=== PATIENT | male | born 1950 | race Caucasian/White ===

== ENCOUNTER → 2017-10-13 | Outpatient (CLI) | payer MEDICARE, OTHER | LOC: CARD 09:30 | PROVIDERS: ATTEND Internal Medicine | DX: I48.91 Unspecified atrial fibrillation (principal); I34.0 Nonrheumatic mitral (valve) insufficiency | CPT/HCPCS: 93306 ==

== ENCOUNTER → 2018-11-24 | Outpatient (CLI) | payer MEDICARE, OTHER | LOC: WOUNDCARE 09:15 | PROVIDERS: ATTEND Surgery | DX: L97.212 Non-pressure chronic ulcer of right calf with fat layer exposed (principal); L97.222 Non-pressure chronic ulcer of left calf with fat layer exposed; I87.333 Chronic venous hypertension (idiopathic) with ulcer and inflammation of bilateral lower extremity; I70.232 Atherosclerosis of native arteries of right leg with ulceration of calf; I89.0 Lymphedema, not elsewhere classified; E66.01 Morbid (severe) obesity due to excess calories | CPT/HCPCS: 11042 ==

== ENCOUNTER → 2018-11-24 | Outpatient (CLI) | payer MEDICARE, OTHER ==
[2018-11-24 12:59] LABS: BASOPHILS % (AUTO) 0 % (0-10); EOSINOPHILS # (AUTO) 0.1 10^3/uL (0.0-0.3); EOSINOPHILS % (AUTO) 1 % (0-10); HEMATOCRIT 43 % (40-54); LYMPHOCYTES # (AUTO) 2.2 X 10^3 (1.0-4.0); LYMPHOCYTES % (AUTO) 23 % (12-44); MEAN CORPUSCULAR HEMOGLOBIN 30 PG (25-34); MEAN CORPUSCULAR HGB CONC 33 G/DL (32-36); MEAN CORPUSCULAR VOLUME 91 FL (80-99); MEAN PLATELET VOLUME 10.3 FL (7.4-10.4); MONOCYTES # (AUTO) 0.6 X 10^3 (0.0-1.0); MONOCYTES % (AUTO) 6 % (0-12); NEUTROPHILS # (AUTO) 6.8 X 10^3 (1.8-7.8); NEUTROPHILS % (AUTO) 70 % (42-75); PLATELET COUNT 159 10^3/uL (130-400); WHITE BLOOD COUNT 9.6 10^3/uL (4.3-11.0)
[2018-11-24 13:24] LABS: ALANINE AMINOTRANSFERASE 34 U/L (0-55); ALBUMIN 4.3 GM/DL (3.2-4.5); ALKALINE PHOSPHATASE 85 U/L (40-136); BILIRUBIN,TOTAL 0.6 MG/DL (0.1-1.0); BUN/CREATININE RATIO 26; CALCIUM 10.3 MG/DL (8.5-10.1); CARBON DIOXIDE 22 MMOL/L (21-32); CHLORIDE 105 MMOL/L (98-107); CREATININE SERUM 1.06 MG/DL (0.60-1.30); GFR ESTIMATED > 60; GLUCOSE 101 MG/DL (70-105); POTASSIUM 4.1 MMOL/L (3.6-5.0); SODIUM 141 MMOL/L (135-145); TOTAL PROTEIN 7.2 GM/DL (6.4-8.2)
== END ==
LOC: RAD 12:26
PROVIDERS: ATTEND Surgery
DX: L97.222 Non-pressure chronic ulcer of left calf with fat layer exposed (principal); L97.212 Non-pressure chronic ulcer of right calf with fat layer exposed; I87.333 Chronic venous hypertension (idiopathic) with ulcer and inflammation of bilateral lower extremity; I70.232 Atherosclerosis of native arteries of right leg with ulceration of calf; I89.0 Lymphedema, not elsewhere classified; E66.01 Morbid (severe) obesity due to excess calories
CPT/HCPCS: 36415; 80053; 84134; 85025

== ENCOUNTER → 2018-11-29 | Outpatient (CLI) | payer MEDICARE, OTHER | LOC: WOUNDCARE 14:34 | PROVIDERS: ATTEND Surgery | DX: L97.212 Non-pressure chronic ulcer of right calf with fat layer exposed (principal); L97.222 Non-pressure chronic ulcer of left calf with fat layer exposed; I87.333 Chronic venous hypertension (idiopathic) with ulcer and inflammation of bilateral lower extremity; I70.232 Atherosclerosis of native arteries of right leg with ulceration of calf; I89.0 Lymphedema, not elsewhere classified; E66.01 Morbid (severe) obesity due to excess calories; I96 Gangrene, not elsewhere classified | CPT/HCPCS: 99213 ==

== ENCOUNTER → 2018-12-06 | Outpatient (CLI) | payer MEDICARE, OTHER | LOC: WOUNDCARE 14:24 | PROVIDERS: ATTEND Surgery | DX: L97.212 Non-pressure chronic ulcer of right calf with fat layer exposed (principal); L97.221 Non-pressure chronic ulcer of left calf limited to breakdown of skin; I87.332 Chronic venous hypertension (idiopathic) with ulcer and inflammation of left lower extremity; E66.01 Morbid (severe) obesity due to excess calories; I87.321 Chronic venous hypertension (idiopathic) with inflammation of right lower extremity; I96 Gangrene, not elsewhere classified ==

== ENCOUNTER → 2018-12-13 | Outpatient (CLI) | payer MEDICARE, OTHER | LOC: WOUNDCARE 13:50 | PROVIDERS: ATTEND Surgery | DX: L97.212 Non-pressure chronic ulcer of right calf with fat layer exposed (principal); L97.221 Non-pressure chronic ulcer of left calf limited to breakdown of skin; I87.332 Chronic venous hypertension (idiopathic) with ulcer and inflammation of left lower extremity; E66.01 Morbid (severe) obesity due to excess calories; I87.321 Chronic venous hypertension (idiopathic) with inflammation of right lower extremity; I96 Gangrene, not elsewhere classified | CPT/HCPCS: 99212 ==

== ENCOUNTER 2019-05-03 15:03 | Emergency (ER) | payer MEDICARE, OTHER ==
[~2019-05-03] VITALS: Ht 167.7 cm; Wt 145.5 kg
--- NOTE | 2019-05-03 15:16 | ED General ---
General Stated Complaint: FALL FEVER/WEAKNESS Source of Information: Patient Exam Limitations: No Limitations History of Present Illness Date Seen by Provider: May 03, 2019 Time Seen by Provider: 15:15 Initial Comments 68-year-old male presents with fall due to some generalized weakness. He describes it as more of a sliding down. With no injury. He does report that he has had dark urine with some dysuria for the last couple days. Subjective fever, he does have a cough and some generalized body aches. Patient reports he didn't take his medications including his diltiazem his last dose because he just had some generalized malaise. No nausea vomiting diarrhea or other systemic complaints. He does report a little bit of decreased appetite with his illness. Allergies and Home Medications Allergies Coded Allergies: No Known Drug Allergies (Unverified , 05/03/19) Patient Home Medication List Home Medication List Reviewed: Yes Review of Systems Review of Systems Constitutional: fever, malaise Respiratory: cough Cardiovascular: No chest pain, No edema Gastrointestinal: No abdominal pain, No diarrhea, No nausea, No vomiting Genitourinary: dysuria Musculoskeletal: no symptoms reported Skin: no symptoms reported Past Ptdrhoa-Unvlrz-Dcysrp Hx Past Med/Social Hx: Reviewed Nursing Past Med/Soc Hx Physical Exam Vital Signs Vital Signs - First Documented Capillary Refill : Height, Weight, BMI Height: '" Weight: lbs. oz. kg; BMI Method: General Appearance: No Apparent Distress, WD/WN Neck: Full Range of Motion, Normal Inspection Respiratory: Lungs Clear, Normal Breath Sounds Cardiovascular: Irregularly Irregular, Tachycardia Gastrointestinal: Non Tender, Soft Extremity: Normal Capillary Refill, Normal Inspection Neurologic/Psychiatric: Alert, Oriented x3, No Motor/Sensory Deficits Skin: Normal Color, Warm/Dry Lymphatic: No Adenopathy Focused Exam Lactate Level 05/03/19 15:25: Lactic Acid Level 1.68 Lactic Acid Level Laboratory Tests Test 05/03/19 15:25 Lactic Acid Level 1.68 MMOL/L (0.50-2.00) Progress/Results/Core Measures Suspected Sepsis SIRS Temperature: Pulse: Respiratory Rate: Laboratory Tests 05/03/19 15:00: White Blood Count 13.2H Blood Pressure / Mean: 05/03/19 15:25: Lactic Acid Level 1.68 Laboratory Tests 05/03/19 15:00: Creatinine 2.66H, Platelet Count 144, Total Bilirubin 0.6 Results/Orders Lab Results Laboratory Tests Test 05/03/19 15:00 05/03/19 15:25 05/03/19 15:41 05/03/19 16:40 Range/Units White Blood Count 13.2 H 4.3-11.0 10^3/uL Red Blood Count 4.33 L 4.35-5.85 10^6/uL Hemoglobin 12.7 L 13.3-17.7 G/DL Hematocrit 39 L 40-54 % Mean Corpuscular Volume 89 80-99 FL Mean Corpuscular Hemoglobin 29 25-34 PG Mean Corpuscular Hemoglobin Concent 33 32-36 G/DL Red Cell Distribution Width 16.0 H 10.0-14.5 % Platelet Count 144 130-400 10^3/uL Mean Platelet Volume 10.9 H 7.4-10.4 FL Neutrophils (%) (Auto) 86 H 42-75 % Lymphocytes (%) (Auto) 8 L 12-44 % Monocytes (%) (Auto) 7 0-12 % Eosinophils (%) (Auto) 0 0-10 % Basophils (%) (Auto) 0 0-10 % Neutrophils # (Auto) 11.3 H 1.8-7.8 X 10^3 Lymphocytes # (Auto) 1.0 1.0-4.0 X 10^3 Monocytes # (Auto) 0.9 0.0-1.0 X 10^3 Eosinophils # (Auto) 0.0 0.0-0.3 10^3/uL Basophils # (Auto) 0.0 0.0-0.1 10^3/uL Neutrophils % (Manual) 86 % Lymphocytes % (Manual) 10 % Monocytes % (Manual) 4 % Eosinophils % (Manual) 0 % Basophils % (Manual) 0 % Band Neutrophils 0 % Anisocytosis SLIGHT Sodium Level 137 135-145 MMOL/L Potassium Level 3.7 3.6-5.0 MMOL/L Chloride Level 102 98-107 MMOL/L Carbon Dioxide Level 23 21-32 MMOL/L Anion Gap 12 5-14 MMOL/L Blood Urea Nitrogen 62 H 7-18 MG/DL Creatinine 2.66 H 0.60-1.30 MG/DL Estimat Glomerular Filtration Rate 24 BUN/Creatinine Ratio 23 Glucose Level 109 H 70-105 MG/DL Calcium Level 8.6 8.5-10.1 MG/DL Corrected Calcium 9.0 8.5-10.1 MG/DL Total Bilirubin 0.6 0.1-1.0 MG/DL Aspartate Amino Transf (AST/SGOT) 26 5-34 U/L Alanine Aminotransferase (ALT/SGPT) 24 0-55 U/L Alkaline Phosphatase 70 40-136 U/L Total Protein 6.1 L 6.4-8.2 GM/DL Albumin 3.5 3.2-4.5 GM/DL Lactic Acid Level 1.68 0.50-2.00 MMOL/L Glucometer 111 H 70-110 MG/DL Urine Color YELLOW Urine Clarity TURBID Urine pH 5.0 5-9 Urine Specific [place] >=1.030 1.016-1.022 Urine Protein 1+ H NEGATIVE Urine Glucose (UA) NEGATIVE NEGATIVE Urine Ketones NEGATIVE NEGATIVE Urine Nitrite POSITIVE NEGATIVE Urine Bilirubin NEGATIVE NEGATIVE Urine Urobilinogen 0.2 < = 1.0 MG/DL Urine Leukocyte Esterase 1+ H NEGATIVE Urine RBC (Auto) 3+ H NEGATIVE Urine RBC 50-100 H /HPF Urine WBC 25-50 H /HPF Urine Squamous Epithelial Cells NONE /HPF Urine Crystals NONE /LPF Urine Bacteria LARGE H /HPF Urine Casts NONE /LPF Urine Mucus NEGATIVE /LPF Urine Culture Indicated YES Micro Results Microbiology 05/03/19 Influenza Types A,B Antigen (ABHISHEK) - Final, Complete My Orders Orders - KEREN LEBRON DO Cbc With Automated Diff (05/03/19 15:16) Comprehensive Metabolic Panel (05/03/19 15:16) Lactic Acid Analyzer (05/03/19 15:16) Ua Culture If Indicated (05/03/19 15:16) Influenza A And B Antigens (05/03/19 15:16) Accucheck Stat ONCE (05/03/19 15:16) Ekg Tracing (05/03/19 15:17) Ed Iv/Invasive Line Start (05/03/19 15:17) Ed Iv/Invasive Line Start (05/03/19 15:18) Ns Iv 1000 Ml (Sodium Chloride 0.9%) (05/03/19 15:18) Manual Differential (05/03/19 15:00) Urine Culture (05/03/19 16:40) Diltiazem Injection (Cardizem Injection) (05/03/19 17:00) Acetaminophen Tablet (Tylenol Tablet) (05/03/19 16:54) Ceftriaxone For Iv Use (Rocephin For I (05/03/19 17:30) Medications Given in ED Current Medications Medications Dose Ordered Sig/Rishabh Route Start Time Stop Time Status Last Admin Dose Admin Diltiazem HCl 10 mg ONCE ONCE IVP 05/03/19 17:00 05/03/19 17:01 DC 05/03/19 17:03 10 MG Vital Signs/I&O 05/03/19 05/03/19 15:03 15:03 Temp 36.9 Pulse 170 Resp 22 B/P (MAP) 127/77 (94) Pulse Ox 96 O2 Delivery Nasal Cannula High Flow N/C O2 Flow Rate 2.00 2.00 Capillary Refill : Departure Impression Primary Impression: Cystitis Additional Impression: Atrial fibrillation Qualified Codes: I48.91 - Unspecified atrial fibrillation Disposition: HOME, SELF-CARE Condition: Stable Departure-Patient Inst. Referrals: CARMEN ARIAS MD (PCP/Family) Primary Care Physician Patient Instructions: Atrial Fibrillation, Acute Cystitis (DC) Add. Discharge Instructions: Emergency department focuses on treating and ruling out life-threatening diseases. Whenever possible, a diagnosis is given. However, most patients are given an impression based on their history, physical exam, and workup during your brief time in the ER. Information about probable diagnosis and other educational material has been provided. Please take the time to read and under stand this information. It is very important that you follow up with a physician as discussed during the visit today. Failure to adhere to your follow-up instructions may lead to severe disability, injury, or so please make sure to keep your appointments or obtain one as requested. Please keep in mind the emergency department is not designed to your primary care or "family doctor" and nonurgent issues are best evaluated by an outpatient physician Scripts Cephalexin (Cephalexin) 500 Mg Tablet 500 MG PO QID, #20 TAB 0 Refills Prov: KEREN LEBRON DO 05/03/19 KEREN LEBRON DO May 03, 2019 15:16 POS
[2019-05-03] MEDS ORDERED: NS IV 1000 ML 1,000 ML IV SCH (15:18)
[2019-05-03 15:22] LABS: BASOPHILS % (AUTO) 0 % (0-10); EOSINOPHILS % (AUTO) 0 % (0-10); HEMATOCRIT 39 % (40-54); HEMOGLOBIN 12.7 G/DL (13.3-17.7); LYMPHOCYTES % (AUTO) 8 % (12-44); MEAN CORPUSCULAR HEMOGLOBIN 29 PG (25-34); MEAN CORPUSCULAR HGB CONC 33 G/DL (32-36); MEAN CORPUSCULAR VOLUME 89 FL (80-99); MEAN PLATELET VOLUME 10.9 FL (7.4-10.4); MONOCYTES # (AUTO) 0.9 X 10^3 (0.0-1.0); MONOCYTES % (AUTO) 7 % (0-12); NEUTROPHILS # (AUTO) 11.3 X 10^3 (1.8-7.8); NEUTROPHILS % (AUTO) 86 % (42-75); PLATELET COUNT 144 10^3/uL (130-400); WHITE BLOOD COUNT 13.2 10^3/uL (4.3-11.0)
[2019-05-03 15:37] LABS: ANISOCYTOSIS SLIGHT; BAND NEUTROPHILS 0 %; BASOPHILS % (MANUAL) 0 %; EOSINOPHILS % (MANUAL) 0 %; LYMPHOCYTES % (MANUAL) 10 %; MONOCYTES % (MANUAL) 4 %; NEUTROPHILS % (MANUAL) 86 %
[2019-05-03 15:40] LABS: ALBUMIN 3.5 GM/DL (3.2-4.5); BILIRUBIN,TOTAL 0.6 MG/DL (0.1-1.0); CALCIUM 8.6 MG/DL (8.5-10.1); CREATININE SERUM 2.66 MG/DL (0.60-1.30); POTASSIUM 3.7 MMOL/L (3.6-5.0); TOTAL PROTEIN 6.1 GM/DL (6.4-8.2)
--- NOTE | 2019-05-03 16:00 | NUR ---
Iv NS bolus initiated by CC ems, REHABILITATION SERVICES COORDINATOR, complete (1000ml intake).
[2019-05-03 16:45] LABS: BILIRUBIN,URINE NEGATIVE (NEGATIVE); CLARITY,URINE TURBID; COLOR,URINE YELLOW; GLUCOSE, URINE (UA) NEGATIVE (NEGATIVE); KETONES,URINE NEGATIVE (NEGATIVE); LEUKOCYTE ESTERASE ,URINE 1+ (NEGATIVE); NITRITE,URINE POSITIVE (NEGATIVE); PROTEIN,URINE 1+ (NEGATIVE)
[2019-05-03 16:52] LABS: BACTERIA,URINE LARGE /HPF; RBC,URINE 50-100 /HPF; WBC,URINE 25-50 /HPF
[2019-05-03] MEDS ORDERED: ACETAMINOPHEN 500 MG TAB (TYLENOL) PO STA (16:54)
[2019-05-03] MEDS ORDERED: DILTIAZEM 25 MG/5 ML INJ (CARDIZEM) VIAL IVP ONE (17:00)
[2019-05-03] MEDS ORDERED: CEPH500T PO (17:21)
[2019-05-03] MEDS ORDERED: WATER (STERILE) FOR INJECTION 10 ML ONE (17:22)
[2019-05-03] MEDS ORDERED: cefTRIAXone FOR IV USE 1,000 MG in WATER (STERILE) FOR INJECTION 10 ML IV ONE (17:30)
[2019-05-03 17:50] VITALS: BP 107/61
== END 2019-05-03 17:50 | disposition home or self-care (01) ==
LOC: EDUNIT# 15:03 → ER 15:06
DX: N30.90 Cystitis, unspecified without hematuria (principal); I48.91 Unspecified atrial fibrillation
CPT/HCPCS: 36415; 80053; 81000; 82962; 83605; 85007; 85027; 87077; 87088; 87186; 87804; 93005; 96361; 96374; 96375

== ENCOUNTER → 2021-06-16 | Outpatient (CLI) | payer MEDICARE, OTHER ==
[~2021-06-16] MED LIST: CEPH500T PO
== END ==
LOC: WOUNDCARE 12:15
PROVIDERS: ATTEND Family Medicine
DX: L97.222 Non-pressure chronic ulcer of left calf with fat layer exposed (principal); L97.212 Non-pressure chronic ulcer of right calf with fat layer exposed; I87.333 Chronic venous hypertension (idiopathic) with ulcer and inflammation of bilateral lower extremity; L03.115 Cellulitis of right lower limb; L03.116 Cellulitis of left lower limb; I89.0 Lymphedema, not elsewhere classified; E11.622 Type 2 diabetes mellitus with other skin ulcer; E66.09 Other obesity due to excess calories; E11.52 Type 2 diabetes mellitus with diabetic peripheral angiopathy with gangrene
CPT/HCPCS: 99213

== ENCOUNTER → 2021-06-16 | Outpatient (CLI) | payer MEDICARE, OTHER ==
[2021-06-16 14:27] LABS: BASOPHILS # (AUTO) 0.1 10^3/uL (0.0-0.1); BASOPHILS % (AUTO) 1 % (0-10); EOSINOPHILS # (AUTO) 0.1 10^3/uL (0.0-0.3); EOSINOPHILS % (AUTO) 1 % (0-10); HEMATOCRIT 44 % (40-54); HEMOGLOBIN 13.7 g/dL (13.3-17.7); LYMPHOCYTES # (AUTO) 1.9 10^3/uL (1.0-4.0); LYMPHOCYTES % (AUTO) 20 % (12-44); MEAN CORPUSCULAR HEMOGLOBIN 29 pg (25-34); MEAN CORPUSCULAR HGB CONC 31 g/dL (32-36); MEAN CORPUSCULAR VOLUME 92 fL (80-99); MEAN PLATELET VOLUME 10.1 fL (9.0-12.2); MONOCYTES # (AUTO) 0.7 10^3/uL (0.0-1.0); MONOCYTES % (AUTO) 8 % (0-12); NEUTROPHILS # (AUTO) 6.7 10^3/uL (1.8-7.8); NEUTROPHILS % (AUTO) 70 % (42-75); PLATELET COUNT 178 10^3/uL (130-400); WHITE BLOOD COUNT 9.5 10^3/uL (4.3-11.0)
[2021-06-16 14:43] LABS: ALBUMIN 4.1 GM/DL (3.2-4.5); BILIRUBIN,TOTAL 0.8 MG/DL (0.1-1.0); CALCIUM 9.9 MG/DL (8.5-10.1); CREATININE SERUM 1.09 MG/DL (0.60-1.30); POTASSIUM 4.3 MMOL/L (3.6-5.0); TOTAL PROTEIN 7.3 GM/DL (6.4-8.2)
== END ==
LOC: LAB 13:51
PROVIDERS: ATTEND Family Medicine
DX: L97.222 Non-pressure chronic ulcer of left calf with fat layer exposed (principal)
CPT/HCPCS: 36415; 80053; 83036; 85025

== ENCOUNTER → 2021-06-22 | Outpatient (CLI) | payer MEDICARE, OTHER | LOC: WOUNDCARE 13:36 | PROVIDERS: ATTEND Family Medicine | DX: L97.222 Non-pressure chronic ulcer of left calf with fat layer exposed (principal); L97.212 Non-pressure chronic ulcer of right calf with fat layer exposed; I87.333 Chronic venous hypertension (idiopathic) with ulcer and inflammation of bilateral lower extremity; L03.115 Cellulitis of right lower limb; L03.116 Cellulitis of left lower limb; I89.0 Lymphedema, not elsewhere classified; E11.622 Type 2 diabetes mellitus with other skin ulcer; E66.09 Other obesity due to excess calories; E11.52 Type 2 diabetes mellitus with diabetic peripheral angiopathy with gangrene | CPT/HCPCS: 11042; 11045; A6207; A6253; G0463 ==

== ENCOUNTER → 2021-06-29 | Outpatient (CLI) | payer MEDICARE, OTHER | LOC: WOUNDCARE 15:28 | PROVIDERS: ATTEND Family Medicine | DX: L97.222 Non-pressure chronic ulcer of left calf with fat layer exposed (principal); L97.212 Non-pressure chronic ulcer of right calf with fat layer exposed; I87.333 Chronic venous hypertension (idiopathic) with ulcer and inflammation of bilateral lower extremity; I89.0 Lymphedema, not elsewhere classified; E11.622 Type 2 diabetes mellitus with other skin ulcer; E66.09 Other obesity due to excess calories; E11.52 Type 2 diabetes mellitus with diabetic peripheral angiopathy with gangrene | CPT/HCPCS: 11042 ==

== ENCOUNTER → 2021-07-06 | Outpatient (CLI) | payer MEDICARE, OTHER | LOC: WOUNDCARE 15:24 | PROVIDERS: ATTEND Family Medicine | DX: I87.331 Chronic venous hypertension (idiopathic) with ulcer and inflammation of right lower extremity (principal); L97.212 Non-pressure chronic ulcer of right calf with fat layer exposed; I89.0 Lymphedema, not elsewhere classified; E11.622 Type 2 diabetes mellitus with other skin ulcer; E11.52 Type 2 diabetes mellitus with diabetic peripheral angiopathy with gangrene; E66.09 Other obesity due to excess calories; Z68.42 Body mass index [BMI] 45.0-49.9, adult | CPT/HCPCS: 29581; G0463; 99212 ==

== ENCOUNTER → 2021-07-13 | Outpatient (CLI) | payer MEDICARE, OTHER | LOC: WOUNDCARE 14:27 | PROVIDERS: ATTEND Family Medicine | DX: E11.52 Type 2 diabetes mellitus with diabetic peripheral angiopathy with gangrene (principal); E11.622 Type 2 diabetes mellitus with other skin ulcer; L97.212 Non-pressure chronic ulcer of right calf with fat layer exposed; I87.331 Chronic venous hypertension (idiopathic) with ulcer and inflammation of right lower extremity; I89.0 Lymphedema, not elsewhere classified; I96 Gangrene, not elsewhere classified; E66.09 Other obesity due to excess calories; Z68.42 Body mass index [BMI] 45.0-49.9, adult | CPT/HCPCS: 97597; A6197; G0463 ==

== ENCOUNTER → 2021-07-20 | Outpatient (CLI) | payer MEDICARE, OTHER | LOC: WOUNDCARE 15:26 | PROVIDERS: ATTEND Family Medicine | DX: I87.331 Chronic venous hypertension (idiopathic) with ulcer and inflammation of right lower extremity (principal); I89.0 Lymphedema, not elsewhere classified; E11.622 Type 2 diabetes mellitus with other skin ulcer; E66.09 Other obesity due to excess calories; E11.52 Type 2 diabetes mellitus with diabetic peripheral angiopathy with gangrene | CPT/HCPCS: 99212 ==

== ENCOUNTER → 2021-12-07 | Outpatient (CLI) | payer MEDICARE, OTHER | LOC: WOUNDCARE 13:12 | PROVIDERS: ATTEND Family Medicine | DX: L97.812 Non-pressure chronic ulcer of other part of right lower leg with fat layer exposed (principal); L97.822 Non-pressure chronic ulcer of other part of left lower leg with fat layer exposed; L03.115 Cellulitis of right lower limb; L03.116 Cellulitis of left lower limb; I87.333 Chronic venous hypertension (idiopathic) with ulcer and inflammation of bilateral lower extremity; I89.0 Lymphedema, not elsewhere classified; L24.A9 Irritant contact dermatitis due friction or contact with other specified body fluids; E66.01 Morbid (severe) obesity due to excess calories; M62.81 Muscle weakness (generalized); R29.6 Repeated falls | CPT/HCPCS: 11042; A6197; G0463 ==

== ENCOUNTER → 2021-12-14 | Outpatient (CLI) | payer MEDICARE, OTHER | LOC: WOUNDCARE 12:59 | PROVIDERS: ATTEND Family Medicine | DX: L97.812 Non-pressure chronic ulcer of other part of right lower leg with fat layer exposed (principal); L97.922 Non-pressure chronic ulcer of unspecified part of left lower leg with fat layer exposed; E11.621 Type 2 diabetes mellitus with foot ulcer; L97.522 Non-pressure chronic ulcer of other part of left foot with fat layer exposed; L03.115 Cellulitis of right lower limb; L03.116 Cellulitis of left lower limb; I87.333 Chronic venous hypertension (idiopathic) with ulcer and inflammation of bilateral lower extremity; I89.0 Lymphedema, not elsewhere classified; L24.A9 Irritant contact dermatitis due friction or contact with other specified body fluids; E66.01 Morbid (severe) obesity due to excess calories; R53.1 Weakness; R29.6 Repeated falls; E11.52 Type 2 diabetes mellitus with diabetic peripheral angiopathy with gangrene; I96 Gangrene, not elsewhere classified | CPT/HCPCS: 11042; A6197; A6212; G0463 ==

== ENCOUNTER → 2021-12-21 | Outpatient (CLI) | payer MEDICARE, OTHER ==
[2021-12-21 14:12] LABS: BASOPHILS % (AUTO) 0 % (0-10); EOSINOPHILS # (AUTO) 0.1 10^3/uL (0.0-0.3); EOSINOPHILS % (AUTO) 1 % (0-10); HEMATOCRIT 42 % (40-54); LYMPHOCYTES # (AUTO) 2.1 10^3/uL (1.0-4.0); LYMPHOCYTES % (AUTO) 23 % (12-44); MEAN CORPUSCULAR HEMOGLOBIN 28 pg (25-34); MEAN CORPUSCULAR HGB CONC 31 g/dL (32-36); MEAN CORPUSCULAR VOLUME 88 fL (80-99); MEAN PLATELET VOLUME 9.4 fL (9.0-12.2); MONOCYTES # (AUTO) 0.8 10^3/uL (0.0-1.0); MONOCYTES % (AUTO) 9 % (0-12); NEUTROPHILS # (AUTO) 5.9 10^3/uL (1.8-7.8); NEUTROPHILS % (AUTO) 66 % (42-75); PLATELET COUNT 151 10^3/uL (130-400); WHITE BLOOD COUNT 8.9 10^3/uL (4.3-11.0)
[2021-12-21 14:34] LABS: ERYTHROCYTE SEDIMENTATION RATE 7 MM/HR (0-30)
[2021-12-21 14:39] LABS: CALCIUM 9.5 MG/DL (8.5-10.1); CREATININE SERUM 1.13 MG/DL (0.60-1.30); POTASSIUM 4.3 MMOL/L (3.6-5.0)
== END ==
LOC: WOUNDCARE 12:59
PROVIDERS: ATTEND Family Medicine
DX: I87.333 Chronic venous hypertension (idiopathic) with ulcer and inflammation of bilateral lower extremity (principal); L97.812 Non-pressure chronic ulcer of other part of right lower leg with fat layer exposed; L97.822 Non-pressure chronic ulcer of other part of left lower leg with fat layer exposed; E55.9 Vitamin D deficiency, unspecified; I96 Gangrene, not elsewhere classified; L03.115 Cellulitis of right lower limb; I89.0 Lymphedema, not elsewhere classified; L24.A9 Irritant contact dermatitis due friction or contact with other specified body fluids; E66.01 Morbid (severe) obesity due to excess calories; M62.81 Muscle weakness (generalized); L97.522 Non-pressure chronic ulcer of other part of left foot with fat layer exposed; E11.621 Type 2 diabetes mellitus with foot ulcer; E11.52 Type 2 diabetes mellitus with diabetic peripheral angiopathy with gangrene; R29.6 Repeated falls; Z68.43 Body mass index [BMI] 50.0-59.9, adult
CPT/HCPCS: 11042; 11045; 80048; 82306; 82607; 82746; 85025; 85652; 86141; G0463; 36415

== ENCOUNTER → 2021-12-28 | Outpatient (CLI) | payer MEDICARE, OTHER | LOC: WOUNDCARE 12:59 | PROVIDERS: ATTEND Family Medicine | DX: L97.812 Non-pressure chronic ulcer of other part of right lower leg with fat layer exposed (principal); L97.822 Non-pressure chronic ulcer of other part of left lower leg with fat layer exposed; I87.333 Chronic venous hypertension (idiopathic) with ulcer and inflammation of bilateral lower extremity; I89.0 Lymphedema, not elsewhere classified; L24.A9 Irritant contact dermatitis due friction or contact with other specified body fluids; E66.01 Morbid (severe) obesity due to excess calories; M62.81 Muscle weakness (generalized); L97.522 Non-pressure chronic ulcer of other part of left foot with fat layer exposed; E11.621 Type 2 diabetes mellitus with foot ulcer; E11.52 Type 2 diabetes mellitus with diabetic peripheral angiopathy with gangrene; R25.2 Cramp and spasm; R29.6 Repeated falls | CPT/HCPCS: 11042; 11045; 87070; 87077; 87205; A6197; G0463 ==

== ENCOUNTER → 2022-01-04 | Outpatient (CLI) | payer MEDICARE, OTHER | LOC: WOUNDCARE 13:02 | PROVIDERS: ATTEND Family Medicine | DX: I87.333 Chronic venous hypertension (idiopathic) with ulcer and inflammation of bilateral lower extremity (principal); L97.812 Non-pressure chronic ulcer of other part of right lower leg with fat layer exposed; L97.822 Non-pressure chronic ulcer of other part of left lower leg with fat layer exposed; I89.0 Lymphedema, not elsewhere classified; L24.A9 Irritant contact dermatitis due friction or contact with other specified body fluids; E66.01 Morbid (severe) obesity due to excess calories; L97.522 Non-pressure chronic ulcer of other part of left foot with fat layer exposed; E11.621 Type 2 diabetes mellitus with foot ulcer; B96.5 Pseudomonas (aeruginosa) (mallei) (pseudomallei) as the cause of diseases classified elsewhere; B95.1 Streptococcus, group B, as the cause of diseases classified elsewhere; E11.52 Type 2 diabetes mellitus with diabetic peripheral angiopathy with gangrene; I96 Gangrene, not elsewhere classified; M62.81 Muscle weakness (generalized); R29.6 Repeated falls; Z68.43 Body mass index [BMI] 50.0-59.9, adult | CPT/HCPCS: 11042; 11045; G0463 ==

== ENCOUNTER → 2022-01-11 | Outpatient (CLI) | payer MEDICARE, OTHER | LOC: WOUNDCARE 13:02 | PROVIDERS: ATTEND Family Medicine | DX: I87.333 Chronic venous hypertension (idiopathic) with ulcer and inflammation of bilateral lower extremity (principal); E11.621 Type 2 diabetes mellitus with foot ulcer; L97.212 Non-pressure chronic ulcer of right calf with fat layer exposed; L97.222 Non-pressure chronic ulcer of left calf with fat layer exposed; L97.812 Non-pressure chronic ulcer of other part of right lower leg with fat layer exposed; I89.0 Lymphedema, not elsewhere classified; L24.A9 Irritant contact dermatitis due friction or contact with other specified body fluids; E66.01 Morbid (severe) obesity due to excess calories; E11.52 Type 2 diabetes mellitus with diabetic peripheral angiopathy with gangrene; I96 Gangrene, not elsewhere classified; B96.5 Pseudomonas (aeruginosa) (mallei) (pseudomallei) as the cause of diseases classified elsewhere; B95.1 Streptococcus, group B, as the cause of diseases classified elsewhere; L03.116 Cellulitis of left lower limb; L03.115 Cellulitis of right lower limb; R25.2 Cramp and spasm; R29.6 Repeated falls; Z91.19 Patient's noncompliance with other medical treatment and regimen; Z68.42 Body mass index [BMI] 45.0-49.9, adult | CPT/HCPCS: 11042; 11045; 87070; 87205; A6197; G0463; 87077 ==

== ENCOUNTER → 2022-01-14 | Outpatient (CLI) | payer MEDICARE, OTHER ==
--- NOTE | 2022-01-14 11:33 | Diagnostic Imaging Report ---
EXAMINATION: Magnetic resonance imaging of the left ankle without contrast. DATE: January 14, 2022. COMPARISON: None. HISTORY: 71-year-old male, ulcer of the lateral mid to hindfoot. Pain. Concern for osteomyelitis. TECHNIQUE: Magnetic Resonance Imaging sequences were performed of the ankle without contrast. FINDINGS: TENDONS AND LIGAMENTS: There is thickening of the Achilles tendon with anterior convex margin compatible with Achilles tendinopathy. There is no identified fluid-filled tear of the Achilles tendon. The posterior flexor tendons - tibialis posterior, flexor digitorum longus, flexor hallucis longus - are intact. The peroneal tendons - peroneus longus and peroneus brevis - are intact. The anterior extensor tendons - tibialis anterior, extensor hallucis longus and extensor digitorum longus tendons - are intact. The anterior and posterior syndesmotic ligaments are intact. The anterior talofibular, posterior talofibular, calcaneofibular and deltoid ligaments are intact. There is thickening in the medial cord of the plantar fascia. There is no identified tear of the plantar fascia. There is no evidence of active plantar fasciitis. JOINTS: The ankle mortise is intact. The subtalar and visualized joints of the mid-foot are intact. BONE: The bones all have normal configuration. The bone marrow signal is within normal limits. Specifically, negative for fracture, osteomyelitis, osteonecrosis, or marrow replacing process. The talar dome is intact. BURSAE AND SOFT TISSUES: There is a contour abnormality laterally located near the level of the base of the fifth metatarsal. Recommend correlation with physical exam for potential skin ulcer. There is subcutaneous edema at this location without clearly identified focal fluid collection on noncontrast imaging assessment. This is at the marker denoting area of focal concern. There is prominent diffuse fatty muscle atrophy. There are technical limitations of the exam relating to low [id number] ratio. IMPRESSION: 1. Probable skin ulcer laterally located at the level of the base of the fifth metatarsal with underlying subcutaneous edema. No identified focal fluid collection or abscess on noncontrast imaging assessment. 2. No evidence of osteomyelitis or other acute osseous abnormality. 3. Achilles tendinopathy. Negative for tendon tear. 4. Unremarkable joint evaluation. 5. Prominent diffuse fatty muscle atrophy which may reflect polyneuropathy. Dictated by: Dictated on workstation # [id number]
== END ==
LOC: RAD 09:50
PROVIDERS: ATTEND Podiatrist Foot & Ankle Surgery
DX: S91.302A Unspecified open wound, left foot, initial encounter (principal)

== ENCOUNTER → 2022-01-18 | Outpatient (CLI) | payer MEDICARE, OTHER | LOC: WOUNDCARE 12:57 | PROVIDERS: ATTEND Family Medicine | DX: L97.812 Non-pressure chronic ulcer of other part of right lower leg with fat layer exposed (principal); L97.822 Non-pressure chronic ulcer of other part of left lower leg with fat layer exposed; I87.333 Chronic venous hypertension (idiopathic) with ulcer and inflammation of bilateral lower extremity; I89.0 Lymphedema, not elsewhere classified; L24.A9 Irritant contact dermatitis due friction or contact with other specified body fluids; E66.01 Morbid (severe) obesity due to excess calories; M62.81 Muscle weakness (generalized); L97.522 Non-pressure chronic ulcer of other part of left foot with fat layer exposed; R29.6 Repeated falls; E11.621 Type 2 diabetes mellitus with foot ulcer; B96.5 Pseudomonas (aeruginosa) (mallei) (pseudomallei) as the cause of diseases classified elsewhere; B95.1 Streptococcus, group B, as the cause of diseases classified elsewhere; L03.115 Cellulitis of right lower limb; L03.116 Cellulitis of left lower limb; E11.622 Type 2 diabetes mellitus with other skin ulcer; Z91.19 Patient's noncompliance with other medical treatment and regimen; E11.52 Type 2 diabetes mellitus with diabetic peripheral angiopathy with gangrene | CPT/HCPCS: 11042; 11045; G0463 ==

== ENCOUNTER → 2022-01-26 | Outpatient (CLI) | payer MEDICARE, OTHER | LOC: WOUNDCARE 12:58 | PROVIDERS: ATTEND Family Medicine | DX: L97.812 Non-pressure chronic ulcer of other part of right lower leg with fat layer exposed (principal); L97.822 Non-pressure chronic ulcer of other part of left lower leg with fat layer exposed; I87.333 Chronic venous hypertension (idiopathic) with ulcer and inflammation of bilateral lower extremity; I89.0 Lymphedema, not elsewhere classified; L24.A9 Irritant contact dermatitis due friction or contact with other specified body fluids; E66.01 Morbid (severe) obesity due to excess calories; M62.81 Muscle weakness (generalized); L97.522 Non-pressure chronic ulcer of other part of left foot with fat layer exposed; R29.6 Repeated falls; E11.621 Type 2 diabetes mellitus with foot ulcer; B96.5 Pseudomonas (aeruginosa) (mallei) (pseudomallei) as the cause of diseases classified elsewhere; B95.1 Streptococcus, group B, as the cause of diseases classified elsewhere; L03.115 Cellulitis of right lower limb; L03.116 Cellulitis of left lower limb; E11.622 Type 2 diabetes mellitus with other skin ulcer; Z91.19 Patient's noncompliance with other medical treatment and regimen; E11.52 Type 2 diabetes mellitus with diabetic peripheral angiopathy with gangrene | CPT/HCPCS: 11042; A6197; G0463 ==

== ENCOUNTER → 2022-02-01 | Outpatient (CLI) | payer MEDICARE, OTHER | LOC: WOUNDCARE 12:55 | PROVIDERS: ATTEND Family Medicine | DX: L97.522 Non-pressure chronic ulcer of other part of left foot with fat layer exposed (principal); L97.812 Non-pressure chronic ulcer of other part of right lower leg with fat layer exposed; I87.333 Chronic venous hypertension (idiopathic) with ulcer and inflammation of bilateral lower extremity; I89.0 Lymphedema, not elsewhere classified; L24.A9 Irritant contact dermatitis due friction or contact with other specified body fluids; E66.01 Morbid (severe) obesity due to excess calories; R53.1 Weakness; R29.6 Repeated falls; E11.622 Type 2 diabetes mellitus with other skin ulcer; Z91.19 Patient's noncompliance with other medical treatment and regimen; I96 Gangrene, not elsewhere classified | CPT/HCPCS: 11042; 11045; G0463 ==

== ENCOUNTER 2022-02-08 14:22 | Emergency (ER) | payer MEDICARE, OTHER ==
[~2022-02-08] VITALS: Ht 172 cm; Wt 133.8 kg
[~2022-02-08 14:22] MED LIST changes: -DILT240C92 PO
[2022-02-08 14:44] LABS: BASOPHILS % (AUTO) 1 % (0-10); EOSINOPHILS # (AUTO) 0.1 10^3/uL (0.0-0.3); EOSINOPHILS % (AUTO) 1 % (0-10); HEMATOCRIT 39 % (40-54); LYMPHOCYTES # (AUTO) 2.1 X 10^3 (1.0-4.0); LYMPHOCYTES % (AUTO) 25 % (12-44); MEAN CORPUSCULAR HEMOGLOBIN 27 pg (25-34); MEAN CORPUSCULAR HGB CONC 31 g/dL (32-36); MEAN CORPUSCULAR VOLUME 89 fL (80-99); MEAN PLATELET VOLUME 10.1 fL (9.0-12.2); MONOCYTES # (AUTO) 0.6 X 10^3 (0.0-1.0); MONOCYTES % (AUTO) 7 % (0-12); NEUTROPHILS # (AUTO) 5.8 X 10^3 (1.8-7.8); NEUTROPHILS % (AUTO) 67 % (42-75); PLATELET COUNT 161 10^3/uL (130-400); WHITE BLOOD COUNT 8.7 10^3/uL (4.3-11.0)
[2022-02-08] MEDS ORDERED: ASPIRIN 81 MG CHEW (CHILDREN'S ASA) PO ONE (14:45)
[2022-02-08 14:50] LABS: ALBUMIN 3.6 GM/DL (3.2-4.5)
[2022-02-08 14:51] LABS: POTASSIUM 4.2 MMOL/L (3.6-5.0)
[2022-02-08 14:52] LABS: CALCIUM 9.1 MG/DL (8.5-10.1)
[2022-02-08 14:53] LABS: TOTAL PROTEIN 6.6 GM/DL (6.4-8.2)
[2022-02-08 14:55] LABS: BILIRUBIN,TOTAL 1.2 MG/DL (0.1-1.0); INR 3.3 (0.8-1.4); PROTHROMBIN TIME PATIENT 34.1 SEC (12.2-14.7)
[2022-02-08 14:57] LABS: CREATININE SERUM 0.83 MG/DL (0.60-1.30)
[2022-02-08 15:00] LABS: MAGNESIUM 1.5 MG/DL (1.6-2.4)
--- NOTE | 2022-02-08 15:11 | ED Cardiac General ---
History of Present Illness General Chief Complaint: Cardiac/General Problems Stated Complaint: TROUBLE BREATHING Nursing Triage Note: PT PRESENTS TO ED VIA POV FROM WOUND CARE WITH COMPLAINTS OF INCREASED SOA AND RACING HR. PT SON REPORTS WHEN PT WAS WALKING INTO WOUND CARE HIS SOA INCREASED. Source: patient Exam Limitations: no limitations History of Present Illness Date Seen by Provider: Feb 08, 2022 Time Seen by Provider: 15:08 Initial Comments To ER by wheelchair from wound care with reports of increased shortness of breath. This started upon walking into the hospital this morning. He has wounds to bilateral lower extremities that he is seeing wound care for. He has known atrial fibrillation. He is on Xarelto. He has had a little cough. No fevers or chills. Does not follow with cardiology. Within the past few weeks has had a few of his cardiac medications stopped due to hypotension, he does not recall which ones were stopped. Timing/Duration: 4-6 hours Severity: moderate Activities at Onset: none Prior CP/Workup: no prior chest pain NTG SL MANAGER COMMERCIAL REAL ESTATE: No ASA po MANAGER COMMERCIAL REAL ESTATE: No Associated Systoms: No Chest Pain Allergies and Home Medications Allergies Coded Allergies: No Known Drug Allergies (Unverified , 05/03/19) Patient Home Medication List Home Medication List Reviewed: Yes Cephalexin (Cephalexin) 500 Mg Tablet, 500 MG PO QID Prescribed by: KEREN LEBRON on 05/03/19 1721 Diltiazem HCl (Diltiazem 24Hr Cd) 240 Mg Cap.er.24h, 240 MG PO DAILY Prescribed by: LITO BUITRAGO on 02/08/22 1602 Review of Systems Review of Systems Constitutional: see HPI EENTM: No Symptoms Reported Respiratory: See HPI, Shortness of Air, SOA With Exertion Cardiovascular: See HPI; Denies Chest Pain; Irregular Heart Rate Gastrointestinal: See HPI Genitourinary: No Symptoms Reported Musculoskeletal: no symptoms reported Skin: no symptoms reported Psychiatric/Neurological: No Symptoms Reported Endocrine: No Symptoms Reported Hematologic/Lymphatic: No Symptoms Reported Past Dpramwo-Yybnex-Ponejg Hx Patient Social History Tobacco Use?: No Substance use?: No Alcohol Use?: Yes Alcohol Frequency: Rarely Pt feels they are or have been: No Immunizations Up To Date First/Initial COVID19 Vaccinat: J&J, MODERNA Past Medical History Surgery/Hospitalization HX: PMH: NEUROPATHY, PREDIABETIC, HTN, HIGH CHOL Surgeries: Yes Respiratory: No Cardiac: Yes Atrial Fibrillation, High Cholesterol, Hypertension, Irregular Heartbeat Neurological: Yes Neuropathy Genitourinary: No Gastrointestinal: No Musculoskeletal: No Endocrine: No HEENT: No Cancer: No Psychosocial: No Integumentary: No Physical Exam Vital Signs Vital Signs - First Documented 02/08/22 14:44 Temp 36.8 Pulse 141 Resp 20 B/P (MAP) 143/115 (124) Pulse Ox 92 Capillary Refill : Less Than 3 Seconds Height, Weight, BMI Height: '" Weight: lbs. oz. kg; 45.00 BMI Method: General Appearance: No Apparent Distress, WD/WN, Obese, Other (Alert oriented GCS 15. Oxygen saturation 88% on room air. Typically he says that he runs about 92% at home.) Neck: Full Range of Motion, Normal Inspection Respiratory: Normal Breath Sounds, No Accessory Muscle Use Cardiovascular: Normal Peripheral Pulses, Irregularly Irregular, Tachycardia (Narrow complex irregular rate of 130-150) Gastrointestinal: Normal Bowel Sounds, Non Tender, Soft Extremity: Normal Capillary Refill, No Calf Tenderness, Other (Unna boots bilateral lower extremity just placed by wound care) Neurologic/Psychiatric: Alert, Oriented x3 Skin: Normal Color, Warm/Dry Progress/Results/Core Measures Results/Orders Lab Results Laboratory Tests Test 02/08/22 14:33 02/08/22 15:11 02/08/22 15:22 Range/Units White Blood Count 8.7 4.3-11.0 10^3/uL Red Blood Count 4.40 4.30-5.52 10^6/uL Hemoglobin 12.0 L 13.3-17.7 g/dL Hematocrit 39 L 40-54 % Mean Corpuscular Volume 89 80-99 fL Mean Corpuscular Hemoglobin 27 25-34 pg Mean Corpuscular Hemoglobin Concent 31 L 32-36 g/dL Red Cell Distribution Width 22.8 H 10.0-14.5 % Platelet Count 161 130-400 10^3/uL Mean Platelet Volume 10.1 9.0-12.2 fL Immature Granulocyte % (Auto) 1 % Neutrophils (%) (Auto) 67 42-75 % Lymphocytes (%) (Auto) 25 12-44 % Monocytes (%) (Auto) 7 0-12 % Eosinophils (%) (Auto) 1 0-10 % Basophils (%) (Auto) 1 0-10 % Neutrophils # (Auto) 5.8 1.8-7.8 X 10^3 Lymphocytes # (Auto) 2.1 1.0-4.0 X 10^3 Monocytes # (Auto) 0.6 0.0-1.0 X 10^3 Eosinophils # (Auto) 0.1 0.0-0.3 10^3/uL Basophils # (Auto) 0.0 0.0-0.1 10^3/uL Immature Granulocyte # (Auto) 0.1 0.0-0.1 10^3/uL Prothrombin Time 34.1 H 12.2-14.7 SEC INR Comment 3.3 H 0.8-1.4 Activated Partial Thromboplast Time 50 H 24-35 SEC Sodium Level 144 135-145 MMOL/L Potassium Level 4.2 3.6-5.0 MMOL/L Chloride Level 106 98-107 MMOL/L Carbon Dioxide Level 20 L 21-32 MMOL/L Anion Gap 18 H 5-14 MMOL/L Blood Urea Nitrogen 15 7-18 MG/DL Creatinine 0.83 0.60-1.30 MG/DL Estimat Glomerular Filtration Rate 92 BUN/Creatinine Ratio 18 Glucose Level 97 70-105 MG/DL Calcium Level 9.1 8.5-10.1 MG/DL Corrected Calcium 9.4 8.5-10.1 MG/DL Magnesium Level 1.5 L 1.6-2.4 MG/DL Total Bilirubin 1.2 H 0.1-1.0 MG/DL Aspartate Amino Transf (AST/SGOT) 28 5-34 U/L Alanine Aminotransferase (ALT/SGPT) 23 0-55 U/L Alkaline Phosphatase 76 40-136 U/L Myoglobin 76.0 10.0-92.0 NG/ML Troponin I < 0.028 <0.028 NG/ML B-Type Natriuretic Peptide 668.0 H <100.0 PG/ML Total Protein 6.6 6.4-8.2 GM/DL Albumin 3.6 3.2-4.5 GM/DL Bedside Blood Gas pH (LAB) 7.373 7.310-7.410 Bedside Blood Gas pCO2 (LAB) 40.3 L 41.0-51.0 mmHg Bedside Blood Gas pO2 (LAB) 75 L 80-105 mmHg Bedside Blood Gas HCO3 (LAB) 23.5 23.0-28.0 mmol/L POC Blood Gas Total CO2 Calc 25 24-29 mmol/L Bedside Bl Gas O2 Saturation (Calc) 94 L 95-98 % Bedside Arterial Blood Base Excess -2 -2-3 mmol/L SARS-CoV-2 RNA (RT-PCR) Not Detected Not Detecte My Orders Orders - LITO BUITRAGO PHOTOENGRAVING PROOFER Cbc With Automated Diff (02/08/22 14:35) Magnesium (02/08/22 14:35) Chest 1 View, Ap/Pa Only (02/08/22 14:35) Ekg Tracing (02/08/22 14:35) Comprehensive Metabolic Panel (02/08/22 14:35) Myoglobin Serum (02/08/22 14:35) Protime With Inr (02/08/22 14:35) Partial Thromboplastin Time (02/08/22 14:35) O2 (02/08/22 14:35) Monitor-Rhythm Ecg Trace Only (02/08/22 14:35) Lipid Panel (02/09/22 06:00) Ed Iv/Invasive Line Start (02/08/22 14:35) Bnp [place] (02/08/22 14:35) Troponin I Felisa (02/08/22 14:35) Aspirin Chewable Tablet (Baby Aspirin Ch (02/08/22 14:45) Covid 19 Inhouse Test (02/08/22 14:35) Diltiazem Injection (Cardizem Injection) (02/08/22 15:15) Diltiazem Drip Pre-Mix (Cardizem Drip Pr (02/08/22 15:15) Magnesium 1 Gm/100 Ml Ivpb (Magnesium Ramirez (02/08/22 15:30) Medications Given in ED Current Medications Medications Dose Ordered Sig/Rishabh Route Start Time Stop Time Status Last Admin Dose Admin Aspirin 324 mg ONCE ONCE PO 02/08/22 14:45 02/08/22 14:46 DC 02/08/22 14:52 324 MG Diltiazem HCl 10 mg ONCE ONCE IVP 02/08/22 15:15 02/08/22 15:16 DC 02/08/22 15:23 10 MG Vital Signs/I&O 02/08/22 02/08/22 14:44 15:23 Temp 36.8 Pulse 141 110 Resp 20 B/P (MAP) 143/115 (124) 135/105 Pulse Ox 92 Blood Pressure Mean: 124 Departure Communication (Admissions) Family Conversation 1600- His oxygen saturation is 88 percent on room air up to 94% on 2 L. He would like to go home. I will give him a dose of Lasix here for the vascular congestion and slightly elevated BNP, will increase his p.o. diltiazem to 240 mg daily. Currently on a Cardizem drip at 10 mg an hour he is at a heart rate of 85-100 atrial fibrillation with a blood pressure still [address] Balbuena's office, they did stop the hydrochlorothiazide a few weeks ago due to some hypotension that he was having. He is already on Xarelto, pulmonary embolism unlikely because of that. I will set him up for home oxygen. Chest x- ray shows atelectasis versus infiltrate right lung base. He has had a cough and he does not have a white count, no left shift and no fevers. Additionally, on December 21 he was given 7 days of doxycycline, January 04 he was given 14 days of Levaquin, January 18 he was given 7 days of Augmentin. I do not think that additional antibiotics are indicated these antibiotics were given due to the wound on his foot. Will set him up on home oxygen with [facility] out of [place]. NAME: [facility] REC#: [id number] PT STATUS: REG ER : 1950 PHYSICIAN: LITO BUITRAGO APRN ADMIT DATE: 02/08/22/ER Signed Date of Exam:02/08/22 CHEST 1 VIEW, AP/PA ONLY Indication: Chest pain and difficult breathing. Time of Exam: 3:03 PM No prior studies are available for comparison. Heart is enlarged. Right hemidiaphragm is mildly elevated. There is central congestion but no overt failure. There appears to be some minimal infiltrate or atelectasis right base. Left lung is clear. There is no effusion or pneumothorax. Impression: Cardiomegaly and central congestion with minimal infiltrate or atelectasis right base. Dictated by: Dictated on workstation # [id number] Dict: 02/08/22 1511 Trans: 02/08/22 1531 CVB [id number] Interpreted by: CULLEN COYLE MD Electronically signed by: CULLEN COYLE MD 02/08/22 1531 Impression Primary Impression: Atrial fibrillation with rapid ventricular response Additional Impression: Hypoxia Disposition: 01 HOME, SELF-CARE Condition: Stable Departure-Patient Inst. Decision time for Depature: 15:38 Referrals: CARMEN BALBUENA MD (PCP/Family) Primary Care Physician Patient Instructions: Atrial Fibrillation and Atrial Flutter ED Add. Discharge Instructions: 1. Continue current medications. Lets increase the diltiazem dose from 180 mg daily to 240 mg daily. Follow-up with Dr. Balbuena. Continue all other current medications. Use the oxygen at 2 L per nasal cannula to keep your oxygen saturation above 92%. Return to ER for any worsening. All discharge instructions reviewed with patient and/or family. Voiced understanding. Scripts Diltiazem HCl (Diltiazem 24Hr Cd) 240 Mg Cap.er.24h 240 MG PO DAILY, #30 CAP Prov: LITO BUITRAGO APRN 02/08/22 LITO BUITRAGO APRN Feb 08, 2022 15:11
[2022-02-08] MEDS ORDERED: dilTIAZem DRIP PRE-MIX 125 ML IV SCH (15:15)
--- NOTE | 2022-02-08 15:18 | Diagnostic Imaging Report ---
Indication: Chest pain and difficult breathing. Time of Exam: 3:03 PM No prior studies are available for comparison. Heart is enlarged. Right hemidiaphragm is mildly elevated. There is central congestion but no overt failure. There appears to be some minimal infiltrate or atelectasis right base. Left lung is clear. There is no effusion or pneumothorax. Impression: Cardiomegaly and central congestion with minimal infiltrate or atelectasis right base. Dictated by: Dictated on workstation # [id number]
[2022-02-08] MEDS ORDERED: MAGNESIUM 1 GM/100 ML IVPB 100 ML IV SCH (15:30)
[2022-02-08] MEDS ORDERED: DILT240C92 PO (16:02)
[2022-02-08] MEDS ORDERED: FUROSEMIDE 40 MG/4 ML INJ (LASIX) IVP ONE (16:30)
[2022-02-08] MEDS ORDERED: dilTIAZem120 MG (CARDIZEM CD) CAP PO ONE (16:45)
[2022-02-08] MEDS ORDERED: LORazepam INJ 2 MG/ML (ATIVAN) VIAL IVP PRN (17:00)
[2022-02-08 17:08] VITALS: BP 135/94
== END 2022-02-08 17:08 | disposition home or self-care (01) ==
LOC: EDUNIT# 14:22 → ER 14:26
DX: I48.20 Chronic atrial fibrillation, unspecified (principal); R09.02 Hypoxemia; R79.89 Other specified abnormal findings of blood chemistry; E66.9 Obesity, unspecified; Z68.42 Body mass index [BMI] 45.0-49.9, adult; Z20.822 Contact with and (suspected) exposure to COVID-19
CPT/HCPCS: 36415; 71045; 80053; 82805; 83735; 83874; 83880; 84484; 85025; 85610; 85730; 87636; 93005; 93041

== ENCOUNTER → 2022-02-08 | Outpatient (CLI) | payer MEDICARE, OTHER ==
[~2022-02-08] MED LIST changes: +DILT240C92 PO
== END ==
LOC: WOUNDCARE 13:02
PROVIDERS: ATTEND Family Medicine
DX: L97.812 Non-pressure chronic ulcer of other part of right lower leg with fat layer exposed (principal); L97.822 Non-pressure chronic ulcer of other part of left lower leg with fat layer exposed; I87.333 Chronic venous hypertension (idiopathic) with ulcer and inflammation of bilateral lower extremity; I89.0 Lymphedema, not elsewhere classified; L24.A0 Irritant contact dermatitis due to friction or contact with body fluids, unspecified; E66.01 Morbid (severe) obesity due to excess calories; M62.81 Muscle weakness (generalized); L97.522 Non-pressure chronic ulcer of other part of left foot with fat layer exposed; E11.621 Type 2 diabetes mellitus with foot ulcer; E11.622 Type 2 diabetes mellitus with other skin ulcer; E11.52 Type 2 diabetes mellitus with diabetic peripheral angiopathy with gangrene; R29.6 Repeated falls; Z91.19 Patient's noncompliance with other medical treatment and regimen
CPT/HCPCS: 11042; 11045; A6207; A6253; G0463

== ENCOUNTER → 2022-02-11 | Outpatient (CLI) | payer MEDICARE, OTHER ==
[~2022-02-11] MED LIST changes: +DILT240C92 PO
== END ==
LOC: WOUNDCARE 13:06
PROVIDERS: ATTEND Family Medicine
DX: L97.222 Non-pressure chronic ulcer of left calf with fat layer exposed (principal); I89.0 Lymphedema, not elsewhere classified; I10 Essential (primary) hypertension; E11.40 Type 2 diabetes mellitus with diabetic neuropathy, unspecified
CPT/HCPCS: 29581; A6207; A6253; G0463

== ENCOUNTER → 2022-02-15 | Outpatient (CLI) | payer MEDICARE, OTHER | LOC: WOUNDCARE 12:59 | PROVIDERS: ATTEND Family Medicine | DX: E11.621 Type 2 diabetes mellitus with foot ulcer (principal); L97.812 Non-pressure chronic ulcer of other part of right lower leg with fat layer exposed; L97.922 Non-pressure chronic ulcer of unspecified part of left lower leg with fat layer exposed; L97.522 Non-pressure chronic ulcer of other part of left foot with fat layer exposed; I87.333 Chronic venous hypertension (idiopathic) with ulcer and inflammation of bilateral lower extremity; E11.622 Type 2 diabetes mellitus with other skin ulcer; I89.0 Lymphedema, not elsewhere classified; L24.A9 Irritant contact dermatitis due friction or contact with other specified body fluids; E66.01 Morbid (severe) obesity due to excess calories; R53.1 Weakness; R29.6 Repeated falls; Z91.19 Patient's noncompliance with other medical treatment and regimen; E11.52 Type 2 diabetes mellitus with diabetic peripheral angiopathy with gangrene; I96 Gangrene, not elsewhere classified | CPT/HCPCS: 11042; 11045; 83036; 84134; A6207; G0463; 36415 ==

== ENCOUNTER → 2022-02-18 | Outpatient (CLI) | payer MEDICARE, OTHER | LOC: WOUNDCARE 13:02 | PROVIDERS: ATTEND Family Medicine | DX: L97.812 Non-pressure chronic ulcer of other part of right lower leg with fat layer exposed (principal); L97.922 Non-pressure chronic ulcer of unspecified part of left lower leg with fat layer exposed; I87.333 Chronic venous hypertension (idiopathic) with ulcer and inflammation of bilateral lower extremity; I89.0 Lymphedema, not elsewhere classified; L24.A9 Irritant contact dermatitis due friction or contact with other specified body fluids; E66.01 Morbid (severe) obesity due to excess calories; R53.1 Weakness; R29.6 Repeated falls; E11.621 Type 2 diabetes mellitus with foot ulcer; E11.622 Type 2 diabetes mellitus with other skin ulcer; L97.522 Non-pressure chronic ulcer of other part of left foot with fat layer exposed; Z91.19 Patient's noncompliance with other medical treatment and regimen; E11.52 Type 2 diabetes mellitus with diabetic peripheral angiopathy with gangrene; I96 Gangrene, not elsewhere classified | CPT/HCPCS: 29581; A6207; A6253; G0463 ==

== ENCOUNTER → 2022-02-22 | Outpatient (CLI) | payer MEDICARE, OTHER | LOC: WOUNDCARE 12:58 | PROVIDERS: ATTEND Family Medicine | DX: E11.621 Type 2 diabetes mellitus with foot ulcer (principal); E11.622 Type 2 diabetes mellitus with other skin ulcer; L97.522 Non-pressure chronic ulcer of other part of left foot with fat layer exposed; L97.812 Non-pressure chronic ulcer of other part of right lower leg with fat layer exposed; L97.822 Non-pressure chronic ulcer of other part of left lower leg with fat layer exposed; I87.333 Chronic venous hypertension (idiopathic) with ulcer and inflammation of bilateral lower extremity; I89.0 Lymphedema, not elsewhere classified; L24.A9 Irritant contact dermatitis due friction or contact with other specified body fluids; E66.01 Morbid (severe) obesity due to excess calories; E11.52 Type 2 diabetes mellitus with diabetic peripheral angiopathy with gangrene; I96 Gangrene, not elsewhere classified; E44.0 Moderate protein-calorie malnutrition; M62.81 Muscle weakness (generalized); R29.6 Repeated falls; Z68.42 Body mass index [BMI] 45.0-49.9, adult; Z91.199 Patient's noncompliance with other medical treatment and regimen due to unspecified reason | CPT/HCPCS: 11042; 11045; 29581; A6207; A6253; G0463 ==

== ENCOUNTER → 2022-02-25 | Outpatient (CLI) | payer MEDICARE, OTHER | LOC: WOUNDCARE 12:58 | PROVIDERS: ATTEND Family Medicine | DX: L97.222 Non-pressure chronic ulcer of left calf with fat layer exposed (principal); I89.0 Lymphedema, not elsewhere classified; E11.40 Type 2 diabetes mellitus with diabetic neuropathy, unspecified; I10 Essential (primary) hypertension | CPT/HCPCS: 29581; A6207; A6253; G0463 ==

== ENCOUNTER → 2022-03-08 | Outpatient (CLI) | payer MEDICARE, OTHER ==
[2022-03-08 14:27] LABS: BASOPHILS % (AUTO) 0 % (0-10); EOSINOPHILS # (AUTO) 0.1 10^3/uL (0.0-0.3); EOSINOPHILS % (AUTO) 1 % (0-10); HEMATOCRIT 39 % (40-54); HEMOGLOBIN 11.9 g/dL (13.3-17.7); LYMPHOCYTES # (AUTO) 1.7 X 10^3 (1.0-4.0); LYMPHOCYTES % (AUTO) 20 % (12-44); MEAN CORPUSCULAR HEMOGLOBIN 28 pg (25-34); MEAN CORPUSCULAR HGB CONC 31 g/dL (32-36); MEAN CORPUSCULAR VOLUME 91 fL (80-99); MEAN PLATELET VOLUME 9.7 fL (9.0-12.2); MONOCYTES # (AUTO) 0.6 X 10^3 (0.0-1.0); MONOCYTES % (AUTO) 8 % (0-12); NEUTROPHILS # (AUTO) 6.1 X 10^3 (1.8-7.8); NEUTROPHILS % (AUTO) 71 % (42-75); PLATELET COUNT 177 10^3/uL (130-400); WHITE BLOOD COUNT 8.6 10^3/uL (4.3-11.0)
[2022-03-08 14:49] LABS: ALBUMIN 3.7 GM/DL (3.2-4.5); BILIRUBIN,TOTAL 1.1 MG/DL (0.1-1.0); CALCIUM 9.4 MG/DL (8.5-10.1); CREATININE SERUM 0.82 MG/DL (0.60-1.30); POTASSIUM 3.7 MMOL/L (3.6-5.0); TOTAL PROTEIN 6.9 GM/DL (6.4-8.2)
== END ==
LOC: WOUNDCARE 12:55
PROVIDERS: ATTEND Family Medicine
DX: I87.333 Chronic venous hypertension (idiopathic) with ulcer and inflammation of bilateral lower extremity (principal); I96 Gangrene, not elsewhere classified; L97.822 Non-pressure chronic ulcer of other part of left lower leg with fat layer exposed; L97.812 Non-pressure chronic ulcer of other part of right lower leg with fat layer exposed; I89.0 Lymphedema, not elsewhere classified; L24.A9 Irritant contact dermatitis due friction or contact with other specified body fluids; E66.01 Morbid (severe) obesity due to excess calories; M62.81 Muscle weakness (generalized); L97.522 Non-pressure chronic ulcer of other part of left foot with fat layer exposed; E11.621 Type 2 diabetes mellitus with foot ulcer; E11.622 Type 2 diabetes mellitus with other skin ulcer; E11.52 Type 2 diabetes mellitus with diabetic peripheral angiopathy with gangrene; R29.6 Repeated falls; Z68.42 Body mass index [BMI] 45.0-49.9, adult; Z91.199 Patient's noncompliance with other medical treatment and regimen due to unspecified reason
CPT/HCPCS: 11042; 11045; 80053; 85025; 86141; 87070; 87205; A6207; A6253; G0463; 36415; 87077; 87186

== ENCOUNTER → 2022-03-11 | Outpatient (CLI) | payer MEDICARE, OTHER | LOC: WOUNDCARE 13:56 | PROVIDERS: ATTEND Family Medicine | DX: L97.929 Non-pressure chronic ulcer of unspecified part of left lower leg with unspecified severity (principal); I10 Essential (primary) hypertension; E11.40 Type 2 diabetes mellitus with diabetic neuropathy, unspecified; E11.622 Type 2 diabetes mellitus with other skin ulcer; M19.90 Unspecified osteoarthritis, unspecified site | CPT/HCPCS: 29581; A6207; A6253; G0463 ==

== ENCOUNTER → 2022-03-15 | Outpatient (CLI) | payer MEDICARE, OTHER | LOC: WOUNDCARE 13:00 | PROVIDERS: ATTEND Family Medicine | DX: L97.822 Non-pressure chronic ulcer of other part of left lower leg with fat layer exposed (principal); I87.333 Chronic venous hypertension (idiopathic) with ulcer and inflammation of bilateral lower extremity; I89.0 Lymphedema, not elsewhere classified; L24.A9 Irritant contact dermatitis due friction or contact with other specified body fluids; E66.01 Morbid (severe) obesity due to excess calories; M62.81 Muscle weakness (generalized); L97.522 Non-pressure chronic ulcer of other part of left foot with fat layer exposed; E11.621 Type 2 diabetes mellitus with foot ulcer; E11.622 Type 2 diabetes mellitus with other skin ulcer; Z91.199 Patient's noncompliance with other medical treatment and regimen due to unspecified reason; E44.0 Moderate protein-calorie malnutrition; B37.2 Candidiasis of skin and nail; B96.5 Pseudomonas (aeruginosa) (mallei) (pseudomallei) as the cause of diseases classified elsewhere; B95.2 Enterococcus as the cause of diseases classified elsewhere; L03.116 Cellulitis of left lower limb; E11.52 Type 2 diabetes mellitus with diabetic peripheral angiopathy with gangrene; R29.6 Repeated falls | CPT/HCPCS: 36415; 85652; 97597 ==

== ENCOUNTER → 2022-03-18 | Outpatient (CLI) | payer MEDICARE, OTHER | LOC: WOUNDCARE 14:03 | PROVIDERS: ATTEND Family Medicine | DX: L97.929 Non-pressure chronic ulcer of unspecified part of left lower leg with unspecified severity (principal); I10 Essential (primary) hypertension; E11.622 Type 2 diabetes mellitus with other skin ulcer | CPT/HCPCS: 29581; A6197; A6207; G0463 ==

== ENCOUNTER → 2022-03-22 | Outpatient (CLI) | payer MEDICARE, OTHER | LOC: WOUNDCARE 12:57 | PROVIDERS: ATTEND Family Medicine | DX: I96 Gangrene, not elsewhere classified (principal); L97.822 Non-pressure chronic ulcer of other part of left lower leg with fat layer exposed; L03.116 Cellulitis of left lower limb; I87.333 Chronic venous hypertension (idiopathic) with ulcer and inflammation of bilateral lower extremity; I89.0 Lymphedema, not elsewhere classified; E66.01 Morbid (severe) obesity due to excess calories; L97.522 Non-pressure chronic ulcer of other part of left foot with fat layer exposed; E11.621 Type 2 diabetes mellitus with foot ulcer; E11.52 Type 2 diabetes mellitus with diabetic peripheral angiopathy with gangrene; E11.622 Type 2 diabetes mellitus with other skin ulcer; E44.0 Moderate protein-calorie malnutrition; B96.5 Pseudomonas (aeruginosa) (mallei) (pseudomallei) as the cause of diseases classified elsewhere; B95.2 Enterococcus as the cause of diseases classified elsewhere; M62.81 Muscle weakness (generalized); R29.6 Repeated falls; Z68.42 Body mass index [BMI] 45.0-49.9, adult; Z91.199 Patient's noncompliance with other medical treatment and regimen due to unspecified reason | CPT/HCPCS: 11042; 87070; 87205; A6253; G0463 ==

== ENCOUNTER → 2022-03-29 | Outpatient (CLI) | payer MEDICARE, OTHER | LOC: WOUNDCARE 12:56 | PROVIDERS: ATTEND Family Medicine | DX: L97.822 Non-pressure chronic ulcer of other part of left lower leg with fat layer exposed (principal); I87.333 Chronic venous hypertension (idiopathic) with ulcer and inflammation of bilateral lower extremity; I89.0 Lymphedema, not elsewhere classified; E66.01 Morbid (severe) obesity due to excess calories; R53.1 Weakness; R29.6 Repeated falls; L97.522 Non-pressure chronic ulcer of other part of left foot with fat layer exposed; E11.621 Type 2 diabetes mellitus with foot ulcer; E11.622 Type 2 diabetes mellitus with other skin ulcer; Z91.199 Patient's noncompliance with other medical treatment and regimen due to unspecified reason; E44.0 Moderate protein-calorie malnutrition | CPT/HCPCS: 11042; G0463 ==

== ENCOUNTER → 2022-04-05 | Outpatient (CLI) | payer MEDICARE, OTHER | LOC: WOUNDCARE 12:41 | PROVIDERS: ATTEND Family Medicine | DX: L97.522 Non-pressure chronic ulcer of other part of left foot with fat layer exposed (principal); I87.333 Chronic venous hypertension (idiopathic) with ulcer and inflammation of bilateral lower extremity; I89.0 Lymphedema, not elsewhere classified; E66.01 Morbid (severe) obesity due to excess calories; R29.6 Repeated falls; E11.621 Type 2 diabetes mellitus with foot ulcer; E11.622 Type 2 diabetes mellitus with other skin ulcer; Z91.199 Patient's noncompliance with other medical treatment and regimen due to unspecified reason; E44.0 Moderate protein-calorie malnutrition; E11.52 Type 2 diabetes mellitus with diabetic peripheral angiopathy with gangrene; I96 Gangrene, not elsewhere classified; M62.81 Muscle weakness (generalized) | CPT/HCPCS: 11042; A6197; G0463 ==

== ENCOUNTER → 2022-04-12 | Outpatient (CLI) | payer MEDICARE, OTHER | LOC: WOUNDCARE 12:57 | PROVIDERS: ATTEND Family Medicine | DX: I87.333 Chronic venous hypertension (idiopathic) with ulcer and inflammation of bilateral lower extremity (principal); I89.0 Lymphedema, not elsewhere classified; E66.01 Morbid (severe) obesity due to excess calories; M62.81 Muscle weakness (generalized); L97.522 Non-pressure chronic ulcer of other part of left foot with fat layer exposed; E11.621 Type 2 diabetes mellitus with foot ulcer; E11.622 Type 2 diabetes mellitus with other skin ulcer; E44.0 Moderate protein-calorie malnutrition; Z91.199 Patient's noncompliance with other medical treatment and regimen due to unspecified reason; R29.6 Repeated falls; E11.52 Type 2 diabetes mellitus with diabetic peripheral angiopathy with gangrene | CPT/HCPCS: 11042; G0463 ==

== ENCOUNTER → 2022-04-19 | Outpatient (CLI) | payer MEDICARE, OTHER | LOC: WOUNDCARE 12:58 | PROVIDERS: ATTEND Family Medicine | DX: I96 Gangrene, not elsewhere classified (principal); I87.333 Chronic venous hypertension (idiopathic) with ulcer and inflammation of bilateral lower extremity; I89.0 Lymphedema, not elsewhere classified; L97.522 Non-pressure chronic ulcer of other part of left foot with fat layer exposed; M62.81 Muscle weakness (generalized); E11.621 Type 2 diabetes mellitus with foot ulcer; E11.622 Type 2 diabetes mellitus with other skin ulcer; E44.0 Moderate protein-calorie malnutrition; E66.01 Morbid (severe) obesity due to excess calories; R29.6 Repeated falls; M21.372 Foot drop, left foot; Z91.199 Patient's noncompliance with other medical treatment and regimen due to unspecified reason; Z68.42 Body mass index [BMI] 45.0-49.9, adult | CPT/HCPCS: 11042; G0463 ==

== ENCOUNTER → 2022-04-26 | Outpatient (CLI) | payer MEDICARE, OTHER | LOC: WOUNDCARE 13:01 | PROVIDERS: ATTEND Family Medicine | DX: I87.333 Chronic venous hypertension (idiopathic) with ulcer and inflammation of bilateral lower extremity (principal); I89.0 Lymphedema, not elsewhere classified; E66.01 Morbid (severe) obesity due to excess calories; M62.81 Muscle weakness (generalized); L97.522 Non-pressure chronic ulcer of other part of left foot with fat layer exposed; E11.621 Type 2 diabetes mellitus with foot ulcer; E11.622 Type 2 diabetes mellitus with other skin ulcer; E44.0 Moderate protein-calorie malnutrition; M21.372 Foot drop, left foot; E11.52 Type 2 diabetes mellitus with diabetic peripheral angiopathy with gangrene | CPT/HCPCS: 11042; G0463 ==

== ENCOUNTER → 2022-05-03 | Outpatient (CLI) | payer MEDICARE, OTHER | LOC: WOUNDCARE 13:00 | PROVIDERS: ATTEND Family Medicine | DX: I87.333 Chronic venous hypertension (idiopathic) with ulcer and inflammation of bilateral lower extremity (principal); I89.0 Lymphedema, not elsewhere classified; E66.01 Morbid (severe) obesity due to excess calories; M62.81 Muscle weakness (generalized); L97.522 Non-pressure chronic ulcer of other part of left foot with fat layer exposed; E11.621 Type 2 diabetes mellitus with foot ulcer; E11.622 Type 2 diabetes mellitus with other skin ulcer; E44.0 Moderate protein-calorie malnutrition; M21.372 Foot drop, left foot | CPT/HCPCS: 11042; 84134; 85652; 86141; G0463; 36415 ==

== ENCOUNTER → 2022-05-10 | Outpatient (CLI) | payer MEDICARE, OTHER | LOC: WOUNDCARE 12:59 | PROVIDERS: ATTEND Family Medicine | DX: I96 Gangrene, not elsewhere classified (principal); I87.323 Chronic venous hypertension (idiopathic) with inflammation of bilateral lower extremity; I89.0 Lymphedema, not elsewhere classified; L97.522 Non-pressure chronic ulcer of other part of left foot with fat layer exposed; M62.81 Muscle weakness (generalized); E66.01 Morbid (severe) obesity due to excess calories; E11.622 Type 2 diabetes mellitus with other skin ulcer; E11.621 Type 2 diabetes mellitus with foot ulcer; E44.0 Moderate protein-calorie malnutrition; M21.372 Foot drop, left foot; Z91.199 Patient's noncompliance with other medical treatment and regimen due to unspecified reason; Z68.42 Body mass index [BMI] 45.0-49.9, adult | CPT/HCPCS: 11042; 87070; 87205; G0463; 87077 ==

== ENCOUNTER → 2022-05-20 | Outpatient (CLI) | payer MEDICARE, OTHER | LOC: WOUNDCARE 14:01 | PROVIDERS: ATTEND Family Medicine | DX: I96 Gangrene, not elsewhere classified (principal); L97.522 Non-pressure chronic ulcer of other part of left foot with fat layer exposed; E11.621 Type 2 diabetes mellitus with foot ulcer; E11.622 Type 2 diabetes mellitus with other skin ulcer; I89.0 Lymphedema, not elsewhere classified; E66.01 Morbid (severe) obesity due to excess calories; M62.81 Muscle weakness (generalized); R29.6 Repeated falls; E44.0 Moderate protein-calorie malnutrition; M21.372 Foot drop, left foot; Z91.199 Patient's noncompliance with other medical treatment and regimen due to unspecified reason; Z68.42 Body mass index [BMI] 45.0-49.9, adult | CPT/HCPCS: 15275; A6454; G0463 ==

== ENCOUNTER → 2022-05-27 | Outpatient (CLI) | payer MEDICARE, OTHER | LOC: WOUNDCARE 13:55 | PROVIDERS: ATTEND Family Medicine | DX: I89.0 Lymphedema, not elsewhere classified (principal); E66.01 Morbid (severe) obesity due to excess calories; M62.81 Muscle weakness (generalized); R29.6 Repeated falls; L97.522 Non-pressure chronic ulcer of other part of left foot with fat layer exposed; E11.621 Type 2 diabetes mellitus with foot ulcer; E11.622 Type 2 diabetes mellitus with other skin ulcer; Z91.199 Patient's noncompliance with other medical treatment and regimen due to unspecified reason; E44.0 Moderate protein-calorie malnutrition; M21.372 Foot drop, left foot; E11.52 Type 2 diabetes mellitus with diabetic peripheral angiopathy with gangrene | CPT/HCPCS: 15275; A6454; G0463 ==

== ENCOUNTER → 2022-06-03 | Outpatient (CLI) | payer MEDICARE, OTHER | LOC: WOUNDCARE 13:57 | PROVIDERS: ATTEND Family Medicine | DX: I89.0 Lymphedema, not elsewhere classified (principal); E66.01 Morbid (severe) obesity due to excess calories; M62.81 Muscle weakness (generalized); R29.6 Repeated falls; L97.522 Non-pressure chronic ulcer of other part of left foot with fat layer exposed; E11.621 Type 2 diabetes mellitus with foot ulcer; E11.622 Type 2 diabetes mellitus with other skin ulcer; Z91.199 Patient's noncompliance with other medical treatment and regimen due to unspecified reason; E44.0 Moderate protein-calorie malnutrition; E11.52 Type 2 diabetes mellitus with diabetic peripheral angiopathy with gangrene; I96 Gangrene, not elsewhere classified | CPT/HCPCS: 15275; G0463 ==

== ENCOUNTER → 2022-06-10 | Outpatient (CLI) | payer MEDICARE, OTHER ==
[2022-06-10 14:51] LABS: BASOPHILS # (AUTO) 0.1 10^3/uL (0.0-0.1); BASOPHILS % (AUTO) 1 % (0-10); EOSINOPHILS # (AUTO) 0.2 10^3/uL (0.0-0.3); EOSINOPHILS % (AUTO) 2 % (0-10); HEMATOCRIT 40 % (40-54); HEMOGLOBIN 12.3 g/dL (13.3-17.7); LYMPHOCYTES # (AUTO) 2.1 X 10^3 (1.0-4.0); LYMPHOCYTES % (AUTO) 22 % (12-44); MEAN CORPUSCULAR HEMOGLOBIN 27 pg (25-34); MEAN CORPUSCULAR HGB CONC 31 g/dL (32-36); MEAN CORPUSCULAR VOLUME 88 fL (80-99); MEAN PLATELET VOLUME 9.8 fL (9.0-12.2); MONOCYTES # (AUTO) 0.9 X 10^3 (0.0-1.0); MONOCYTES % (AUTO) 10 % (0-12); NEUTROPHILS # (AUTO) 6.2 X 10^3 (1.8-7.8); NEUTROPHILS % (AUTO) 66 % (42-75); PLATELET COUNT 166 10^3/uL (130-400); WHITE BLOOD COUNT 9.4 10^3/uL (4.3-11.0)
[2022-06-10 15:13] LABS: CALCIUM 9.5 MG/DL (8.5-10.1); CREATININE SERUM 0.79 MG/DL (0.60-1.30); POTASSIUM 3.8 MMOL/L (3.6-5.0)
== END ==
LOC: WOUNDCARE 13:58
PROVIDERS: ATTEND Family Medicine
DX: E11.621 Type 2 diabetes mellitus with foot ulcer (principal); I89.0 Lymphedema, not elsewhere classified; I96 Gangrene, not elsewhere classified; E11.622 Type 2 diabetes mellitus with other skin ulcer; E11.52 Type 2 diabetes mellitus with diabetic peripheral angiopathy with gangrene; E66.01 Morbid (severe) obesity due to excess calories; E44.0 Moderate protein-calorie malnutrition; L97.522 Non-pressure chronic ulcer of other part of left foot with fat layer exposed; R29.6 Repeated falls; Z91.199 Patient's noncompliance with other medical treatment and regimen due to unspecified reason; Z68.42 Body mass index [BMI] 45.0-49.9, adult
CPT/HCPCS: 15275; 80048; 83036; 84134; 85025; G0463; 36415

== ENCOUNTER → 2022-06-17 | Outpatient (CLI) | payer MEDICARE, OTHER | LOC: WOUNDCARE 13:59 | PROVIDERS: ATTEND Family Medicine | DX: I96 Gangrene, not elsewhere classified (principal); L97.522 Non-pressure chronic ulcer of other part of left foot with fat layer exposed; E11.622 Type 2 diabetes mellitus with other skin ulcer; E11.621 Type 2 diabetes mellitus with foot ulcer; I89.0 Lymphedema, not elsewhere classified; E66.01 Morbid (severe) obesity due to excess calories; M62.81 Muscle weakness (generalized); R29.6 Repeated falls; E44.0 Moderate protein-calorie malnutrition; Z91.199 Patient's noncompliance with other medical treatment and regimen due to unspecified reason; Z68.42 Body mass index [BMI] 45.0-49.9, adult | CPT/HCPCS: 15275; G0463 ==

== ENCOUNTER → 2022-06-24 | Outpatient (CLI) | payer MEDICARE, OTHER | LOC: WOUNDCARE 13:58 | PROVIDERS: ATTEND Family Medicine | DX: I89.0 Lymphedema, not elsewhere classified (principal); E66.01 Morbid (severe) obesity due to excess calories; M62.81 Muscle weakness (generalized); R29.6 Repeated falls; L97.522 Non-pressure chronic ulcer of other part of left foot with fat layer exposed; E11.621 Type 2 diabetes mellitus with foot ulcer; E11.622 Type 2 diabetes mellitus with other skin ulcer; Z91.199 Patient's noncompliance with other medical treatment and regimen due to unspecified reason; E44.0 Moderate protein-calorie malnutrition; E11.52 Type 2 diabetes mellitus with diabetic peripheral angiopathy with gangrene; I96 Gangrene, not elsewhere classified | CPT/HCPCS: 15275; G0463 ==

== ENCOUNTER → 2022-07-01 | Outpatient (CLI) | payer MEDICARE, OTHER | LOC: WOUNDCARE 14:03 | PROVIDERS: ATTEND Family Medicine | DX: I89.0 Lymphedema, not elsewhere classified (principal); E66.01 Morbid (severe) obesity due to excess calories; M62.81 Muscle weakness (generalized); R29.6 Repeated falls; L97.522 Non-pressure chronic ulcer of other part of left foot with fat layer exposed; E11.621 Type 2 diabetes mellitus with foot ulcer; E11.622 Type 2 diabetes mellitus with other skin ulcer; Z91.199 Patient's noncompliance with other medical treatment and regimen due to unspecified reason; E44.0 Moderate protein-calorie malnutrition; E11.52 Type 2 diabetes mellitus with diabetic peripheral angiopathy with gangrene; I96 Gangrene, not elsewhere classified | CPT/HCPCS: 15275; G0463 ==

== ENCOUNTER → 2022-07-09 | Outpatient (CLI) | payer MEDICARE, OTHER | LOC: WOUNDCARE 10:57 | PROVIDERS: ATTEND Family Medicine | DX: I89.0 Lymphedema, not elsewhere classified (principal); E66.01 Morbid (severe) obesity due to excess calories; M62.81 Muscle weakness (generalized); R29.6 Repeated falls; L97.522 Non-pressure chronic ulcer of other part of left foot with fat layer exposed; E11.621 Type 2 diabetes mellitus with foot ulcer; E11.622 Type 2 diabetes mellitus with other skin ulcer; Z91.199 Patient's noncompliance with other medical treatment and regimen due to unspecified reason; E44.0 Moderate protein-calorie malnutrition; E11.52 Type 2 diabetes mellitus with diabetic peripheral angiopathy with gangrene; I96 Gangrene, not elsewhere classified | CPT/HCPCS: 15275; G0463 ==

== ENCOUNTER → 2022-07-15 | Outpatient (CLI) | payer MEDICARE, OTHER | LOC: WOUNDCARE 14:01 | PROVIDERS: ATTEND Family Medicine | DX: I89.0 Lymphedema, not elsewhere classified (principal); E66.01 Morbid (severe) obesity due to excess calories; M62.81 Muscle weakness (generalized); R29.6 Repeated falls; L97.522 Non-pressure chronic ulcer of other part of left foot with fat layer exposed; E11.621 Type 2 diabetes mellitus with foot ulcer; E11.622 Type 2 diabetes mellitus with other skin ulcer; Z91.199 Patient's noncompliance with other medical treatment and regimen due to unspecified reason; E44.0 Moderate protein-calorie malnutrition | CPT/HCPCS: 11042; A6197; G0463 ==

== ENCOUNTER → 2022-07-26 | Outpatient (CLI) | payer MEDICARE, OTHER | LOC: WOUNDCARE 13:29 | PROVIDERS: ATTEND Family Medicine | DX: I89.0 Lymphedema, not elsewhere classified (principal); E11.621 Type 2 diabetes mellitus with foot ulcer; E11.622 Type 2 diabetes mellitus with other skin ulcer; L97.522 Non-pressure chronic ulcer of other part of left foot with fat layer exposed; M62.81 Muscle weakness (generalized); E66.01 Morbid (severe) obesity due to excess calories; R29.6 Repeated falls; E44.0 Moderate protein-calorie malnutrition; Z91.199 Patient's noncompliance with other medical treatment and regimen due to unspecified reason; Z68.42 Body mass index [BMI] 45.0-49.9, adult | CPT/HCPCS: 84134; A6212; G0463; 36415; 99212 ==

== ENCOUNTER 2022-11-15 10:00 | Inpatient (IN) | payer MEDICARE, OTHER ==
[~2022-11-15] VITALS: Ht 172.7 cm; Wt 113.0 kg
[2022-11-15 10:37] LABS: BASOPHILS # (AUTO) 0.1 10^3/uL (0.0-0.1); BASOPHILS % (AUTO) 1 % (0-10); EOSINOPHILS # (AUTO) 0.2 10^3/uL (0.0-0.3); EOSINOPHILS % (AUTO) 1 % (0-10); HEMATOCRIT 37 % (40-54); HEMOGLOBIN 12.4 g/dL (13.3-17.7); LYMPHOCYTES # (AUTO) 2.4 10^3/uL (1.0-4.0); LYMPHOCYTES % (AUTO) 15 % (12-44); MEAN CORPUSCULAR HEMOGLOBIN 28 pg (25-34); MEAN CORPUSCULAR HGB CONC 34 g/dL (32-36); MEAN CORPUSCULAR VOLUME 82 fL (80-99); MEAN PLATELET VOLUME 10.1 fL (9.0-12.2); MONOCYTES # (AUTO) 2.6 10^3/uL (0.0-1.0); MONOCYTES % (AUTO) 17 % (0-12); NEUTROPHILS # (AUTO) 10.1 10^3/uL (1.8-7.8); NEUTROPHILS % (AUTO) 64 % (42-75); PLATELET COUNT 215 10^3/uL (130-400); WHITE BLOOD COUNT 15.7 10^3/uL (4.3-11.0)
[2022-11-15 10:50] LABS: POTASSIUM 3.7 MMOL/L (3.6-5.0)
[2022-11-15 10:51] LABS: CALCIUM 9.7 MG/DL (8.5-10.1)
[2022-11-15 10:55] LABS: CREATININE SERUM 1.5 MG/DL (0.60-1.30)
[2022-11-15 10:57] LABS: MAGNESIUM 1.5 MG/DL (1.6-2.4)
[2022-11-15 11:05] LABS: ANISOCYTOSIS SLIGHT; BAND NEUTROPHILS 2 %; BASOPHILS % (MANUAL) 1 %; EOSINOPHILS % (MANUAL) 1 %; LYMPHOCYTES % (MANUAL) 13 %; MONOCYTES % (MANUAL) 13 %; NEUTROPHILS % (MANUAL) 70 %
--- NOTE | 2022-11-15 11:27 | ED General ---
General Chief Complaint: General Problems/Pain Stated Complaint: WEAKNESS | DEHYDRATED Source of Information: Patient Exam Limitations: No Limitations History of Present Illness Date Seen by Provider: Nov 15, 2022 Time Seen by Provider: 10:27 Initial Comments This 72-year-old gentleman presents to the emergency room with complaints of feeling ill starting about 3 weeks ago. He lost appetite and taste. Symptoms have worsened over the last 2 weeks. He thinks perhaps he had a COVID-19 as the symptoms were similar to a prior infection of COVID-19. He did have some diarrhea last week which has now improved. He reports some dyspnea on exertion. He has had some flatulence that he describes as "acidic gas." He feels very weak and lightheaded. Today he has been and unable to get up and ambulate on his own. His sons had to assist him to the car and into the hospital. He has diabetes with neuropathy. He received long courses of wound care for wounds on his legs that have now improved. He has a few small breaks in the skin on his legs but no major sores or infections. He reports noting his blood pressure has been low for about the past 3 months. Oxygen saturations have also been on the lower side of normal. He has atrial fibrillation and is anticoagulated. Dr. Balbuena is his primary care provider. He notes losing a significant amount of weight in the last few weeks. Allergies and Home Medications Allergies Coded Allergies: No Known Drug Allergies (Unverified , 05/03/19) Patient Home Medication List Home Medication List Reviewed: Yes Cephalexin (Cephalexin) 500 Mg Tablet, 500 MG PO QID Prescribed by: KEREN LEBRON on 05/03/19 1721 Diltiazem HCl (Diltiazem 24Hr Cd) 240 Mg Cap.er.24h, 240 MG PO DAILY Prescribed by: LITO BUITRAGO on 02/08/22 1602 Review of Systems Review of Systems Constitutional: see HPI EENTM: see HPI, other (Sinus congestion) Respiratory: see HPI Cardiovascular: no symptoms reported; No chest pain Gastrointestinal: see HPI Genitourinary: no symptoms reported Musculoskeletal: no symptoms reported Skin: see HPI Psychiatric/Neurological: No Symptoms Reported Hematologic/Lymphatic: No Symptoms Reported Immunological/Allergic: no symptoms reported Past Grhcwff-Jubkjh-Rdstuk Hx Patient Social History Tobacco Use?: No Immunizations Up To Date First/Initial COVID19 Vaccinat: J&J, MODERNA Past Medical History Surgery/Hospitalization HX: PMH: NEUROPATHY, PREDIABETIC, HTN, HIGH CHOL Surgeries: Yes Respiratory: No Cardiac: Yes Atrial Fibrillation, High Cholesterol, Hypertension, Irregular Heartbeat Neurological: Yes Neuropathy Genitourinary: No Gastrointestinal: No Musculoskeletal: No Endocrine: No HEENT: No Cancer: No Psychosocial: No Integumentary: No Physical Exam Vital Signs Vital Signs - First Documented 11/15/22 10:10 Temp 37.1 Pulse 76 Resp 16 B/P (MAP) 85/52 (63) Pulse Ox 95 O2 Delivery Room Air Capillary Refill : Height, Weight, BMI Height: '" Weight: lbs. oz. kg; 45.00 BMI Method: General Appearance: No Apparent Distress, WD/WN, Obese HEENT: PERRL/EOMI, Normal ENT Inspection, Other (Mucous membranes somewhat dry. Sinuses nontender) Neck: Normal Inspection; No JVD Respiratory: Lungs Clear, Normal Breath Sounds, No Accessory Muscle Use Cardiovascular: Systolic Murmur (Mild), Irregularly Irregular, Other (Bilateral lower extremity pitting edema) Gastrointestinal: Non Tender, Soft Extremity: Non Tender, Pedal Edema, Swelling Neurologic/Psychiatric: Alert, Oriented x3, No Motor/Sensory Deficits, Normal Mood/Affect Skin: Normal Color, Warm/Dry Progress/Results/Core Measures Suspected Sepsis SIRS Temperature: Pulse: Respiratory Rate: Laboratory Tests 11/15/22 10:26: White Blood Count 15.7H Blood Pressure / Mean: Laboratory Tests 11/15/22 10:26: Creatinine 1.50H, Platelet Count 215 11/15/22 16:20: Creatinine 1.15, Total Bilirubin 2.2H Results/Orders Lab Results Laboratory Tests Test 11/15/22 10:26 11/15/22 11:40 11/15/22 16:20 Range/Units White Blood Count 15.7 H 4.3-11.0 10^3/uL Red Blood Count 4.49 4.30-5.52 10^6/uL Hemoglobin 12.4 L 13.3-17.7 g/dL Hematocrit 37 L 40-54 % Mean Corpuscular Volume 82 80-99 fL Mean Corpuscular Hemoglobin 28 25-34 pg Mean Corpuscular Hemoglobin Concent 34 32-36 g/dL Red Cell Distribution Width 20.4 H 10.0-14.5 % Platelet Count 215 130-400 10^3/uL Mean Platelet Volume 10.1 9.0-12.2 fL Immature Granulocyte % (Auto) 2 % Neutrophils (%) (Auto) 64 42-75 % Lymphocytes (%) (Auto) 15 12-44 % Monocytes (%) (Auto) 17 H 0-12 % Eosinophils (%) (Auto) 1 0-10 % Basophils (%) (Auto) 1 0-10 % Neutrophils # (Auto) 10.1 H 1.8-7.8 10^3/uL Lymphocytes # (Auto) 2.4 1.0-4.0 10^3/uL Monocytes # (Auto) 2.6 H 0.0-1.0 10^3/uL Eosinophils # (Auto) 0.2 0.0-0.3 10^3/uL Basophils # (Auto) 0.1 0.0-0.1 10^3/uL Immature Granulocyte # (Auto) 0.3 H 0.0-0.1 10^3/uL Neutrophils % (Manual) 70 % Lymphocytes % (Manual) 13 % Monocytes % (Manual) 13 % Eosinophils % (Manual) 1 % Basophils % (Manual) 1 % Band Neutrophils 2 % Anisocytosis SLIGHT Sodium Level 133 L 134 L 135-145 MMOL/L Potassium Level 3.7 3.4 L 3.6-5.0 MMOL/L Chloride Level 95 L 99 98-107 MMOL/L Carbon Dioxide Level 21 25 21-32 MMOL/L Anion Gap 17 H 10 5-14 MMOL/L Blood Urea Nitrogen 66 H 57 H 7-18 MG/DL Creatinine 1.50 H 1.15 0.60-1.30 MG/DL Estimat Glomerular Filtration Rate 49 67 BUN/Creatinine Ratio 44 50 Glucose Level 94 89 70-105 MG/DL Calcium Level 9.7 8.8 8.5-10.1 MG/DL Magnesium Level 1.5 L 1.6-2.4 MG/DL C-Reactive Protein High Sensitivity 20.62 H 0.00-0.50 MG/DL Urine Color YELLOW Urine Clarity SL CLOUDY Urine pH 5.5 5-9 Urine Specific [place] 1.010 L 1.016-1.022 Urine Protein TRACE H NEGATIVE Urine Glucose (UA) NEGATIVE NEGATIVE Urine Ketones NEGATIVE NEGATIVE Urine Nitrite NEGATIVE NEGATIVE Urine Bilirubin NEGATIVE NEGATIVE Urine Urobilinogen 1.0 < = 1.0 MG/DL Urine Leukocyte Esterase NEGATIVE NEGATIVE Urine RBC (Auto) TRACE-I H NEGATIVE Urine RBC RARE /HPF Urine WBC RARE /HPF Urine Squamous Epithelial Cells RARE /HPF Urine Crystals PRESENT H /LPF Urine Amorphous Sediment RARE WILLIE URATES H /LPF Urine Bacteria NEGATIVE /HPF Urine Casts PRESENT /LPF Urine Hyaline Casts RARE /LPF Urine Mucus NEGATIVE /LPF Urine Culture Indicated NO Corrected Calcium 9.8 8.5-10.1 MG/DL Total Bilirubin 2.2 H 0.1-1.0 MG/DL Aspartate Amino Transf (AST/SGOT) 81 H 5-34 U/L Alanine Aminotransferase (ALT/SGPT) 21 0-55 U/L Alkaline Phosphatase 84 40-136 U/L Total Protein 5.5 L 6.4-8.2 GM/DL Albumin 2.7 L 3.2-4.5 GM/DL My Orders Orders - YI ESPINOZA MD Ed Iv/Invasive Line Start (11/15/22 10:27) Ekg Tracing (11/15/22 10:27) Monitor-Rhythm Ecg Trace Only (11/15/22 10:27) Basic Metabolic Panel (11/15/22 10:27) Cbc With Automated Diff (11/15/22 10:27) Magnesium (11/15/22 10:27) Ua Culture If Indicated (11/15/22 10:27) Manual Differential (11/15/22 10:26) Hs C Reactive Protein (11/15/22 11:17) Ns Iv 1000 Ml (Sodium Chloride 0.9%) (11/15/22 11:30) Magnesium 1 Gm/100 Ml Ivpb (Magnesium Ramirez (11/15/22 11:30) Magnesium 1 Gm/100 Ml Ivpb (Magnesium Ramirez (11/15/22 11:30) Chest 1 View, Ap/Pa Only (11/15/22 14:32) Lactated Ringers (Lr 1000 Ml Iv Solution (11/15/22 15:15) Comprehensive Metabolic Panel (11/15/22 15:53) Medications Given in ED Current Medications Medications Dose Ordered Sig/Rishabh Route Start Time Stop Time Status Last Admin Dose Admin Lactated Ringer's 1,000 ml @ 0 mls/hr Q0M ONCE IV 11/15/22 15:15 11/15/22 15:16 DC 11/15/22 15:49 1,000 MLS/HR Magnesium Sulfate/ Dextrose 100 ml @ 100 mls/hr ONCE ONCE IV 11/15/22 11:30 11/15/22 12:29 DC 11/15/22 11:30 100 MLS/HR Magnesium Sulfate/ Dextrose 100 ml @ 100 mls/hr ONCE ONCE IV 11/15/22 11:30 11/15/22 12:29 DC 11/15/22 11:31 100 MLS/HR Sodium Chloride 1,000 ml @ 0 mls/hr Q0M ONCE IV 11/15/22 11:30 11/15/22 11:31 DC 11/15/22 11:30 1,000 MLS/HR Vital Signs/I&O 11/15/22 10:10 Temp 37.1 Pulse 76 Resp 16 B/P (MAP) 85/52 (63) Pulse Ox 95 O2 Delivery Room Air Capillary Refill : Progress Note : Progress Note Patient was interviewed and examined. Sons were interviewed as well. Labs were obtained and interpreted by me. He was found to have mild elevation in creatinine at 1.5. Magnesium was low at 1.5. Urinalysis was grossly unremarkable. CBC was remarkable for leukocytosis of 15.7. CRP was elevated at 20.. He was hydrated with 2 L of IV fluid. No source of infection was identif ied on his work-up. Chest x-ray was clear for acute abnormalities. Urinalysis demonstrated no infection. Lower extremities were examined. There were some small skin breaks in the skin tears, but no evidence of significant infection. Patient did state he had some recent sinus symptoms but he had no sinus tenderness on exam. After IV hydration and magnesium replacement with 2 g of IV magnesium, patient still had blood pressures in the 90s systolic and felt rather weak. He was offered admission which was excepted. He would likely benefit from physical therapy services, and he can be evaluated by PT in the morning. He requested a DNR status. Case was discussed with Dr. Bernal, hospitalist who excepted admission. ECG Initial ECG Impression Date: Nov 15, 2022 Initial ECG Impression Time: 10:35 Initial ECG Rate: 101 Initial ECG Rhythm: S.Tach Comment Atrial fibrillation with right axis deviation and right bundle branch block. No ischemic ST elevation or depression. Diagnostic Imaging Diagonstic Imaging: Xray Plain Films/CT/US/NM/MRI: chest Comments NAME: [facility] REC#: [id number] PT STATUS: REG ER : 1950 PHYSICIAN: YI ESPINOZA MD ADMIT DATE: 11/15/22/ER Signed Date of Exam:11/15/22 CHEST 1 VIEW, AP/PA ONLY Indication: Increasing weakness over the last 2 weeks and loss of appetite. Time of Exam: 2:30 PM Correlation is made with prior chest from 02/08/2022. Heart size is stable and mildly enlarged but lungs are clear. No infiltrates are detected. There is no effusion or pneumothorax. Impression: No acute cardiopulmonary process is detected. Dictated by: Dictated on workstation # [id number] Dict: 11/15/22 1526 Trans: 11/15/22 1530 CVB [id number] Interpreted by: CULLEN COYLE MD Electronically signed by: CULLEN COYLE MD 11/15/22 1530 Departure Communication (Admissions) Time/Spoke to Admitting Phy: 18:05 Dr. Bernal Impression Primary Impression: Hypomagnesemia Additional Impressions: Generalized weakness Dyspnea on exertion Weight loss Disposition: ADMITTED INPATIENT Condition: Stable Admissions Decision to Admit Reason: Admit from ER (General) Decision to Admit/Date: Nov 15, 2022 Time/Decision to Admit Time: 18:05 Departure-Patient Inst. Referrals: CARMEN BALBUENA MD (PCP/Family) Primary Care Physician Copy Copies To 1: CARMEN BALBUENA MD, JOSHUA T MD Nov 15, 2022 11:26
[2022-11-15] MEDS ORDERED: NS IV 1000 ML 1,000 ML IV ONE (11:30)
[2022-11-15] MEDS ORDERED: MAGNESIUM 1 GM/100 ML IVPB 100 ML IV ONE ×2 (11:30)
[2022-11-15 11:45] LABS: BILIRUBIN,URINE NEGATIVE (NEGATIVE); CLARITY,URINE SL CLOUDY; COLOR,URINE YELLOW; GLUCOSE, URINE (UA) NEGATIVE (NEGATIVE); KETONES,URINE NEGATIVE (NEGATIVE); LEUKOCYTE ESTERASE ,URINE NEGATIVE (NEGATIVE); NITRITE,URINE NEGATIVE (NEGATIVE); PH,URINE 5.5 (5-9); PROTEIN,URINE TRACE (NEGATIVE)
[2022-11-15 11:55] LABS: RBC,URINE RARE /HPF; WBC,URINE RARE /HPF
[2022-11-15 11:56] LABS: AMORPHOUS SEDIMENT,UR RARE AMOR URATES /LPF; BACTERIA,URINE NEGATIVE /HPF; HYALINE CASTS, URINE RARE /LPF; SQUAMOUS EPITHELIAL CELL,UR RARE /HPF
[2022-11-15] MEDS ORDERED: LACTATED RINGERS 1,000 ML IV ONE (15:15)
--- NOTE | 2022-11-15 15:28 | Diagnostic Imaging Report ---
Indication: Increasing weakness over the last 2 weeks and loss of appetite. Time of Exam: 2:30 PM Correlation is made with prior chest from 02/08/2022. Heart size is stable and mildly enlarged but lungs are clear. No infiltrates are detected. There is no effusion or pneumothorax. Impression: No acute cardiopulmonary process is detected. Dictated by: Dictated on workstation # [id number]
[2022-11-15 16:38] LABS: ALBUMIN 2.7 GM/DL (3.2-4.5)
[2022-11-15 16:39] LABS: POTASSIUM 3.4 MMOL/L (3.6-5.0)
[2022-11-15 16:40] LABS: CALCIUM 8.8 MG/DL (8.5-10.1)
[2022-11-15 16:41] LABS: TOTAL PROTEIN 5.5 GM/DL (6.4-8.2)
[2022-11-15 16:43] LABS: BILIRUBIN,TOTAL 2.2 MG/DL (0.1-1.0)
[2022-11-15 16:44] LABS: CREATININE SERUM 1.15 MG/DL (0.60-1.30)
[2022-11-15 20:30] VITALS: BP 108/69
[2022-11-15] MEDS ORDERED: CATHETER FLUSH 10 ML SYR IVP PRN (22:45)
[2022-11-15] MEDS ORDERED: AZITHROMYCIN 500 MG/NS 250 ML IVPB IV ONE ×2 (22:45)
[2022-11-15] MEDS: cefTRIAXone 1 GM/NS 50 ML IVPB IV SCH ×2 (23:04)
[2022-11-15] MEDS: CATHETER FLUSH 10 ML SYR IVP SCH (23:32)
[2022-11-15 23:49] VITALS: BP 100/63
[2022-11-16 03:18] VITALS: BP 95/60
[2022-11-16 07:35] VITALS: BP 123/68
--- NOTE | 2022-11-16 08:08 | Physical Therapy Evaluation ---
PT Evaluation-General Medical Diagnosis Admission Date Nov 15, 2022 at 19:22 Medical Diagnosis: generalized weakness Onset Date: Nov 15, 2022 Therapy Diagnosis Therapy Diagnosis: debility/weakness Precautions Precautions/Isolations: Fall Prevention, Standard Precautions Referral Physician: Gabe Reason for Referral: Evaluation/Treatment Medical History Pertinent Medical History: Atrial Fib, DM, HTN, Neuropathy Current History ER secondary to weakness x 3 weeks Reviewed History: Yes Social History Home: Single Level Current Living Status: Spouse PT Steps Into Home: 1 (3 inch step per patient) Prior Prior Level of Function SCALE: Activities may be completed with or without assistive devices. 0-Uhwrvbjqkn-qspkdaq completes the activity by him/herself with no assistance from a helper. 5-Set-up or Clean-up Assistance-helper sets up or cleans up; patient completes activity. [place] assists only prior to or following the activity. 4-Supervision or Touching Assistance-helper provides verbal cues and/or touching/steadying and/or contact guard assistance as patient completes activity. Assistance may be provided throughout the activity or intermittently. 3-Partial/Moderate Assistance-helper does LESS THAN HALF the effort. [place] li fts, holds or supports trunk or limbs, but provides less than half the effort. 2-Substantial/Maximal Assistance-helper does MORE THAN HALF the effort. [place] lifts or holds trunk or limbs and provides more than half the effort. 4-Nawxzddgh-mcfvuq does ALL the effort. Patient does none of the effort to complete the activity. Or, the assistance of 2 or more helpers is required for the patient to complete the activity. If activity was not attempted, code reason: 7-Patient Refused. 9-Not Applicable-not attempted and the patient did not perform the activity before the current illness, exacerbation or injury. 10-Not Attempted due to Environmental Limitations-(lack of equipment, weather restraints, etc.). 88-Not Attempted due to Medical Conditions or Safety Concerns. Bed Mobility: 9 Transfers (B,C,W/C): 6 Gait: 6 Stairs: 6 Indoor Mobility (Ambulation): Independent Stairs: Independent Prior Devices Use: Walker PT Evaluation-Current Subjective Patient agrees to PT. Objective Patient Orientation: Normal For Age ROM/Strength ROM Lower Extremities bilateral LE WFL Strength Lower Extremities 3+/5 grossly bilateral LE all planes Integumentary/Posture Bladder Incontinence: Yes Posture WFL Neuromuscular (Tone, Coordination, Reflexes) grossly intact Sensory Vision: Functional Hearing: Functional Transfers Lying to Sitting/Side of Bed(Q: 3 Sit to Stand (QC): 3 Chair/Vqy-rt-Vbqer Xfer(QC): 3 Gait Walk 10 feet (QC): 3 Walk 50 ft with 2 Turns(QC): 7 Gait Assistive Device: FWW Comments/Gait Description very slow, WBOS gait sequence Balance Sitting Static: Normal Sitting Dynamic: Normal Standing Static: Fair Standing Dynamic: Fair Assessment/Needs Patient requires time to complete all functional tasks. Patient will benefit from skilled PT to address functional strength and mobility to improve current LOF to safely return to home at maximum LOF. Rehab Potential: Fair PT Funeral Car Chauffeur Goals Funeral Car Chauffeur Goals PT Funeral Car Chauffeur Goals Time Frame: Nov 27, 2022 Roll Left & Right (QC): 4 Sit to Lying (QC): 4 Lying-Sitting on Side/Bed(QC): 4 Sit to Stand (QC): 5 Chair/Pyg-pw-Wjzjn Xfer(QC): 5 Toilet Transfer (QC): 5 Walk 10 feet (QC): 5 Walk 50ft with 2 Turns (QC): 5 PT Plan Problem List Problem List: Activity Tolerance, Functional Strength, Safety, Balance, Gait, Transfer, Bed Mobility Treatment/Plan Treatment Plan: Continue Plan of Care Treatment Plan: Bed Mobility, Education, Functional Activity Deb, Functional Strength, Gait, Safety, Therapeutic Exercise, Transfers Treatment Duration: Nov 27, 2022 Frequency: 5 times per week Estimated Hrs Per Day: .25 hour per day Time Time In: 730 Time Out: 753 DATE: Nov 16, 2022 Total Billed Treatment Time: 23 Total Billed Treatment 1 visit EVRichaC 10 min FA 13 min NAVA JO PT Nov 16, 2022 08:08
--- NOTE | 2022-11-16 08:58 | Diagnostic Imaging Report ---
CHEST 1 VIEW, AP/PA ONLY Indication: General weakness. Comparison: 11/15/2022 Findings: Stable mild enlargement of cardiac silhouette. No consolidations have developed. No pleural effusion or pneumothorax. Impression: 1. No adverse development since yesterday's exam. Dictated by: Dictated on workstation # [id number]
[2022-11-16] MEDS: MAGNESIUM OXIDE (MAG-OX)400 MG TAB PO SCH ×2 (09:23→18:07)
[2022-11-16 11:01] VITALS: BP 96/58
--- NOTE | 2022-11-16 11:52 | History & Physical-Hospitalist ---
History of Present Illness HPI/Chief Complaint Patient is 72-year-old male who was admitted to the hospital secondary to generalized weakness likely due to COVID. He reports he had COVID-like illness roughly 2 weeks ago and has had poor oral intake due to loss of taste and smell. He is also had some nausea. He was dehydrated when he presented to the emergency department as well. He is normally ambulatory on his own but it took both of his grown children to get him up prompting him to seek evaluation in the emergency department. He reports feeling a little bit better today but just overall is rundown.He was also found to be somewhat hypotensive which he states is chronic for him but because of his atrial fibrillation he has been maintained on diltiazem. Source: patient Date Seen 11/16/22 Time Seen by a Provider: 11:52 Attending Physician Luis Alberto Balbuena MD PCP Admitting Physician: Shiva Booker MD Attending Physician: Shiva Booker MD Referring Physician Date of Admission Nov 15, 2022 at 19:22 Home Medications & Allergies Home Medications Reviewed patient Home Medication Reconciliation performed by pharmacy medication reconciliations machine tool technician instructor and/or nursing. Patients Allergies have been reviewed. Allergies Allergies Coded Allergies No Known Drug Allergies (Amtpwbipnm87/12/19) Past Ejlnyae-Sdotln-Qayqak Hx Patient Social History Tobacco Use?: No Substance use?: No Alcohol Use?: No Pt feels they are or have been: No Immunizations Up To Date First/Initial COVID19 Vaccinat: J&J, MODERNA Second COVID19 Vaccination Odilon: J&J, MODERNA Current Status Advance Directives: Yes Advance Directive Location: Home Communicates: Verbally Primary Language: Italian Preferred Spoken Language: Italian Is interpretation needed?: No Implanted or Applied Medical D: None Past Medical History Atrial Fibrillation, High Cholesterol, Hypertension, Irregular Heartbeat Neuropathy Review of Systems Constitutional: see HPI Physical Exam Physical Exam Vital Signs Vital Signs - First Documented 11/15/22 11/16/22 11/16/22 10:10 18:51 19:10 Temp 37.1 Pulse 76 Resp 16 B/P (MAP) 85/52 (63) Pulse Ox 95 O2 Delivery Room Air O2 Flow Rate 0.00 FiO2 21 Capillary Refill : Less Than 3 Seconds Height, Weight, BMI Height: '" Weight: lbs. oz. kg; 38.43 BMI Method: General Appearance: No Apparent Distress, Chronically ill, Obese Respiratory: Lungs Clear, No Respiratory Distress Cardiovascular: Regular Rate, Rhythm, No Murmur Gastrointestinal: Normal Bowel Sounds, Soft Neurologic/Psychiatric: Alert, Oriented x3 Results Results/Procedures Labs Patient resulted labs reviewed. Assessment/Plan Admission Diagnosis Generalized weakness Admission Status: Inpatient Order (span 2 midnights) Reason for Inpatient Admission: see below Assessment and Plan Generalized weakness presumed COVID illness Symptom onset over 2 weeks ago but consistent with COVID PT/OT No indication for treatment for COVID at this time Repeat CXR to evaluate for post covid pneumonia- negative for infiltrate IRF eval JERAMIE Creatinine improved Trend Hypotension A fib Has baseline HTN but reports he's been low for years Continue diltiazem but decrease dose, hold HCTZ due to hypotension and JERAMIE DVT ppx: Xarelto Diagnosis/Problems Diagnosis/Problems (1) JERAMIE (acute kidney injury) (2) Atrial fibrillation (3) Generalized weakness Status: Acute (4) Hypomagnesemia Status: Acute SHIVA BOOKER MD Nov 16, 2022 11:52
[2022-11-16] MEDS: CATHETER FLUSH 10 ML SYR IVP SCH ×2 (14:17→21:55)
[2022-11-16] MEDS ORDERED: PANTOPRAZOLE 40 MG (PROTONIX) TAB PO NR (15:30)
[2022-11-16 15:56] VITALS: BP 131/75
[2022-11-16] MEDS ORDERED: DILT-107 PO (16:10)
[2022-11-16] MEDS ORDERED: ATOR20TA66 PO (16:10)
[2022-11-16] MEDS ORDERED: MULT-1136 PO (16:10)
[2022-11-16] MEDS ORDERED: ALLO300T2 PO (16:10)
[2022-11-16] MEDS ORDERED: RIVA20TA PO (16:10)
[2022-11-16] MEDS ORDERED: GLUC-245 PO (16:10)
[2022-11-16] MEDS ORDERED: HYDR50TA6 PO (16:10)
[2022-11-16] MEDS ORDERED: OMEP20CA18 PO (16:10)
[2022-11-16] MEDS ORDERED: MTP100TCR PO (16:10)
[2022-11-16] MEDS ORDERED: ACET-2267 PO (16:10)
[2022-11-16] MEDS ORDERED: [UNRECOGNIZED DRUG - OTHER] PO (16:10)
[2022-11-16] MEDS ORDERED: METF-397 PO (16:10)
[2022-11-16] MEDS: RIVAROXABAN 20 MG TABLET (XARELTO) PO SCH (17:02)
[2022-11-16] MEDS ORDERED: RT-ALBUTEROL SULF 2.5 MG/3 ML PRE-MIX VIAL INH PRN (19:15)
[2022-11-16 19:44] VITALS: BP 102/59
[2022-11-16] MEDS: RT-ALBUTEROL SULF 2.5 MG/3 ML PRE-MIX VIAL INH SCH (21:10)
[2022-11-16] MEDS: AZITHROMYCIN 250 MG/NS 250 ML IVPB IV SCH ×2 (21:55)
[2022-11-16] MEDS: cefTRIAXone 1 GM/NS 50 ML IVPB IV SCH ×2 (23:03)
[2022-11-16] MEDS: ACETAMINOPHEN 500 MG TAB (TYLENOL) PO PRN (23:04)
[2022-11-16 23:06] VITALS: BP 102/67
[2022-11-17 03:16] VITALS: BP 108/70
[2022-11-17] MEDS: CATHETER FLUSH 10 ML SYR IVP SCH ×3 (05:38→20:15)
[2022-11-17 06:17] LABS: HEMATOCRIT 33 % (40-54); HEMOGLOBIN 11.3 g/dL (13.3-17.7); MEAN CORPUSCULAR HEMOGLOBIN 28 pg (25-34); MEAN CORPUSCULAR HGB CONC 34 g/dL (32-36); MEAN CORPUSCULAR VOLUME 82 fL (80-99); MEAN PLATELET VOLUME 10.2 fL (9.0-12.2); PLATELET COUNT 174 10^3/uL (130-400); WHITE BLOOD COUNT 14.2 10^3/uL (4.3-11.0)
[2022-11-17 06:46] LABS: CALCIUM 8.9 MG/DL (8.5-10.1); CREATININE SERUM 0.81 MG/DL (0.60-1.30); POTASSIUM 3.4 MMOL/L (3.6-5.0)
[2022-11-17] MEDS: RT-ALBUTEROL SULF 2.5 MG/3 ML PRE-MIX VIAL INH SCH ×2 (07:46→21:36)
[2022-11-17] MEDS: PANTOPRAZOLE 40 MG (PROTONIX) TAB PO SCH (08:08)
[2022-11-17] MEDS: dilTIAZem120 MG (CARDIZEM CD) CAP PO SCH (08:08)
[2022-11-17] MEDS: MAGNESIUM OXIDE (MAG-OX)400 MG TAB PO SCH ×2 (08:08→17:03)
[2022-11-17 08:13] VITALS: BP 124/66
--- NOTE | 2022-11-17 09:43 | Physical Therapy Daily Note ---
PT Daily Note-Current Subjective Patient lying supine in bed upon PT arrival, agreeable to treatment. Rates pain at 5/10 "My whole body." Reports he had a bad night last night. Pain Section J - Health Conditions 1. Rarely or not at all 2. Occasionally 3. Frequently 4. Almost constantly 8. Unable to answer Pain Effect on Sleep: 3 Pain Interference with Therapy: 3 Pain Interference w/Day-to-Day: 3 Mental Status Patient Orientation: Person, Place, Time, Situation Attachments: Oxygen, IV Transfers SCALE: Activities may be completed with or without assistive devices. 2-Hqflankhyw-iicpqit completes the activity by him/herself with no assistance from a helper. 5-Set-up or Clean-up Assistance-helper sets up or cleans up; patient completes activity. [place] assists only prior to or following the activity. 4-Supervision or Touching Assistance-helper provides verbal cues and/or touching/steadying and/or contact guard assistance as patient completes activity. Assistance may be provided throughout the activity or intermittently. 3-Partial/Moderate Assistance-helper does LESS THAN HALF the effort. [place] lifts, holds or supports trunk or limbs, but provides less than half the effort. 2-Substantial/Maximal Assistance-helper does MORE THAN HALF the effort. [place] lifts or holds trunk or limbs and provides more than half the effort. 8-Vxyofruuo-uyyccz does ALL the effort. Patient does none of the effort to complete the activity. Or, the assistance of 2 or more helpers is required for the patient to complete the activity. If activity was not attempted, code reason: 7-Patient Refused. 9-Not Applicable-not attempted and the patient did not perform the activity before the current illness, exacerbation or injury. 10-Not Attempted due to Environmental Limitations-(lack of equipment, weather restraints, etc.). 88-Not Attempted due to Medical Conditions or Safety Concerns. Roll Left & Right (QC): 4 Sit to Lying (QC): 4 Lying to Sitting/Side of Bed(Q: 4 Sit to Stand (QC): 3 Weight Bearing Right Lower Extremity: Right Full Weight Bearing Left Lower Extremity: Left Full Weight Bearing Gait Training Does the Patient Walk?: Yes Distance: 3' Gait Persons Needed: 1 Gait Assistive Device: FWW Patient sidestepped 3 feet to get higher in bed. Exercises Supine Ex: Ankle pumps, Quad Set, Glut sets Supine Reps: 20 Assessment Current Status: Poor Progress Patient performed LE therapeutic exercise as listed above. He moves very slowly and guarded throughout treatment. Patient performs bed mobility with CGA and verbal cues. He requires mod A for sit to stand and Min a for sidestepping higher into the bed. Patient supine in bed post treatment with all needs met, nursing notified, call light in hand. PT Veneer [place]rier Goals Skilled Nursing Goals PT Skilled Nursing Goals Time Frame: Nov 27, 2022 Roll Left & Right (QC): 4 Sit to Lying (QC): 4 Lying-Sitting on Side/Bed(QC): 4 Sit to Stand (QC): 5 Chair/Uaz-nt-Lhwvy Xfer(QC): 5 Toilet Transfer (QC): 5 Walk 10 feet (QC): 5 Walk 50ft with 2 Turns (QC): 5 PT Plan Treatment/Plan Treatment Plan: Continue Plan of Care Treatment Plan: Bed Mobility, Education, Functional Activity Deb, Functional Strength, Gait, Safety, Therapeutic Exercise, Transfers Treatment Duration: Nov 27, 2022 Frequency: 5 times per week Estimated Hrs Per Day: .25 hour per day Safety Risks/Education Patient Education: Transfer Techniques Teaching Recipient: Patient Teaching Methods: Demonstration, Discussion Response to Teaching: Verbalize Understanding, Return Demonstration Time Time In: 913 Time Out: 937 DATE: Nov 17, 2022 Total Billed Treatment Time: 24 Total Billed Treatment Visit, RHEA, EX GALILEA MENA PT Nov 17, 2022 09:43
[2022-11-17 11:58] VITALS: BP 111/55
[2022-11-17] MEDS: ACETAMINOPHEN 500 MG TAB (TYLENOL) PO PRN (13:29)
[2022-11-17] MEDS ORDERED: meTOprolol 5 MG/5 ML (LOPRESSOR) VIAL IV NR (14:00)
--- NOTE | 2022-11-17 14:39 | Progress Note - Hospitalist ---
Subjective Subjective/Events-last exam Pt reports having a rough night. No specific complaints just that he didn't sleep well and is achey. Breathing better though. HR has been elevated at times so informed him of plan for EKG. Objective Exam Vital Signs Vital Signs Date Time Temp Pulse Resp B/P (MAP) Pulse Ox O2 Delivery O2 Flow Rate FiO2 11/17/22 20:19 36.2 87 17 100/63 (75) 93 Nasal Cannula 1.50 11/16/22 19:10 21 Capillary Refill : Less Than 3 Seconds General Appearance: No Apparent Distress Respiratory: Lungs Clear, No Respiratory Distress Cardiovascular: Irregularly Irregular, Tachycardia Neurologic/Psychiatric: Alert, Oriented x3 Results/Procedures Lab Laboratory Tests 11/17/22 05:43 Patient resulted labs reviewed. Assessment/Plan Assessment and Plan Assess & Plan/Chief Complaint Generalized weakness presumed COVID illness Symptom onset over 2 weeks ago but consistent with COVID PT/OT No indication for treatment for COVID at this time Repeat CXR negative for infiltrate IRF eval- accepted for tomorrow JERAMIE Creatinine improved Trend Hypotension A fib Has baseline HTN but reports he's been low for years Continue diltiazem, add metoprolol due to tachycardia DVT ppx: Xarelto Diagnosis/Problems Diagnosis/Problems (1) JERAMIE (acute kidney injury) (2) Atrial fibrillation (3) Generalized weakness Status: Acute (4) Hypomagnesemia Status: Acute SHIVA BOOKER MD Nov 17, 2022 14:39
[2022-11-17 15:42] VITALS: BP 115/57
[2022-11-17] MEDS: RIVAROXABAN 20 MG TABLET (XARELTO) PO SCH (17:03)
[2022-11-17] MEDS: AZITHROMYCIN 250 MG/NS 250 ML IVPB IV SCH ×2 (20:14)
[2022-11-17] MEDS: meTOprolol TARTRATE 25 MG (LOPRESSOR) TABLET PO SCH (20:15)
[2022-11-17 20:19] VITALS: BP 100/63
[2022-11-17 23:19] VITALS: BP 101/63
[2022-11-17] MEDS: cefTRIAXone 1 GM/NS 50 ML IVPB IV SCH ×2 (23:23)
[2022-11-18] VITALS (7 sets, daily range): BP systolic 89–177; BP diastolic 54–100
[2022-11-18] MEDS: ACETAMINOPHEN 500 MG TAB (TYLENOL) PO PRN (02:32)
[2022-11-18] MEDS: CATHETER FLUSH 10 ML SYR IVP SCH ×3 (05:14→20:03)
[2022-11-18] MEDS: RT-ALBUTEROL SULF 2.5 MG/3 ML PRE-MIX VIAL INH SCH ×2 (07:18→20:46)
[2022-11-18] MEDS: PANTOPRAZOLE 40 MG (PROTONIX) TAB PO SCH (07:49)
[2022-11-18] MEDS: MAGNESIUM OXIDE (MAG-OX)400 MG TAB PO SCH ×2 (07:49→17:09)
[2022-11-18] MEDS: meTOprolol TARTRATE 25 MG (LOPRESSOR) TABLET PO SCH ×2 (07:49→20:02)
[2022-11-18] MEDS: dilTIAZem120 MG (CARDIZEM CD) CAP PO SCH (07:49)
--- NOTE | 2022-11-18 11:33 | Physical Therapy Daily Note ---
PT Daily Note-Current Subjective Patient agrees to PT. Pain Section J - Health Conditions 1. Rarely or not at all 2. Occasionally 3. Frequently 4. Almost constantly 8. Unable to answer Pain Effect on Sleep: 3 Pain Interference with Therapy: 3 Pain Interference w/Day-to-Day: 3 Mental Status Attachments: Oxygen Transfers SCALE: Activities may be completed with or without assistive devices. 8-Hyuyeqiqka-wkzhluv completes the activity by him/herself with no assistance from a helper. 5-Set-up or Clean-up Assistance-helper sets up or cleans up; patient completes activity. [place] assists only prior to or following the activity. 4-Supervision or Touching Assistance-helper provides verbal cues and/or touching/steadying and/or contact guard assistance as patient completes activity. Assistance may be provided throughout the activity or intermittently. 3-Partial/Moderate Assistance-helper does LESS THAN HALF the effort. [place] lifts, holds or supports trunk or limbs, but provides less than half the effort. 2-Substantial/Maximal Assistance-helper does MORE THAN HALF the effort. [place] lifts or holds trunk or limbs and provides more than half the effort. 3-Qthwwbznw-ytplzw does ALL the effort. Patient does none of the effort to complete the activity. Or, the assistance of 2 or more helpers is required for the patient to complete the activity. If activity was not attempted, code reason: 7-Patient Refused. 9-Not Applicable-not attempted and the patient did not perform the activity before the current illness, exacerbation or injury. 10-Not Attempted due to Environmental Limitations-(lack of equipment, weather restraints, etc.). 88-Not Attempted due to Medical Conditions or Safety Concerns. Lying to Sitting/Side of Bed(Q: 3 Sit to Stand (QC): 4 Chair/Mlb-hc-Cehlt Xfer(QC): 4 Weight Bearing Right Lower Extremity: Right Full Weight Bearing Left Lower Extremity: Left Full Weight Bearing Gait Training Distance: 10' Walk 10 feet (QC): 4 Gait Assistive Device: FWW very slow, minimal right foot clearance due to weakness/fatigue Exercises Seated Therapy Exercises: Ankle pumps, Long arc quads, Hip flexion Seated Reps: 15 Assessment Patient up in recliner with needs met. Patient requires time to complete all functional tasks. PT Jitney Driver Goals Jitney Driver Goals PT Snf Goals Time Frame: Nov 27, 2022 Roll Left & Right (QC): 4 Sit to Lying (QC): 4 Lying-Sitting on Side/Bed(QC): 4 Sit to Stand (QC): 5 Chair/Srq-lt-Uebze Xfer(QC): 5 Toilet Transfer (QC): 5 Walk 10 feet (QC): 5 Walk 50ft with 2 Turns (QC): 5 PT Plan Treatment/Plan Treatment Plan: Continue Plan of Care Treatment Plan: Bed Mobility, Education, Functional Activity Deb, Functional Strength, Gait, Safety, Therapeutic Exercise, Transfers Treatment Duration: Nov 27, 2022 Frequency: 5 times per week Estimated Hrs Per Day: .25 hour per day Time Time In: 1053 Time Out: 1106 DATE: Nov 18, 2022 Total Billed Treatment Time: 13 Total Billed Treatment 1 visit FA 13 min NAVA JO PT Nov 18, 2022 11:33
--- NOTE | 2022-11-18 14:26 | Progress Note - Hospitalist ---
Subjective HPI/CC On Admission Date Seen by Provider: Nov 18, 2022 Subjective/Events-last exam Pt reports doing well. Only complaint is that he sinks down in bed and get uncomfortable. Otherwise like achey and breathing better. Objective Exam Vital Signs Vital Signs Date Time Temp Pulse Resp B/P (MAP) Pulse Ox O2 Delivery O2 Flow Rate FiO2 11/18/22 12:50 85 11/18/22 11:58 36.2 18 177/100 (125) 94 Nasal Cannula 2.50 11/16/22 19:10 21 Capillary Refill : Less Than 3 Seconds General Appearance: No Apparent Distress, Chronically ill, Obese Respiratory: Lungs Clear, No Respiratory Distress Cardiovascular: No Murmur, Irregularly Irregular Neurologic/Psychiatric: Alert, Oriented x3 Results/Procedures Lab Patient resulted labs reviewed. Assessment/Plan Assessment and Plan Assess & Plan/Chief Complaint Generalized weakness presumed COVID illness Symptom onset over 2 weeks ago but consistent with COVID PT/OT No indication for treatment for COVID at this time Repeat CXR negative for infiltrate- DC abx IRF eval- accepted for tomorrow JERAMIE- resolved Hypotension A fib Has baseline HTN but reports he's been low for years Continue diltiazem, add metoprolol due to tachycardia BP has been limiting rate controlling meds but BP up today so may be able to increase DVT ppx: Xarelto Diagnosis/Problems Diagnosis/Problems (1) JERAMIE (acute kidney injury) (2) Atrial fibrillation (3) Generalized weakness Status: Acute (4) Hypomagnesemia Status: Acute SHIVA BOOKER MD Nov 18, 2022 14:26
[2022-11-18] MEDS ORDERED: meTOprolol 5 MG/5 ML (LOPRESSOR) VIAL IV NR (15:15)
[2022-11-18] MEDS: RIVAROXABAN 20 MG TABLET (XARELTO) PO SCH (17:09)
[2022-11-18] MEDS ORDERED: AZITHROMYCIN 250 MG TAB (ZITHROMAX) PO SCH (21:00)
[2022-11-19 04:00] VITALS: BP 116/59
[2022-11-19] MEDS: CATHETER FLUSH 10 ML SYR IVP SCH (06:27)
[2022-11-19] MEDS: RT-ALBUTEROL SULF 2.5 MG/3 ML PRE-MIX VIAL INH SCH (07:38)
[2022-11-19 07:59] VITALS: BP 116/59
[2022-11-19] MEDS: dilTIAZem120 MG (CARDIZEM CD) CAP PO SCH (08:04)
[2022-11-19] MEDS: PANTOPRAZOLE 40 MG (PROTONIX) TAB PO SCH (08:04)
[2022-11-19] MEDS: meTOprolol TARTRATE 25 MG (LOPRESSOR) TABLET PO SCH (08:04)
[2022-11-19] MEDS: MAGNESIUM OXIDE (MAG-OX)400 MG TAB PO SCH (08:04)
[2022-11-19 08:14] VITALS: BP 106/53
[2022-11-19] MEDS: ACETAMINOPHEN 500 MG TAB (TYLENOL) PO PRN (08:45)
--- NOTE | 2022-11-19 08:58 | Discharge Summary ---
Diagnosis/Chief Complaint Date of Admission Nov 15, 2022 at 19:22 Date of Discharge Discharge Date: Nov 19, 2022 Primary Care Luis Alberto Balbuena MD Discharge Diagnosis (1) JERAMIE (acute kidney injury) (2) Atrial fibrillation (3) Generalized weakness Status: Acute (4) Hypomagnesemia Status: Acute Discharge Summary Discharge Physical Exam Allergies: Coded Allergies: No Known Drug Allergies (Unverified , 05/03/19) Vitals & I&Os Vital Signs Date Time Temp Pulse Resp B/P (MAP) Pulse Ox O2 Delivery O2 Flow Rate FiO2 11/19/22 11:05 36.5 92 20 106/53 93 Nasal Cannula 2.50 11/19/22 07:59 30 General Appearance: No Apparent Distress, Chronically ill Cardiovascular: No Murmur, Irregularly Irregular Gastrointestinal: Normal Bowel Sounds, Soft Neurologic/Psychiatric: Alert, Oriented x3 Hospital Course Patient was admitted to the hospital secondary to presumed debility from COVID and JERAMIE. He was seen by physical therapy and Occupational Therapy and deemed an appropriate candidate for inpatient rehab. He did have some bouts of tachycardia and has known atrial fibrillation. This was difficult to manage due to his relative hypotension. Ultimately his tachycardia and blood pressure were adequate with low-dose metoprolol and diltiazem. He was discharged to inpatient rehab for continued intensive therapies. Labs (last 24 hrs) Patient resulted labs reviewed. Discussion & Recommendations Discharge Planning: >30 minutes discharge planning Discharge Home Medications: Active Scripts Active Reported Multivitamin 1 Each Tablet 1 Each PO DAILY Tylenol Extra Strength (Acetaminophen) 500 Mg Tablet 500 Mg PO BID Move Free Plus MSM Tablet (Gluc/Chond/MSM/Hyal/Derek Borate) 500-66.7MG Tablet 1 Each PO BID [Naysa Cbd] 1 Ea PO BID Atorvastatin Calcium 20 Mg Tablet 20 Mg PO DAILY Diltiazem ER (Diltiazem HCl) 180 Mg Cap.er.deg 180 Mg PO 1900 Metoprolol Succinate 100 Mg Tab.er.24h 100 Mg PO 1900 Hydrochlorothiazide 50 Mg Tablet 50 Mg PO 1900 Metformin HCl 500 Mg Tablet 1,000 Mg PO 1900 TAKES 2 (500MG) TABS Allopurinol 300 Mg Tablet 600 Mg PO 1900 TAKES 2 (300MG) TABS Omeprazole 20 Mg Capsule.dr 20 Mg PO DAILY Xarelto (Rivaroxaban) 20 Mg Tablet 20 Mg PO 1900 Instructions to patient/family Please see electronic discharge instructions given to patient. SHIVA BOOKER MD Nov 19, 2022 08:58
[2022-11-19] MEDS ORDERED: ACETAMINOPHEN 500 MG TAB (TYLENOL) PO SCH (09:00)
[2022-11-19 11:05] VITALS: BP 106/53
--- NOTE | 2022-11-19 15:45 | Physician Query-Final Dx ---
DEANNA ROB 11/19/22 1545: Final Diagnosis Give Final Diagnosis Please give Final Diagnosis The medical record reflects the following clinical evidence: Clinical Indicators: RR 16 on admission has been as high as 20 has been on oxygen since shortly after admission at 2-2.5L, O2 sat 95% on admission has been as low as 90% while on RA and 02 Sats frequently 92-93% on 2.5 L (P/W=[id number]), Have not been able to wean of off prior to discharge, Documentation of SOA with exertion Risk Factor(s): No Hx of 02 use at home, Covid Illness with symptoms starting 2 week prior and prolonged weakness Treatment: supplemental 02 up to 2.5, Respiratory monitoring, Albuterol and IV ABX Acute respiratory failure with hypoxia Other explanation of clinical findings Unable to determine (no explanation for clinical findings) Please clarify and document your clinical opinion in the progress notes and discharge summary including the definitive and/or presumptive diagnosis, (suspected or probable), related to the above clinical findings. Please include clinical findings supporting your diagnosis. Deanna Rob, MSN, RN Clinical Registered Nurse Behavioral Health [phone] [email or web address] SHIVA BOOKER MD 11/19/222041: Final Diagnosis Give Final Diagnosis Acute respiratory failure with hypoxia- post DEANNA CHEUNG Nov 19, 2022 15:45 SHIVA BOOKER MD Nov 19, 2022 20:42
== END 2022-11-19 10:48 | DRG 189 ==
LOC: EDUNIT# 10:00 → ER 10:03 → 4TH 19:22
PROVIDERS: ADMIT Family Medicine; ATTEND Family Medicine
DX: J96.01 Acute respiratory failure with hypoxia (principal); N17.9 Acute kidney failure, unspecified; U09.9 Post COVID-19 condition, unspecified; I95.9 Hypotension, unspecified; I48.91 Unspecified atrial fibrillation; E78.00 Pure hypercholesterolemia, unspecified; G62.9 Polyneuropathy, unspecified; Z79.01 Long term (current) use of anticoagulants; E86.0 Dehydration; R63.4 Abnormal weight loss; Z68.37 Body mass index [BMI] 37.0-37.9, adult; I10 Essential (primary) hypertension
CPT/HCPCS: 36415; 71045; 80048; 80053; 81000; 83735; 85007; 85027; 86141; 93005; 93041; 94640; 94664; 94760

== ENCOUNTER 2022-11-19 10:47 | Inpatient (IN) | payer MEDICARE, OTHER ==
[~2022-11-19] VITALS: Ht 172.7 cm; Wt 113.0 kg
--- NOTE | 2022-11-19 10:36 | PM&R Post Admission Assessment ---
PM&R Date of Visit: Nov 19, 2022 Time of Visit: 11:00 History of Present Illness Chief complaint: Debility from COVID infection HPI: This is a 72-year-old male who has a past medical history of atrial fibrillation who presented from fourth floor following severe weakness from presumed COVID infection. His signs and symptoms were consistent with the infection. Currently he has had progressive weight loss but this has worsened. He is severely weak and is very concerned about losing his independence. Prior level of functioning includes use of a cane at times recently in order to feel stable enough to walk around. Currently he will require aggressive therapy in order to regain baseline function and independence. Past Rduwoor-Vgulyx-Rwuuae Hx Past Med/Social Hx: Reviewed Nursing Past Med/Soc Hx, Reviewed and Corrections made Patient Social History Marrital Status: Employed/Student: retired Alcohol Use: Denies Use Smoking Status: Never a Smoker 2nd Hand Smoke Exposure: No Past Medical History Cardiac: Atrial Fibrillation, High Cholesterol, Hypertension, Irregular Heartbeat Neurological: Neuropathy Gastrointestinal: Gastroesophageal Reflux Musculoskeletal: Gout Endocrine: Diabetes, Non-Insulin dep PM&R Allergy/Meds/Data Review Allergies Coded Allergies: No Known Drug Allergies (Unverified , 05/03/19) Home Medications Scheduled Acetaminophen (Tylenol Extra Strength), 500 MG PO BID, (Reported) Allopurinol (Allopurinol), 600 MG PO 1900, (Reported) Atorvastatin Calcium (Atorvastatin Calcium), 20 MG PO DAILY, (Reported) Diltiazem HCl (Diltiazem ER), 180 MG PO 1900, (Reported) Gluc/Chond/MSM/Hyal/Derek Borate (Move Free Plus MSM Tablet), 1 EACH PO BID, (Reported) Hydrochlorothiazide (Hydrochlorothiazide), 50 MG PO 1900, (Reported) Metformin HCl (Metformin HCl), 1,000 MG PO 1900, (Reported) Metoprolol Succinate (Metoprolol Succinate), 100 MG PO 1900, (Reported) Multivitamin (Multivitamin), 1 EACH PO DAILY, (Reported) Omeprazole (Omeprazole), 20 MG PO DAILY, (Reported) Rivaroxaban (Xarelto), 20 MG PO 1900, (Reported) [Naysa Cbd], 1 EA PO BID, (Reported) Discontinued Medications Cephalexin (Cephalexin), 500 MG PO QID Discontinued Reason: Duplicate Order Diltiazem HCl (Diltiazem 24Hr Cd), 240 MG PO DAILY Discontinued Reason: Duplicate Order Current Medications Current Medications Reviewed Review of Systems Constitutional: see HPI, dizziness, malaise, weakness, weight loss EENTM: no symptoms reported Respiratory: dyspnea on exertion Cardiovascular: no symptoms reported Gastrointestinal: no symptoms reported Genitourinary: no symptoms reported Musculoskeletal: back pain, joint pain Skin: no symptoms reported Psychiatric/Neurological: No Symptoms Reported All Other Systems Reviewed Negative Unless Noted: Yes Physical Exam Physical Exam Vital Signs Capillary Refill : Height, Weight, BMI Height: '" Weight: lbs. oz. kg; 37.88 BMI Method: General Appearance: No Apparent Distress, WD/WN, Chronically ill, Obese Eyes: Bilateral Eye Normal Inspection, Bilateral Eye PERRL HEENT: PERRL/EOMI, Normal ENT Inspection, Pharynx Normal Neck: Full Range of Motion, Normal Inspection, Non Tender, Supple, Carotid Bruit Respiratory: Chest Non Tender, Normal Breath Sounds, No Accessory Muscle Use, No Respiratory Distress, Decreased Breath Sounds Cardiovascular: Regular Rate, Rhythm, No Edema, No Gallop, No JVD, No Murmur, Normal Peripheral Pulses Gastrointestinal: Normal Bowel Sounds, No Organomegaly, No Pulsatile Mass, Non Tender, Soft Back: Normal Inspection, No CVA Tenderness, No Vertebral Tenderness Extremity: Normal Capillary Refill, Normal Inspection, Normal Range of Motion, Non Tender, No Calf Tenderness, No Pedal Edema Neurologic/Psychiatric: Alert, Oriented x3, condenser operator II-XII Norm as Tested, Abnormal Gait, Depressed Affect, Motor Weakness (Severe weakness 3/5 all extremities) Skin: Normal Color, Warm/Dry Lymphatic: No Adenopathy PM&R Medical Assessment & Plan REHAB/MEDICAL ASSESSMENT AND PLAN: REHAB IMPAIRMENT GROUP: Debility from COVID ETIOLOGIC DIAGNOSIS: debility from COVID The comorbidities that impact the patients function and/or functional outcome by: advanced age, COVID weakness, atrial fibrillation, weight loss REHAB PLAN: The patient is being admitted to our comprehensive inpatient rehabilitation facility and can tolerate the intensity of service consisting of at least: 180 minutes of therapy a day, 5 out of 7 days a week Rehab treatment will consist of: PT and OT will focus on regaining function with use of assistive devices in order to increase stamina with ambulation and increased independence in ADLs in order to return home The patient/family has a good understanding of our discharge process and will benefit from an interdisciplinary inpatient rehabilitation program. The patient has potential to make improvement and is in need of at least two of the following multidisciplinary therapies including but not limited to physical, occupational, speech, and prosthetics and orthotics. Additionally the patient will need services from respiratory, nutritional services, wound care, psychology, etc. (Customize this to each patient). Given the patients complex condition and risk of further medical complications, rehabilitation services cannot be safely or effectively provided at a lower level of care such as a nursing home facility. BARRIERS TO DISCHARGE: severe weakness with progressive weight loss ESTIMATED LOS: 10 days DISPOSITION: home RELEVANT CHANGES SINCE PREADMISSION SCREENING: I have compared the patients medical and functional status at the time of the preadmission screening and there are: no changes PROGNOSIS: good REHABILITATION GOALS: 1.PT and OT will focus on regaining function with use of assistive devices in order to increase stamina with ambulation and increased independence in ADLs in order to return home All the above goals were reviewed with the patient and he/she is in agreement. By signing this document, I acknowledge that I have personally performed a full physical examination on this patient [facility] and have determined the patient to be able to tolerate the above course of treatment at an intensive level for a reasonable period of time. I will be completing a detailed individualized Plan of Care for this patient by day #4 of the patients stay based upon the Preadmission Screen, the Post-Admission Evaluation, and the therapy evaluations. Admission Dx/Comorbidities: (1) Debility ICD Codes: R53.81 - Other malaise (2) Atrial fibrillation ICD Codes: I48.91 - Unspecified atrial fibrillation Assessment/Plan Assessment and Plan Assess & Plan/Chief Complaint Assessment: Generalized weakness Presumed COVID illness JERAMIE- resolved Hypotension A fib DVT ppx: Xarelto Progressive weight loss Plan: PT and OT Home meds Supportive care KARON RODRIGUEZ DO Nov 19, 2022 10:36
[~2022-11-19 10:47] MED LIST changes: +ACET-2267 PO; +ACETAMINOPHEN 325 MG TABLET PO PRN; +ALLO300T2 PO; +ALPRAZolam 0.25 MG (XANAX) TAB PO PRN; +ATOR20TA66 PO; +BISACODYL 10 MG SUPP (DULCOLAX) PR PRN; +CALCIUM CARBONATE 500 MG (TUMS) TAB.CHEW PO PRN; +DILT-107 PO; +DOCUSATE SODIUM 100 MG (COLACE) CAP PO PRN; +FLEET ENEMA ADULT 1 EA BTL PR PRN; +GLUC-245 PO; +HYDR50TA6 PO; +LACTULOSE SYRUP 10GM/15ML (ENULOSE) 30ML UDC PO PRN; +LOPERAMIDE 2 MG (IMODIUM) TABLET PO PRN; +MELATONIN 3 MG TABLET PO PRN; +METF-397 PO; +MTP100TCR PO; +MULT-1136 PO; +OMEP20CA18 PO; +RIVA20TA PO; +[UNRECOGNIZED DRUG - OTHER] PO; +diphenhydrAMINE 25 MG TAB (BENADRYL) PO PRN; +guaiFENesin/CODEINE (ROBITUSSIN AC) 10ML UDC PO PRN
[2022-11-19 10:50] VITALS: BP 102/55
--- NOTE | 2022-11-19 11:15 | Occupational Therapy Eval ---
OT Evaluation-General/PLF Medical Diagnosis Admission Date Nov 19, 2022 at 10:55 Medical Diagnosis: debility Onset Date: Nov 15, 2022 Therapy Diagnosis Therapy Diagnosis: Weakness; Decreased strength, endurance, and functional mobility Precautions Precautions/Isolations: Fall Prevention, Standard Precautions Weight Bear Status Weight Bearing Restriction: Full Weight Bearing Location Restriction: LE Bilateral, UE Bilateral (CT splint, patinet reports only at night however wearing daily) Medical History Pertinent Medical History: Atrial Fib, DM, HTN, Neuropathy Additional Medical History This 72-year-old gentleman presents to the emergency room with complaints of feeling ill starting about 3 weeks ago. He lost appetite and taste. Symptoms have worsened over the last few weeks. He thinks perhaps he had a COVID-19 as the symptoms were similar to a prior infection of COVID-19. He did have some diarrhea last week which has now improved. He reports some dyspnea on exertion. He has had some flatulence that he describes as "acidic gas." He feels very weak and lightheaded. His sons had to assist him to the car and into the hospital. He has diabetes with neuropathy. He received long courses of wound care for wounds on his legs that have now improved. He has a few small breaks in the skin on his legs but no major sores or infections. He reports noting his blood pressure has been low for about the past 3 months. Oxygen saturations have also been on the lower side of normal. He has atrial fibrillation and is anticoagulated. Dr. Balbuena is his primary care provider. He notes losing a significant amount of weight in the last few weeks. Came to ER Early Tuesday morning, transferred to fourth floor in house. 11/19 transferred to ARU for therapy, Sleeps in [facility] on platform, reports he plans to attempt sleeping in bed at home Current History Pain shoulder 2/10 back 1/10 Social History Home: Single Level Current Living Status: Spouse Entry Into Home: Stairs With Railing (right side at door) Steps Into Home: 3 ADL-Prior Level of Function SCALE: Activities may be completed with or without assistive devices. 4-Lczubcfxvc-hjnbsee completes the activity by him/herself with no assistance from a helper. 5-Set-up or Clean-up Assistance-helper sets up or cleans up; patient completes activity. [place] assists only prior to or following the activity. 4-Supervision or Touching Assistance-helper provides verbal cues and/or touching/steadying and/or contact guard assistance as patient completes activity. Assistance may be provided throughout the activity or intermittently. 3-Partial/Moderate Assistance-helper does LESS THAN HALF the effort. [place] lifts, holds or supports trunk or limbs, but provides less than half the effort. 2-Substantial/Maximal Assistance-helper does MORE THAN HALF the effort. [place] lifts or holds trunk or limbs and provides more than half the effort. 0-Ebjmffgtx-boyhpy does ALL the effort. Patient does none of the effort to complete the activity. Or, the assistance of 2 or more helpers is required for the patient to complete the activity. If activity was not attempted, code reason: 7-Patient Refused. 9-Not Applicable-not attempted and the patient did not perform the activity before the current illness, exacerbation or injury. 10-Not Attempted due to Environmental Limitations-(lack of equipment, weather restraints, etc.). 88-Not Attempted due to Medical Conditions or Safety Concerns. Self Care: Independent Functional Cognition: Independent DME/Equipment: Bath Chair (with arms), Bedside Commode (available, uses urinal at night), Grab Bars, Reachers, Shower, Shower Hose Minister Assistant, Tall Toilet DME/Equipment Comments Walk in shower w/ chair, GB 5-6 suction type, tall toilet, custom made rail around toilet.Patient son reports patient is homebound since COVID. Uses 4ww/seat at home Drive Self: No OT Current Status Mental Status/Objective Attachments: Oxygen (2.5 liters NC does not use at home) Current Glasses/Contacts: Yes (bifocal) Hearing Aids: No Dentures/Partials: No Hand Dominance: Left Upper Extremity ROM BUE ROM WFLS Upper Extremity Coordination FAIR+ Upper Extremity Strength -4/5grossly ADL-Treatment Eating (QC): 6 Oral Hygiene (QC): 6 Shower/Bathe Self (QC): 2 Upper Body Dressing (QC): 5 Lower Body Dressing (QC): 2 On/Off Footwear (QC): 2 Toileting Hygiene (QC): 2 Education OT Patient Education: Disease process, Energy conservation, Exercise program, Instructions to caregiver, Modified ADL techniques, Progress toward Goal/Update tx plan, Purpose of tx/functional activities, Reviewed precautions, Rehab process, Safety issues, Transfer techniques, Use of adapted equipment BIMS CAM BIMS Expression of Ideas and Wants: Without Difficulty Understanding Verbal Content: Understands Brief Interview/Mental Status: No IRF DARSHAN BIMS: IRF DARSHAN BIMS Response (Comments) Value Repitition of Three Words Three 3 Recalls Socks Yes, No Cue Required 2 Recalls Blue Yes, No Cue Required 2 Recalls Bed Yes, After Cueing 1 Year Correct 3 Month Accurate Within 5 Days 2 Day Correct 1 Total 14 Patient Normally Able to Recal: Current Session, Location of own room (219, 227), That he/she in a [facility] CAM Mental Status Change/Baseline: 1 Inattention: 0 Disorganized thinkin Altered level of consciousness: 0 OT Short Term Goals Short Term Goals Time Frame: Nov 26, 2022 Eatin Oral hygiene: 5 Upper body dressin OT Roadability Machine Operator Goals Roadability Machine Operator Goals Time Frame: Dec 03, 2022 Eating (QC): 6 Oral Hygiene (QC): 6 Toileting Hygiene (QC): 5 Shower/Bathe Self (QC): 5 Upper Body Dressing (QC): 6 Lower Body Dressing (QC): 6 On/Off Footwear (QC): 6 1=Demonstrate adherence to instructed precautions during ADL tasks. 2=Patient will verbalize/demonstrate understanding of assistive devices/modifications for ADL. 3=Patient will improve strength/tolerance for activity to enable patient to perform ADL's. OT Education/Plan Problem List/Assessment Assessment: Decreased Activ Tolerance, Decreased Safety Aware, Decreased UE Strength, Impaired Bed Mobility, Impaired Coordination, Impaired Funct Balance, Impaired Self-Care Skills, Restricted Funct UE ROM Discharge Recommendations Plan/Recommendations: Continue POC Treatment Plan/Plan of Care Treatment,Training & Education: Yes Patient would benefit from OT for education, treatment and training to promote independence in ADL's, mobility, safety and/or upper extremity function for ADL's. Plan of Care: ADL Retraining, Caregiver Training, Concurrent Therapy, Functional Mobility, Group Exercise/Act as Ind, Orthotic Fitting/Training, UE Funct Exercise/Act, UE Neuromus Re-Ed/Coord Treatment Duration: Dec 03, 2022 Frequency: At least 5 of 7 days/Wk (IRF) Estimated Hrs Per Day: 1.5 hours per day Agreement: Yes Rehab Potential: Good Time Start Time: 11:05 Stop Time: 11:25 DATE: Nov 19, 2022 Total Time Billed (hr/min): 20 Billed Treatment Time EVM 20 IRMA MOONEY OT Nov 19, 2022 11:15
[2022-11-19] MEDS ORDERED: ACETAMINOPHEN 500 MG TAB (TYLENOL) PO SCH (12:00)
--- NOTE | 2022-11-19 12:11 | Physical Therapy Evaluation ---
PT Evaluation-General Medical Diagnosis Admission Date Nov 19, 2022 at 10:55 Medical Diagnosis: Debility Onset Date: Nov 15, 2022 Therapy Diagnosis Therapy Diagnosis: Weakness; Decreased strength, endurance, and functional mobility Precautions Precautions/Isolations: Fall Prevention, Standard Precautions Weight Bear Status Right Lower Extremity: Right Full Weight Bearing Left Lower Extremity: Left Full Weight Bearing Referral Physician: Gisela Reason for Referral: Evaluation/Treatment Medical History Pertinent Medical History: Atrial Fib, DM, HTN, Neuropathy Additional Medical History Atrial Fib, DM, HTN, Neuropathy Current History ER on 11/12/2022 for weakness; Transferred to ARU on 11/19/2022 for debility Reviewed History: Yes Social History Home: Single Level Current Living Status: Spouse Entry Into Home: Stairs With Railing (right side at door) PT Steps Into Home: 3 Pt lives at home with his . Pt reports a 1 story home with 3 steps to enter with R HR. Walk-in shower with SC, GBs, and tall toilet. Prior Prior Level of Function SCALE: Activities may be completed with or without assistive devices. 1-Mcdhxprzgg-epxjiuh completes the activity by him/herself with no assistance from a helper. 5-Set-up or Clean-up Assistance-helper sets up or cleans up; patient completes activity. [place] assists only prior to or following the activity. 4-Supervision or Touching Assistance-helper provides verbal cues and/or touching/steadying and/or contact guard assistance as patient completes activity. Assistance may be provided throughout the activity or intermittently. 3-Partial/Moderate Assistance-helper does LESS THAN HALF the effort. [place] lifts, holds or supports trunk or limbs, but provides less than half the effort. 2-Substantial/Maximal Assistance-helper does MORE THAN HALF the effort. [place] lifts or holds trunk or limbs and provides more than half the effort. 4-Fhicwsvgq-uazcwz does ALL the effort. Patient does none of the effort to complete the activity. Or, the assistance of 2 or more helpers is required for the patient to complete the activity. If activity was not attempted, code reason: 7-Patient Refused. 9-Not Applicable-not attempted and the patient did not perform the activity before the current illness, exacerbation or injury. 10-Not Attempted due to Environmental Limitations-(lack of equipment, weather restraints, etc.). 88-Not Attempted due to Medical Conditions or Safety Concerns. Bed Mobility: 9 Transfers (B,C,W/C): 6 Gait: 6 Stairs: 4 Wheelchair Mobility: 9 Indoor Mobility (Ambulation): Independent Stairs: Needed Some Help Prior Devices Use: Walker At [facility], pt was Mod I with the 4WW, in the home, but needed some assistance for leaving the home and community mobility. PT Evaluation-Current Subjective Pt is agreeable to PT. Pain Numeric Pain Scale: 1 Location: Lower Location Body Site: Back Section J - Health Conditions 1. Rarely or not at all 2. Occasionally 3. Frequently 4. Almost constantly 8. Unable to answer Pain Effect on Sleep: 1 Pain Interference with Therapy: 2 Pain Interference w/Day-to-Day: 2 Pt/Family Goals Safely return home Objective Patient Orientation: Person, Place, Time, Situation ROM/Strength ROM Upper Extremities See OT note ROM Lower Extremities WFL Strength Upper Extremities See OT note Strength Lower Extremities B LE MMT = 3+/5 Integumentary/Posture Integumentary See nurses note Bowel Incontinence: Yes Bladder Incontinence: Yes Sensory Vision: Wears Glasses Hearing: Functional Hand Dominance: Left Sensation Right Upper Extremit: Intact Sensation Left Upper Extremity: Intact Sensation Right Lower Extremit: Impaired Sensation Left Lower Extremity: Impaired Transfers Roll Left & Right (QC): 3 (Min A ) Sit to Lying (QC): 3 (Min A) Lying to Sitting/Side of Bed(Q: 3 (Min A ) Sit to Stand (QC): 3 (Mod A ) Chair/Eun-ic-Ijgwz Xfer(QC): 3 (Mod A ) Toilet Transfer (QC): 3 (Mod A ) Car Transfer (QC): 88 Gait Does the Patient Walk?: Yes Mode of Locomotion: Both Anticipated Mode of Locomotion: Walk Walk 10 feet (QC): 3 (Min A ) Walk 50 ft with 2 Turns(QC): 88 Walk 150 ft (QC): 88 Walking 10ft/uneven surface-QC: 88 Distance: 20ft Gait Assistive Device: FWW Wheelchair Training Does the Pt Use a Wheelchair?: Yes Wheel 50 ft with 2 turns (QC): 88 Wheel 150 ft (QC): 88 Type of Wheelchair: Manual Stairs 1 Step (curb) (QC): 88 4 Steps (QC): 88 12 Steps (QC): 88 Balance Sitting Static: Good Sitting Dynamic: Fair Standing Static: Poor Standing Dynamic: Poor Picking up an Object (QC): 3 (Min A ) Special Test Comments KU standing balance score = 2/5 (goal = 4/5) Treatment PT eval completed Assessment/Needs Pt tolerated PT fairly with with decent effort Rehab Potential: Fair Post Rehab Potential-Barriers: Debility Equipment Needs FWW, w/c PT Group Home Goals [employer] Goals PT Group Home Goals Time Frame: Dec 03, 2022 Roll Left to Right (QC): 6 (Pt will be Mod I with bed mobility and transfers ) Sit to Lying (QC): 6 (Pt will be Mod I with bed mobility and transfers ) Lying-Sitting on Side/Bed(QC): 6 (Pt will be Mod I with bed mobility and transfers ) Sit to Stand (QC): 6 (Pt will be Mod I with bed mobility and transfers ) Chair/Jtd-my-Ershb Xfer(QC): 6 (Pt will be Mod I with bed mobility and transfers ) Toilet/Commode Transfer (QC): 6 (Pt will be Mod I with bed mobility and transfers ) Car Transfer (QC): 6 (Pt will be Mod I with bed mobility and transfers ) Does the Patient Walk: Yes Walk 10 feet (QC): 4 (Pt will be SBA for walking and stairs. ) Walk 10ft-Uneven Surface(QC): 4 (Pt will be SBA for walking and stairs. ) Walk 50ft with 2 Turns (QC): 4 (Pt will be SBA for walking and stairs. ) Walk 150 ft (QC): 4 (Pt will be SBA for walking and stairs. ) Does the Pt use WC or Scooter?: Yes Wheel 50 feet with 2 turns (QC: 6 (Ind with w/c mobility ) Type: Manual Wheel 150 feet: 6 (Mod I with w/c mobility ) Type: Manual 1 Step (curb) (QC): 4 (Pt will be SBA for walking and stairs. ) 4 Steps (QC): 4 (Pt will be SBA for walking and stairs. ) 12 Steps (QC): 4 (Pt will be SBA for walking and stairs. ) Picking up an Object (QC): 4 (SBA for functional mobility ) KU standing balance scale goal = 4/5 PT Plan Problem List Problem List: Activity Tolerance, Functional Strength, Safety, Balance, Gait, Transfer, Bed Mobility Treatment/Plan Treatment Plan: Continue Plan of Care Treatment Plan: Bed Mobility, Concurrent Therapy, Education, Functional Activity Deb, Functional Strength, Group Therapy, Gait, Safety, Therapeutic Exercise, Transfers Treatment Duration: Nov 04, 2023 Frequency: At least 5 of 7 days/Wk (IRF) Estimated Hrs Per Day: 1.5 hours per day Safety Risks/Education Patient Education: Gait Training, Transfer Techniques, Safety Issues Teaching Recipient: Patient, Family Teaching Methods: Demonstration, Discussion Response to Teaching: Reinforcement Needed Discharge Recommendations Therapy Discharge Recommendati: Home & Family Equpiment Recommendations-D/C: Front Wheeled Walker, Manual Wheelchair Discharge Status/Home Program Cont per POC Barriers to Progress Debility/weakness Target Placement Home with family Time Time In: 1125 Time Out: 1145 DATE: Nov 19, 2022 Total Billed Treatment Time: 20 Total Billed Treatment 20 min 1 PT JESUS STERLING PT Nov 19, 2022 12:11
[2022-11-19] MEDS: ACETAMINOPHEN 325 MG TABLET PO SCH ×2 (12:27→17:25)
--- NOTE | 2022-11-19 13:38 | Physical Therapy Daily Note ---
PT Daily Note-Current Subjective Pt found lying in recliner upon entry. Agreed to PT/OT treatment. PT/OT co- treatment for safety and skilled intervention of two therapists. Pt does not report any pain but states he has not had much of an appetite for awhile. States that he has had a low blood pressure for a long time. Pain Section J - Health Conditions 1. Rarely or not at all 2. Occasionally 3. Frequently 4. Almost constantly 8. Unable to answer Pain Effect on Sleep: 1 Pain Interference with Therapy: 2 Pain Interference w/Day-to-Day: 2 Mental Status Patient Orientation: Person, Place Transfers SCALE: Activities may be completed with or without assistive devices. 8-Rbeohbnnjv-zivwuth completes the activity by him/herself with no assistance from a helper. 5-Set-up or Clean-up Assistance-helper sets up or cleans up; patient completes activity. [place] assists only prior to or following the activity. 4-Supervision or Touching Assistance-helper provides verbal cues and/or touching/steadying and/or contact guard assistance as patient completes activity. Assistance may be provided throughout the activity or intermittently. 3-Partial/Moderate Assistance-helper does LESS THAN HALF the effort. [place] lifts, holds or supports trunk or limbs, but provides less than half the effort. 2-Substantial/Maximal Assistance-helper does MORE THAN HALF the effort. [place] lifts or holds trunk or limbs and provides more than half the effort. 0-Dycwqsjbt-wkizyr does ALL the effort. Patient does none of the effort to complete the activity. Or, the assistance of 2 or more helpers is required for the patient to complete the activity. If activity was not attempted, code reason: 7-Patient Refused. 9-Not Applicable-not attempted and the patient did not perform the activity before the current illness, exacerbation or injury. 10-Not Attempted due to Environmental Limitations-(lack of equipment, weather restraints, etc.). 88-Not Attempted due to Medical Conditions or Safety Concerns. Sit to Stand (QC): 3 Chair/Wjl-zn-Eebig Xfer(QC): 3 Pt MOD lifting assist /c sit to stand transfer from recliner. MOD lifting assistance /c wheelchair to shower chair and shower chair to wheelchair transfer. [place] without assistance. Dizziness reported /c standing. Weight Bearing Right Lower Extremity: Right Full Weight Bearing Left Lower Extremity: Left Full Weight Bearing Gait Training Does the Patient Walk?: Yes Distance: 6 feet Gait Assistive Device: FWW Pt ambulated 6 feet /c FWW and MIN assist for steadying. Increased dizziness reported /c ambulation. Treatments Supine Therapeutic Exercises: Hip abd x 10 Hip add x 10 SLRs x 10 Heel slides x 10 Ankle pumps x 10 Quad sets x 10 Assessment Current Status: Fair Progress Pt displays good muscle endurance /c therapeutic exercises but poor ambulation tolerance. All exercises completed in recliner. Pt ambulated 6 feet /c use of FWW before reporting dizziness. Pt then placed in wheelchair and transferred to shower. Required MOD lifting assistance /c chair to chair and sit to stand transfers. Pt demonstrates poor neck and trunk posture while standing and ambulating. Continue to progress pt per POC to address strength, endurance, and functional ability deficits. PT Second Class Welder Goals Second Class Welder Goals PT Alf Goals Time Frame: Dec 03, 2022 Roll Left & Right (QC): 6 (Pt will be Mod I with bed mobility and transfers ) Sit to Lying (QC): 6 (Pt will be Mod I with bed mobility and transfers ) Lying-Sitting on Side/Bed(QC): 6 (Pt will be Mod I with bed mobility and transfers ) Sit to Stand (QC): 6 (Pt will be Mod I with bed mobility and transfers ) Chair/Lbv-nh-Lpchd Xfer(QC): 6 (Pt will be Mod I with bed mobility and transfers ) Toilet Transfer (QC): 6 (Pt will be Mod I with bed mobility and transfers ) Car Transfer (QC): 6 (Pt will be Mod I with bed mobility and transfers ) Does the Patient Walk: Yes Walk 10 feet (QC): 4 (Pt will be SBA for walking and stairs. ) Walk 50ft with 2 Turns (QC): 4 (Pt will be SBA for walking and stairs. ) Walk 150 ft (QC): 4 (Pt will be SBA for walking and stairs. ) Walking 10ft on Uneven Surface: 4 (Pt will be SBA for walking and stairs. ) 1 Step (curb) (QC): 4 (Pt will be SBA for walking and stairs. ) 4 Steps (QC): 4 (Pt will be SBA for walking and stairs. ) 12 Steps (QC): 4 (Pt will be SBA for walking and stairs. ) Picking up an Object (QC): 4 (SBA for functional mobility ) Does the Pt use WC or Scooter?: Yes Wheel 50 feet with 2 turns (QC: 6 (Ind with w/c mobility ) Type: Manual Wheel 150 feet: 6 (Mod I with w/c mobility ) Type: Manual PT Plan Treatment/Plan Treatment Plan: Continue Plan of Care Treatment Plan: Bed Mobility, Concurrent Therapy, Education, Functional Activity Deb, Functional Strength, Group Therapy, Gait, Safety, Therapeutic Exercise, Transfers Treatment Duration: Nov 04, 2023 Frequency: At least 5 of 7 days/Wk (IRF) Estimated Hrs Per Day: 1.5 hours per day Time Time In: 1300 Time Out: 1420 DATE: Nov 19, 2022 Total Billed Treatment Time: 80 Total Billed Treatment 1 visit GT x 1 EX x 2 FA x 2 Co-treatment time: 9818-7786 Total treatment time: 0331-0255 IZZY MOSLEY PTA Nov 19, 2022 13:38
[2022-11-19] MEDS ORDERED: CATHETER FLUSH 10 ML SYR IVP SCH (14:00)
--- NOTE | 2022-11-19 14:38 | Occupational Ther Daily Note ---
OT Current Status-Daily Note Subjective Pt alert, sitting in recliner. Pt agrees to therapy. Pt requires encouragement to try and complete daily tasks on own before asking for assistance. PT/OT co-treat([id number]), skills of 2 clinicians required to decrease fall risk, increase mobility, activity tolerance, strength and complete functional tasks with minimal recovery breaks. PT focusing on transfers, standing, B LE strengthening and mobility while OT focusing on ADLs, functional mobility and B UE strengthening. Mental Status/Objective Patient Orientation: Person, Place, Time, Situation Attachments: IV, Oxygen (2.5L) ADL-Treatment Pt ambulated ~6' from recliner going to bathroom. Pt agrees to shower. Mod A for transfer on/off shower bench using grabbars to pull on. Sitting on shower bench 95% of the time, pt cleansed most areas though assist with B feet and buttocks(in standing). UBD with set up. LBD max A, pt requires assist to thread over feet and unable to offload wt from hands to hike pants over hips. Toileting max A to thoroughly cleanse self and to manipulate clothing over hips. Pt completed oral care independently sitting on shower bench. Pt has demonstrated ability to eat independently. Max A for footwear. Therapy Code Descriptions/Definitions Functional [place] Measure: 0=Not Assessed/NA 4=Minimal Assistance 1=Total Assistance 5=Supervision or Setup 2=Maximal Assistance 6=Modified [place] 3=Moderate Assistance 7=Complete IndependenceSCALE: Activities may be completed with or without assistive devices. 6-Fqzjnbcqfp-ygosbjb completes the activity by him/herself with no assistance from a helper. 5-Set-up or Clean-up Assistance-helper sets up or cleans up; patient completes activity. [place] assists only prior to or following the activity. 4-Supervision or Touching Assistance-helper provides verbal cues and/or touching/steadying and/or contact guard assistance as patient completes activity. Assistance may be provided throughout the activity or intermittently. 3-Partial/Moderate Assistance-helper does LESS THAN HALF the effort. [place] lifts, holds or supports trunk or limbs, but provides less than half the effort. 2-Substantial/Maximal Assistance-helper does MORE THAN HALF the effort. [place] lifts or holds trunk or limbs and provides more than half the effort. 3-Nnlekskpv-rlgwwq does ALL the effort. Patient does none of the effort to complete the activity. Or, the assistance of 2 or more helpers is required for the patient to complete the activity. If activity was not attempted, code reason: 7-Patient Refused. 9-Not Applicable-not attempted and the patient did not perform the activity before the current illness, exacerbation or injury. 10-Not Attempted due to Environmental Limitations-(lack of equipment, weather restraints, etc.). 88-Not Attempted due to Medical Conditions or Safety Concerns. Other Treatment Pt given light resistance therapy sponge to use to increase sap fico architect/pinch strength when not in therapy gym. Pt demonstrated understanding of exercises. After session, pt sitting in recliner with call light/phone in reach. All needs met in room. OT Short Term Goals Short Term Goals Time Frame: Nov 26, 2022 Eatin Oral hygiene: 5 Upper body dressin OT Microbiology Coordinator Goals [place] Goals Time Frame: Dec 03, 2022 Acute change in mental status: 1 Inattention: 0 Disorganized thinkin Altered level of consciousness: 0 Eating (QC): 6 Oral Hygiene (QC): 6 Toileting Hygiene (QC): 5 Shower/Bathe Self (QC): 5 Upper Body Dressing (QC): 6 Lower Body Dressing (QC): 6 On/Off Footwear (QC): 6 1=Demonstrate adherence to instructed precautions during ADL tasks. 2=Patient will verbalize/demonstrate understanding of assistive devices/modifications for ADL. 3=Patient will improve strength/tolerance for activity to enable patient to perform ADL's. OT Education/Plan Problem List/Assessment Assessment: Decreased Activ Tolerance, Decreased Safety Aware, Decreased UE Strength, Impaired Coordination, Impaired Funct Balance, Impaired Self-Care Skills, Restricted Funct UE ROM, Visual-Perceptual Deficit Discharge Recommendations Plan/Recommendations: Continue POC Treatment Plan/Plan of Care Patient would benefit from OT for education, treatment and training to promote independence in ADL's, mobility, safety and/or upper extremity function for ADL's. Plan of Care: ADL Retraining, Caregiver Training, Concurrent Therapy, Functional Mobility, Group Exercise/Act as Ind, Orthotic Fitting/Training, UE Funct Exercise/Act, UE Neuromus Re-Ed/Coord Treatment Duration: Dec 03, 2022 Frequency: At least 5 of 7 days/Wk (IRF) Estimated Hrs Per Day: 1.5 hours per day Agreement: Yes Rehab Potential: Fair Time Start Time: 13:00 Stop Time: 14:20 DATE: Nov 19, 2022 Total Time Billed (hr/min): 80 Billed Treatment Time 1 visit-ADL 4 (65 min) EX 1 (15 min) cotreat with PT 80 min RALPH HAY Nov 19, 2022 14:38
[2022-11-19] MEDS: RIVAROXABAN 20 MG TABLET (XARELTO) PO SCH (17:25)
[2022-11-19] MEDS: MAGNESIUM OXIDE (MAG-OX)400 MG TAB PO SCH (17:25)
[2022-11-19] MEDS: meTOprolol TARTRATE 25 MG (LOPRESSOR) TABLET PO SCH (21:15)
[2022-11-19] MEDS: SENNA W/DOCUSATE (SENOKOT S) TABLET PO SCH (21:23)
[2022-11-19] MEDS: polyethylene glycoL POWDER 17 GM (MIRALAX) PACK PO SCH (21:23)
[2022-11-19] MEDS: DOCUSATE SODIUM 100 MG (COLACE) CAP PO SCH (21:23)
[2022-11-19] MEDS: RT-ALBUTEROL SULF 2.5 MG/3 ML PRE-MIX VIAL INH PRN (21:51)
[2022-11-19 21:52] VITALS: BP 100/52
[2022-11-20] MEDS: ACETAMINOPHEN 325 MG TABLET PO SCH ×4 (05:43→17:11)
[2022-11-20 06:10] LABS: BASOPHILS # (AUTO) 0.1 10^3/uL (0.0-0.1); BASOPHILS % (AUTO) 1 % (0-10); EOSINOPHILS # (AUTO) 0.4 10^3/uL (0.0-0.3); EOSINOPHILS % (AUTO) 3 % (0-10); HEMATOCRIT 30 % (40-54); HEMOGLOBIN 10.3 g/dL (13.3-17.7); LYMPHOCYTES % (AUTO) 15 % (12-44); MEAN CORPUSCULAR HEMOGLOBIN 28 pg (25-34); MEAN CORPUSCULAR HGB CONC 34 g/dL (32-36); MEAN CORPUSCULAR VOLUME 81 fL (80-99); MEAN PLATELET VOLUME 10.1 fL (9.0-12.2); MONOCYTES # (AUTO) 2.2 10^3/uL (0.0-1.0); MONOCYTES % (AUTO) 16 % (0-12); NEUTROPHILS % (AUTO) 64 % (42-75); PLATELET COUNT 176 10^3/uL (130-400)
[2022-11-20 06:30] LABS: ALBUMIN 2.4 GM/DL (3.2-4.5); BILIRUBIN,TOTAL 2.1 MG/DL (0.1-1.0); CALCIUM 8.6 MG/DL (8.5-10.1); CREATININE SERUM 1.16 MG/DL (0.60-1.30); POTASSIUM 3.9 MMOL/L (3.6-5.0); TOTAL PROTEIN 5.1 GM/DL (6.4-8.2)
--- NOTE | 2022-11-20 06:50 | Individualized Plan of Care ---
Individualized Plan of Care Rehab Nursing IPOC Order Admission Date Nov 19, 2022 at 10:55 Current Orders Orders Admission Order(Inpt,Obs,Sdc) (11/19/22 10:32) Vital Signs: Per Unit Policy ( 08,16,00 (11/19/22 10:32) Zaki Vergara 09,21 (11/19/22 10:32) Sequential Compression Device (11/19/22 10:32) Audit Clerk-Inpt Rehab Con (11/19/22 10:32) Rehab Nursing Orders-Ipoc (11/19/22 10:32) Physical Therapy Rehab Orders (11/19/22 10:32) Occupational Therapy Rehab Ord (11/19/22 10:32) Speech Therapy Rehab Orders (11/19/22 10:32) Cbc With Automated Diff (11/20/22 06:00) Comprehensive Metabolic Panel (11/20/22 06:00) Precautions (Aru) (11/19/22 10:32) Weekly Weight WEEK (11/19/22 10:32) Rehab-Intensity Of Therapy (11/19/22 10:32) Initiate Admission Nursing Pro .admission (11/19/22 10:32) Alprazolam Tablet (Xanax Tablet) (11/19/22 10:45) Calcium Carbonate Chew Tablet (Antacid C (11/19/22 10:45) Diphenhydramine Tablet (Benadryl Tablet) (11/19/22 10:45) Docusate Sodium Capsule (Colace Capsule) (11/19/22 21:00) Docusate Sodium Capsule (Colace Capsule) (11/19/22 10:45) Bisacodyl Suppository (Dulcolax Supposit (11/19/22 10:45) Lactulose Oral Solution (Enulose Oral So (11/19/22 10:45) Na Phos/Na Biphos Enema (Fleet Enema Ryan (11/19/22 10:45) Guaifenesin/Codeine Syrup (Robitussin Ac (11/19/22 10:45) Loperamide Tablet (Imodium Tablet) (11/19/22 10:45) Melatonin Tablet (Melatonin Tablet) (11/19/22 10:45) Polyethylene Glycol Powder Pkt (Miralax (11/19/22 21:00) Ondansetron Oral Dissolve Tab (Zofran (11/19/22 10:45) Senna S Tablet (Senokot S Tablet) (11/19/22 21:00) Acetaminophen Tablet/Caplet (Tylenol T (11/19/22 10:45) Initiate Admission Nursing Pro .admission (11/19/22 10:32) Admission Arrival Bed Request (11/19/22 10:58) Code/Resuscitation (11/19/22 11:22) Incentive Spirometry (Nursing) Q2H (11/19/22 11:22) Cho 60g/M 3snack (16-2000 Derek) (11/19/22 Lunch) Acetaminophen Tablet (Tylenol Tablet) (11/19/22 12:00) Albuterol Pre-Mix Nebs (Rt) (Proventil (11/19/22 11:30) Atorvastatin Tablet (Lipitor Tablet) (11/19/22 21:00) Magnesium Oxide Tablet (Mag Ox Tablet) (11/19/22 18:00) Pantoprazole Tablet (Protonix Tablet) (11/20/22 09:00) Rivaroxaban Tablet (Xarelto Tablet) (11/19/22 17:00) Diltiazem Cd 24 Hr Capsule (Cardizem Cd (11/20/22 09:00) Metoprolol Tartrate (Ir) Tab (Lopressor (11/19/22 21:00) Incentive Spirometry Initial (11/19/22 11:22) Oxygen Delivery Set Up (11/19/22 11:22) Rt Request For Service (11/19/22 11:22) Svn Small Volume Nebulizer (11/19/22 11:22) Svn Small Volume Nebulizer (11/19/22 11:22) Incentive Spirometry (Nursing) Q2H (11/19/22 11:22) Acetaminophen Tablet/Caplet (Tylenol T (11/19/22 12:00) Patient Visit (11/19/22 ) Pt Eval High Complexity (11/19/22 ) Gait Training, Ea 15 Min (11/19/22 ) Patient Visit (11/19/22 ) Exercise Therap, Ea 15 Min (11/19/22 ) Functional Activities, Ea 15 (11/19/22 ) Albuterol Pre-Mix Nebs (Rt) (Proventil (11/20/22 17:30) Albuterol Pre-Mix Nebs (Rt) (Proventil (11/20/22 18:00) Svn Small Volume Nebulizer (11/20/22 17:28) Rehab Nursing Orders: Ongoing Assess. of Function Status, Bladder Management, Bladder Scan, Bladder Training, Bowel Management, Bowel Training, Disease Management & Educaiton, DVT Prophylaxis, Fall Prevention, Fluid/Electrolyte/Nutrition Mgmt, Infection Prevention, Medication Management & Education, Management of Risks & Complications, Nutrition Management, Pain Management, Patient/Family Support, Safety Management Intensity of Therapy to be met Patient to be seen: Min.3h per day/5 of 7d PT IPOC Problem List: Activity Tolerance, Functional Strength, Safety, Balance, Gait, Transfer, Bed Mobility Treatment Plan: Continue Plan of Care Bed Mobility, Concurrent Therapy, Education, Functional Activity Deb, Functional Strength, Group Therapy, Gait, Safety, Therapeutic Exercise, Transfers Treatment Duration: Nov 04, 2023 Frequency: At least 5 of 7 days/Wk (IRF) Estimated Hrs Per Day: 1.5 hours per day OT IPOC Problems: Decreased Activ Tolerance, Decreased Safety Aware, Decreased UE Strength, Impaired Coordination, Impaired Funct Balance, Impaired Self-Care Skills, Restricted Funct UE ROM, Visual-Perceptual Deficit OT Treatment, Training and Edu: Yes Plan of Care: ADL Retraining, Caregiver Training, Concurrent Therapy, Functional Mobility, Group Exercise/Act as Ind, Orthotic Fitting/Training, UE Funct Exercise/Act, UE Neuromus Re-Ed/Coord Treatment Duration: Dec 03, 2022 Frequency: At least 5 of 7 days/Wk (IRF) Estimated Hrs Per Day: 1.[address] IPOC Speech Therapy Treatment Plan: Discontinue ST Treatment Duration: Nov 19, 2022 Frequency: Modified Program (IRF) Estimated Hrs Per Day: Other Audit Clerk/Case Mgmt Audit Clerk/Case Managemen: Discharge Planning Dietitian/Emergency Services Professional Dietitian/Emergency Services Professional to monitor nutritional status and make changes and/or recommendations as needed and work with speech pathology on dietary upgrades as the occur. Physician IPOC Medical Issues being managed closely and that require the 24 hour availability of a physician: Recent COVID with severe weakness and severe debility we will give rise to increased risk and complications from COVID sequela Medical Issues: Bowel/Bladder Function, DVT Prophylaxis, Falls Precautions, Fluid/Electrolyte/Nutrition Balance, Infection Protection, Pain Management Brief Synthesis of Preadmission Screen, Post-Admission Evaluation, and Therapy Evaluations: PT and OT will focus on regaining function with increasedUse of assistive devices to increase stamina and ambulation Medical Prognosis: Good Anticipated Length of Stay: 10 days KARON RODRIGUEZ DO Nov 20, 2022 06:50
--- NOTE | 2022-11-20 06:50 | PM&R Progress Note ---
Subjective HPI/CC On Admission Date Seen by Provider: Nov 20, 2022 Time Seen by Provider: 12:30 Subjective/Events-last exam 11/20/2022: Patient doing a little better Eating a little better Slow recovery but he is working with therapy No falls No pain Review of Systems General: Fatigue, Malaise Objective Exam Vital Signs Vital Signs Date Time Temp Pulse Resp B/P (MAP) Pulse Ox O2 Delivery O2 Flow Rate FiO2 11/20/22 17:30 95 Nasal Cannula 1.00 11/20/22 08:00 36.4 85 18 95/56 (69) Capillary Refill : General Appearance: No Apparent Distress, WD/WN, Chronically ill, Obese HEENT: PERRL/EOMI, Normal ENT Inspection, Pharynx Normal Neck: Full Range of Motion, Normal Inspection, Non Tender, Supple, Carotid Bruit Respiratory: Chest Non Tender, Normal Breath Sounds, No Accessory Muscle Use, No Respiratory Distress, Decreased Breath Sounds Cardiovascular: Regular Rate, Rhythm, No Edema, No Gallop, No JVD, No Murmur, Normal Peripheral Pulses Gastrointestinal: Normal Bowel Sounds, No Organomegaly, No Pulsatile Mass, Non Tender, Soft Back: Normal Inspection, No CVA Tenderness, No Vertebral Tenderness Extremity: Normal Capillary Refill, Normal Inspection, Normal Range of Motion, Non Tender, No Calf Tenderness, No Pedal Edema Neurologic/Psychiatric: Alert, Oriented x3, family development specialist II-XII Norm as Tested, Abnormal Gait, Depressed Affect, Motor Weakness (Severe weakness 3/5 all extremities) Skin: Normal Color, Warm/Dry Lymphatic: No Adenopathy Results/Procedures Lab Laboratory Tests 11/20/22 05:34 11/20/22 05:39 Patient resulted labs reviewed. FIM Transfers Therapy Code Descriptions/Definitions Functional [place] Measure: 0=Not Assessed/NA 4=Minimal Assistance 1=Total Assistance 5=Supervision or Setup 2=Maximal Assistance 6=Modified [place] 3=Moderate Assistance 7=Complete IndependenceSCALE: Activities may be completed with or without assistive devices. 6-Cfxleficoe-ticycpk completes the activity by him/herself with no assistance from a helper. 5-Set-up or Clean-up Assistance-helper sets up or cleans up; patient completes activity. [place] assists only prior to or following the activity. 4-Supervision or Touching Assistance-helper provides verbal cues and/or touching/steadying and/or contact guard assistance as patient completes activity. Assistance may be provided throughout the activity or intermittently. 3-Partial/Moderate Assistance-helper does LESS THAN HALF the effort. [place] lifts, holds or supports trunk or limbs, but provides less than half the effort. 2-Substantial/Maximal Assistance-helper does MORE THAN HALF the effort. [place] lifts or holds trunk or limbs and provides more than half the effort. 3-Zqkapcbtt-dvqzke does ALL the effort. Patient does none of the effort to complete the activity. Or, the assistance of 2 or more helpers is required for the patient to complete the activity. If activity was not attempted, code reason: 7-Patient Refused. 9-Not Applicable-not attempted and the patient did not perform the activity before the current illness, exacerbation or injury. 10-Not Attempted due to Environmental Limitations-(lack of equipment, weather restraints, etc.). 88-Not Attempted due to Medical Conditions or Safety Concerns. Roll Left to Right (QC): 3 (Min A ) Sit to Lying (QC): 3 (Min A) Sit to Stand (QC): 3 Chair/Otl-sj-Hhswh Xfer(QC): 3 Car Transfer (QC): 88 Gait Training Does the Patient Walk?: Yes Distance: 6 feet Walk 50 ft with 2 Turns(QC): 88 Walk 150 ft (QC): 88 Walking 10ft/uneven surface-QC: 88 Gait Assistive Device: FWW Wheelchair Training Does the Pt Use a Wheelchair?: Yes Wheel 50 ft with 2 turns (QC): 88 Wheel 150 ft (QC): 88 Type of Wheelchair: Manual Stair Training 1 Step (curb) (QC): 88 4 Steps (QC): 88 12 Steps (QC): 88 Balance Picking up an Object (QC): 3 (Min A ) Assessment/Plan Assessment and Plan Assess & Plan/Chief Complaint Assessment: Generalized weakness Presumed COVID illness JERAMIE- resolved Hypotension A fib DVT ppx: Xarelto Progressive weight loss Plan: PT and OT Home meds Supportive care 11/20/2022: Supportive care Encourage adequate nutrition (1) Debility (2) Atrial fibrillation KARON RODRIGUEZ DO Nov 20, 2022 06:50
[2022-11-20 08:00] VITALS: BP 95/56
[2022-11-20] MEDS: SENNA W/DOCUSATE (SENOKOT S) TABLET PO SCH ×2 (10:24→20:40)
[2022-11-20] MEDS: PANTOPRAZOLE 40 MG (PROTONIX) TAB PO SCH (10:24)
[2022-11-20] MEDS: MAGNESIUM OXIDE (MAG-OX)400 MG TAB PO SCH ×2 (10:24→17:10)
[2022-11-20] MEDS: polyethylene glycoL POWDER 17 GM (MIRALAX) PACK PO SCH ×2 (10:24→20:40)
[2022-11-20] MEDS: DOCUSATE SODIUM 100 MG (COLACE) CAP PO SCH ×2 (10:24→20:40)
[2022-11-20] MEDS: dilTIAZem120 MG (CARDIZEM CD) CAP PO SCH (14:15)
[2022-11-20] MEDS: meTOprolol TARTRATE 25 MG (LOPRESSOR) TABLET PO SCH ×2 (14:15→20:39)
[2022-11-20] MEDS: RIVAROXABAN 20 MG TABLET (XARELTO) PO SCH (17:10)
[2022-11-20] MEDS: RT-ALBUTEROL SULF 2.5 MG/3 ML PRE-MIX VIAL INH PRN (17:28)
[2022-11-20] MEDS ORDERED: RT-ALBUTEROL SULF 2.5 MG/3 ML PRE-MIX VIAL INH PRN (17:30)
[2022-11-20] MEDS ORDERED: RT-ALBUTEROL SULF 2.5 MG/3 ML PRE-MIX VIAL ONE (18:51)
[2022-11-20] MEDS: RT-ALBUTEROL SULF 2.5 MG/3 ML PRE-MIX VIAL INH SCH ×2 (19:33→21:09)
[2022-11-20 20:43] VITALS: BP 96/57
[2022-11-21] MEDS: ACETAMINOPHEN 325 MG TABLET PO SCH ×4 (00:07→18:49)
[2022-11-21] MEDS: RT-ALBUTEROL SULF 2.5 MG/3 ML PRE-MIX VIAL INH SCH ×5 (02:07→20:12)
--- NOTE | 2022-11-21 07:36 | PM&R Progress Note ---
Subjective HPI/CC On Admission Date Seen by Provider: Nov 21, 2022 Time Seen by Provider: 12:00 Subjective/Events-last exam 11/21/2022: Patient doing a lot better Appetite is an issue Maintained on oxygen No falls Very weak 11/20/2022: Patient doing a little better Eating a little better Slow recovery but he is working with therapy No falls No pain Review of Systems General: Fatigue, Malaise Objective Exam Vital Signs Vital Signs Date Time Temp Pulse Resp B/P (MAP) Pulse Ox O2 Delivery O2 Flow Rate FiO2 11/21/22 14:58 93 Nasal Cannula 3.00 11/21/22 08:00 36.2 83 16 96/52 (67) Capillary Refill : General Appearance: No Apparent Distress, WD/WN, Chronically ill, Obese HEENT: PERRL/EOMI, Normal ENT Inspection, Pharynx Normal Neck: Full Range of Motion, Normal Inspection, Non Tender, Supple, Carotid Bruit Respiratory: Chest Non Tender, Normal Breath Sounds, No Accessory Muscle Use, No Respiratory Distress, Decreased Breath Sounds Cardiovascular: Regular Rate, Rhythm, No Edema, No Gallop, No JVD, No Murmur, Normal Peripheral Pulses Gastrointestinal: Normal Bowel Sounds, No Organomegaly, No Pulsatile Mass, Non Tender, Soft Back: Normal Inspection, No CVA Tenderness, No Vertebral Tenderness Extremity: Normal Capillary Refill, Normal Inspection, Normal Range of Motion, Non Tender, No Calf Tenderness, No Pedal Edema Neurologic/Psychiatric: Alert, Oriented x3, photograph inspector II-XII Norm as Tested, Abnormal Gait, Depressed Affect, Motor Weakness (Severe weakness 3/5 all extremities) Skin: Normal Color, Warm/Dry Lymphatic: No Adenopathy Results/Procedures Lab Patient resulted labs reviewed. FIM Transfers Therapy Code Descriptions/Definitions Functional [place] Measure: 0=Not Assessed/NA 4=Minimal Assistance 1=Total Assistance 5=Supervision or Setup 2=Maximal Assistance 6=Modified [place] 3=Moderate Assistance 7=Complete IndependenceSCALE: Activities may be completed with or without assistive devices. 1-Wvfplqdzss-vmtcnli completes the activity by him/herself with no assistance from a helper. 5-Set-up or Clean-up Assistance-helper sets up or cleans up; patient completes activity. [place] assists only prior to or following the activity. 4-Supervision or Touching Assistance-helper provides verbal cues and/or touching/steadying and/or contact guard assistance as patient completes activity. Assistance may be provided throughout the activity or intermittently. 3-Partial/Moderate Assistance-helper does LESS THAN HALF the effort. [place] lifts, holds or supports trunk or limbs, but provides less than half the effort. 2-Substantial/Maximal Assistance-helper does MORE THAN HALF the effort. [place] lifts or holds trunk or limbs and provides more than half the effort. 8-Uhmnujtwb-ecgjwh does ALL the effort. Patient does none of the effort to complete the activity. Or, the assistance of 2 or more helpers is required for the patient to complete the activity. If activity was not attempted, code reason: 7-Patient Refused. 9-Not Applicable-not attempted and the patient did not perform the activity before the current illness, exacerbation or injury. 10-Not Attempted due to Environmental Limitations-(lack of equipment, weather restraints, etc.). 88-Not Attempted due to Medical Conditions or Safety Concerns. Roll Left to Right (QC): 3 (Min A ) Sit to Lying (QC): 3 (Min A) Sit to Stand (QC): 3 Chair/Ppk-gp-Pvpdx Xfer(QC): 3 Car Transfer (QC): 88 Gait Training Does the Patient Walk?: Yes Distance: 6 feet Walk 50 ft with 2 Turns(QC): 88 Walk 150 ft (QC): 88 Walking 10ft/uneven surface-QC: 88 Gait Assistive Device: FWW Wheelchair Training Does the Pt Use a Wheelchair?: Yes Wheel 50 ft with 2 turns (QC): 88 Wheel 150 ft (QC): 88 Type of Wheelchair: Manual Stair Training 1 Step (curb) (QC): 88 4 Steps (QC): 88 12 Steps (QC): 88 Balance Picking up an Object (QC): 3 (Min A ) Assessment/Plan Assessment and Plan Assess & Plan/Chief Complaint Assessment: Generalized weakness Presumed COVID illness JERAMIE- resolved Hypotension A fib DVT ppx: Xarelto Progressive weight loss Plan: PT and OT Home meds Supportive care 11/20/2022: Supportive care Encourage adequate nutrition 11/21/2022: Supportive care Monitor closely (1) Debility (2) Atrial fibrillation KARON RODRIGUEZ DO Nov 21, 2022 07:36
[2022-11-21] MEDS: PANTOPRAZOLE 40 MG (PROTONIX) TAB PO SCH (07:58)
[2022-11-21] MEDS: MAGNESIUM OXIDE (MAG-OX)400 MG TAB PO SCH ×2 (07:58→18:49)
[2022-11-21] MEDS: polyethylene glycoL POWDER 17 GM (MIRALAX) PACK PO SCH ×2 (07:58→21:43)
[2022-11-21] MEDS: SENNA W/DOCUSATE (SENOKOT S) TABLET PO SCH ×2 (07:59→21:43)
[2022-11-21] MEDS: DOCUSATE SODIUM 100 MG (COLACE) CAP PO SCH ×2 (07:59→21:42)
[2022-11-21 08:00] VITALS: BP 96/52
[2022-11-21] MEDS: dilTIAZem120 MG (CARDIZEM CD) CAP PO SCH (12:25)
[2022-11-21] MEDS: meTOprolol TARTRATE 25 MG (LOPRESSOR) TABLET PO SCH ×2 (12:25→21:42)
[2022-11-21] MEDS: RIVAROXABAN 20 MG TABLET (XARELTO) PO SCH (18:49)
[2022-11-21 20:00] VITALS: BP 91/56
[2022-11-22] MEDS: ACETAMINOPHEN 325 MG TABLET PO SCH ×4 (00:10→16:58)
[2022-11-22] MEDS: RT-ALBUTEROL SULF 2.5 MG/3 ML PRE-MIX VIAL INH SCH ×7 (00:34→23:17)
[2022-11-22 05:56] LABS: BASOPHILS # (AUTO) 0.1 10^3/uL (0.0-0.1); BASOPHILS % (AUTO) 1 % (0-10); EOSINOPHILS # (AUTO) 0.4 10^3/uL (0.0-0.3); EOSINOPHILS % (AUTO) 3 % (0-10); HEMATOCRIT 30 % (40-54); HEMOGLOBIN 10.3 g/dL (13.3-17.7); LYMPHOCYTES % (AUTO) 14 % (12-44); MEAN CORPUSCULAR HEMOGLOBIN 27 pg (25-34); MEAN CORPUSCULAR HGB CONC 34 g/dL (32-36); MEAN CORPUSCULAR VOLUME 80 fL (80-99); MEAN PLATELET VOLUME 10.1 fL (9.0-12.2); MONOCYTES # (AUTO) 2.3 10^3/uL (0.0-1.0); MONOCYTES % (AUTO) 17 % (0-12); NEUTROPHILS % (AUTO) 64 % (42-75); PLATELET COUNT 191 10^3/uL (130-400); WHITE BLOOD COUNT 14.1 10^3/uL (4.3-11.0)
[2022-11-22 06:27] LABS: ALBUMIN 2.5 GM/DL (3.2-4.5); CALCIUM 8.5 MG/DL (8.5-10.1); CREATININE SERUM 1.13 MG/DL (0.60-1.30); POTASSIUM 4.1 MMOL/L (3.6-5.0); TOTAL PROTEIN 5.3 GM/DL (6.4-8.2)
[2022-11-22 06:29] LABS: ANISOCYTOSIS MODERATE; ELLIPT/OVALOCYTES SLIGHT; EOSINOPHILS % (MANUAL) 2 %; LYMPHOCYTES % (MANUAL) 10 %; MONOCYTES % (MANUAL) 13 %; NEUTROPHILS % (MANUAL) 75 %; POLYCHROMASIA SLIGHT
[2022-11-22] MEDS: polyethylene glycoL POWDER 17 GM (MIRALAX) PACK PO SCH ×2 (07:56→20:13)
[2022-11-22 08:00] VITALS: BP 92/51
--- NOTE | 2022-11-22 08:30 | Occupational Ther Daily Note ---
OT Current Status-Daily Note Subjective Pt alert, sitting in recliner. Pt states that he has been sleeping in his recliner at home for 20 years. Pt agrees to therapy. Pt c/o pain in back and weakness. Pt states that he is doing exercises throughout the weekend. Mental Status/Objective Patient Orientation: Person, Place, Time, Situation ADL-Treatment Pt agrees to sponge bath. Pt requires assistance with feet and buttocks, pt cleanses the rest. Set up for UBD. Pt able to thread L foot into pant legs then assist for R foot and to hike pants over hips. Educated pt on using chief deputy coroner for LBD, pt stated repeatedly that he can't feel with his fingers and his hand laminator is to weak to squeeze and hold the chief deputy coroner handle. Pt demonstrated ability to complete though gives up quickly. Set up for UBD. Declines oral care. Set up for eating. After session, pt sitting in recliner with call light/phone in reach. All needs met in room. Therapy Code Descriptions/Definitions Functional [place] Measure: 0=Not Assessed/NA 4=Minimal Assistance 1=Total Assistance 5=Supervision or Setup 2=Maximal Assistance 6=Modified [place] 3=Moderate Assistance 7=Complete IndependenceSCALE: Activities may be completed with or without assistive devices. 8-Qhmgjtvnjk-ijyvnbh completes the activity by him/herself with no assistance from a helper. 5-Set-up or Clean-up Assistance-helper sets up or cleans up; patient completes activity. [place] assists only prior to or following the activity. 4-Supervision or Touching Assistance-helper provides verbal cues and/or touching/steadying and/or contact guard assistance as patient completes activity. Assistance may be provided throughout the activity or intermittently. 3-Partial/Moderate Assistance-helper does LESS THAN HALF the effort. [place] lifts, holds or supports trunk or limbs, but provides less than half the effort. 2-Substantial/Maximal Assistance-helper does MORE THAN HALF the effort. [place] lifts or holds trunk or limbs and provides more than half the effort. 4-Ylewkfthi-lstjhq does ALL the effort. Patient does none of the effort to complete the activity. Or, the assistance of 2 or more helpers is required for the patient to complete the activity. If activity was not attempted, code reason: 7-Patient Refused. 9-Not Applicable-not attempted and the patient did not perform the activity before the current illness, exacerbation or injury. 10-Not Attempted due to Environmental Limitations-(lack of equipment, weather restraints, etc.). 88-Not Attempted due to Medical Conditions or Safety Concerns. Eating (QC): 5 Shower/Bathe Self (QC): 3 Upper Body Dressing (QC): 5 Lower Body Dressing (QC): 2 On/Off Footwear: 2 OT Short Term Goals Short Term Goals Time Frame: Nov 26, 2022 Eatin Oral hygiene: 5 Upper body dressin OT Emergency Response Technician Goals Jail Goals Time Frame: Dec 03, 2022 Acute change in mental status: 1 Inattention: 0 Disorganized thinkin Altered level of consciousness: 0 Eating (QC): 6 Oral Hygiene (QC): 6 Toileting Hygiene (QC): 5 Shower/Bathe Self (QC): 5 Upper Body Dressing (QC): 6 Lower Body Dressing (QC): 6 On/Off Footwear (QC): 6 1=Demonstrate adherence to instructed precautions during ADL tasks. 2=Patient will verbalize/demonstrate understanding of assistive devices/modifications for ADL. 3=Patient will improve strength/tolerance for activity to enable patient to perform ADL's. OT Education/Plan Problem List/Assessment Assessment: Decreased Activ Tolerance, Decreased UE Strength, Impaired Funct Balance, Impaired Self-Care Skills Discharge Recommendations Plan/Recommendations: Continue POC Treatment Plan/Plan of Care Patient would benefit from OT for education, treatment and training to promote independence in ADL's, mobility, safety and/or upper extremity function for ADL's. Plan of Care: ADL Retraining, Caregiver Training, Concurrent Therapy, Functional Mobility, Group Exercise/Act as Ind, Orthotic Fitting/Training, UE Funct Exercise/Act, UE Neuromus Re-Ed/Coord Treatment Duration: Dec 03, 2022 Frequency: At least 5 of 7 days/Wk (IRF) Estimated Hrs Per Day: 1.5 hours per day Agreement: Yes Rehab Potential: Fair Time Start Time: 07:30 Stop Time: 08:30 DATE: Nov 22, 2022 Total Time Billed (hr/min): 60 Billed Treatment Time 1 visit-ADL 4 (60 min) RALPH HAY Nov 22, 2022 08:30
[2022-11-22] MEDS: MAGNESIUM OXIDE (MAG-OX)400 MG TAB PO SCH ×2 (08:39→16:58)
[2022-11-22] MEDS: dilTIAZem120 MG (CARDIZEM CD) CAP PO SCH (08:40)
[2022-11-22] MEDS: PANTOPRAZOLE 40 MG (PROTONIX) TAB PO SCH (08:40)
[2022-11-22] MEDS: meTOprolol TARTRATE 25 MG (LOPRESSOR) TABLET PO SCH ×2 (08:40→21:03)
[2022-11-22] MEDS: SENNA W/DOCUSATE (SENOKOT S) TABLET PO SCH ×2 (08:41→20:13)
[2022-11-22] MEDS: DOCUSATE SODIUM 100 MG (COLACE) CAP PO SCH ×2 (08:41→20:13)
[2022-11-22] MEDS: ONDANSETRON 4 MG (ZOFRAN) ORAL DISSOLVE TAB PO PRN (10:31)
--- NOTE | 2022-11-22 11:45 | PM&R Progress Note ---
Subjective HPI/CC On Admission Date Seen by Provider: Nov 22, 2022 Time Seen by Provider: 12:00 Subjective/Events-last exam 11/22/2022: Patient doing a little better Low blood sugars noted Poor appetite I suspect ORTEZ so will obtain ultrasound Ammonia 44 11/21/2022: Patient doing a lot better Appetite is an issue Maintained on oxygen No falls Very weak 11/20/2022: Patient doing a little better Eating a little better Slow recovery but he is working with therapy No falls No pain Review of Systems General: Fatigue, Malaise Objective Exam Vital Signs Vital Signs Date Time Temp Pulse Resp B/P (MAP) Pulse Ox O2 Delivery O2 Flow Rate FiO2 11/23/22 06:49 90 Nasal Cannula 3.00 11/22/22 20:34 99/45 (63) 11/22/22 19:53 35.9 81 18 Capillary Refill : General Appearance: No Apparent Distress, WD/WN, Chronically ill, Obese HEENT: PERRL/EOMI, Normal ENT Inspection, Pharynx Normal Neck: Full Range of Motion, Normal Inspection, Non Tender, Supple, Carotid Bruit Respiratory: Chest Non Tender, Normal Breath Sounds, No Accessory Muscle Use, No Respiratory Distress, Decreased Breath Sounds Cardiovascular: Regular Rate, Rhythm, No Edema, No Gallop, No JVD, No Murmur, Normal Peripheral Pulses Gastrointestinal: Normal Bowel Sounds, No Organomegaly, No Pulsatile Mass, Non Tender, Soft Back: Normal Inspection, No CVA Tenderness, No Vertebral Tenderness Extremity: Normal Capillary Refill, Normal Inspection, Normal Range of Motion, Non Tender, No Calf Tenderness, No Pedal Edema Neurologic/Psychiatric: Alert, Oriented x3, nurse wound II-XII Norm as Tested, Abnormal Gait, Depressed Affect, Motor Weakness (Severe weakness 3/5 all extremities) Skin: Normal Color, Warm/Dry Lymphatic: No Adenopathy Results/Procedures Lab Patient resulted labs reviewed. FIM Transfers Therapy Code Descriptions/Definitions Functional [place] Measure: 0=Not Assessed/NA 4=Minimal Assistance 1=Total Assistance 5=Supervision or Setup 2=Maximal Assistance 6=Modified [place] 3=Moderate Assistance 7=Complete IndependenceSCALE: Activities may be completed with or without assistive devices. 1-Venpbxkmed-qtntwoq completes the activity by him/herself with no assistance from a helper. 5-Set-up or Clean-up Assistance-helper sets up or cleans up; patient completes activity. [place] assists only prior to or following the activity. 4-Supervision or Touching Assistance-helper provides verbal cues and/or touching/steadying and/or contact guard assistance as patient completes activity. Assistance may be provided throughout the activity or intermittently. 3-Partial/Moderate Assistance-helper does LESS THAN HALF the effort. [place] lifts, holds or supports trunk or limbs, but provides less than half the effort. 2-Substantial/Maximal Assistance-helper does MORE THAN HALF the effort. [place] lifts or holds trunk or limbs and provides more than half the effort. 2-Cnxgduesr-ulkgpj does ALL the effort. Patient does none of the effort to complete the activity. Or, the assistance of 2 or more helpers is required for the patient to complete the activity. If activity was not attempted, code reason: 7-Patient Refused. 9-Not Applicable-not attempted and the patient did not perform the activity before the current illness, exacerbation or injury. 10-Not Attempted due to Environmental Limitations-(lack of equipment, weather restraints, etc.). 88-Not Attempted due to Medical Conditions or Safety Concerns. Roll Left to Right (QC): 3 (Min A ) Sit to Lying (QC): 3 (Min A) Sit to Stand (QC): 3 Chair/Xjn-aa-Kxkam Xfer(QC): 3 Car Transfer (QC): 88 Gait Training Does the Patient Walk?: Yes Distance: 6 feet Walk 50 ft with 2 Turns(QC): 88 Walk 150 ft (QC): 88 Walking 10ft/uneven surface-QC: 88 Gait Assistive Device: FWW Wheelchair Training Does the Pt Use a Wheelchair?: Yes Wheel 50 ft with 2 turns (QC): 88 Wheel 150 ft (QC): 88 Type of Wheelchair: Manual Stair Training 1 Step (curb) (QC): 88 4 Steps (QC): 88 12 Steps (QC): 88 Balance Picking up an Object (QC): 3 (Min A ) Assessment/Plan Assessment and Plan Assess & Plan/Chief Complaint Assessment: Generalized weakness Presumed COVID illness JERAMIE- resolved Hypotension A fib DVT ppx: Xarelto Progressive weight loss Elevated liver enzymes with elevated ammonia suspect ORTEZ progressed to cirrhosis Plan: PT and OT Home meds Supportive care 11/20/2022: Supportive care Encourage adequate nutrition 11/21/2022: Supportive care Monitor closely 11/22/2022: Supportive care Check ultrasound Lab work-up (1) Debility (2) Atrial fibrillation KARON RODRIGUEZ DO Nov 22, 2022 11:45
[2022-11-22] MEDS: guaiFENesin (MUCINEX) 600 MG TAB PO SCH ×2 (12:37→21:03)
--- NOTE | 2022-11-22 12:53 | Physical Therapy Daily Note ---
PT Daily Note-Current Subjective pt in recliner upon arrival and willing for therapy. pt reports no pain this day. pt was left in recliner with call light and all needs met with RT starting a breathing treatment. Pain Section J - Health Conditions 1. Rarely or not at all 2. Occasionally 3. Frequently 4. Almost constantly 8. Unable to answer Pain Effect on Sleep: 1 Pain Interference with Therapy: 2 Pain Interference w/Day-to-Day: 2 Mental Status Patient Orientation: Person, Place, Time, Situation Transfers SCALE: Activities may be completed with or without assistive devices. 1-Zmicmuyoej-dpixlnl completes the activity by him/herself with no assistance from a helper. 5-Set-up or Clean-up Assistance-helper sets up or cleans up; patient completes activity. [place] assists only prior to or following the activity. 4-Supervision or Touching Assistance-helper provides verbal cues and/or touching/steadying and/or contact guard assistance as patient completes activity. Assistance may be provided throughout the activity or intermittently. 3-Partial/Moderate Assistance-helper does LESS THAN HALF the effort. [place] lifts, holds or supports trunk or limbs, but provides less than half the effort. 2-Substantial/Maximal Assistance-helper does MORE THAN HALF the effort. [place] lifts or holds trunk or limbs and provides more than half the effort. 1-Mplkjkxht-jcuoje does ALL the effort. Patient does none of the effort to complete the activity. Or, the assistance of 2 or more helpers is required for the patient to complete the activity. If activity was not attempted, code reason: 7-Patient Refused. 9-Not Applicable-not attempted and the patient did not perform the activity before the current illness, exacerbation or injury. 10-Not Attempted due to Environmental Limitations-(lack of equipment, weather restraints, etc.). 88-Not Attempted due to Medical Conditions or Safety Concerns. Weight Bearing Right Lower Extremity: Right Full Weight Bearing Left Lower Extremity: Left Full Weight Bearing Exercises Supine Ex: Ankle pumps, Quad Set, Glut sets, Heel Slides, Short Arc Quads, Straight leg raise, Hip abd/add Seated Therapy Exercises: Ankle pumps, Sit to stand, Long arc quads, Hip flexion, Kicking activity, Hamstring Curls, Glut set Treatments pt preformed ther-ex in supine and sitting this day with 3 sets of 15 in each position. pt preformed in all planes of motion allowed and rest breaks in between each exercise secondary to fatigue. pt is able to preform sit to stand with MIN A this day and VC for safety and sequencing this day. Assessment Current Status: Fair Progress PT Care Home Goals Maintenance And Utilities Supervisor Goals PT Maintenance And Utilities Supervisor Goals Time Frame: Dec 03, 2022 Roll Left & Right (QC): 6 (Pt will be Mod I with bed mobility and transfers ) Sit to Lying (QC): 6 (Pt will be Mod I with bed mobility and transfers ) Lying-Sitting on Side/Bed(QC): 6 (Pt will be Mod I with bed mobility and transfers ) Sit to Stand (QC): 6 (Pt will be Mod I with bed mobility and transfers ) Chair/Yxz-al-Vaitx Xfer(QC): 6 (Pt will be Mod I with bed mobility and t ransfers ) Toilet Transfer (QC): 6 (Pt will be Mod I with bed mobility and transfers ) Car Transfer (QC): 6 (Pt will be Mod I with bed mobility and transfers ) Does the Patient Walk: Yes Walk 10 feet (QC): 4 (Pt will be SBA for walking and stairs. ) Walk 50ft with 2 Turns (QC): 4 (Pt will be SBA for walking and stairs. ) Walk 150 ft (QC): 4 (Pt will be SBA for walking and stairs. ) Walking 10ft on Uneven Surface: 4 (Pt will be SBA for walking and stairs. ) 1 Step (curb) (QC): 4 (Pt will be SBA for walking and stairs. ) 4 Steps (QC): 4 (Pt will be SBA for walking and stairs. ) 12 Steps (QC): 4 (Pt will be SBA for walking and stairs. ) Picking up an Object (QC): 4 (SBA for functional mobility ) Does the Pt use WC or Scooter?: Yes Wheel 50 feet with 2 turns (QC: 6 (Ind with w/c mobility ) Type: Manual Wheel 150 feet: 6 (Mod I with w/c mobility ) Type: Manual PT Plan Treatment/Plan Treatment Plan: Continue Plan of Care Treatment Plan: Bed Mobility, Concurrent Therapy, Education, Functional Activity Deb, Functional Strength, Group Therapy, Gait, Safety, Therapeutic Exercise, Transfers Treatment Duration: Nov 04, 2023 Frequency: At least 5 of 7 days/Wk (IRF) Estimated Hrs Per Day: 1.5 hours per day Time Time In: 0945 Time Out: 1030 DATE: Nov 22, 2022 Total Billed Treatment Time: 45 Total Billed Treatment 1 1 EX x 2 FA x 1 Diane Burns PLANT PACKER Nov 22, 2022 12:53
--- NOTE | 2022-11-22 13:03 | ST Cognitive Linguistic Eval ---
Speech Evaluation-General Medical Diagnosis debility Onset Date: Nov 15, 2022 Therapy Diagnosis Therapy Diagnosis: WNL Cognition Precautions Precautions/Isolations: Fall Prevention, Standard Precautions Referral Referring Physician: Dr. Higgins Reason for Referral: Evaluation/Treatment Medical History Pertinent Medical History: Atrial Fib, DM, HTN, Neuropathy This 72-year-old gentleman presents to the emergency room with complaints of feeling ill starting about 3 weeks ago. He lost appetite and taste. Symptoms have worsened over the last few weeks. He thinks perhaps he had a COVID-19 as the symptoms were similar to a prior infection of COVID-19. He did have some diarrhea last week which has now improved. He reports some dyspnea on exertion. He has had some flatulence that he describes as "acidic gas." He feels very weak and lightheaded. His sons had to assist him to the car and into the hospital. He has diabetes with neuropathy. He received long courses of wound care for wounds on his legs that have now improved. He has a few small breaks in the skin on his legs but no major sores or infections. He reports noting his blood pressure has been low for about the past 3 months. Oxygen saturations have also been on the lower side of normal. He has atrial fibrillation and is anticoagulated. Dr. Balbuena is his primary care provider. He notes losing a significant amount of weight in the last few weeks. Came to ER Early Tuesday morning, transferred to fourth floor in house. 11/19 transferred to ARU for therapy, Sleeps in [facility] recliner on platform, reports he plans to attempt sleeping in bed at home Reviewed History: Yes Social History Current Living Status: Spouse Speech PLF-Current Status Prior Level of Function Pt lives at home with his . Pt states he manages his own medications using a pill organizer. Pt states he and his have separate bank accounts and he manages his own finances. Subjective Pt in recliner when CAT DOG OR OTHER PET GROOMER enters the room. Pt on supplemental oxygen. CAT DOG OR OTHER PET GROOMER notes, pt becomes short of breath when talking. 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 Pt reports numbers in his fingers, making it hard for him to write and complete fine motor tasks. Pt states he has a son who can help with medications and finances if needed. Pt pleasant and cooperative throughout evaluation. Pain Numeric Pain Scale: 2 Pain Description: Ache Language Eval: Auditory Comprehends Simple Yes/No Ques: Functional Follows 1-Step Commands: Functional Follows Complex Directions: Functional Follows General Conversations: Functional Language Eval: Verbal Language Completes Spontaneous Greeting: Functional Word Finding: Functional Requests Basic Needs: Functional States Basic Personal Info: Functional Expresses Complex Ideas: Functional Objective Cognitive Domain Attention: WNL Memory: Mild Executive Functions: WNL Visuospatial Skills: WNL Composite Severity Rating: WNL Clock Drawing Severity Rating: WNL Score: 28 Objective Formal/Standardized Tests SLUMS Results 28/30 Impression Pt presents with cognitive skills WNL at this time. Pt scores a 28/30 on the SLUMS. Pt unable to recall 2 words following a delay. Pt able to describe in detail how he manages his finances. Pt states he does not write checks and uses a debit card. Pt states he keeps a register and compares his register with two other [employer] produced documents to track his finances. 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 Pt states in detail how he manages his medications and double checks them. Pt reports his fingers being numb and having astigmatism. CAT DOG OR OTHER PET GROOMER did not trial med management task due to positioning. CAT DOG OR OTHER PET GROOMER asks OT to complete task with pt, OT in agreement. Speech-Plan Patient/Family Goals Patient/Family Goals: Pt's goal is to return home at [facility]. Treatment Plan Speech Therapy Treatment Plan: Discontinue ST Treatment Duration: Nov 19, 2022 Frequency: Modified Program (IRF) Estimated Hrs Per Day: Other Rehab Potential: Fair Safety Risks/Education Teaching Recipient: Patient Teaching Methods: Discussion Response to Teaching: Verbalize Understanding Education Topics Provided: Pt educated on role of CAT DOG OR OTHER PET GROOMER, purpose of evaluation, results, and recommendation of PT does not demonstrate a need for skilled speech therapy services. Pt receptive and verbalized understanding. Time Speech Therapy Time In: 09:00 Speech Therapy Time Out: 09:35 DATE: Nov 22, 2022 Total Billed Time: 35 Billed Treatment Time S/L Florinda Castillo Speech Therapy Nov 22, 2022 13:03
--- NOTE | 2022-11-22 15:29 | Therapy Group Daily Note ---
Therapy Daily Group Note Patient Education Topic Other List Below (Memory Techniques & Strategies) Session Ratio (pt:therapist): 3:1 Goal of Session: Education on ARU Expectations, Memory Strategies Goal Met for this Session: Yes Pt Benefit of Group: Contributions to Others, F/U Use of Strategies @Home, Increased Functional Safety, Improved Cognition, Recognition of Peers, Soc ialization Other/Notes Pt was propelled to PT/OT Group in w/c. Group consisted of Introductions (Name, Where From & Dice Rolled Question), Socialization, and Memory Techniques & Strategies. Pt actively participated in Group by giving personal examples of what pt does to aid memory. Pt is propelled back to room & TF to recliner to rest at end of tx with all needs met. Start Time: 13:00 Stop Time: 14:25 Total Billed Treatment Time: 85 Total Billed Treatment 1, GRP JUSTINSHANNANANGELA VALET PARKING ATTENDANT Nov 22, 2022 15:29
[2022-11-22] MEDS: RIVAROXABAN 20 MG TABLET (XARELTO) PO SCH (16:58)
[2022-11-22 19:53] VITALS: BP 83/53
[2022-11-22 20:34] VITALS: BP 99/45
[2022-11-23] MEDS: ACETAMINOPHEN 325 MG TABLET PO SCH ×5 (00:09→23:15)
[2022-11-23] MEDS: RT-ALBUTEROL SULF 2.5 MG/3 ML PRE-MIX VIAL INH SCH ×5 (02:10→18:45)
[2022-11-23 07:39] LABS: BASOPHILS # (AUTO) 0.1 10^3/uL (0.0-0.1); BASOPHILS % (AUTO) 1 % (0-10); EOSINOPHILS # (AUTO) 0.3 10^3/uL (0.0-0.3); EOSINOPHILS % (AUTO) 2 % (0-10); HEMATOCRIT 31 % (40-54); HEMOGLOBIN 10.3 g/dL (13.3-17.7); LYMPHOCYTES # (AUTO) 2.1 10^3/uL (1.0-4.0); LYMPHOCYTES % (AUTO) 15 % (12-44); MEAN CORPUSCULAR HEMOGLOBIN 27 pg (25-34); MEAN CORPUSCULAR HGB CONC 34 g/dL (32-36); MEAN CORPUSCULAR VOLUME 81 fL (80-99); MEAN PLATELET VOLUME 10.6 fL (9.0-12.2); MONOCYTES # (AUTO) 2.6 10^3/uL (0.0-1.0); MONOCYTES % (AUTO) 18 % (0-12); NEUTROPHILS # (AUTO) 8.8 10^3/uL (1.8-7.8); NEUTROPHILS % (AUTO) 63 % (42-75); PLATELET COUNT 192 10^3/uL (130-400); WHITE BLOOD COUNT 14.1 10^3/uL (4.3-11.0)
[2022-11-23 07:43] LABS: ALBUMIN 2.4 GM/DL (3.2-4.5); POTASSIUM 4.3 MMOL/L (3.6-5.0)
[2022-11-23 07:44] LABS: CALCIUM 8.6 MG/DL (8.5-10.1)
[2022-11-23 07:46] LABS: TOTAL PROTEIN 5.4 GM/DL (6.4-8.2)
[2022-11-23 07:47] LABS: BILIRUBIN,TOTAL 1.8 MG/DL (0.1-1.0)
[2022-11-23 07:49] LABS: CREATININE SERUM 1.5 MG/DL (0.60-1.30)
[2022-11-23 08:05] LABS: INR 5.9 (0.8-1.4); PROTHROMBIN TIME PATIENT 51.4 SEC (12.2-14.7)
[2022-11-23 08:15] VITALS: BP 118/76
[2022-11-23] MEDS: PANTOPRAZOLE 40 MG (PROTONIX) TAB PO SCH (08:33)
[2022-11-23] MEDS: guaiFENesin (MUCINEX) 600 MG TAB PO SCH ×2 (08:33→20:20)
[2022-11-23] MEDS: MAGNESIUM OXIDE (MAG-OX)400 MG TAB PO SCH ×2 (08:33→18:03)
[2022-11-23] MEDS: DOCUSATE SODIUM 100 MG (COLACE) CAP PO SCH ×2 (08:33→20:20)
[2022-11-23] MEDS: dilTIAZem120 MG (CARDIZEM CD) CAP PO SCH (08:33)
[2022-11-23] MEDS: SENNA W/DOCUSATE (SENOKOT S) TABLET PO SCH ×2 (08:36→20:21)
[2022-11-23] MEDS: polyethylene glycoL POWDER 17 GM (MIRALAX) PACK PO SCH ×2 (08:36→19:54)
--- NOTE | 2022-11-23 09:16 | PM&R Progress Note ---
Subjective HPI/CC On Admission Date Seen by Provider: Nov 23, 2022 Time Seen by Provider: 12:00 Subjective/Events-last exam 11/23/2022: Updated patient on my suspicion of end-stage liver disease and cirrhosis from [place] Abdominal ultrasound will be done tomorrow Patient has never had alcoholic beverages Viral hepatitis panel pending Leukocytosis is ongoing INR 5.9 so we will hold Xarelto due to natural coagulopathy from end-stage liver disease presumed 11/22/2022: Patient doing a little better Low blood sugars noted Poor appetite I suspect ORTEZ so will obtain ultrasound Ammonia 44 11/21/2022: Patient doing a lot better Appetite is an issue Maintained on oxygen No falls Very weak 11/20/2022: Patient doing a little better Eating a little better Slow recovery but he is working with therapy No falls No pain Review of Systems General: Fatigue, Malaise Objective Exam Vital Signs Vital Signs Date Time Temp Pulse Resp B/P (MAP) Pulse Ox O2 Delivery O2 Flow Rate FiO2 11/23/22 14:30 92 Nasal Cannula 3.00 11/23/22 08:15 36.1 83 16 118/76 (90) Capillary Refill : General Appearance: No Apparent Distress, WD/WN, Chronically ill, Obese HEENT: PERRL/EOMI, Normal ENT Inspection, Pharynx Normal Neck: Full Range of Motion, Normal Inspection, Non Tender, Supple, Carotid Bruit Respiratory: Chest Non Tender, Normal Breath Sounds, No Accessory Muscle Use, No Respiratory Distress, Decreased Breath Sounds Cardiovascular: Regular Rate, Rhythm, No Edema, No Gallop, No JVD, No Murmur, Normal Peripheral Pulses Gastrointestinal: Normal Bowel Sounds, No Organomegaly, No Pulsatile Mass, Non Tender, Soft Back: Normal Inspection, No CVA Tenderness, No Vertebral Tenderness Extremity: Normal Capillary Refill, Normal Inspection, Normal Range of Motion, Non Tender, No Calf Tenderness, No Pedal Edema Neurologic/Psychiatric: Alert, Oriented x3, clinical medical assistant II-XII Norm as Tested, Abnormal Gait, Depressed Affect, Motor Weakness (Severe weakness 3/5 all extremities) Skin: Normal Color, Warm/Dry Lymphatic: No Adenopathy Results/Procedures Lab Laboratory Tests 11/23/22 07:20 Patient resulted labs reviewed. FIM Transfers Therapy Code Descriptions/Definitions Functional [place] Measure: 0=Not Assessed/NA 4=Minimal Assistance 1=Total Assistance 5=Supervision or Setup 2=Maximal Assistance 6=Modified [place] 3=Moderate Assistance 7=Complete IndependenceSCALE: Activities may be completed with or without assistive devices. 5-Onmkkbkabi-gplbywe completes the activity by him/herself with no assistance from a helper. 5-Set-up or Clean-up Assistance-helper sets up or cleans up; patient completes activity. [place] assists only prior to or following the activity. 4-Supervision or Touching Assistance-helper provides verbal cues and/or touching/steadying and/or contact guard assistance as patient completes activity. Assistance may be provided throughout the activity or intermittently. 3-Partial/Moderate Assistance-helper does LESS THAN HALF the effort. [place] lifts, holds or supports trunk or limbs, but provides less than half the effort. 2-Substantial/Maximal Assistance-helper does MORE THAN HALF the effort. [place] lifts or holds trunk or limbs and provides more than half the effort. 2-Qatxgppna-eiokbw does ALL the effort. Patient does none of the effort to complete the activity. Or, the assistance of 2 or more helpers is required for the patient to complete the activity. If activity was not attempted, code reason: 7-Patient Refused. 9-Not Applicable-not attempted and the patient did not perform the activity before the current illness, exacerbation or injury. 10-Not Attempted due to Environmental Limitations-(lack of equipment, weather restraints, etc.). 88-Not Attempted due to Medical Conditions or Safety Concerns. Roll Left to Right (QC): 3 (Min A ) Sit to Lying (QC): 3 (Min A) Sit to Stand (QC): 3 Chair/Cld-ju-Jmpzq Xfer(QC): 3 Car Transfer (QC): 88 Gait Training Does the Patient Walk?: Yes Distance: 6 feet Walk 50 ft with 2 Turns(QC): 88 Walk 150 ft (QC): 88 Walking 10ft/uneven surface-QC: 88 Gait Assistive Device: FWW Wheelchair Training Does the Pt Use a Wheelchair?: Yes Wheel 50 ft with 2 turns (QC): 88 Wheel 150 ft (QC): 88 Type of Wheelchair: Manual Stair Training 1 Step (curb) (QC): 88 4 Steps (QC): 88 12 Steps (QC): 88 Balance Picking up an Object (QC): 3 (Min A ) ADL-Treatment Eating (QC): 6 Oral Hygiene (QC): 6 Shower/Bathe Self (QC): 2 Upper Body Dressing (QC): 5 Lower Body Dressing (QC): 2 On/Off Footwear (QC): 2 Toileting Hygiene (QC): 2 Assessment/Plan Assessment and Plan Assess & Plan/Chief Complaint Assessment: Generalized weakness Presumed COVID illness JERAMIE- resolved Hypotension A fib DVT ppx: Xarelto Coagulopathy due to 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 disease and liver failure with Xarelto so holding on 11/23/2022 Progressive weight loss Elevated liver enzymes with elevated ammonia suspect ORTEZ progressed to cirrhosis Plan: PT and OT Home meds Supportive care 11/20/2022: Supportive care Encourage adequate nutrition 11/21/2022: Supportive care Monitor closely 11/22/2022: Supportive care Check ultrasound Lab work-up 11/23/2022: Abdominal ultrasound tomorrow to confirm suspicion of cirrhosis Cannot perform MELD score due to anticoagulant Xarelto on board (1) Debility (2) Atrial fibrillation KARON RODRIGUEZ DO Nov 23, 2022 09:16
[2022-11-23] MEDS ORDERED: meTOprolol TARTRATE 25 MG (LOPRESSOR) TABLET PO ONE (12:00)
--- NOTE | 2022-11-23 13:34 | Physical Therapy Daily Note ---
PT Daily Note-Current Subjective pt in recliner upon arrival and willing for therapy. pt stated he was a "bit tired this day" pt was left in recliner with call light and all needs met after therapy session this day. Pain Section J - Health Conditions 1. Rarely or not at all 2. Occasionally 3. Frequently 4. Almost constantly 8. Unable to answer Pain Effect on Sleep: 1 Pain Interference with Therapy: 2 Pain Interference w/Day-to-Day: 2 Mental Status Patient Orientation: Person, Place, Time, Situation Transfers SCALE: Activities may be completed with or without assistive devices. 4-Blwvbcubhr-ggsitzr completes the activity by him/herself with no assistance from a helper. 5-Set-up or Clean-up Assistance-helper sets up or cleans up; patient completes activity. [place] assists only prior to or following the activity. 4-Supervision or Touching Assistance-helper provides verbal cues and/or touching/steadying and/or contact guard assistance as patient completes activity. Assistance may be provided throughout the activity or intermittently. 3-Partial/Moderate Assistance-helper does LESS THAN HALF the effort. [place] lifts, holds or supports trunk or limbs, but provides less than half the effort. 2-Substantial/Maximal Assistance-helper does MORE THAN HALF the effort. [place] lifts or holds trunk or limbs and provides more than half the effort. 5-Wdygrfcji-vkuuzz does ALL the effort. Patient does none of the effort to complete the activity. Or, the assistance of 2 or more helpers is required for the patient to complete the activity. If activity was not attempted, code reason: 7-Patient Refused. 9-Not Applicable-not attempted and the patient did not perform the activity before the current illness, exacerbation or injury. 10-Not Attempted due to Environmental Limitations-(lack of equipment, weather restraints, etc.). 88-Not Attempted due to Medical Conditions or Safety Concerns. Weight Bearing Right Lower Extremity: Right Full Weight Bearing Left Lower Extremity: Left Full Weight Bearing Exercises Seated Therapy Exercises: Ankle pumps, Sit to stand, Long arc quads, Hip flexion, Kicking activity, Hamstring Curls, Hip abd/add, Glut set Treatments PT preformed sitting gravity eliminated and with gravity there-ex in all planes of motion available. 3 sets with and 3 sets without gravity of 20 each. pt did require rest in between each set secondary to fatigue but is able to preform more reps this day then the last showing an increase in endurance and mm strength. Assessment Current Status: Good Progress PT Care Home Goals Java Application Engineer Goals PT Java Application Engineer Goals Time Frame: Dec 03, 2022 Roll Left & Right (QC): 6 (Pt will be Mod I with bed mobility and transfers ) Sit to Lying (QC): 6 (Pt will be Mod I with bed mobility and transfers ) Lying-Sitting on Side/Bed(QC): 6 (Pt will be Mod I with bed mobility and transfers ) Sit to Stand (QC): 6 (Pt will be Mod I with bed mobility and transfers ) Chair/Xbt-gp-Xdadp Xfer(QC): 6 (Pt will be Mod I with bed mobility and transfers ) Toilet Transfer (QC): 6 (Pt will be Mod I with bed mobility and transfers ) Car Transfer (QC): 6 (Pt will be Mod I with bed mobility and transfers ) Does the Patient Walk: Yes Walk 10 feet (QC): 4 (Pt will be SBA for walking and stairs. ) Walk 50ft with 2 Turns (QC): 4 (Pt will be SBA for walking and stairs. ) Walk 150 ft (QC): 4 (Pt will be SBA for walking and stairs. ) Walking 10ft on Uneven Surface: 4 (Pt will be SBA for walking and stairs. ) 1 Step (curb) (QC): 4 (Pt will be SBA for walking and stairs. ) 4 Steps (QC): 4 (Pt will be SBA for walking and stairs. ) 12 Steps (QC): 4 (Pt will be SBA for walking and stairs. ) Picking up an Object (QC): 4 (SBA for functional mobility ) Does the Pt use WC or Scooter?: Yes Wheel 50 feet with 2 turns (QC: 6 (Ind with w/c mobility ) Type: Manual Wheel 150 feet: 6 (Mod I with w/c mobility ) Type: Manual PT Plan Treatment/Plan Treatment Plan: Continue Plan of Care Treatment Plan: Bed Mobility, Concurrent Therapy, Education, Functional Activity Deb, Functional Strength, Group Therapy, Gait, Safety, Therapeutic Exercise, Transfers Treatment Duration: Nov 04, 2023 Frequency: At least 5 of 7 days/Wk (IRF) Estimated Hrs Per Day: 1.5 hours per day Time Time In: 0900 Time Out: 1000 DATE: Nov 23, 2022 Total Billed Treatment Time: 60 Total Billed Treatment 1 ex x 4 Diane Burns SUPERVISOR [employer] Nov 23, 2022 13:34
--- NOTE | 2022-11-23 13:39 | Occupational Ther Daily Note ---
OT Current Status-Daily Note Subjective Pt alert, sitting in recliner. Pt agrees to therapy. No c/o pain at this time. Mental Status/Objective Patient Orientation: Person, Place, Time, Situation Attachments: Oxygen (3L) ADL-Treatment Pt agrees to sponge bath. Pt requires assistance with feet and buttocks, pt cleanses the rest. Set up for UBD. Pt able to thread L foot into pant legs then assist for R foot and to hike pants over hips. Educated pt on using well service pump equipment operator for LBD, pt stated repeatedly that he can't feel with his fingers and his ledger poster is to weak to squeeze and hold the well service pump equipment operator handle. Pt continues to state that he was able to and will be able to complete ADLs by self with his set up at home. Set up for UBD. Independent with oral care. After session, pt sitting in recliner with call light/phone in reach. All needs met in room. Therapy Code Descriptions/Definitions Functional [place] Measure: 0=Not Assessed/NA 4=Minimal Assistance 1=Total Assistance 5=Supervision or Setup 2=Maximal Assistance 6=Modified [place] 3=Moderate Assistance 7=Complete IndependenceSCALE: Activities may be completed with or without assistive devices. 1-Dupnhaqiyc-cjtqpml completes the activity by him/herself with no assistance from a helper. 5-Set-up or Clean-up Assistance-helper sets up or cleans up; patient completes activity. [place] assists only prior to or following the activity. 4-Supervision or Touching Assistance-helper provides verbal cues and/or touching/steadying and/or contact guard assistance as patient completes activity. Assistance may be provided throughout the activity or intermittently. 3-Partial/Moderate Assistance-helper does LESS THAN HALF the effort. [place] lifts, holds or supports trunk or limbs, but provides less than half the effort. 2-Substantial/Maximal Assistance-helper does MORE THAN HALF the effort. [place] lifts or holds trunk or limbs and provides more than half the effort. 8-Drwedvzwu-swaoso does ALL the effort. Patient does none of the effort to complete the activity. Or, the assistance of 2 or more helpers is required for the patient to complete the activity. If activity was not attempted, code reason: 7-Patient Refused. 9-Not Applicable-not attempted and the patient did not perform the activity before the current illness, exacerbation or injury. 10-Not Attempted due to Environmental Limitations-(lack of equipment, weather restraints, etc.). 88-Not Attempted due to Medical Conditions or Safety Concerns. Oral Hygiene (QC): 6 Shower/Bathe Self (QC): 3 Upper Body Dressing (QC): 5 Lower Body Dressing (QC): 3 (mod A) On/Off Footwear: 2 OT Short Term Goals Short Term Goals Time Frame: Nov 26, 2022 Eatin Oral hygiene: 5 Upper body dressin OT Chcf Goals Chcf Goals Time Frame: Dec 03, 2022 Acute change in mental status: 1 Inattention: 0 Disorganized thinkin Altered level of consciousness: 0 Eating (QC): 6 Oral Hygiene (QC): 6 Toileting Hygiene (QC): 5 Shower/Bathe Self (QC): 5 Upper Body Dressing (QC): 6 Lower Body Dressing (QC): 6 On/Off Footwear (QC): 6 1=Demonstrate adherence to instructed precautions during ADL tasks. 2=Patient will verbalize/demonstrate understanding of assistive devices/modifications for ADL. 3=Patient will improve strength/tolerance for activity to enable patient to perform ADL's. OT Education/Plan Problem List/Assessment Assessment: Decreased Activ Tolerance, Decreased UE Strength, Impaired Funct Balance, Restricted Funct UE ROM Discharge Recommendations Plan/Recommendations: Continue POC Treatment Plan/Plan of Care Patient would benefit from OT for education, treatment and training to promote independence in ADL's, mobility, safety and/or upper extremity function for ADL's. Plan of Care: ADL Retraining, Caregiver Training, Concurrent Therapy, Functional Mobility, Group Exercise/Act as Ind, Orthotic Fitting/Training, UE Funct Exercise/Act, UE Neuromus Re-Ed/Coord Treatment Duration: Dec 03, 2022 Frequency: At least 5 of 7 days/Wk (IRF) Estimated Hrs Per Day: 1.5 hours per day Agreement: Yes Rehab Potential: Fair Time Start Time: 11:00 Stop Time: 12:00 DATE: Nov 23, 2022 Total Time Billed (hr/min): 60 Billed Treatment Time 1 visit-ADL 4 (60 min) RALPH HAY Nov 23, 2022 13:39
--- NOTE | 2022-11-23 14:08 | Therapy Group Daily Note ---
Therapy Daily Group Note Patient Education Topic Home Safety, Exercises Exercises LE Seated Exercise, UE Exercise Session Ratio (pt:therapist): 4:1 Goal of Session: Memory Strategies, UE/LE Strengthing Goal Met for this Session: Yes Pt Benefit of Group: Contributions to Others, F/U Use of Strategies @Home, Increased Functional Safety, Increased Functional Strength, Improved Cognition, Recognition of Peers, Socialization Pt was brought in to group therapy with RW and CGA. pt engaged eating lunch and socializing with other patients in the until. pt also participate in memory/trivia game giving an anser for all qurestion asked. pt exicuted sitting UE/LE exercises to engge in sitting cardio this day to promote movment at home after realse. Start Time: 12:00 Stop Time: 13:10 Total Billed Treatment Time: 70 Total Billed Treatment 1 GRP Diane Burns HIGH RAW SUGAR BOILER Nov 23, 2022 14:08
[2022-11-23 19:58] VITALS: BP 96/58
[2022-11-23] MEDS: meTOprolol TARTRATE 25 MG (LOPRESSOR) TABLET PO SCH (20:20)
[2022-11-23] MEDS: RIFAXIMIN 550 MG TABLET (XIFAXAN) PO SCH (20:21)
[2022-11-23] MEDS: MICONAZOLE 2% POWDER (DESENEX AF) 90 GM TOP SCH (20:21)
[2022-11-24] MEDS: ONDANSETRON 4 MG (ZOFRAN) ORAL DISSOLVE TAB PO PRN ×2 (03:04→09:07)
[2022-11-24] MEDS: RT-ALBUTEROL SULF 2.5 MG/3 ML PRE-MIX VIAL INH SCH ×3 (03:06→21:34)
--- NOTE | 2022-11-24 06:04 | PM&R Progress Note ---
Subjective HPI/CC On Admission Date Seen by Provider: Nov 24, 2022 Time Seen by Provider: 12:00 Subjective/Events-last exam 11/24/2022: Abdominal ultrasound showed gallbladder sludge no cirrhosis Holding anticoagulation Sodium level 124 Patient appears to be weak Explained that he needs to work on his nutrition He has lost about 90 pounds in the last 1 year 11/23/2022: Updated patient on my suspicion of end-stage liver disease and cirrhosis from Orte[facility] Abdominal ultrasound will be done tomorrow Patient has never had alcoholic beverages Viral hepatitis panel pending Leukocytosis is ongoing INR 5.9 so we will hold Xarelto due to natural coagulopathy from end-stage liver disease presumed 11/22/2022: Patient doing a little better Low blood sugars noted Poor appetite I suspect ORTEZ so will obtain ultrasound Ammonia 44 11/21/2022: Patient doing a lot better Appetite is an issue Maintained on oxygen No falls Very weak 11/20/2022: Patient doing a little better Eating a little better Slow recovery but he is working with therapy No falls No pain Review of Systems General: Fatigue, Malaise Objective Exam Vital Signs Vital Signs Date Time Temp Pulse Resp B/P (MAP) Pulse Ox O2 Delivery O2 Flow Rate FiO2 11/24/22 19:49 36.2 75 16 90/50 (63) 91 Nasal Cannula 2.50 Capillary Refill : General Appearance: No Apparent Distress, WD/WN, Chronically ill, Obese HEENT: PERRL/EOMI, Normal ENT Inspection, Pharynx Normal Neck: Full Range of Motion, Normal Inspection, Non Tender, Supple, Carotid Bruit Respiratory: Chest Non Tender, Normal Breath Sounds, No Accessory Muscle Use, No Respiratory Distress, Decreased Breath Sounds Cardiovascular: Regular Rate, Rhythm, No Edema, No Gallop, No JVD, No Murmur, Normal Peripheral Pulses Gastrointestinal: Normal Bowel Sounds, No Organomegaly, No Pulsatile Mass, Non Tender, Soft Back: Normal Inspection, No CVA Tenderness, No Vertebral Tenderness Extremity: Normal Capillary Refill, Normal Inspection, Normal Range of Motion, Non Tender, No Calf Tenderness, No Pedal Edema Neurologic/Psychiatric: Alert, Oriented x3, leather finisher II-XII Norm as Tested, Abnormal Gait, Depressed Affect, Motor Weakness (Severe weakness 3/5 all extremities) Skin: Normal Color, Warm/Dry Lymphatic: No Adenopathy Results/Procedures Lab Laboratory Tests 11/24/22 12:13 Patient resulted labs reviewed. FIM Transfers Therapy Code Descriptions/Definitions Functional [place] Measure: 0=Not Assessed/NA 4=Minimal Assistance 1=Total Assistance 5=Supervision or Setup 2=Maximal Assistance 6=Modified [place] 3=Moderate Assistance 7=Complete IndependenceSCALE: Activities may be completed with or without assistive devices. 8-Qjxrmrjvvo-gioftbo completes the activity by him/herself with no assistance from a helper. 5-Set-up or Clean-up Assistance-helper sets up or cleans up; patient completes activity. [place] assists only prior to or following the activity. 4-Supervision or Touching Assistance-helper provides verbal cues and/or touching/steadying and/or contact guard assistance as patient completes activity. Assistance may be provided throughout the activity or intermittently. 3-Partial/Moderate Assistance-helper does LESS THAN HALF the effort. [place] lifts, holds or supports trunk or limbs, but provides less than half the effort. 2-Substantial/Maximal Assistance-helper does MORE THAN HALF the effort. [place] lifts or holds trunk or limbs and provides more than half the effort. 6-Epzjorhag-iedrbn does ALL the effort. Patient does none of the effort to complete the activity. Or, the assistance of 2 or more helpers is required for the patient to complete the activity. If activity was not attempted, code reason: 7-Patient Refused. 9-Not Applicable-not attempted and the patient did not perform the activity before the current illness, exacerbation or injury. 10-Not Attempted due to Environmental Limitations-(lack of equipment, weather restraints, etc.). 88-Not Attempted due to Medical Conditions or Safety Concerns. Roll Left to Right (QC): 3 (Min A ) Sit to Lying (QC): 3 (Min A) Sit to Stand (QC): 3 Chair/Pet-we-Hhhue Xfer(QC): 3 Car Transfer (QC): 88 Gait Training Does the Patient Walk?: Yes Distance: 6 feet Walk 50 ft with 2 Turns(QC): 88 Walk 150 ft (QC): 88 Walking 10ft/uneven surface-QC: 88 Gait Assistive Device: FWW Wheelchair Training Does the Pt Use a Wheelchair?: Yes Wheel 50 ft with 2 turns (QC): 88 Wheel 150 ft (QC): 88 Type of Wheelchair: Manual Stair Training 1 Step (curb) (QC): 88 4 Steps (QC): 88 12 Steps (QC): 88 Balance Picking up an Object (QC): 3 (Min A ) ADL-Treatment Eating (QC): 6 Oral Hygiene (QC): 6 Shower/Bathe Self (QC): 3 Upper Body Dressing (QC): 5 Lower Body Dressing (QC): 3 (mod A) On/Off Footwear (QC): 2 Toileting Hygiene (QC): 2 Assessment/Plan Assessment and Plan Assess & Plan/Chief Complaint Assessment: 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 Presumed COVID illness JERAMIE- resolved Hypotensionchronic A fib DVT ppx: Xareltoon hold Coagulopathy due to 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 disease and liver failure with Xarelto so holding on 11/23/2022 Progressive weight loss90 pounds in 1 year Elevated liver enzymes with elevated ammonia suspect ORTEZ progressed to cirrhosis Hyponatremia Poor nutrition Plan: PT and OT Home meds Supportive care 11/20/2022: Supportive care Encourage adequate nutrition 11/21/2022: Supportive care Monitor closely 11/22/2022: Supportive care Check ultrasound Lab work-up 11/23/2022: Abdominal ultrasound tomorrow to confirm suspicion of cirrhosis Cannot perform MELD score due to anticoagulant Xarelto on board 11/24/2022: Supportive care Restrict fluids (1) Debility (2) Atrial fibrillation KARON RODRIGUEZ DO Nov 24, 2022 06:04
[2022-11-24] MEDS: ACETAMINOPHEN 325 MG TABLET PO SCH ×3 (06:23→17:15)
[2022-11-24 08:00] VITALS: BP 90/55
[2022-11-24] MEDS: PANTOPRAZOLE 40 MG (PROTONIX) TAB PO SCH (08:51)
[2022-11-24] MEDS: SENNA W/DOCUSATE (SENOKOT S) TABLET PO SCH ×2 (08:51→19:49)
[2022-11-24] MEDS: MAGNESIUM OXIDE (MAG-OX)400 MG TAB PO SCH ×2 (08:51→18:44)
[2022-11-24] MEDS: guaiFENesin (MUCINEX) 600 MG TAB PO SCH ×2 (08:51→21:20)
[2022-11-24] MEDS: RIFAXIMIN 550 MG TABLET (XIFAXAN) PO SCH ×2 (08:51→21:20)
[2022-11-24] MEDS: dilTIAZem120 MG (CARDIZEM CD) CAP PO SCH (08:55)
[2022-11-24] MEDS: polyethylene glycoL POWDER 17 GM (MIRALAX) PACK PO SCH ×2 (08:56→19:49)
[2022-11-24] MEDS: DOCUSATE SODIUM 100 MG (COLACE) CAP PO SCH ×2 (08:56→19:49)
--- NOTE | 2022-11-24 09:00 | Diagnostic Imaging Report ---
PROCEDURE: US abdomen, limited. TECHNIQUE: Multiple Real-time grayscale images were obtained over the abdomen in various projections. INDICATION: Cirrhosis. FINDINGS: The liver is normal in size at 16.4 cm. The portal vein is patent and shows normal direction of flow. There is a cyst in the left lobe of the liver measuring approximately 17 mm in size. No other liver masses are detected. There is a moderate amount of sludge in the gallbladder. No gallstones are detected. No significant wall thickening or biliary ductal dilatation is seen. The pancreas is unremarkable. The aorta is nonaneurysmal in the proximal portion. The mid and distal aorta are obscured by bowel gas. The IVC is patent. The right kidney measures 12.6 cm. No calculus or hydronephrosis is detected. IMPRESSION: 1. Hepatic cyst. 2. Gallbladder sludge. 3. The study is otherwise unremarkable. Dictated by: Dictated on workstation # [id number]
--- NOTE | 2022-11-24 09:32 | Physical Therapy Daily Note ---
PT Daily Note-Current Subjective Pt was in bed upon arrival and stated 2/10 pain in bottom area. pt stated his mental status was not good possible from the new RX. pt states he is not sleeping well. pt asked to preform bed mobility and pt state he "just can't" after encouragement to just try pt was able to preform laying to sitting EOB with MOD A and max VC for encouragement. pt does have enough strength to preform but not the will power to try. pt started to dry heave after he was transferred into recliner [facility] and [facility] him some anti nausea med. pt was left in recliner with call light and all needs met this day. Pain Section J - Health Conditions 1. Rarely or not at all 2. Occasionally 3. Frequently 4. Almost constantly 8. Unable to answer Pain Effect on Sleep: 1 Pain Interference with Therapy: 2 Pain Interference w/Day-to-Day: 2 Mental Status Patient Orientation: Person, Place, Time, Situation Transfers SCALE: Activities may be completed with or without assistive devices. 0-Cxzmufifvr-dqqmsda completes the activity by him/herself with no assistance from a helper. 5-Set-up or Clean-up Assistance-helper sets up or cleans up; patient completes activity. [place] assists only prior to or following the activity. 4-Supervision or Touching Assistance-helper provides verbal cues and/or touching/steadying and/or contact guard assistance as patient completes activity. Assistance may be provided throughout the activity or intermittently. 3-Partial/Moderate Assistance-helper does LESS THAN HALF the effort. [place] lifts, holds or supports trunk or limbs, but provides less than half the effort. 2-Substantial/Maximal Assistance-helper does MORE THAN HALF the effort. [place] lifts or holds trunk or limbs and provides more than half the effort. 2-Vfimpnlte-nvjnps does ALL the effort. Patient does none of the effort to complete the activity. Or, the assistance of 2 or more helpers is required for the patient to complete the activity. If activity was not attempted, code reason: 7-Patient Refused. 9-Not Applicable-not attempted and the patient did not perform the activity before the current illness, exacerbation or injury. 10-Not Attempted due to Environmental Limitations-(lack of equipment, weather restraints, etc.). 88-Not Attempted due to Medical Conditions or Safety Concerns. Weight Bearing Right Lower Extremity: Right Full Weight Bearing Left Lower Extremity: Left Full Weight Bearing Exercises Seated Therapy Exercises: Ankle pumps, Long arc quads, Hip flexion, Glut set Treatments Pt preoformed bed mobility laying to sitting EOB with MOD A and MAX VC for sequencing and encouragement. pt preformed sit to stand with sit to stand machine and Aid. pt was transferred to recliner. pt then preformed sitting ther- ex for 1 set of 20 reps in all planes of motion available. mOd VC for sequencing and encouragement. Assessment Current Status: Poor Progress PT Intermediate Goals Clinical Fellow Goals PT Clinical Fellow Goals Time Frame: Dec 03, 2022 Roll Left & Right (QC): 6 (Pt will be Mod I with bed mobility and transfers ) Sit to Lying (QC): 6 (Pt will be Mod I with bed mobility and transfers ) Lying-Sitting on Side/Bed(QC): 6 (Pt will be Mod I with bed mobility and transfers ) Sit to Stand (QC): 6 (Pt will be Mod I with bed mobility and transfers ) Chair/Crv-ei-Mpezw Xfer(QC): 6 (Pt will be Mod I with bed mobility and transfers ) Toilet Transfer (QC): 6 (Pt will be Mod I with bed mobility and transfers ) Car Transfer (QC): 6 (Pt will be Mod I with bed mobility and transfers ) Does the Patient Walk: Yes Walk 10 feet (QC): 4 (Pt will be SBA for walking and stairs. ) Walk 50ft with 2 Turns (QC): 4 (Pt will be SBA for walking and stairs. ) Walk 150 ft (QC): 4 (Pt will be SBA for walking and stairs. ) Walking 10ft on Uneven Surface: 4 (Pt will be SBA for walking and stairs. ) 1 Step (curb) (QC): 4 (Pt will be SBA for walking and stairs. ) 4 Steps (QC): 4 (Pt will be SBA for walking and stairs. ) 12 Steps (QC): 4 (Pt will be SBA for walking and stairs. ) Picking up an Object (QC): 4 (SBA for functional mobility ) Does the Pt use WC or Scooter?: Yes Wheel 50 feet with 2 turns (QC: 6 (Ind with w/c mobility ) Type: Manual Wheel 150 feet: 6 (Mod I with w/c mobility ) Type: Manual PT Plan Treatment/Plan Treatment Plan: Continue Plan of Care Treatment Plan: Bed Mobility, Concurrent Therapy, Education, Functional Activity Deb, Functional Strength, Group Therapy, Gait, Safety, Therapeutic Exercise, Transfers Treatment Duration: Nov 04, 2023 Frequency: At least 5 of 7 days/Wk (IRF) Estimated Hrs Per Day: 1.5 hours per day Time Time In: 819 Time Out: 929 DATE: Nov 24, 2022 Total Billed Treatment Time: 70 Total Billed Treatment 1 FA x 4 ex x 1 Diane Burns SUGAR HOUSE SUPERVISOR Nov 24, 2022 09:31
[2022-11-24] MEDS: MICONAZOLE 2% POWDER (DESENEX AF) 90 GM TOP SCH ×2 (10:52→21:22)
--- NOTE | 2022-11-24 10:58 | Occupational Ther Daily Note ---
OT Current Status-Daily Note Subjective Pt alert, sitting in recliner. Pt has decreased in mobility, stamina and motivation to participate fully in therapy. Discussed with pt the need to completed 3 hours of therapy and pt states that he feels like it is too much. THOMPSON described SNF therapy hours and the decreased time of expected therapy, pt was noncommittal with answer. Mental Status/Objective Patient Orientation: Person, Place, Time Attachments: Oxygen (3L) ADL-Treatment Pt declines all ADLs stating that he just cannot move and is so tired that he is falling asleep. THOMPSON encouraged pt to participate in positioning self in recliner, complete oral care and minimal B UE strengthening. Pt took increased time to complete all tasks due to falling asleep, slow movements and stating that he cannot do anything with his hands because he can't feel anything. Pt assisted with positioning self in recliner when recliner was laid back and feet positioned to push then THOMPSON positioned pillows and recliner back. SBA to complete oral care due to pt not reaching to grasp items off of bedside table, THOMPSON handed pt's all items. Pt then completed bicep exercises with light resistance theraband, 3 sets 10 reps though pt unable to complete full ROM at end of reps and proceeded to fall asleep at end of reps, woke to counting. After session, pt sitting in recliner with call light/phone in reach. All needs met in room. Therapy Code Descriptions/Definitions Functional [place] Measure: 0=Not Assessed/NA 4=Minimal Assistance 1=Total Assistance 5=Supervision or Setup 2=Maximal Assistance 6=Modified [place] 3=Moderate Assistance 7=Complete IndependenceSCALE: Activities may be completed with or without assistive devices. 5-Burjbpmimy-rygssik completes the activity by him/herself with no assistance from a helper. 5-Set-up or Clean-up Assistance-helper sets up or cleans up; patient completes activity. [place] assists only prior to or following the activity. 4-Supervision or Touching Assistance-helper provides verbal cues and/or touching/steadying and/or contact guard assistance as patient completes activity. Assistance may be provided throughout the activity or intermittently. 3-Partial/Moderate Assistance-helper does LESS THAN HALF the effort. [place] lifts, holds or supports trunk or limbs, but provides less than half the effort. 2-Substantial/Maximal Assistance-helper does MORE THAN HALF the effort. [place] lifts or holds trunk or limbs and provides more than half the effort. 6-Gsfrtjcww-tymmkm does ALL the effort. Patient does none of the effort to complete the activity. Or, the assistance of 2 or more helpers is required for the patient to complete the activity. If activity was not attempted, code reason: 7-Patient Refused. 9-Not Applicable-not attempted and the patient did not perform the activity bef ore the current illness, exacerbation or injury. 10-Not Attempted due to Environmental Limitations-(lack of equipment, weather r estraints, etc.). 88-Not Attempted due to Medical Conditions or Safety Concerns. Oral Hygiene (QC): 3 OT Short Term Goals Short Term Goals Time Frame: Nov 26, 2022 Eatin Oral hygiene: 5 Upper body dressin OT Portfolio Architect Goals Portfolio Architect Goals Time Frame: Dec 03, 2022 Acute change in mental status: 1 Inattention: 0 Disorganized thinkin Altered level of consciousness: 0 Eating (QC): 6 Oral Hygiene (QC): 6 Toileting Hygiene (QC): 5 Shower/Bathe Self (QC): 5 Upper Body Dressing (QC): 6 Lower Body Dressing (QC): 6 On/Off Footwear (QC): 6 1=Demonstrate adherence to instructed precautions during ADL tasks. 2=Patient will verbalize/demonstrate understanding of assistive devices/modifications for ADL. 3=Patient will improve strength/tolerance for activity to enable patient to perform ADL's. OT Education/Plan Problem List/Assessment Assessment: Decreased Activ Tolerance, Decreased UE Strength, Dependent Transfers, Impaired Bed Mobility, Impaired I ADL's, Impaired Self-Care Skills, Restricted Funct UE ROM Discharge Recommendations Plan/Recommendations: Continue POC Treatment Plan/Plan of Care Patient would benefit from OT for education, treatment and training to promote independence in ADL's, mobility, safety and/or upper extremity function for ADL's. Plan of Care: ADL Retraining, Caregiver Training, Concurrent Therapy, Functional Mobility, Group Exercise/Act as Ind, Orthotic Fitting/Training, UE Funct Exercise/Act, UE Neuromus Re-Ed/Coord Treatment Duration: Dec 03, 2022 Frequency: At least 5 of 7 days/Wk (IRF) Estimated Hrs Per Day: 1.5 hours per day Agreement: Yes Rehab Potential: Fair Time Start Time: 10:00 Stop Time: 11:00 DATE: Nov 24, 2022 Total Time Billed (hr/min): 60 Billed Treatment Time 1 visit-ADL 1 (15 min) FA 2 (30 min) EX 1 (15 min) RALPH HAY Nov 24, 2022 10:58
[2022-11-24 11:25] VITALS: BP 90/55
[2022-11-24] MEDS: meTOprolol TARTRATE 25 MG (LOPRESSOR) TABLET PO SCH ×2 (12:04→21:20)
[2022-11-24 12:23] LABS: BASOPHILS # (AUTO) 0.1 10^3/uL (0.0-0.1); BASOPHILS % (AUTO) 1 % (0-10); EOSINOPHILS # (AUTO) 0.2 10^3/uL (0.0-0.3); EOSINOPHILS % (AUTO) 1 % (0-10); HEMATOCRIT 29 % (40-54); LYMPHOCYTES # (AUTO) 1.7 10^3/uL (1.0-4.0); LYMPHOCYTES % (AUTO) 12 % (12-44); MEAN CORPUSCULAR HEMOGLOBIN 28 pg (25-34); MEAN CORPUSCULAR HGB CONC 34 g/dL (32-36); MEAN CORPUSCULAR VOLUME 81 fL (80-99); MEAN PLATELET VOLUME 10.5 fL (9.0-12.2); MONOCYTES # (AUTO) 2.5 10^3/uL (0.0-1.0); MONOCYTES % (AUTO) 18 % (0-12); NEUTROPHILS # (AUTO) 9.1 10^3/uL (1.8-7.8); NEUTROPHILS % (AUTO) 66 % (42-75); PLATELET COUNT 211 10^3/uL (130-400); WHITE BLOOD COUNT 13.9 10^3/uL (4.3-11.0)
[2022-11-24 12:34] LABS: ALBUMIN 2.4 GM/DL (3.2-4.5); INR 2.9 (0.8-1.4); POTASSIUM 4.3 MMOL/L (3.6-5.0); PROTHROMBIN TIME PATIENT 29.6 SEC (12.2-14.7)
[2022-11-24 12:35] LABS: CALCIUM 8.4 MG/DL (8.5-10.1)
[2022-11-24 12:37] LABS: TOTAL PROTEIN 5.3 GM/DL (6.4-8.2)
[2022-11-24 12:38] LABS: BILIRUBIN,TOTAL 1.6 MG/DL (0.1-1.0)
[2022-11-24 12:40] LABS: CREATININE SERUM 1.58 MG/DL (0.60-1.30)
[2022-11-24 13:08] LABS: HEPATITIS C ANTIBODY C Non-Reactive (Non-Reactive)
--- NOTE | 2022-11-24 13:45 | Occupational Ther Daily Note ---
OT Current Status-Daily Note Subjective Pt alert, sitting in recliner. Pt c/o being uncomfortable and pain in back, repositioned pt for comfort. Pt agrees to therapy. Mental Status/Objective Patient Orientation: Person, Place, Time, Situation ADL-Treatment Therapy Code Descriptions/Definitions Functional [place] Measure: 0=Not Assessed/NA 4=Minimal Assistance 1=Total Assistance 5=Supervision or Setup 2=Maximal Assistance 6=Modified [place] 3=Moderate Assistance 7=Complete IndependenceSCALE: Activities may be completed with or without assistive devices. 9-Gclmhdjcam-fxzkier completes the activity by him/herself with no assistance from a helper. 5-Set-up or Clean-up Assistance-helper sets up or cleans up; patient completes activity. [place] assists only prior to or following the activity. 4-Supervision or Touching Assistance-helper provides verbal cues and/or touching/steadying and/or contact guard assistance as patient completes activity. Assistance may be provided throughout the activity or intermittently. 3-Partial/Moderate Assistance-helper does LESS THAN HALF the effort. [place] lifts, holds or supports trunk or limbs, but provides less than half the effort. 2-Substantial/Maximal Assistance-helper does MORE THAN HALF the effort. [place] lifts or holds trunk or limbs and provides more than half the effort. 9-Itslxmnut-buoyfy does ALL the effort. Patient does none of the effort to complete the activity. Or, the assistance of 2 or more helpers is required for the patient to complete the activity. If activity was not attempted, code reason: 7-Patient Refused. 9-Not Applicable-not attempted and the patient did not perform the activity before the current illness, exacerbation or injury. 10-Not Attempted due to Environmental Limitations-(lack of equipment, weather restraints, etc.). 88-Not Attempted due to Medical Conditions or Safety Concerns. Other Treatment Pt required sit to stand lift to stand for repositioning in recliner. Pt able to pull self forward then lift B LE to place on sit to stand. Pt dependent for standing at this time and requires assist to hold knees in proper alignment when using lift. Pt requires max A and increased time to complete repositioning due to dependent status. After session, pt sitting in recliner with call light/phone in reach. All needs met in room. 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 2=Patient will verbalize/demonstrate understanding of assistive devices/modifications for ADL. 3=Patient will improve strength/tolerance for activity to enable patient to perform ADL's. OT Education/Plan Problem List/Assessment Assessment: Decreased Activ Tolerance, Dependent Transfers, Impaired Self-Care Skills Discharge Recommendations Plan/Recommendations: Continue POC Treatment Plan/Plan of Care Patient would benefit from OT for education, treatment and training to promote independence in ADL's, mobility, safety and/or upper extremity function for ADL's. Plan of Care: ADL Retraining, Caregiver Training, Concurrent Therapy, Functional Mobility, Group Exercise/Act as Ind, Orthotic Fitting/Training, UE Funct Exercise/Act, UE Neuromus Re-Ed/Coord Treatment Duration: Dec 03, 2022 Frequency: At least 5 of 7 days/Wk (IRF) Estimated Hrs Per Day: 1.5 hours per day Agreement: Yes Rehab Potential: Fair Time Start Time: 13:15 Stop Time: 13:45 DATE: Nov 24, 2022 Total Time Billed (hr/min): 30 Billed Treatment Time 1 visit-FA 2 (30 min) RALPH HAY Nov 24, 2022 13:45
--- NOTE | 2022-11-24 14:23 | Physical Therapy Daily Note ---
PT Daily Note-Current Subjective pt n room in recliner Pt states he is very tired and just doesn't have "any get up and go" pt reports pain in bottom with 3/10 this day. pt was left in recliner after therapy session and has call light in hand with all needs met. Pain Section J - Health Conditions 1. Rarely or not at all 2. Occasionally 3. Frequently 4. Almost constantly 8. Unable to answer Pain Effect on Sleep: 1 Pain Interference with Therapy: 2 Pain Interference w/Day-to-Day: 2 Mental Status Patient Orientation: Person, Place, Time, Situation Transfers SCALE: Activities may be completed with or without assistive devices. 7-Rosucvjtgk-lerehwt completes the activity by him/herself with no assistance from a helper. 5-Set-up or Clean-up Assistance-helper sets up or cleans up; patient completes activity. [place] assists only prior to or following the activity. 4-Supervision or Touching Assistance-helper provides verbal cues and/or touching/steadying and/or contact guard assistance as patient completes activity. Assistance may be provided throughout the activity or intermittently. 3-Partial/Moderate Assistance-helper does LESS THAN HALF the effort. [place] lifts, holds or supports trunk or limbs, but provides less than half the effort. 2-Substantial/Maximal Assistance-helper does MORE THAN HALF the effort. [place] lifts or holds trunk or limbs and provides more than half the effort. 0-Gdbvprmbj-dcutsz does ALL the effort. Patient does none of the effort to complete the activity. Or, the assistance of 2 or more helpers is required for the patient to complete the activity. If activity was not attempted, code reason: 7-Patient Refused. 9-Not Applicable-not attempted and the patient did not perform the activity before the current illness, exacerbation or injury. 10-Not Attempted due to Environmental Limitations-(lack of equipment, weather restraints, etc.). 88-Not Attempted due to Medical Conditions or Safety Concerns. Weight Bearing Right Lower Extremity: Right Full Weight Bearing Left Lower Extremity: Left Full Weight Bearing Exercises Seated Therapy Exercises: Ankle pumps, Long arc quads, Hip flexion, Hamstring Curls, Glut set Treatments Pt is able to preform 2 sets of 10 reps of sitting ther-ex with VC of MOD + for correct sequencing and multiple rest breaks secondary to fatigue. Assessment Current Status: Fair Progress PT Half-Way Goals Half-Way Goals PT Half-Way Goals Time Frame: Dec 03, 2022 Roll Left & Right (QC): 6 (Pt will be Mod I with bed mobility and transfers ) Sit to Lying (QC): 6 (Pt will be Mod I with bed mobility and transfers ) Lying-Sitting on Side/Bed(QC): 6 (Pt will be Mod I with bed mobility and transfers ) Sit to Stand (QC): 6 (Pt will be Mod I with bed mobility and transfers ) Chair/Fvb-ij-Wgarl Xfer(QC): 6 (Pt will be Mod I with bed mobility and swann sfers ) Toilet Transfer (QC): 6 (Pt will be Mod I with bed mobility and transfers ) Car Transfer (QC): 6 (Pt will be Mod I with bed mobility and transfers ) Does the Patient Walk: Yes Walk 10 feet (QC): 4 (Pt will be SBA for walking and stairs. ) Walk 50ft with 2 Turns (QC): 4 (Pt will be SBA for walking and stairs. ) Walk 150 ft (QC): 4 (Pt will be SBA for walking and stairs. ) Walking 10ft on Uneven Surface: 4 (Pt will be SBA for walking and stairs. ) 1 Step (curb) (QC): 4 (Pt will be SBA for walking and stairs. ) 4 Steps (QC): 4 (Pt will be SBA for walking and stairs. ) 12 Steps (QC): 4 (Pt will be SBA for walking and stairs. ) Picking up an Object (QC): 4 (SBA for functional mobility ) Does the Pt use WC or Scooter?: Yes Wheel 50 feet with 2 turns (QC: 6 (Ind with w/c mobility ) Type: Manual Wheel 150 feet: 6 (Mod I with w/c mobility ) Type: Manual PT Plan Treatment/Plan Treatment Plan: Continue Plan of Care Treatment Plan: Bed Mobility, Concurrent Therapy, Education, Functional Activity Deb, Functional Strength, Group Therapy, Gait, Safety, Therapeutic Exercise, Transfers Treatment Duration: Nov 04, 2023 Frequency: At least 5 of 7 days/Wk (IRF) Estimated Hrs Per Day: 1.5 hours per day Time Time In: 1240 Time Out: 1300 DATE: Nov 24, 2022 Total Billed Treatment Time: 20 Total Billed Treatment 1 ex Diane Burns MICROFILM MACHINE OPERATOR Nov 24, 2022 14:23
[2022-11-24 19:49] VITALS: BP 90/50
[2022-11-25] MEDS: ACETAMINOPHEN 325 MG TABLET PO SCH ×3 (01:37→11:15)
--- NOTE | 2022-11-25 05:43 | PM&R Progress Note ---
Subjective HPI/CC On Admission Date Seen by Provider: Nov 25, 2022 Time Seen by Provider: 12:00 Subjective/Events-last exam 11/25/2022: 11/24/2022: Abdominal ultrasound showed gallbladder sludge no cirrhosis Holding anticoagulation Sodium level 124 Patient appears to be weak Explained that he needs to work on his nutrition He has lost about 90 pounds in the last 1 year 11/23/2022: Updated patient on my suspicion of end-stage liver disease and cirrhosis from [place] Abdominal ultrasound will be done tomorrow Patient has never had alcoholic beverages Viral hepatitis panel pending Leukocytosis is ongoing INR 5.9 so we will hold Xarelto due to natural coagulopathy from end-stage liver disease presumed 11/22/2022: Patient doing a little better Low blood sugars noted Poor appetite I suspect ORTEZ so will obtain ultrasound Ammonia 44 11/21/2022: Patient doing a lot better Appetite is an issue Maintained on oxygen No falls Very weak 11/20/2022: Patient doing a little better Eating a little better Slow recovery but he is working with therapy No falls No pain Review of Systems General: Fatigue, Malaise Focused Exam Lactate Level 11/25/22 06:06: Lactic Acid Level 1.92 Objective Exam Vital Signs Vital Signs Date Time Temp Pulse Resp B/P (MAP) Pulse Ox O2 Delivery O2 Flow Rate FiO2 11/25/22 08:47 77 90/58 (69) 11/25/22 08:00 36.3 20 91 Nasal Cannula 11/25/22 07:38 4.00 Capillary Refill : General Appearance: No Apparent Distress, WD/WN, Chronically ill, Obese HEENT: PERRL/EOMI, Normal ENT Inspection, Pharynx Normal Neck: Full Range of Motion, Normal Inspection, Non Tender, Supple, Carotid Bru it Respiratory: Chest Non Tender, Normal Breath Sounds, No Accessory Muscle Use, No Respiratory Distress, Decreased Breath Sounds Cardiovascular: Regular Rate, Rhythm, No Edema, No Gallop, No JVD, No Murmur, Normal Peripheral Pulses Gastrointestinal: Normal Bowel Sounds, No Organomegaly, No Pulsatile Mass, Non Tender, Soft Back: Normal Inspection, No CVA Tenderness, No Vertebral Tenderness Extremity: Normal Capillary Refill, Normal Inspection, Normal Range of Motion, Non Tender, No Calf Tenderness, No Pedal Edema Neurologic/Psychiatric: Alert, Oriented x3, glass blowing 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 FIM Transfers Therapy Code Descriptions/Definitions Functional [place] Measure: 0=Not Assessed/NA 4=Minimal Assistance 1=Total Assistance 5=Supervision or Setup 2=Maximal Assistance 6=Modified [place] 3=Moderate Assistance 7=Complete IndependenceSCALE: Activities may be completed with or without assistive devices. 9-Thzzxcmgvu-ftogamm completes the activity by him/herself with no assistance from a helper. 5-Set-up or Clean-up Assistance-helper sets up or cleans up; patient completes activity. [place] assists only prior to or following the activity. 4-Supervision or Touching Assistance-helper provides verbal cues and/or touching/steadying and/or contact guard assistance as patient completes activity. Assistance may be provided throughout the activity or intermittently. 3-Partial/Moderate Assistance-helper does LESS THAN HALF the effort. [place] lifts, holds or supports trunk or limbs, but provides less than half the effort. 2-Substantial/Maximal Assistance-helper does MORE THAN HALF the effort. [place] l ifts or holds trunk or limbs and provides more than half the effort. 7-Saznucizp-ssodwp does ALL the effort. Patient does none of the effort to complete the activity. Or, the assistance of 2 or more helpers is required for the patient to complete the activity. If activity was not attempted, code reason: 7-Patient Refused. 9-Not Applicable-not attempted and the patient did not perform the activity before the current illness, exacerbation or injury. 10-Not Attempted due to Environmental Limitations-(lack of equipment, weather restraints, etc.). 88-Not Attempted due to Medical Conditions or Safety Concerns. Roll Left to Right (QC): 3 (Min A ) Sit to Lying (QC): 3 (Min A) Sit to Stand (QC): 3 Chair/Pet-mz-Efzsm Xfer(QC): 3 Car Transfer (QC): 88 Gait Training Does the Patient Walk?: Yes Distance: 6 feet Walk 50 ft with 2 Turns(QC): 88 Walk 150 ft (QC): 88 Walking 10ft/uneven surface-QC: 88 Gait Assistive Device: FWW Wheelchair Training Does the Pt Use a Wheelchair?: Yes Wheel 50 ft with 2 turns (QC): 88 Wheel 150 ft (QC): 88 Type of Wheelchair: Manual Stair Training 1 Step (curb) (QC): 88 4 Steps (QC): 88 12 Steps (QC): 88 Balance Picking up an Object (QC): 3 (Min A ) ADL-Treatment Eating (QC): 6 Oral Hygiene (QC): 3 Shower/Bathe Self (QC): 3 Upper Body Dressing (QC): 5 Lower Body Dressing (QC): 3 (mod A) On/Off Footwear (QC): 2 Toileting Hygiene (QC): 2 Assessment/Plan Assessment and Plan Assess & Plan/Chief Complaint Assessment: 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 Presumed COVID illness JERAMIE- resolved Hypotensionchronic A fib DVT ppx: Xareltoon hold Coagulopathy due to 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 disease and liver failure with Xarelto so holding on 11/23/2022 Progressive weight loss90 pounds in 1 year Elevated liver enzymes with elevated ammonia suspect ORTEZ progressed to cirrhosis Hyponatremia Poor nutrition Plan: PT and OT Home meds Supportive care 11/20/2022: Supportive care Encourage adequate nutrition 11/21/2022: Supportive care Monitor closely 11/22/2022: Supportive care Check ultrasound Lab work-up 11/23/2022: Abdominal ultrasound tomorrow to confirm suspicion of cirrhosis Cannot perform MELD score due to anticoagulant Xarelto on board 11/24/2022: Supportive care Restrict fluids 11/25/2022: (1) Debility (2) Atrial fibrillation KARON RODRIGUEZ DO Nov 25, 2022 05:43
[2022-11-25] MEDS ORDERED: NS IV 1000 ML 1,000 ML IV SCH (05:45)
[2022-11-25 06:10] LABS: BASOPHILS # (AUTO) 0.1 10^3/uL (0.0-0.1); BASOPHILS % (AUTO) 1 % (0-10); EOSINOPHILS # (AUTO) 0.2 10^3/uL (0.0-0.3); EOSINOPHILS % (AUTO) 2 % (0-10); HEMATOCRIT 30 % (40-54); HEMOGLOBIN 10.2 g/dL (13.3-17.7); LYMPHOCYTES # (AUTO) 1.7 10^3/uL (1.0-4.0); LYMPHOCYTES % (AUTO) 12 % (12-44); MEAN CORPUSCULAR HEMOGLOBIN 28 pg (25-34); MEAN CORPUSCULAR HGB CONC 35 g/dL (32-36); MEAN CORPUSCULAR VOLUME 81 fL (80-99); MEAN PLATELET VOLUME 10.1 fL (9.0-12.2); MONOCYTES # (AUTO) 2.7 10^3/uL (0.0-1.0); MONOCYTES % (AUTO) 20 % (0-12); NEUTROPHILS # (AUTO) 8.7 10^3/uL (1.8-7.8); NEUTROPHILS % (AUTO) 63 % (42-75); PLATELET COUNT 180 10^3/uL (130-400); WHITE BLOOD COUNT 13.7 10^3/uL (4.3-11.0)
[2022-11-25 06:37] LABS: ALBUMIN 2.4 GM/DL (3.2-4.5); BILIRUBIN,TOTAL 1.9 MG/DL (0.1-1.0); CALCIUM 8.6 MG/DL (8.5-10.1); CREATININE SERUM 1.48 MG/DL (0.60-1.30); INR 2.2 (0.8-1.4); POTASSIUM 4.5 MMOL/L (3.6-5.0); PROTHROMBIN TIME PATIENT 24.6 SEC (12.2-14.7); TOTAL PROTEIN 5.2 GM/DL (6.4-8.2)
[2022-11-25] MEDS: RT-ALBUTEROL SULF 2.5 MG/3 ML PRE-MIX VIAL INH SCH (07:38)
[2022-11-25 07:39] LABS: BILIRUBIN,URINE NEGATIVE (NEGATIVE); COLOR,URINE ORANGE; GLUCOSE, URINE (UA) NEGATIVE (NEGATIVE); KETONES,URINE NEGATIVE (NEGATIVE); LEUKOCYTE ESTERASE ,URINE NEGATIVE (NEGATIVE); NITRITE,URINE NEGATIVE (NEGATIVE); PH,URINE 5.5 (5-9); PROTEIN,URINE NEGATIVE (NEGATIVE)
[2022-11-25 07:46] LABS: BACTERIA,URINE NEGATIVE /HPF; CLARITY,URINE CLEAR; RBC,URINE RARE /HPF; WBC,URINE 0-2 /HPF
[2022-11-25 08:00] VITALS: BP 86/50
[2022-11-25 08:47] VITALS: BP 90/58
[2022-11-25] MEDS: MAGNESIUM OXIDE (MAG-OX)400 MG TAB PO SCH (09:44)
[2022-11-25] MEDS: guaiFENesin (MUCINEX) 600 MG TAB PO SCH (09:44)
[2022-11-25] MEDS: PANTOPRAZOLE 40 MG (PROTONIX) TAB PO SCH (09:45)
[2022-11-25] MEDS: DOCUSATE SODIUM 100 MG (COLACE) CAP PO SCH (09:45)
[2022-11-25] MEDS: meTOprolol TARTRATE 25 MG (LOPRESSOR) TABLET PO SCH (09:45)
[2022-11-25] MEDS: polyethylene glycoL POWDER 17 GM (MIRALAX) PACK PO SCH (09:45)
[2022-11-25] MEDS: SENNA W/DOCUSATE (SENOKOT S) TABLET PO SCH (09:46)
[2022-11-25] MEDS: RIFAXIMIN 550 MG TABLET (XIFAXAN) PO SCH (09:47)
[2022-11-25] MEDS: dilTIAZem120 MG (CARDIZEM CD) CAP PO SCH (09:48)
[2022-11-25] MEDS: MICONAZOLE 2% POWDER (DESENEX AF) 90 GM TOP SCH (09:48)
[2022-11-25] MEDS ORDERED: CATHETER FLUSH 10 ML SYR IVP PRN (11:45)
--- NOTE | 2022-11-25 12:19 | Physical Therapy Daily Note ---
PT Daily Note-Current Subjective pt in room in recliner and good for therapy. pt states he has nothing to give and feels like he would pass out if transferred in the sit to stand machine. PT was very lethargic this day and kept closing his eyes to nod off. pt was left in bed with call light and all needs met with radiology entering the room to take pt for a CT scan after therapy this day. Pain Section J - Health Conditions 1. Rarely or not at all 2. Occasionally 3. Frequently 4. Almost constantly 8. Unable to answer Pain Effect on Sleep: 1 Pain Interference with Therapy: 2 Pain Interference w/Day-to-Day: 2 Mental Status Patient Orientation: Person, Place, Situation Transfers SCALE: Activities may be completed with or without assistive devices. 7-Vcuvnpmkdf-cfjeawb completes the activity by him/herself with no assistance from a helper. 5-Set-up or Clean-up Assistance-helper sets up or cleans up; patient completes activity. [place] assists only prior to or following the activity. 4-Supervision or Touching Assistance-helper provides verbal cues and/or touching/steadying and/or contact guard assistance as patient completes activity. Assistance may be provided throughout the activity or intermittently. 3-Partial/Moderate Assistance-helper does LESS THAN HALF the effort. [place] lifts, holds or supports trunk or limbs, but provides less than half the effort. 2-Substantial/Maximal Assistance-helper does MORE THAN HALF the effort. [place] lifts or holds trunk or limbs and provides more than half the effort. 3-Tprguufwg-mrqmfp does ALL the effort. Patient does none of the effort to complete the activity. Or, the assistance of 2 or more helpers is required for the patient to complete the activity. If activity was not attempted, code reason: 7-Patient Refused. 9-Not Applicable-not attempted and the patient did not perform the activity before the current illness, exacerbation or injury. 10-Not Attempted due to Environmental Limitations-(lack of equipment, weather restraints, etc.). 88-Not Attempted due to Medical Conditions or Safety Concerns. Weight Bearing Right Lower Extremity: Right Full Weight Bearing Left Lower Extremity: Left Full Weight Bearing PT Snf Goals Snf Goals PT Snf Goals Time Frame: Dec 03, 2022 Roll Left & Right (QC): 6 (Pt will be Mod I with bed mobility and transfers ) Sit to Lying (QC): 6 (Pt will be Mod I with bed mobility and transfers ) Lying-Sitting on Side/Bed(QC): 6 (Pt will be Mod I with bed mobility and transfers ) Sit to Stand (QC): 6 (Pt will be Mod I with bed mobility and transfers ) Chair/Vyf-or-Uawlf Xfer(QC): 6 (Pt will be Mod I with bed mobility and transfers ) Toilet Transfer (QC): 6 (Pt will be Mod I with bed mobility and transfers ) Car Transfer (QC): 6 (Pt will be Mod I with bed mobility and transfers ) Does the Patient Walk: Yes Walk 10 feet (QC): 4 (Pt will be SBA for walking and stairs. ) Walk 50ft with 2 Turns (QC): 4 (Pt will be SBA for walking and stairs. ) Walk 150 ft (QC): 4 (Pt will be SBA for walking and stairs. ) Walking 10ft on Uneven Surface: 4 (Pt will be SBA for walking and stairs. ) 1 Step (curb) (QC): 4 (Pt will be SBA for walking and stairs. ) 4 Steps (QC): 4 (Pt will be SBA for walking and stairs. ) 12 Steps (QC): 4 (Pt will be SBA for walking and stairs. ) Picking up an Object (QC): 4 (SBA for functional mobility ) Does the Pt use WC or Scooter?: Yes Wheel 50 feet with 2 turns (QC: 6 (Ind with w/c mobility ) Type: Manual Wheel 150 feet: 6 (Mod I with w/c mobility ) Type: Manual PT Plan Treatment/Plan Treatment Plan: Continue Plan of Care Treatment Plan: Bed Mobility, Concurrent Therapy, Education, Functional Act ivity Deb, Functional Strength, Group Therapy, Gait, Safety, Therapeutic Exercise, Transfers Treatment Duration: Nov 04, 2023 Frequency: At least 5 of 7 days/Wk (IRF) Estimated Hrs Per Day: 1.5 hours per day Time Time In: 1000 Time Out: 1130 DATE: Nov 25, 2022 Total Billed Treatment Time: 90 Total Billed Treatment 1 FA x 4 EX x 2 CO treat from [id number] for 60 min individual mins from [id number] for 30 mins Diane Burns STRAP FOLDING MACHINE OPERATOR Nov 25, 2022 12:19
--- NOTE | 2022-11-25 12:43 | Discharge Summary ---
Diagnosis/Chief Complaint Date of Admission Nov 19, 2022 at 10:55 Date of Discharge Discharge Date: Nov 25, 2022 Discharge Diagnosis Assessment: Severe decline in status prompting CT scan and HIDA scan showing evidence of lymphoma and cholecystitis requiring transfer to fourth floor 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 Presumed COVID illness recent JERAMIE- resolved but worsened today Hypotensionchronic A fib now with atrial fibrillation with rapid ventricular response requiring ICU transfer DVT ppx: Xareltoon hold Coagulopathy due to 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 disease and liver failure with Xarelto so holding on 11/23/2022INR 2.2 today Progressive weight loss90 pounds in 1 year Elevated liver enzymes with elevated ammonia suspect ORTEZ progressed to cirrhosis Hyponatremiaholding HCTZ Poor nutrition Discharge Summary Discharge Physical Examination Allergies: Coded Allergies: No Known Drug Allergies (Unverified , 05/03/19) Vitals & I&Os Vital Signs Date Time Temp Pulse Resp B/P (MAP) Pulse Ox O2 Delivery O2 Flow Rate FiO2 11/25/22 09:30 Nasal Cannula 3.00 11/25/22 08:47 77 90/58 (69) 11/25/22 08:00 36.3 20 91 Hospital Course Was the Problem List Reviewed?: Yes Chief complaint: Severe decline in status requiring discharge from inpatient rehab due to presumed lymphoma on CT scan and cholecystitis HPI: This is a 72-year-old male who was originally transferred from fourth floor after presumed COVID illness resulting in a severe decline in status requiring inpatient rehab for aggressive recovery in order to return home with spouse. Patient continued to decline every day while in inpatient rehab to the point he could no longer move around without sit to stand today. Patient continued to have extremely poor appetite adding to his 90 pound weight loss he has had in the past 1 year. Kidney dysfunction noted along with liver dysfunction causing me to suspect acute liver failure due to fatty liver and rapid weight loss causing liver dysfunction and that was suspected with INR of 5.9 on Xarelto so Xarelto was held. Patient continued to decline so CT scans were obtained suspecting neoplastic process and it was confirmed with findings consistent with lymphoma on CT scan. I had consulted Dr. Dallas for gallbladder sludge thinking cholecystitis could be causing his symptoms but he evaluated the CT scan and did talk to the patient about the possibility of lymphoma and he did not want to pursue aggressive options of treatment and was interested in hospice and he was maintained DO NOT RESUSCITATE and that was confirmed by his when I spoke to her earlier today. He was found to have A-fib with RVR prompting ICU transfer at 2000 hrs. Labs (last 24 hrs) Laboratory Tests 11/20/22 05:34: White Blood Count 14.0H, Red Blood Count 3.74L, Hemoglobin 10.3L, Hematocrit 30L , Mean Corpuscular Volume 81, Mean Corpuscular Hemoglobin 28, Mean Corpuscular Hemoglobin Concent 34, Red Cell Distribution Width 21.4H, Platelet Count 176, Mean Platelet Volume 10.1, Immature Granulocyte % (Auto) 2, Neutrophils (%) (Auto) 64, Lymphocytes (%) (Auto) 15, Monocytes (%) (Auto) 16H, Eosinophils (%) (Auto) 3, Basophils (%) (Auto) 1, Neutrophils # (Auto) 9.0H, Lymphocytes # ( Auto) 2.0, Monocytes # (Auto) 2.2H, Eosinophils # (Auto) 0.4H, Basophils # (Auto) 0.1, Immature Granulocyte # (Auto) 0.2H 11/20/22 05:39: Sodium Level 134L, Potassium Level 3.9, Chloride Level 99, Carbon Dioxide Level 21, Anion Gap 14, Blood Urea Nitrogen 37H, Creatinine 1.16, Estimat Glomerular Filtration Rate 66, BUN/Creatinine Ratio 32, Glucose Level 66L, Calcium Level 8.6, Corrected Calcium 9.9, Total Bilirubin 2.1H, Aspartate Amino Transf (AST/SGOT) 85H, Alanine Aminotransferase (ALT/SGPT) 26, Alkaline Phosphatase 87, Total Protein 5.1L, Albumin 2.4L 11/22/22 05:27: White Blood Count 14.1H, Red Blood Count 3.82L, Hemoglobin 10.3L, Hematocrit 30L , Mean Corpuscular Volume 80, Mean Corpuscular Hemoglobin 27, Mean Corpuscular Hemoglobin Concent 34, Red Cell Distribution Width 22.1H, Platelet Count 191, Mean Platelet Volume 10.1, Immature Granulocyte % (Auto) 2, Neutrophils (%) (Auto) 64, Lymphocytes (%) (Auto) 14, Monocytes (%) (Auto) 17H, Eosinophils (%) (Auto) 3, Basophils (%) (Auto) 1, Neutrophils # (Auto) 9.0H, Lymphocytes # (Auto) 2.0, Monocytes # (Auto) 2.3H, Eosinophils # (Auto) 0.4H, Basophils # (Auto) 0.1, Immature Granulocyte # (Auto) 0.3H, Sodium Level 130L, Potassium Level 4.1, Chloride Level 96L, Carbon Dioxide Level 21, Anion Gap 13, Blood Urea Nitrogen 46H, Creatinine 1.13, Estimat Glomerular Filtration Rate 68, BUN /Creatinine Ratio 41, Glucose Level 57*L, Calcium Level 8.5, Corrected Calcium 9.7, Total Bilirubin 2.0H, Aspartate Amino Transf (AST/SGOT) 87H, Alanine Aminotransferase (ALT/SGPT) 25, Alkaline Phosphatase 93, Total Protein 5.3L, Albumin 2.5L, Neutrophils % (Manual) 75, Lymphocytes % (Manual) 10, Monocytes % (Manual) 13, Eosinophils % (Manual) 2, Polychromasia SLIGHT, Anisocytosis MODERATE, Elliptocytes SLIGHT 11/22/22 07:35: Glucometer 82 11/22/22 12:18: Ammonia 44H 11/23/22 07:20: Ammonia 35H, White Blood Count 14.1H, Red Blood Count 3.77L, Hemoglobin 10.3L, Hematocrit 31L, Mean Corpuscular Volume 81, Mean Corpuscular Hemoglobin 27, Mean Corpuscular Hemoglobin Concent 34, Red Cell Distribution Width 22.1H, Platelet Count 192, Mean Platelet Volume 10.6, Immature Granulocyte % (Auto) 2, Neutrophils (%) (Auto) 63, Lymphocytes (%) (Auto) 15, Monocytes (%) (Auto) 18H, Eosinophils (%) (Auto) 2, Basophils (%) (Auto) 1, Neutrophils # (Auto) 8.8H, Lymphocytes # (Auto) 2.1, Monocytes # (Auto) 2.6H, Eosinophils # (Auto) 0.3, Basophils # (Auto) 0.1, Immature Granulocyte # (Auto) 0.3H, Prothrombin Time 51.4*H, INR Comment 5.9*H, Sodium Level 127L, Potassium Level 4.3, Chloride Level 91L, Carbon Dioxide Level 22, Anion Gap 14, Blood Urea Nitrogen 55H, Creatinine 1.50H, Estimat Glomerular Filtration Rate 49, BUN/Creatinine Ratio 37, Glucose Level 69L, Mean Blood Glucose 108, Hemoglobin A1c 5.4, Calcium Level 8.6, Corrected Calcium 9.9, Iron Level 32L, Total Iron Binding Capacity 122L, Unsaturated Iron Binding Capacity 90, Transferrin % Saturation 26, Ferritin 4834.5H, Total Bilirubin 1.8H, Gamma Glutamyl Transpeptidase 50, Aspartate Amino Transf (AST/SGOT) 89H, Alanine Aminotransferase (ALT/SGPT) 24, Alkaline Phosphatase 96, Total Protein 5.4L, Albumin 2.4L, Vitamin B12 Level 1667H, Thyroid Stimulating Hormone (TSH) 1.00, Hepatitis A IgM Antibody Non-Reactive, Hepatitis B Surface Antigen Non-Reactive, Hepatitis B Core IgM Antibody Non- Reactive, Hepatitis C Antibody Non-Reactive 11/23/22 19:36: Glucometer 80 11/23/22 21:40: Glucometer 88 11/24/22 02:59: Glucometer 88 11/24/22 12:13: White Blood Count 13.9H, Red Blood Count 3.62L, Hemoglobin 10.0L, Hematocrit 29L , Mean Corpuscular Volume 81, Mean Corpuscular Hemoglobin 28, Mean Corpuscular Hemoglobin Concent 34, Red Cell Distribution Width 22.2H, Platelet Count 211, Mean Platelet Volume 10.5, Immature Granulocyte % (Auto) 3, Neutrophils (%) (Auto) 66, Lymphocytes (%) (Auto) 12, Monocytes (%) (Auto) 18H, Eosinophils (%) (Auto) 1, Basophils (%) (Auto) 1, Neutrophils # (Auto) 9.1H, Lymphocytes # (Auto) 1.7, Monocytes # (Auto) 2.5H, Eosinophils # (Auto) 0.2, Basophils # (Auto) 0.1, Immature Granulocyte # (Auto) 0.4H, Erythrocyte Sedimentation Rate 51H, Prothrombin Time 29.6H, INR Comment 2.9H, Sodium Level 124*L, Potassium Level 4.3, Chloride Level 90L, Carbon Dioxide Level 22, Anion Gap 12, Blood Urea Nitrogen 62H, Creatinine 1.58H, Estimat Glomerular Filtration Rate 46, BUN/Creatinine Ratio 39, Glucose Level 101, Calcium Level 8.4L, Corrected Calciu m 9.7, Total Bilirubin 1.6H, Aspartate Amino Transf (AST/SGOT) 87H, Alanine Aminotransferase (ALT/SGPT) 23, Alkaline Phosphatase 96, Ammonia 31, C-Reactive Protein High Sensitivity 26.51H, Total Protein 5.3L, Albumin 2.4L 7/6/23 06:06: White Blood Count 13.7H, Red Blood Count 3.66L, Hemoglobin 10.2L, Hematocrit 30L , Mean Corpuscular Volume 81, Mean Corpuscular Hemoglobin 28, Mean Corpuscular Hemoglobin Concent 35, Red Cell Distribution Width 22.1H, Platelet Count 180, Mean Platelet Volume 10.1, Immature Granulocyte % (Auto) 3, Neutrophils (%) (Auto) 63, Lymphocytes (%) (Auto) 12, Monocytes (%) (Auto) 20H, Eosinophils (%) (Auto) 2, Basophils (%) (Auto) 1, Neutrophils # (Auto) 8.7H, Lymphocytes # (Auto) 1.7, Monocytes # (Auto) 2.7H, Eosinophils # (Auto) 0.2, Basophils # (Auto) 0.1, Immature Granulocyte # (Auto) 0.4H, Prothrombin Time 24.6H, INR Comment 2.2H, Sodium Level 125*L, Potassium Level 4.5, Chloride Level 91L, Carbon Dioxide Level 20L, Anion Gap 14, Blood Urea Nitrogen 68H, Creatinine 1.48H, Estimat Glomerular Filtration Rate 49, BUN/Creatinine Ratio 46, Glucose Level 69L, Calcium Level 8.6, Corrected Calcium 9.9, Total Bilirubin 1.9H, Aspartate Amino Transf (AST/SGOT) 81H, Alanine Aminotransferase (ALT/SGPT) 23, Alkaline Phosphatase 109, Total Protein 5.2L, Albumin 2.4L, Lactic Acid Level 1.92 11/25/22 07:36: Urine Color ORANGE, Urine Clarity CLEAR, Urine pH 5.5, Urine Specific [place] 1.010L, Urine Protein NEGATIVE, Urine Glucose (UA) NEGATIVE, Urine Ketones NEGATIVE, Urine Nitrite NEGATIVE, Urine Bilirubin NEGATIVE, Urine Urobilinogen 0.2, Urine Leukocyte Esterase NEGATIVE, Urine RBC (Auto) NEGATIVE, Urine RBC RARE, Urine WBC 0-2, Urine Crystals NONE, Urine Bacteria NEGATIVE, Urine Casts NONE, Urine Mucus NEGATIVE, Urine Culture Indicated NO 11/25/22 14:12: Glucometer 91 Pending Labs Laboratory Tests 11/20/22 05:34: White Blood Count 14.0, Red Blood Count 3.74, Hemoglobin 10.3, Hematocrit 30, Mean Corpuscular Volume 81, Mean Corpuscular Hemoglobin 28, Mean Corpuscular Hemoglobin Concent 34, Red Cell Distribution Width 21.4, Platelet Count 176, Mean Platelet Volume 10.1, Immature Granulocyte % (Auto) 2, Neutrophils (%) (Auto) 64, Lymphocytes (%) (Auto) 15, Monocytes (%) (Auto) 16, Eosinophils (%) (Auto) 3, Basophils (%) (Auto) 1, Neutrophils # (Auto) 9.0, Lymphocytes # (Auto) 2.0, Monocytes # (Auto) 2.2, Eosinophils # (Auto) 0.4, Basophils # (Auto) 0.1, Immature Granulocyte # (Auto) 0.2 11/20/22 05:39: Sodium Level 134, Potassium Level 3.9, Chloride Level 99, Carbon Dioxide Level 21, Anion Gap 14, Blood Urea Nitrogen 37, Creatinine 1.16, Estimat Glomerular Filtration Rate 66, BUN/Creatinine Ratio 32, Glucose Level 66, Calcium Level 8.6, Corrected Calcium 9.9, Total Bilirubin 2.1, Aspartate Amino Transf (AST/SGOT) 85, Alanine Aminotransferase (ALT/SGPT) 26, Alkaline Phosphatase 87, Total Protein 5.1, Albumin 2.4 11/22/22 05:27: White Blood Count 14.1, Red Blood Count 3.82, Hemoglobin 10.3, Hematocrit 30, Mean Corpuscular Volume 80, Mean Corpuscular Hemoglobin 27, Mean Corpuscular He moglobin Concent 34, Red Cell Distribution Width 22.1, Platelet Count 191, Mean Platelet Volume 10.1, Immature Granulocyte % (Auto) 2, Neutrophils (%) (Auto) 64, Lymphocytes (%) (Auto) 14, Monocytes (%) (Auto) 17, Eosinophils (%) (Auto) 3, Basophils (%) (Auto) 1, Neutrophils # (Auto) 9.0, Lymphocytes # (Auto) 2.0, Monocytes # (Auto) 2.3, Eosinophils # (Auto) 0.4, Basophils # (Auto) 0.1, Immature Granulocyte # (Auto) 0.3, Sodium Level 130, Potassium Level 4.1, Chloride Level 96, Carbon Dioxide Level 21, Anion Gap 13, Blood Urea Nitrogen 46, Creatinine 1.13, Estimat Glomerular Filtration Rate 68, BUN/Creatinine Ratio 41, Glucose Level 57, Calcium Level 8.5, Corrected Calcium 9.7, Total Bilirubin 2.0, Aspartate Amino Transf (AST/SGOT) 87, Alanine Aminotransferase (ALT/SGPT) 25, Alkaline Phosphatase 93, Total Protein 5.3, Albumin 2.5, Neutrophils % (Manual) 75, Lymphocytes % (Manual) 10, Monocytes % (Manual) 13, Eosinophils % (Manual) 2, Polychromasia SLIGHT, Anisocytosis MODERATE, Elliptocytes SLIGHT 11/22/22 07:35: Glucometer 82 11/22/22 12:18: Ammonia 44 11/23/22 07:20: Ammonia 35, White Blood Count 14.1, Red Blood Count 3.77, Hemoglobin 10.3, Hematocrit 31, Mean Corpuscular Volume 81, Mean Corpuscular Hemoglobin 27, Mean Corpuscular Hemoglobin Concent 34, Red Cell Distribution Width 22.1, Platelet Count 192, Mean Platelet Volume 10.6, Immature Granulocyte % (Auto) 2, Neutrophils (%) (Auto) 63, Lymphocytes (%) (Auto) 15, Monocytes (%) (Auto) 18, Eosinophils (%) (Auto) 2, Basophils (%) (Auto) 1, Neutrophils # (Auto) 8.8, Lymphocytes # (Auto) 2.1, Monocytes # (Auto) 2.6, Eosinophils # (Auto) 0.3, Basophils # (Auto) 0.1, Immature Granulocyte # (Auto) 0.3, Prothrombin Time 51.4, INR Comment 5.9, Sodium Level 127, Potassium Level 4.3, Chloride Level 91, Carbon Dioxide Level 22, Anion Gap 14, Blood Urea Nitrogen 55, Creatinine 1.50, Estimat Glomerular Filtration Rate 49, BUN/Creatinine Ratio 37, Glucose Level 69, Mean Blood Glucose 108, Hemoglobin A1c 5.4, Calcium Level 8.6, Corrected Calcium 9.9, Iron Level 32, Total Iron Binding Capacity 122, Unsaturated Iron Binding Capacity 90, Transferrin % Saturation 26, Ferritin 4834.5, Total Bilirubin 1.8, Gamma Glutamyl Transpeptidase 50, Aspartate Amino Transf (AST/SGOT) 89, Alanine Aminotransferase (ALT/SGPT) 24, Alkaline Phosphatase 96, Total Protein 5.4, Albumin 2.4, Vitamin B12 Level 1667, Thyroid Stimulating Hormone (TSH) 1.00, Hepatitis A IgM Antibody Non-Reactive, Hepatitis B Surface Antigen Non-Reactive, Hepatitis B Core IgM Antibody Non-Reactive, Hepatitis C Antibody Non-Reactive 11/23/22 19:36: Glucometer 80 11/23/22 21:40: Glucometer 88 11/24/22 02:59: Glucometer 88 11/24/22 12:13: White Blood Count 13.9, Red Blood Count 3.62, Hemoglobin 10.0, Hematocrit 29, Mean Corpuscular Volume 81, Mean Corpuscular Hemoglobin 28, Mean Corpuscular Hemoglobin Concent 34, Red Cell Distribution Width 22.2, Platelet Count 211, Mean Platelet Volume 10.5, Immature Granulocyte % (Auto) 3, Neutrophils (%) (Auto) 66, Lymphocytes (%) (Auto) 12, Monocytes (%) (Auto) 18, Eosinophils (%) ( Auto) 1, Basophils (%) (Auto) 1, Neutrophils # (Auto) 9.1, Lymphocytes # (Auto) 1.7, Monocytes # (Auto) 2.5, Eosinophils # (Auto) 0.2, Basophils # (Auto) 0.1, Immature Granulocyte # (Auto) 0.4, Erythrocyte Sedimentation Rate 51, Prothrombin Time 29.6, INR Comment 2.9, Sodium Level 124, Potassium Level 4.3, Chloride Level 90, Carbon Dioxide Level 22, Anion Gap 12, Blood Urea Nitrogen 62, Creatinine 1.58, Estimat Glomerular Filtration Rate 46, BUN/Creatinine Ratio 39, Glucose Level 101, Calcium Level 8.4, Corrected Calcium 9.7, Total Bilirubin 1.6, Aspartate Amino Transf (AST/SGOT) 87, Alanine Aminotransferase (ALT/SGPT) 23, Alkaline Phosphatase 96, Ammonia 31, C-Reactive Protein High Sensitivity 26.51, Total Protein 5.3, Albumin 2.4 11/25/22 06:06: White Blood Count 13.7, Red Blood Count 3.66, Hemoglobin 10.2, Hematocrit 30, Mean Corpuscular Volume 81, Mean Corpuscular Hemoglobin 28, Mean Corpuscular Hemoglobin Concent 35, Red Cell Distribution Width 22.1, Platelet Count 180, Mean Platelet Volume 10.1, Immature Granulocyte % (Auto) 3, Neutrophils (%) (Auto) 63, Lymphocytes (%) (Auto) 12, Monocytes (%) (Auto) 20, Eosinophils (%) (Auto) 2, Basophils (%) (Auto) 1, Neutrophils # (Auto) 8.7, Lymphocytes # (Auto) 1.7, Monocytes # (Auto) 2.7, Eosinophils # (Auto) 0.2, Basophils # (Auto) 0.1, Immature Granulocyte # (Auto) 0.4, Prothrombin Time 24.6, INR Comment 2.2, Sodium Level 125, Potassium Level 4.5, Chloride Level 91, Carbon Dioxide Level 20, Anion Gap 14, Blood Urea Nitrogen 68, Creatinine 1.48, Estimat Glomerular Filtration Rate 49, BUN/Creatinine Ratio 46, Glucose Level 69, Calcium Level 8.6, Corrected Calcium 9.9, Total Bilirubin 1.9, Aspartate Amino Transf (AST/SGOT) 81, Alanine Aminotransferase (ALT/SGPT) 23, Alkaline Phosphatase 109, Total Protein 5.2, Albumin 2.4, Lactic Acid Level 1.92 11/25/22 07:36: Urine Color ORANGE, Urine Clarity CLEAR, Urine pH 5.5, Urine Specific [place] 1.010, Urine Protein NEGATIVE, Urine Glucose (UA) NEGATIVE, Urine Ketones NEGATIVE, Urine Nitrite NEGATIVE, Urine Bilirubin NEGATIVE, Urine Urobilinogen 0.2, Urine Leukocyte Esterase NEGATIVE, Urine RBC (Auto) NEGATIVE, Urine RBC RARE, Urine WBC 0-2, Urine Crystals NONE, Urine Bacteria NEGATIVE, Urine Casts NONE, Urine Mucus NEGATIVE, Urine Culture Indicated NO 11/25/22 14:12: Glucometer 91 Discharge Home Medications: Active Scripts Active Reported Multivitamin 1 Each Tablet 1 Each PO DAILY Tylenol Extra Strength (Acetaminophen) 500 Mg Tablet 500 Mg PO BID Move Free Plus MSM Tablet (Gluc/Chond/MSM/Hyal/Derek Borate) 500-66.7MG Tablet 1 Each PO BID [Naysa Cbd] 1 Ea PO BID Atorvastatin Calcium 20 Mg Tablet 20 Mg PO DAILY Diltiazem ER (Diltiazem HCl) 180 Mg Cap.er.deg 180 Mg PO 1900 Metoprolol Succinate 100 Mg Tab.er.24h 100 Mg PO 1900 Hydrochlorothiazide 50 Mg Tablet 50 Mg PO 1900 Metformin HCl 500 Mg Tablet 1,000 Mg PO 1900 TAKES 2 (500MG) TABS Allopurinol 300 Mg Tablet 600 Mg PO 1900 TAKES 2 (300MG) TABS Omeprazole 20 Mg Capsule.dr 20 Mg PO DAILY Xarelto (Rivaroxaban) 20 Mg Tablet 20 Mg PO 1900 Instructions to patient/family Please see electronic discharge instructions given to patient. Diagnosis/Problems Diagnosis/Problems (1) Debility (2) Atrial fibrillation KARON RODRIGUEZ DO Nov 25, 2022 12:43
--- NOTE | 2022-11-25 13:11 | Diagnostic Imaging Report ---
PROCEDURE: CT chest, abdomen, and pelvis without contrast. TECHNIQUE: Multiple contiguous axial images were obtained through the chest, abdomen, and pelvis without the use of intravenous contrast. Auto Exposure Controls were utilized during the CT exam to meet ALARA standards for radiation dose reduction. INDICATION: Chest abdominal pain. No prior studies are available for comparison. CT CHEST: No axillary lymphadenopathy is identified. There is bulky mediastinal lymphadenopathy present. Conglomerate of nodes in the right paratracheal region measures approximate 4.9 x 4.1 cm. Marina are difficult to evaluate without intravenous contrast. There is no pericardial fluid. There are small to moderate-sized bilateral pleural effusions. Lung bases demonstrate atelectasis or infiltrate bilateral lower lobes. No parenchymal mass is detected. CT ABDOMEN AND PELVIS: Liver and gallbladder are unremarkable. Pancreas and spleen are unremarkable. No adrenal mass is detected. The right kidney is unremarkable. A left kidney does contain a large cyst in the upper pole measuring 6.3 cm. No calculi are seen. Aorta is heavily calcified but nonaneurysmal. There are enlarged lymph nodes in the pascual hepatis and pascual caval region. There is a central retroperitoneal lymphadenopathy. No significant lymphadenopathy along the iliac chains or inguinal regions is seen apart from enlarged lymph nodes near the aortic bifurcation at the level of the common iliac. Bowel loops are normal caliber. There is no obstruction. There is generalized diverticulosis but no evidence of acute diverticulitis. There is a fat-containing umbilical hernia. Bladder is decompressed. Prostate is unremarkable. There is no ascites. The bony structures are nonacute. IMPRESSION: 1. Bilateral pleural effusions with bibasilar infiltrates or atelectasis. 2. Bulky mediastinal lymphadenopathy as well as upper abdominal and central retroperitoneal lymphadenopathy, suggestive of lymphoma. 3. Uncomplicated diverticulosis. Dictated by: Dictated on workstation # [id number]
--- NOTE | 2022-11-25 13:27 | Occupational Ther Daily Note ---
OT Current Status-Daily Note Subjective Pt alert, sitting in recliner. Pt c/o pain in buttocks and back, rated 2/10. Pt to go to CT scan and required to get into bed for procedure. OT/PT co-treat with PT, ([id number]) skills of 2 clinicians required to decrease fall risk, 2 person skilled assistance for all transfers and positioning due to pt's decrease in medical status. PT focusing on B LE positioning with sit to stand lift and positioning for comfort while OT focusing on B UE positioning with sit to stand lift and positioning for comfort. Mental Status/Objective Patient Orientation: Person, Place, Time, Situation Attachments: IV, Oxygen ADL-Treatment Therapy Code Descriptions/Definitions Functional [place] Measure: 0=Not Assessed/NA 4=Minimal Assistance 1=Total Assistance 5=Supervision or Setup 2=Maximal Assistance 6=Modified [place] 3=Moderate Assistance 7=Complete IndependenceSCALE: Activities may be completed with or without assistive devices. 0-Opbpiuzdeh-dupnncq completes the activity by him/herself with no assistance from a helper. 5-Set-up or Clean-up Assistance-helper sets up or cleans up; patient completes activity. [place] assists only prior to or following the activity. 4-Supervision or Touching Assistance-helper provides verbal cues and/or touching/steadying and/or contact guard assistance as patient completes activity. Assistance may be provided throughout the activity or intermittently. 3-Partial/Moderate Assistance-helper does LESS THAN HALF the effort. [place] lifts, holds or supports trunk or limbs, but provides less than half the effort. 2-Substantial/Maximal Assistance-helper does MORE THAN HALF the effort. [place] lifts or holds trunk or limbs and provides more than half the effort. 5-Fzlfmoqyv-rebghj does ALL the effort. Patient does none of the effort to complete the activity. Or, the assistance of 2 or more helpers is required for the patient to complete the activity. If activity was not attempted, code reason: 7-Patient Refused. 9-Not Applicable-not attempted and the patient did not perform the activity before the current illness, exacerbation or injury. 10-Not Attempted due to Environmental Limitations-(lack of equipment, weather restraints, etc.). 88-Not Attempted due to Medical Conditions or Safety Concerns. Toileting Hygiene (QC): 1 Other Treatment Pt c/o being uncomfortable and needed to be repositioned due to inability to reposition self. Sit to stand lift used to stand pt safely for repositioning in chair and to cleanse due to incontinent bowel. Therapy team then notified that pt was required to be in bed for a CT scan. Pt then initially refused move, nrsg came in with information that changed pt's mind. Pt then moved from recliner to bed(placed in chair position) using sit to stand lift. Assist needed to place feet and knees into correct position on lift then to hold knees in correct position while moving pt from recliner to bed. 2 person assist to position pt in bed and to make comfortable. After session, pt left in care of PT. All needs met in room. OT Short Term Goals Short Term Goals Time Frame: Nov 26, 2022 Eatin Oral hygiene: 5 Upper body dressin OT Jail Goals Jail Goals Time Frame: Dec 03, 2022 Acute change in mental status: 1 Inattention: 0 Disorganized thinkin Altered level of consciousness: 0 Eating (QC): 6 Oral Hygiene (QC): 6 Toileting Hygiene (QC): 5 Shower/Bathe Self (QC): 5 Upper Body Dressing (QC): 6 Lower Body Dressing (QC): 6 On/Off Footwear (QC): 6 1=Demonstrate adherence to instructed precautions during ADL tasks. 2=Patient will verbalize/demonstrate understanding of assistive devices/modifications for ADL. 3=Patient will improve strength/tolerance for activity to enable patient to perform ADL's. OT Education/Plan Problem List/Assessment Assessment: Decreased Activ Tolerance, Dependent Transfers, Impaired Bed Mobility Discharge Recommendations Plan/Recommendations: Continue POC Treatment Plan/Plan of Care Patient would benefit from OT for education, treatment and training to promote independence in ADL's, mobility, safety and/or upper extremity function for ADL's. Plan of Care: ADL Retraining, Caregiver Training, Concurrent Therapy, F unctional Mobility, Group Exercise/Act as Ind, Orthotic Fitting/Training, UE Funct Exercise/Act, UE Neuromus Re-Ed/Coord Treatment Duration: Dec 03, 2022 Frequency: At least 5 of 7 days/Wk (IRF) Estimated Hrs Per Day: 1.5 hours per day Agreement: Yes Rehab Potential: Fair Time Start Time: 10:00 Stop Time: 11:00 DATE: Nov 25, 2022 Total Time Billed (hr/min): 60 Billed Treatment Time 1 visit-FA 4 (60 min) co-treat with PT 60 min RALPH HAY Nov 25, 2022 13:27
--- NOTE | 2022-11-25 13:28 | Diagnostic Imaging Report ---
Indication: Gallbladder sludge and elevated bilirubin. Patient was administered 5.5 mCi technetium 99m Choletec and imaging over the abdomen was performed. Imaging was performed for one hour. There is uptake of activity by the liver. There appears to be a activity passing into the common duct and into the small bowel. Gallbladder is nonvisualized at 1 hour. Procedure was then terminated. IMPRESSION: Nonvisualized gallbladder, consistent with acute cholecystitis. Patent common bile duct. Dictated by: Dictated on workstation # [id number]
== END 2022-11-25 14:35 | disposition short-term general hospital (02) | DRG 92 ==
PROVIDERS: ADMIT Internal Medicine; ATTEND Internal Medicine
DX: G72.81 Critical illness myopathy (principal); C85.98 Non-Hodgkin lymphoma, unspecified, lymph nodes of multiple sites; K81.0 Acute cholecystitis; N17.9 Acute kidney failure, unspecified; D68.4 Acquired coagulation factor deficiency; E72.20 Disorder of urea cycle metabolism, unspecified; E87.1 Hypo-osmolality and hyponatremia; R53.81 Other malaise; Z66 Do not resuscitate; R53.1 Weakness; Z86.16 Personal history of COVID-19; I48.91 Unspecified atrial fibrillation; E78.00 Pure hypercholesterolemia, unspecified; I10 Essential (primary) hypertension; K21.9 Gastro-esophageal reflux disease without esophagitis; M10.9 Gout, unspecified; E11.40 Type 2 diabetes mellitus with diabetic neuropathy, unspecified; I95.89 Other hypotension; R63.4 Abnormal weight loss; Z68.37 Body mass index [BMI] 37.0-37.9, adult; R74.8 Abnormal levels of other serum enzymes; E16.2 Hypoglycemia, unspecified; Z79.899 Other long term (current) drug therapy; Z79.84 Long term (current) use of oral hypoglycemic drugs; Z79.01 Long term (current) use of anticoagulants
CPT/HCPCS: 36415; 36600; 71250; 74176; 76705; 78226; 80053; 80074; 81000; 82140; 82607; 82728; 82947; 82977; 83036; 83540; 83550; 83605; 84443; 85007; 85025; 85027; 85610; 85652; 86141; 87040; 94640; 94760

== ENCOUNTER 2022-11-25 12:56 | Inpatient (IN) | payer MEDICARE, OTHER ==
[2022-11-25] VITALS (11 sets, daily range): BP systolic 73–128; BP diastolic 55–82
[~2022-11-25] VITALS: Ht 170.2 cm; Wt 113.0 kg
[~2022-11-25 12:56] MED LIST changes: -ACETAMINOPHEN 325 MG TABLET PO PRN; -ALPRAZolam 0.25 MG (XANAX) TAB PO PRN; -BISACODYL 10 MG SUPP (DULCOLAX) PR PRN; -CALCIUM CARBONATE 500 MG (TUMS) TAB.CHEW PO PRN; -DOCUSATE SODIUM 100 MG (COLACE) CAP PO PRN; -FLEET ENEMA ADULT 1 EA BTL PR PRN; -LACTULOSE SYRUP 10GM/15ML (ENULOSE) 30ML UDC PO PRN; -LOPERAMIDE 2 MG (IMODIUM) TABLET PO PRN; -MELATONIN 3 MG TABLET PO PRN; -diphenhydrAMINE 25 MG TAB (BENADRYL) PO PRN; -guaiFENesin/CODEINE (ROBITUSSIN AC) 10ML UDC PO PRN
--- NOTE | 2022-11-25 13:23 | History & Physical ---
History of Present Illness HPI/Chief Complaint Chief complaint: Severe decline in status requiring discharge from inpatient rehab due to presumed lymphoma on CT scan and cholecystitis HPI: This is a 72-year-old male who was originally transferred from fourth floor after presumed COVID illness resulting in a severe decline in status requiring inpatient rehab for aggressive recovery in order to return home with spouse. Patient continued to decline every day while in inpatient rehab to the point he could no longer move around without sit to stand today. Patient continued to have extremely poor appetite adding to his 90 pound weight loss he has had in the past 1 year. Kidney dysfunction noted along with liver dysfunction causing me to suspect acute liver failure due to fatty liver and rapid weight loss causing liver dysfunction and that was suspected with INR of 5.9 on Xarelto so Xarelto was held. Patient continued to decline so CT scans were obtained suspecting neoplastic process and it was confirmed with findings consistent with lymphoma on CT scan. I had consulted Dr. Dallas for gallbladder sludge thinking cholecystitis could be causing his symptoms but he evaluated the CT scan and did talk to the patient about the possibility of lymphoma and he did not want to pursue aggressive options of treatment and was interested in hospice and he was maintained DO NOT RESUSCITATE and that was confirmed by his when I spoke to her earlier today. He was found to have A-fib with RVR prompting ICU transfer at 2000 hrs. Source: patient Exam Limitations: no limitations Date Seen 11/25/22 Time Seen by a Provider: 14:00 Attending Physician Luis Alberto Balbuena MD PCP Admitting Physician: Marian Rodriguez DO Attending Physician: Marian Rodriguez DO Referring Physician Date of Admission Nov 25, 2022 at 12:56 Home Medications & Allergies Home Medications Reviewed patient Home Medication Reconciliation performed by pharmacy medication reconciliations patient care technician instructor and/or nursing. Patients Allergies have been reviewed. Allergies Allergies Coded Allergies No Known Drug Allergies (Ybgobydvrp74/12/19) Past Ujojicd-Kpyagb-Thjuqt Hx Past Med/Social Hx: Reviewed Nursing Past Med/Soc Hx, Reviewed and Corrections made Patient Social History Marrital Status: Employed/Student: retired Alcohol Use: Denies Use Smoking Status: Never a Smoker 2nd Hand Smoke Exposure: No Past Medical History Respiratory: Sleep Apnea Currently Using CPAP: No Currently Using BIPAP: No Cardiac: Atrial Fibrillation, High Cholesterol, Hypertension, Irregular Heartbeat Neurological: Neuropathy Gastrointestinal: Gastroesophageal Reflux Musculoskeletal: Gout Endocrine: Diabetes, Non-Insulin dep Review of Systems Constitutional: see HPI, malaise, weakness, weight loss EENTM: no symptoms reported Respiratory: dyspnea on exertion, short of breath Cardiovascular: no symptoms reported Gastrointestinal: loss of appetite, nausea Genitourinary: decreased output Musculoskeletal: back pain, joint pain Skin: no symptoms reported Psychiatric/Neurological: Anxiety, Depressed All Other Systems Reviewed Negative Unless Noted: Yes Physical Exam Physical Exam Vital Signs Vital Signs - First Documented 11/25/22 11/25/22 15:05 15:58 Temp 36.6 Pulse 82 Resp 20 B/P (MAP) 128/82 (97) Pulse Ox 99 O2 Delivery Nasal Cannula O2 Flow Rate 3.00 Capillary Refill : Height, Weight, BMI Height: '" Weight: lbs. oz. kg; 37.88 BMI Method: General Appearance: WD/WN, Anxious, Chronically ill, Mild Distress, Obese Eyes: Bilateral Eye Normal Inspection, Bilateral Eye PERRL HEENT: PERRL/EOMI, Normal ENT Inspection, Pharynx Normal Neck: Full Range of Motion, Normal Inspection, Non Tender, Supple, Carotid Bruit Respiratory: Chest Non Tender, Lungs Clear, No Accessory Muscle Use, No Respiratory Distress, Decreased Breath Sounds Cardiovascular: No Edema, No Gallop, No JVD, No Murmur, Normal Peripheral Pulses, Irregularly Irregular Gastrointestinal: Normal Bowel Sounds, No Organomegaly, No Pulsatile Mass, Non Tender, Soft Back: Normal Inspection, No CVA Tenderness, No Vertebral Tenderness Extremity: Normal Capillary Refill, Normal Inspection, Normal Range of Motion, Non Tender, No Calf Tenderness, No Pedal Edema Neurologic/Psychiatric: Alert, Oriented x3, Abnormal Gait, Depressed Affect, Motor Weakness Skin: Normal Color, Warm/Dry Lymphatic: No Adenopathy Results Results/Procedures Labs Patient resulted labs reviewed. 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 Presumed COVID illness recent JERAMIE- resolved but worsened today Hypotensionchronic A fib now with atrial fibrillation with rapid ventricular response requiring ICU transfer DVT ppx: Xareltoon hold Coagulopathy due to 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 disease and liver failure with Xarelto so holding on 11/23/2022INR 2.2 today Progressive weight loss90 pounds in 1 year Elevated liver enzymes with elevated ammonia suspect ORTEZ progressed to cirrhosis Hyponatremiaholding HCTZ Poor nutrition Plan: Discharge from inpatient rehab due to severe decline in status Transferred to ICU due to A-fib with RVR Patient interested in hospice but until this is all in place will need to control the A-fib with RVR Maintain DNR Admission Status: Inpatient Order (span 2 midnights) Reason for Inpatient Admission: Lymphoma on CT scan now with A-fib with RVR Clinical Quality Measures DVT/VTE Risk/Contraindication: Contraindications-Pharm: Other *list below* Other: surgery MARIAN RODRIGUEZ DO Nov 25, 2022 13:23
[2022-11-25] MEDS ORDERED: BISACODYL 10 MG SUPP (DULCOLAX) PR PRN ×2 (13:30→20:45)
[2022-11-25] MEDS ORDERED: ONDANSETRON 4 MG/2 ML (SDV) Z0FRAN IV PRN (13:30)
[2022-11-25] MEDS ORDERED: diphenhydrAMINE 50 MG/ML INJ (BENADRYL) IVP PRN (13:30)
[2022-11-25] MEDS ORDERED: LACTULOSE SYRUP 10GM/15ML (ENULOSE) 30ML UDC PO PRN ×2 (13:30→20:45)
[2022-11-25] MEDS ORDERED: polyethylene glycoL POWDER 17 GM (MIRALAX) PACK PO PRN (13:30)
[2022-11-25] MEDS ORDERED: diphenhydrAMINE 25 MG TAB (BENADRYL) PO PRN ×2 (13:30→20:45)
[2022-11-25] MEDS ORDERED: MELATONIN 3 MG TABLET PO PRN ×2 (13:30→20:45)
[2022-11-25] MEDS ORDERED: ANTACID SUSP 30 ML UDC (MYLANTA) PO PRN (13:30)
[2022-11-25] MEDS ORDERED: ONDANSETRON 4 MG (ZOFRAN) ORAL DISSOLVE TAB PO PRN ×2 (13:30→20:45)
[2022-11-25] MEDS ORDERED: MILK OF MAGNESIA 400 MG/5 ML 30 ML UDC PO PRN (13:30)
[2022-11-25] MEDS ORDERED: ACETAMINOPHEN 325 MG TABLET PO PRN (13:30)
[2022-11-25] MEDS ORDERED: HYDROmorphone 2 MG/ML VIAL (DILAUDID) IV PRN (13:30)
[2022-11-25] MEDS ORDERED: CALCIUM CARBONATE 500 MG (TUMS) TAB.CHEW PO PRN ×2 (13:30→20:45)
[2022-11-25] MEDS ORDERED: PIPERACILLIN SODIUM/TAZOBACTAM 4.5 GM in NS (IVPB) 100 ML IV ONE (14:30)
[2022-11-25] MEDS: NS IV 1000 ML 1,000 ML IV SCH (15:35)
[2022-11-25] MEDS: inSUlin ASPART (NovoLOG) 1 UNIT/0.01 ML (CHARGE PER UNIT) SC SCH ×2 (16:00→19:50)
[2022-11-25] MEDS ORDERED: RT-ALBUTEROL SULF 2.5 MG/3 ML PRE-MIX VIAL INH PRN (16:15)
[2022-11-25] MEDS ORDERED: RT-ALBUTEROL SULF 2.5 MG/3 ML PRE-MIX VIAL ONE (16:21)
--- NOTE | 2022-11-25 17:42 | Consultation - Surgery ---
History of Present Illness History of Present Illness Patient Consulted On(christine/time) 11/25/22 17:42 Date Seen by Provider: Nov 25, 2022 Time Seen by Provider: 17:42 History of Present Illness Consult requested by Dr. Higgins for gallbladder sludge. Patient is a 72-year-old male who has had weakness and then 90 pound weight loss. He has nausea but no emesis. Patient not feeling well and was continued to get weaker. 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 This has been on hold and they are trying to reverse. Patient gallbladder ultrasound which demonstrated gallbladder sludge. Patient with slightly elevated bilirubin as well. Patient had a HIDA scan which the gallbladder did not demonstrate on the exam. He also had a CT scan of the abdomen and pelvis and chest which demonstrated findings suspicious for lymphoma. Allergies and Home Medications Allergies Coded Allergies: No Known Drug Allergies (Unverified , 05/03/19) Patient Home Medication List Home Medication List Reviewed: Yes Acetaminophen (Tylenol Extra Strength) 500 Mg Tablet, 500 MG PO BID, (Reported) Entered as Reported by: ANYI MARQUEZ on 11/16/22 161 Allopurinol (Allopurinol) 300 Mg Tablet, 600 MG PO 1900, (Reported) Entered as Reported by: ANYI MARQUEZ on 11/16/22 161 Atorvastatin Calcium (Atorvastatin Calcium) 20 Mg Tablet, 20 MG PO DAILY, (Reported) Entered as Reported by: ANYI MARQUEZ on 11/16/221609 Diltiazem HCl (Diltiazem ER) 180 Mg Cap.er.deg, 180 MG PO 1900, (Reported) Entered as Reported by: ANYI MARQUEZ on 11/16/22 1610 Gluc/Chond/MSM/Hyal/Derek Borate (Move Free Plus MSM Tablet) 500-66.7MG Tablet, 1 EACH PO BID, (Reported) Entered as Reported by: ANYI MARQUEZ on 11/16/22 161 Hydrochlorothiazide (Hydrochlorothiazide) 50 Mg Tablet, 50 MG PO 1900, (Reported) Entered as Reported by: ANYI MARQUEZ on 11/16/22 1610 Metformin HCl (Metformin HCl) 500 Mg Tablet, 1,000 MG PO 1900, (Reported) Entered as Reported by: ANYI MARQUEZ on 6/271609 Metoprolol Succinate (Metoprolol Succinate) 100 Mg Tab.er.24h, 100 MG PO 1899, (Reported) Entered as Reported by: ANYI MARQUEZ on 11/16/221609 Multivitamin (Multivitamin) 1 Each Tablet, 1 EACH PO DAILY, (Reported) Entered as Reported by: ANYI MARQUEZ on 11/16/221609 Omeprazole (Omeprazole) 20 Mg Capsule.dr, 20 MG PO DAILY, (Reported) Entered as Reported by: ANYI MARQUEZ on 11/16/221609 Rivaroxaban (Xarelto) 20 Mg Tablet, 20 MG PO 1899, (Reported) Entered as Reported by: ANYI MARQUEZ on 11/16/221609 [Naysa Cbd] , 1 EA PO BID, (Reported) Entered as Reported by: ANYI MARQUEZ on 11/16/221609 Past Onnhtwd-Pxkbga-Lnrppl Hx Patient Social History Smoking Status: Never a Smoker 2nd Hand Smoke Exposure: No Alcohol Use?: No Surgeries History of Surgeries: Yes Respiratory History of Respiratory Disorde: No Cardiovascular History of Cardiac Disorders: Yes Cardiac Disorders: Atrial Fibrillation, High Cholesterol, Hypertension, Irregular Heartbeat Neurological History of Neurological Disord: Yes Neurological Disorders: Neuropathy Genitourinary History of Genitourinary Disor: No Gastrointestinal History of Gastrointestinal Di: No Gastrointestinal Disorders: Gastroesophageal Reflux Musculoskeletal History of Musculoskeletal Dis: No Musculoskeletal Disorders: Gout Endocrine History of Endocrine Disorders: No Endocrine Disorders: Diabetes, Non-Insulin dep HEENT History of HEENT Disorders: No Cancer History of Cancer: No Psychosocial History of Psychiatric Problem: No Integumentary History of Skin or Integumenta: No Reviewed Nursing Assessment Reviewed/Agree w Nursing PMH: Yes Family Medical History Significant Family History: No Pertinent Family Hx Review of Systems-General Constitutional: weakness, weight loss EENTM: No blurred vision, No double vision Respiratory: No cough, No dyspnea on exertion Cardiovascular: No chest pain, No palpitations Gastrointestinal: nausea; No vomiting Genitourinary: No decreased output, No discharge Musculoskeletal: No back pain, No joint pain Skin: No change in color, No change in hair/nails Psychiatric/Neurological: Denies Anxiety, Denies Depressed, Denies Emotional Problems All Other Systems Reviewed Negative Unless Noted: Yes (Negative excepted noted.) Physical Exam-General Problems Physical Exam Vital Signs Vital Signs - First Documented 11/25/22 11/25/22 15:05 15:58 Temp 36.6 Pulse 82 Resp 20 B/P (MAP) 128/82 (97) Pulse Ox 99 O2 Delivery Nasal Cannula O2 Flow Rate 3.00 Capillary Refill : General Appearance: no apparent distress, obese, other (fatiuged and ill appearing) HEENT: PERRL/EOMI, normal ENT inspection Neck: non-tender, full range of motion Respiratory: chest non-tender, no respiratory distress, no accessory muscle use Cardiovascular: regular rate, rhythm, no JVD Gastrointestinal: non tender, soft Rectal: deferred Back: no CVA tenderness, no vertebral tenderness Extremities: non-tender, normal inspection Neurologic/Psychiatric: alert, oriented x 3, depressed affect Skin: normal color, warm/dry Lymphatic: no adenopathy Data Review Labs Laboratory Tests 11/25/22 16:31: Glucometer 77 Assessment/Plan Assessment/Plan Assessment/Plan gallbladder sludge alf anticoagulation mediastinal and abdominal lymphadenopathy suspicous for lymphoma weight loss Patient discussed HIDA and CT scan findings He is not wanting to do anything at this time. He states he has declined and mentally not wanting to do anything He would prefer to go on Hospice and be comfortable. WIll see him tomorrow as patient requested so he can rest. Hold anticoagulation. Clinical Quality Measures DVT/VTE Risk/Contraindication: Contraindications-Pharm: Other *list below* Other: surgery JENNIFER SHINE DO Nov 25, 2022 17:42
[2022-11-25] MEDS: PIPERACILLIN SODIUM/TAZOBACTAM 4.5 GM in NS (IVPB) 100 ML IV SCH (19:49)
[2022-11-25] MEDS: DOCUSATE SODIUM 100 MG (COLACE) CAP PO SCH (19:49)
[2022-11-25] MEDS: SENNOSIDES 8.6 MG (SENOKOT) TAB PO SCH (19:49)
[2022-11-25] MEDS ORDERED: LOPERAMIDE 2 MG (IMODIUM) TABLET PO PRN (20:45)
[2022-11-25] MEDS ORDERED: dilTIAZem DRIP PRE-MIX 125 ML IV SCH (20:45)
[2022-11-25] MEDS ORDERED: FLEET ENEMA ADULT 1 EA BTL PR PRN (20:45)
[2022-11-25] MEDS ORDERED: NS IV 500 ML 500 ML IV PRN (20:45)
[2022-11-25] MEDS ORDERED: DOCUSATE SODIUM 100 MG (COLACE) CAP PO PRN (20:45)
[2022-11-25] MEDS ORDERED: ALPRAZolam 0.25 MG (XANAX) TAB PO PRN (20:45)
[2022-11-25] MEDS ORDERED: CATHETER FLUSH 10 ML SYR IVP PRN (20:45)
[2022-11-25] MEDS ORDERED: guaiFENesin/CODEINE (ROBITUSSIN AC) 10ML UDC PO PRN (20:45)
[2022-11-25] MEDS ORDERED: dilTIAZem DRIP PRE-MIX 125 ML IV ONE (21:21)
[2022-11-25] MEDS: meTOprolol TARTRATE 25 MG (LOPRESSOR) TABLET PO SCH (21:31)
[2022-11-25] MEDS: polyethylene glycoL POWDER 17 GM (MIRALAX) PACK PO SCH (22:28)
[2022-11-25] MEDS: SENNA W/DOCUSATE (SENOKOT S) TABLET PO SCH (22:28)
[2022-11-25] MEDS: guaiFENesin (MUCINEX) 600 MG TAB PO SCH (22:30)
[2022-11-25] MEDS: RIFAXIMIN 550 MG TABLET (XIFAXAN) PO SCH (22:30)
[2022-11-25] MEDS: ACETAMINOPHEN 325 MG TABLET PO SCH (22:30)
[2022-11-25] MEDS: MICONAZOLE 2% POWDER (DESENEX AF) 90 GM TOP SCH (22:31)
[2022-11-25] MEDS: RT-ALBUTEROL SULF 2.5 MG/3 ML PRE-MIX VIAL INH SCH (22:35)
[2022-11-25 22:47] LABS: BILIRUBIN,URINE NEGATIVE (NEGATIVE); CLARITY,URINE SL CLOUDY; COLOR,URINE AMBER; GLUCOSE, URINE (UA) NEGATIVE (NEGATIVE); KETONES,URINE NEGATIVE (NEGATIVE); LEUKOCYTE ESTERASE ,URINE NEGATIVE (NEGATIVE); NITRITE,URINE NEGATIVE (NEGATIVE); PH,URINE 5.5 (5-9); PROTEIN,URINE NEGATIVE (NEGATIVE)
[2022-11-25 23:03] LABS: AMORPHOUS SEDIMENT,UR FEW AMOR URATES /LPF; BACTERIA,URINE TRACE /HPF; SQUAMOUS EPITHELIAL CELL,UR RARE /HPF
--- NOTE | 2022-11-25 23:26 | Pulmonary Progress Note ---
Subjective Subjective/Events-last exam 72M with PMH of severe weight loss, recent COVID transferred from rehab given Afib w/ RVR. Patient has been having significant weight loss of 90lbs. He was also found to ahve a natural coagulopathy and was placed on xarelto, however tht is now on hold. As per EMR, patient has been considering hospice given neop lastic process appearing on CT and patient with no interest of pursuing aggressive treatment options. Vitals: 82/55, HR 109, RR 4 at 93% on 6LNC PE: Unable to visualize due to camera dysfunction Labs: CBC 13.7/10.2/180, CMP 125/4.5/91/20/68/1.48, UA negative Rads; HIDA Nonvisualized gallbladder, consistent with acute cholecystitis. CT CAP 1. Bilateral pleural effusions with bibasilar infiltrates or atelectasis. 2. Bulky mediastinal lymphadenopathy as well as upper abdominal and central retroperitoneal lymphadenopathy, suggestive of lymphoma. 3. Uncomplicated diverticulosis. Diagnosis: # Afib w/ RVR - new onset Afib w/ RVR - TTE and further workup pending patient's GOC - currently on Diltiazem gtt # Severe decline in status # Concern for lymphoma - no plans for aggressive measures per patient - patient interested in hospice, will defer to PCP # Hypercoagulable state - was previously on Xarelto, currently on hold # Acute hypoxic respiratory failure - b/l effusions vs consolidation - wean oxygen for goal saturation 90-92% - continue abx # Gallstone sludge # Acute cholcystitis - Surgery consulted - no current plans for intervention - continue abx - continue IVF #HTN - holding home meds # JERAMIE - continue to monitor - IVF - trend sCr A total of 31 minutes of critical care time was devoted to this patient, including reviewing this patient's available data, including medical history, events of note and test results. Yola Anderson MD TeleICU This was required to treat and/or prevent further deterioration of critical care conditions ( as above ). Service provided to a patient admitted to ICU bed via interactive E-CARE system with real-time audio and video telecommunications from [facility] ICU hub located in [place], [place] YOLA ANDERSON MD Nov 25, 2022 23:26
[2022-11-26] VITALS (22 sets, daily range): BP systolic 75–113; BP diastolic 47–67
[2022-11-26] MEDS: PIPERACILLIN SODIUM/TAZOBACTAM 4.5 GM in NS (IVPB) 100 ML IV SCH ×3 (04:52→21:25)
[2022-11-26 04:54] LABS: BASOPHILS # (AUTO) 0.1 10^3/uL (0.0-0.1); BASOPHILS % (AUTO) 1 % (0-10); EOSINOPHILS # (AUTO) 0.2 10^3/uL (0.0-0.3); EOSINOPHILS % (AUTO) 1 % (0-10); HEMATOCRIT 28 % (40-54); HEMOGLOBIN 9.4 g/dL (13.3-17.7); LYMPHOCYTES % (AUTO) 13 % (12-44); MEAN CORPUSCULAR HEMOGLOBIN 27 pg (25-34); MEAN CORPUSCULAR HGB CONC 33 g/dL (32-36); MEAN CORPUSCULAR VOLUME 82 fL (80-99); MEAN PLATELET VOLUME 10.8 fL (9.0-12.2); MONOCYTES # (AUTO) 3.1 10^3/uL (0.0-1.0); MONOCYTES % (AUTO) 20 % (0-12); NEUTROPHILS # (AUTO) 9.6 10^3/uL (1.8-7.8); NEUTROPHILS % (AUTO) 62 % (42-75); PLATELET COUNT 157 10^3/uL (130-400); WHITE BLOOD COUNT 15.6 10^3/uL (4.3-11.0)
[2022-11-26 05:22] LABS: ALBUMIN 2.2 GM/DL (3.2-4.5); BILIRUBIN,TOTAL 2.1 MG/DL (0.1-1.0); CREATININE SERUM 1.69 MG/DL (0.60-1.30); MAGNESIUM 2.1 MG/DL (1.6-2.4); PHOSPHORUS 5.3 MG/DL (2.3-4.7); TOTAL PROTEIN 4.7 GM/DL (6.4-8.2)
[2022-11-26] MEDS: MAGNESIUM 1 GM/100 ML IVPB 100 ML IV SCH (05:30)
[2022-11-26] MEDS: POTASSIUM CL 10MEQ/50ML IVPB 50 ML IV SCH (05:30)
[2022-11-26] MEDS: KCL 20 MEQ TAB (K-DUR) PO SCH (05:30)
[2022-11-26] MEDS: inSUlin ASPART (NovoLOG) 1 UNIT/0.01 ML (CHARGE PER UNIT) SC SCH ×4 (05:31→21:00)
[2022-11-26] MEDS: PANTOPRAZOLE 40 MG (PROTONIX) TAB PO SCH (05:59)
[2022-11-26] MEDS: ACETAMINOPHEN 325 MG TABLET PO SCH ×3 (06:00→18:40)
[2022-11-26 06:16] LABS: INR 2.3 (0.8-1.4); PROTHROMBIN TIME PATIENT 24.8 SEC (12.2-14.7)
[2022-11-26] MEDS: RT-ALBUTEROL SULF 2.5 MG/3 ML PRE-MIX VIAL INH SCH ×2 (07:18→20:10)
--- NOTE | 2022-11-26 08:19 | Progress Note ---
ERLINDA BURTON 11/26/22 0819: Subjective Date Seen by a Provider: Nov 26, 2022 Time Seen by a Provider: 08:00 Subjective/Events-last exam Patient seen and examined at bedside this morning. Reports improvement in his shortness of breath currently on 5L by nasal cannula. He reports sacral pain due to discomfort in bed. Had BM overnight and denies any abdominal pain, N/V. Still tachycardic on exam, denies any chest pain or palpitations. Has been able to tolerate ensures and liquids. Review of Systems General: No Chills, No Night Sweats; Fatigue HEENT: No Head Aches, No Visual Changes Pulmonary: Dyspnea (improved); No Pleuritic Chest Pain Cardiovascular: No: Chest Pain, Palpitations Gastrointestinal: No: Nausea, Vomiting, Abdominal Pain Genitourinary: No Dysuria, No Hematuria Musculoskeletal: back pain Neurological: No: Change in speech, Confusion Objective Exam Last Set of Vital Signs Vital Signs Date Time Temp Pulse Resp B/P (MAP) Pulse Ox O2 Delivery O2 Flow Rate FiO2 11/26/22 07:49 36.1 11/26/22 07:18 94 Nasal Cannula 5.00 11/26/22 07:00 114 11/26/22 06:30 24 76/55 (63) Capillary Refill : I&O Intake and Output 11/26/22 00:00 Intake Total 150 ml Balance 150 ml Intake Oral 150 ml Daily Weight Change No General: Alert, Oriented X3, Cooperative HEENT: Atraumatic, EOMI Neck: Supple Lungs: Clear to Auscultation, Normal Air Movement Heart: Other (tachycardic, irregularly irregular) Abdomen: Soft, No Tenderness Extremities: No Cyanosis, Normal Pulses Neuro: Normal Speech Psych/Mental Status: Mental Status NL, Mood NL Results Lab Laboratory Tests 11/25/22 16:31: Glucometer 77 11/25/22 19:37: Glucometer 101 11/25/22 22:40: Urine Color AMBERH, Urine Clarity SL CLOUDY, Urine pH 5.5, Urine Specific [place] 1.015L, Urine Protein NEGATIVE, Urine Glucose (UA) NEGATIVE, Urine Ketones NEGATIVE, Urine Nitrite NEGATIVE, Urine Bilirubin NEGATIVE, Urine Urobilinogen 0.2, Urine Leukocyte Esterase NEGATIVE, Urine RBC (Auto) NEGATIVE, Urine RBC NONE, Urine WBC NONE, Urine Squamous Epithelial Cells RARE, Urine Crystals PRESENTH, Urine Amorphous Sediment FEW WILLIE URATESH, Urine Bacteria TRACE, Urine Casts NONE, Urine Mucus SMALLH, Urine Culture Indicated NO 11/26/22 04:39: White Blood Count 15.6H, Red Blood Count 3.46L, Hemoglobin 9.4L, Hematocrit 28L, Mean Corpuscular Volume 82, Mean Corpuscular Hemoglobin 27, Mean Corpuscular Hemoglobin Concent 33, Red Cell Distribution Width 23.0H, Platelet Count 157, Mean Platelet Volume 10.8, Immature Granulocyte % (Auto) 4, Neutrophils (%) (Auto) 62, Lymphocytes (%) (Auto) 13, Monocytes (%) (Auto) 20H, Eosinophils (%) (Auto) 1, Basophils (%) (Auto) 1, Neutrophils # (Auto) 9.6H, Lymphocytes # (Auto) 2.0, Monocytes # (Auto) 3.1H, Eosinophils # (Auto) 0.2, Basophils # (Auto) 0.1, Immature Granulocyte # (Auto) 0.6H, Sodium Level 125*L, Potassium Level 5.0, Chloride Level 96L, Carbon Dioxide Level 17L, Anion Gap 12, Blood Urea Nitrogen 71H, Creatinine 1.69H, Estimat Glomerular Filtration Rate 42, BUN/Creatinine Ratio 42, Glucose Level 73, Calcium Level 8.0L, Corrected Calcium 9.4, Phosphorus Level 5.3H, Magnesium Level 2.1, Total Bilirubin 2.1H, Aspartate Amino Transf (AST/SGOT) 80H, Alanine Aminotransferase (ALT/SGPT) 22, Alkaline Phosphatase 100, Total Protein 4.7L, Albumin 2.2L 11/26/22 05:36: Glucometer 82 11/26/22 05:52: Prothrombin Time 24.8H, INR Comment 2.3H Assessment/Plan Assessment/Plan Assess & Plan/Chief Complaint Significant decline in status requiring transfer from inpatient rehab to ICU Critical illness myopathy Patient would like hospice care due to multiple comorbidities and overall poor prognosis 90 lbs weight loss over the last year poor nutritional intake Afib w RVR Everardo sanchez cardiology consulted, appreciate recs Remains in 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 Concerning for lymphoma Patient does not want any aggressive treatment measures and would prefer to be comfortable on hospice Cholecystitis Elevated liver enzymes General surgery consulted, appreciate recs HIDA scan did not show gallbladder filling Abdominal u/s showed gallbladder sludge Not planning any surgical intervention at this time due to the rest of the patient's clinical condition Hyponatremia Has remained in the mid 120s for last several days Likely multifactorial including poor nutrition, JERAMIE, and malignancy HCTZ held Continue IV fluids Hypotension stable, MAP averaging around 65 Continue fluids Coagulopathy with elevated INR CODE status- DNR Clinical Quality Measures DVT/VTE Risk/Contraindication: Contraindications-Pharm: Other *list below* Other: surgery MARIAN RODRIGUEZ DO 11/26/22 2203: Assessment/Plan Assessment/Plan Assess & Plan/Chief Complaint Patient appears to be in transition of stabilizing with significant decline and Talked about options of hospice respite versus other modalities with social media marketing specialist Patient does grasp the end-of-life concept but does not want to talk about details Supervisory-Addendum Brief Verification & Attestation Participated in pt care: history, MDM, physical Personally performed: exam, history, MDM, supervision of care Care discussed with: Medical Student Procedures: n/a Results interpretation: Verified all documentation Verification and Attestation of Medical Student E/M Service A medical student performed and documented this service in my presence. I reviewed and verified all information documented by the medical student and made modifications to such information, when appropriate. I personally performed the physical exam and medical decision making. Marian Rodriguez, Nov 26, 2022,22:03 ERLINDA BURTON Nov 26, 2022 08:19 MARIAN RODRIGUEZ DO Nov 26, 2022 22:03
[2022-11-26] MEDS: MAGNESIUM OXIDE (MAG-OX)400 MG TAB PO SCH ×2 (08:41→18:40)
[2022-11-26] MEDS: RIFAXIMIN 550 MG TABLET (XIFAXAN) PO SCH ×2 (08:42→21:24)
[2022-11-26] MEDS: guaiFENesin (MUCINEX) 600 MG TAB PO SCH ×2 (08:42→21:24)
[2022-11-26] MEDS: DOCUSATE SODIUM 100 MG (COLACE) CAP PO SCH ×2 (08:43→21:00)
[2022-11-26] MEDS: SENNOSIDES 8.6 MG (SENOKOT) TAB PO SCH ×2 (08:43→21:00)
[2022-11-26] MEDS: SENNA W/DOCUSATE (SENOKOT S) TABLET PO SCH ×2 (08:43→21:00)
[2022-11-26] MEDS: polyethylene glycoL POWDER 17 GM (MIRALAX) PACK PO SCH ×2 (08:43→21:00)
[2022-11-26] MEDS: meTOprolol TARTRATE 25 MG (LOPRESSOR) TABLET PO SCH ×2 (08:45→21:00)
[2022-11-26] MEDS: NS IV 1000 ML 1,000 ML IV SCH ×2 (08:47→14:30)
--- NOTE | 2022-11-26 08:47 | Consultation-Cardiology ---
HPI-Cardiology Cardiology Consultation: Date of Consultation 11/26/22 Date of Admission Attending Physician Luis Alberto Balbuena MD Admitting Physician Admitting Physician: Marian Rodriguez DO Attending Physician: Marian Rodriguez DO Consulting Physician ELIO HARVEY Review of Systems-Cardiology All Other Systems Reviewed Negative Unless Noted: Yes MDI-Kpmwvx-Elanic Hx Patient Social History Marrital Status: Employed/Student: retired Smoking Status: Never a Smoker 2nd Hand Smoke Exposure: No Alcohol Use?: No Pt feels they are or have been: No Past Medical History PMH As described under Assessment. Allergies and Home Medications Allergies Coded Allergies: No Known Drug Allergies (Unverified , 05/03/19) Patient Home Medication List Acetaminophen (Tylenol Extra Strength) 500 Mg Tablet, 500 MG PO BID, (Reported) Entered as Reported by: ANYI MARQUEZ on 11/16/221609 Allopurinol (Allopurinol) 300 Mg Tablet, 600 MG PO 1900, (Reported) Entered as Reported by: ANYI MARQUEZ on 11/16/221609 Atorvastatin Calcium (Atorvastatin Calcium) 20 Mg Tablet, 20 MG PO DAILY, (Reported) Entered as Reported by: ANYI MARQUEZ on 11/16/221609 Diltiazem HCl (Diltiazem ER) 180 Mg Cap.er.deg, 180 MG PO 1900, (Reported) Entered as Reported by: ANYI MARQUEZ on 11/16/221609 Gluc/Chond/MSM/Hyal/Derek Borate (Move Free Plus MSM Tablet) 500-66.7MG Tablet, 1 EACH PO BID, (Reported) Entered as Reported by: ANYI MARQUEZ on 11/16/221609 Hydrochlorothiazide (Hydrochlorothiazide) 50 Mg Tablet, 50 MG PO 1900, (Reported) Entered as Reported by: ANYI MARQUEZ on 11/16/221609 Metformin HCl (Metformin HCl) 500 Mg Tablet, 1,000 MG PO 1900, (Reported) Entered as Reported by: ANYI MARQUEZ on 11/16/221609 Metoprolol Succinate (Metoprolol Succinate) 100 Mg Tab.er.24h, 100 MG PO 1900, (Reported) Entered as Reported by: ANYI MARQUEZ on 11/16/221609 Multivitamin (Multivitamin) 1 Each Tablet, 1 EACH PO DAILY, (Reported) Entered as Reported by: ANYI MARQUEZ on 11/16/221609 Omeprazole (Omeprazole) 20 Mg Capsule.dr, 20 MG PO DAILY, (Reported) Entered as Reported by: ANYI MARQUEZ on 11/16/221609 Rivaroxaban (Xarelto) 20 Mg Tablet, 20 MG PO 1900, (Reported) Entered as Reported by: ANYI MARQUEZ on 11/16/221609 [Naysa Cbd] , 1 EA PO BID, (Reported) Entered as Reported by: ANYI MARQUEZ on 11/16/221609 Physical Exam-Cardiology Physical Exam Vital Signs/I&O 11/26/22 11/26/22 11/26/22 11/26/22 02:00 02:00 02:30 02:45 Pulse 84 101 92 Resp 17 16 17 B/P (MAP) 93/51 (57) 85/50 (57) 84/55 (62) Pulse Ox 92 92 91 92 O2 Delivery OxyMask OxyMask OxyMask OxyMask O2 Flow Rate 6.00 6.00 6.00 6.00 11/26/22 11/26/22 11/26/22 11/26/22 03:00 04:00 04:00 04:00 Temp 36.0 Pulse 82 82 Resp 15 16 B/P (MAP) 91/54 (67) 81/50 (60) Pulse Ox 92 93 92 O2 Delivery OxyMask OxyMask OxyMask O2 Flow Rate 6.00 6.00 6.00 11/26/22 11/26/22 11/26/22 11/26/22 04:15 04:30 04:45 05:00 Pulse 87 84 85 89 Resp 16 19 31 17 B/P (MAP) 79/48 (54) 87/60 (70) 113/56 (76) 90/54 (64) Pulse Ox 93 92 88 O2 Delivery OxyMask OxyMask OxyMask OxyMask O2 Flow Rate 6.00 6.00 6.00 6.00 11/26/22 11/26/22 11/26/22 11/26/22 05:15 06:00 06:15 06:16 Pulse 87 102 85 Resp 17 22 18 B/P (MAP) 87/52 (60) 81/59 (66) 75/47 (55) Pulse Ox 93 93 93 92 O2 Delivery OxyMask OxyMask OxyMask OxyMask O2 Flow Rate 6.00 6.00 6.00 6.00 11/26/22 11/26/22 11/26/22 11/26/22 06:26 06:30 07:00 07:00 Pulse 82 105 78 114 Resp 18 24 16 B/P (MAP) 84/57 (62) 76/55 (63) 74/47 (56) Pulse Ox 93 92 O2 Delivery OxyMask OxyMask OxyMask O2 Flow Rate 6.00 6.00 6.00 11/26/22 11/26/22 11/26/22 11/26/22 07:00 07:18 07:49 08:00 Temp 36.1 Pulse 92 Resp 25 B/P (MAP) 64/47 (51) Pulse Ox 94 92 O2 Delivery Nasal Cannula Nasal Cannula OxyMask O2 Flow Rate 5.00 5.00 6.00 11/26/22 11/26/22 11/26/22 11/26/22 08:45 08:54 09:00 10:00 Pulse 106 102 Resp 22 30 B/P (MAP) 93/45 (54) 96/79 (85) Pulse Ox 87 92 90 O2 Delivery Nasal Cannula High Flow N/C OxyMask OxyMask O2 Flow Rate 5.00 92.00 6.00 6.00 8.00 11/26/22 11/26/22 11/26/22 11/26/22 11:00 11:58 12:00 12:28 Temp 36.4 Pulse 89 86 100 Resp 18 20 B/P (MAP) 78/55 (64) 86/49 (62) Pulse Ox 91 88 O2 Delivery OxyMask OxyMask O2 Flow Rate 6.00 6.00 11/26/22 13:00 Pulse 98 Resp 17 B/P (MAP) 77/37 (46) Pulse Ox 93 O2 Delivery OxyMask O2 Flow Rate 6.00 11/26/22 00:00 Intake Total 150 ml Balance 150 ml Capillary Refill : Rectal: deferred Lymphatic: no adenopathy Data Review Labs Laboratory Tests 11/25/22 16:31: Glucometer 77 11/25/22 19:37: Glucometer 101 11/25/22 22:40: Urine Color AMBERH, Urine Clarity SL CLOUDY, Urine pH 5.5, Urine Specific [place] 1.015L, Urine Protein NEGATIVE, Urine Glucose (UA) NEGATIVE, Urine Ketones NEGATIVE, Urine Nitrite NEGATIVE, Urine Bilirubin NEGATIVE, Urine Urobilinogen 0.2, Urine Leukocyte Esterase NEGATIVE, Urine RBC (Auto) NEGATIVE, Urine RBC NONE, Urine WBC NONE, Urine Squamous Epithelial Cells RARE, Urine Crystals PRESENTH, Urine Amorphous Sediment FEW WILLIE URATESH, Urine Bacteria TRACE, Urine Casts NONE, Urine Mucus SMALLH, Urine Culture Indicated NO 11/26/22 04:39: White Blood Count 15.6H, Red Blood Count 3.46L, Hemoglobin 9.4L, Hematocrit 28L, Mean Corpuscular Volume 82, Mean Corpuscular Hemoglobin 27, Mean Corpuscular Hemoglobin Concent 33, Red Cell Distribution Width 23.0H, Platelet Count 157, Mean Platelet Volume 10.8, Immature Granulocyte % (Auto) 4, Neutrophils (%) (Auto) 62, Lymphocytes (%) (Auto) 13, Monocytes (%) (Auto) 20H, Eosinophils (%) (Auto) 1, Basophils (%) (Auto) 1, Neutrophils # (Auto) 9.6H, Lymphocytes # (Auto) 2.0, Monocytes # (Auto) 3.1H, Eosinophils # (Auto) 0.2, Basophils # (Auto) 0.1, Immature Granulocyte # (Auto) 0.6H, Sodium Level 125*L, Potassium Level 5.0, Chloride Level 96L, Carbon Dioxide Level 17L, Anion Gap 12, Blood Urea Nitrogen 71H, Creatinine 1.69H, Estimat Glomerular Filtration Rate 42, BUN/Creatinine Ratio 42, Glucose Level 73, Calcium Level 8.0L, Corrected Calcium 9.4, Phosphorus Level 5.3H, Magnesium Level 2.1, Total Bilirubin 2.1H, Aspartate Amino Transf (AST/SGOT) 80H, Alanine Aminotransferase (ALT/SGPT) 22, Alkaline Phosphatase 100, Total Protein 4.7L, Albumin 2.2L 11/26/22 05:36: Glucometer 82 11/26/22 05:52: Prothrombin Time 24.8H, INR Comment 2.3H Radiology NAME: FITZ JOSE Maritza [facility] REC#: [id number] PT STATUS: DIS IN : 1950 PHYSICIAN: RODRIGUEZ, MARIAN S DO ADMIT DATE: 11/19/22/IRF Signed Date of Exam:11/25/22 CT CHEST/ABDOMEN/PELVIS WO PROCEDURE: CT chest, abdomen, and pelvis without contrast. TECHNIQUE: Multiple contiguous axial images were obtained through the chest, abdomen, and pelvis without the use of intravenous contrast. Auto Exposure Controls were utilized during the CT exam to meet ALARA standards for radiation dose reduction. INDICATION: Chest abdominal pain. No prior studies are available for comparison. CT CHEST: No axillary lymphadenopathy is identified. There is bulky mediastinal lymphadenopathy present. Conglomerate of nodes in the right paratracheal region measures approximate 4.9 x 4.1 cm. Marina are difficult to evaluate without intravenous contrast. There is no pericardial fluid. There are small to moderate-sized bilateral pleural effusions. Lung bases demonstrate atelectasis or infiltrate bilateral lower lobes. No parenchymal mass is detected. CT ABDOMEN AND PELVIS: Liver and gallbladder are unremarkable. Pancreas and spleen are unremarkable. No adrenal mass is detected. The right kidney is unremarkable. A left kidney does contain a large cyst in the upper pole measuring 6.3 cm. No calculi are seen. Aorta is heavily calcified but nonaneurysmal. There are enlarged lymph nodes in the pascual hepatis and pascual caval region. There is a central retroperitoneal lymphadenopathy. No significant lymphadenopathy along the iliac chains or inguinal regions is seen apart from enlarged lymph nodes near the aortic bifurcation at the level of the common iliac. Bowel loops are normal caliber. There is no obstruction. There is generalized diverticulosis but no evidence of acute diverticulitis. There is a fat-containing umbilical hernia. Bladder is decompressed. Prostate is unremarkable. There is no ascites. The bony structures are nonacute. IMPRESSION: 1. Bilateral pleural effusions with bibasilar infiltrates or atelectasis. 2. Bulky mediastinal lymphadenopathy as well as upper abdominal and central retroperitoneal lymphadenopathy, suggestive of lymphoma. 3. Uncomplicated diverticulosis. Dictated by: Dictated on workstation # [id number] Dict: 11/25/22 1250 Trans: 11/25/22 1553 [facility] [id number] Interpreted by: CULLEN COYLE MD Electronically signed by: CULLEN COYLE MD 11/25/22 1550 ECG Impression ECG Initial ECG Impression: Atrial Fibrillation w/RVR A/P-Cardiology Assessment/Admission Diagnosis A-fib with RVR - first documented on 11-15-22 at the time of ED presentation Hypercoagulability - INR 5.6 on 11-23-22 - INR 2.3 today (had previously been on Xarelto) Hyponatremia - management per medical services JERAMIE - management per medical/eICU services Hypotension ?Lymphoma - CT of the Abdo and Pelvis on 11-25-22: Bilateral pleural effusions with bibasilar infiltrates or atelectasis. Bulky mediastinal lymphadenopathy as well as upper abdominal and central retroperitoneal lymphadenopathy, suggestive of lymphoma. Uncomplicated diverticulosis H/O recent COVID - early October 2022 Debility Cholecystitis - management per - per Dr. Dallas's note pt does not want surgery Per Dr. Dallas's note of 11-25-22 pt desires conservative tx and wishes to have Hospice Clinical Quality Measures DVT/VTE Risk/Contraindication: Contraindications-Pharm: Other *list below* Other: surgery ELIO SAHA Nov 26, 2022 08:47
[2022-11-26] MEDS ORDERED: dilTIAZem120 MG (CARDIZEM CD) CAP PO SCH (09:00)
[2022-11-26] MEDS: MICONAZOLE 2% POWDER (DESENEX AF) 90 GM TOP SCH ×2 (09:04→21:25)
--- NOTE | 2022-11-26 09:43 | Tele-ICU Consult ---
History of Present Illness History of Present Illness Date Seen by Provider: Nov 26, 2022 Time Seen by Provider: 09:38 History of Present Illness (Tele-ICU Physician , eICU critical care consult Note ) Service provided via interactive audio and video telecommunications E-CARE system to a patient admitted to ICU bed in [facility]. Patient is seen today due to persistent need of ICU care Available chart/ vitals / labs / Images reviewed Video assessment done using teleICU camera, rest of exam as per RN Discussed with RN 72 yo M transferred from Med Surg floor for a fib with RVR, on IV Cardizem @ 5, rate is about 80-110, MAP 60 Recent episode of Covid with weakness requiring physical therapy, has very poor appetite, 90 lb wt loss over last year, CKD, fatty liver, suspected lymphoma on CT, gall bladder sludge Pt is DNR, DNI I reviewed CXR has enlarged heart, mild congestion, Mutiple abnormal labs Na 125, alb 2.2, T Bili 2.2 AST 80, INR 2.3, PT 24.8 Cr 1.69 BUN 71 PMH HERNANDEZ not on CPAP, HLD, HTN, GERD, gout, DM2 Allergies and Home Medications Allergies Coded Allergies: No Known Drug Allergies (Unverified , 05/03/19) Home Medications Acetaminophen 500 Mg Tablet, 500 MG PO BID, (Reported) Allopurinol 300 Mg Tablet, 600 MG PO 1900, (Reported) TAKES 2 (300MG) TABS Atorvastatin Calcium 20 Mg Tablet, 20 MG PO DAILY, (Reported) Diltiazem HCl 180 Mg Cap.er.deg, 180 MG PO 1900, (Reported) Gluc/Chond/MSM/Hyal/Derek Borate 500-66.7MG Tablet, 1 EACH PO BID, (Reported) Hydrochlorothiazide 50 Mg Tablet, 50 MG PO 1900, (Reported) Metformin HCl 500 Mg Tablet, 1,000 MG PO 1900, (Reported) TAKES 2 (500MG) TABS Metoprolol Succinate 100 Mg Tab.er.24h, 100 MG PO 1900, (Reported) Multivitamin 1 Each Tablet, 1 EACH PO DAILY, (Reported) Omeprazole 20 Mg Capsule.dr, 20 MG PO DAILY, (Reported) Rivaroxaban 20 Mg Tablet, 20 MG PO 1900, (Reported) [Naysa Cbd] , 1 EA PO BID, (Reported) Past Medical/Social/Family Hx Patient Social History Marrital Status: Employed/Student: retired Tobacco Use?: No Smoking Status: Never a Smoker Smokeless Tobacco Frequency: Never a User Use of E-Cig and/or Vaping dev: No Substance use?: No Alcohol Use?: No Pt stated abuse/neglect: No Immunizations Up To Date Influenza Vaccine Up-to-Date: Yes; Up-to-Date First/Initial COVID19 Vaccinat: J&J, MODERNA Second COVID19 Vaccination Odilon: J&J, MODERNA Tetanus Booster (TDap): Less Than 5 Years Hepatitis A: Yes Hepatitis B: No TB Skin Test: None Current Status Advance Directives: Yes Advance Directive Location: Copy from prev record Communicates: Verbally Primary Language: Palauan Preferred Spoken Language: Palauan Is interpretation needed?: No Implanted or Applied Medical D: None Review of Systems Constitutional: see HPI EENTM: see HPI Respiratory: see HPI Cardiovascular: see HPI Gastrointestinal: see HPI Genitourinary: see HPI Musculoskeletal: see HPI Skin: see HPI Psychiatric/Neurological: See HPI Focused Exam Height, Weight, BMI Height: '" Weight: lbs. oz. kg; 39.00 BMI Method: Exam Exam Patient acknowledged, consented, and participated in this virtual visit which was conducted using real time audio/video Vital Signs Date Time Temp Pulse Resp B/P (MAP) Pulse Ox O2 Delivery O2 Flow Rate FiO2 11/26/22 09:00 106 22 93/45 (54) 92 OxyMask 6.00 11/26/22 08:54 High Flow N/C 92.00 8.00 11/26/22 08:45 87 Nasal Cannula 5.00 11/26/22 08:00 92 25 64/47 (51) 92 OxyMask 6.00 11/26/22 07:49 36.1 11/26/22 07:18 94 Nasal Cannula 5.00 11/26/22 07:00 Nasal Cannula 5.00 11/26/22 07:00 114 11/26/22 07:00 78 16 74/47 (56) 92 OxyMask 6.00 11/26/22 06:30 105 24 76/55 (63) OxyMask 6.00 11/26/22 06:26 82 18 84/57 (62) 93 OxyMask 6.00 11/26/22 06:16 92 OxyMask 6.00 11/26/22 06:15 85 18 75/47 (55) 93 OxyMask 6.00 11/26/22 06:00 102 22 81/59 (66) 93 OxyMask 6.00 11/26/22 05:15 87 17 87/52 (60) 93 OxyMask 6.00 11/26/22 05:00 89 17 90/54 (64) OxyMask 6.00 11/26/22 04:45 85 31 113/56 (76) 88 OxyMask 6.00 11/26/22 04:30 84 19 87/60 (70) 92 OxyMask 6.00 11/26/22 04:15 87 16 79/48 (54) 93 OxyMask 6.00 11/26/22 04:00 36.0 11/26/22 04:00 92 OxyMask 6.00 11/26/22 04:00 82 16 81/50 (60) 93 OxyMask 6.00 11/26/22 03:00 82 15 91/54 (67) 92 OxyMask 6.00 11/26/22 02:45 92 17 84/55 (62) 92 OxyMask 6.00 11/26/22 02:30 101 16 85/50 (57) 91 OxyMask 6.00 11/26/22 02:00 92 OxyMask 6.00 11/26/22 02:00 84 17 93/51 (57) 92 OxyMask 6.00 11/26/22 01:45 91 25 81/67 (70) 81 OxyMask 6.00 11/26/22 01:30 101 18 89/53 (65) 91 OxyMask 6.00 11/26/22 01:15 94 17 80/55 (66) 92 OxyMask 6.00 11/26/22 01:00 92 11/26/22 01:00 101 20 98/51 (64) 91 OxyMask 6.00 11/26/22 00:45 97/58 (71) OxyMask 6.00 11/26/22 00:30 96 22 105/54 (67) 90 OxyMask 6.00 11/26/22 00:16 92 OxyMask 6.00 11/26/22 00:15 98 23 81/56 (65) 91 OxyMask 6.00 11/26/22 00:00 35.7 123 15 93/57 (66) 91 OxyMask 6.00 11/25/22 23:53 35.7 11/25/22 23:45 116 20 90/70 (82) 91 OxyMask 6.00 11/25/22 23:30 116 15 94/66 (79) 89 OxyMask 6.00 11/25/22 23:00 109 24 82/55 (66) 93 OxyMask 6.00 11/25/22 22:45 110 13 108/69 (78) 91 OxyMask 6.00 11/25/22 22:30 120 26 105/70 (74) 93 OxyMask 6.00 11/25/22 22:15 125 25 80/68 (71) 93 OxyMask 6.00 11/25/22 22:00 91 OxyMask 6.00 11/25/22 22:00 122 20 78/61 (67) 93 OxyMask 6.00 11/25/22 21:45 125 21 73/63 (68) 93 OxyMask 6.00 11/25/22 21:30 147 24 96 OxyMask 6.00 11/25/22 21:29 158 11/25/22 21:27 151 137/107 11/25/22 20:00 91 OxyMask 4.00 11/25/22 19:20 36.2 106 18 95/58 (70) 91 High Flow N/C 4.00 11/25/22 16:42 36.6 82 91 11/25/22 16:27 91 Nasal Cannula 4.00 11/25/22 15:58 36.6 82 20 128/82 (97) 90 High Flow N/C 3.00 11/25/22 15:05 99 Nasal Cannula 3.00 I & O 11/26/22 07:00 Intake Total 350 ml Output Total 200 ml Balance 150 ml Height & Weight Height: '" Weight: lbs. oz. kg; 39.00 BMI Method: General Appearance: WD/WN, Anxious, Chronically ill, Mild Distress, Obese HEENT: PERRL/EOMI, Normal ENT Inspection, Pharynx Normal Neck: Full Range of Motion, Normal Inspection, Non Tender, Supple, Carotid Bruit Respiratory: Chest Non Tender, Lungs Clear, No Accessory Muscle Use, No Respiratory Distress, Decreased Breath Sounds, Rhonci Cardiovascular: No Edema, No Gallop, No JVD, No Murmur, Normal Peripheral Pulse s, Irregularly Irregular Gastrointestinal: normal bowel sounds, non tender, soft Extremity: Normal Capillary Refill, Normal Inspection, Normal Range of Motion, Non Tender, No Calf Tenderness, No Pedal Edema Neurologic/Psychiatric: Alert, Oriented x3, Abnormal Gait, Depressed Affect, Motor Weakness Skin: Normal Color, Warm/Dry Lymphatic: No Adenopathy Results Lab Laboratory Tests 11/26/22 04:39 Assessment/Plan Assessment/Plan Na 125, started on IV saline A fib with RVR, on IV Cardizem current rate 106, On IV Zosyn for presumed GB sepsis possible lymphoma DNR and DNI Critical Care: Critically Ill Patient Time spent with patient (mins): 25 MOHIT MONTES MD Nov 26, 2022 09:43
--- NOTE | 2022-11-26 10:19 | Diagnostic Imaging Report ---
INDICATION: Hospitalized patient, dyspnea. TECHNIQUE: Single view chest 1:51 AM CORRELATION STUDY: 11/16/2022 FINDINGS: Heart size and mediastinum are enlarged and prominent. Vasculature overall within normal limits. Combination of effusion along with infiltrate or atelectasis in the right lung base, perhaps slightly increased. Suspect trace left pleural effusion. IMPRESSION: 1. Cardiac enlargement and prominent mediastinum. 2. Small right pleural effusion with atelectasis or infiltrate in the right lung base appearing slightly increased. Trace left pleural effusion. Dictated by: Dictated on workstation # [id number]
--- NOTE | 2022-11-26 10:28 | Consultation-Cardiology ---
HPI-Cardiology Cardiology Consultation: Date of Consultation 11/26/22 Time Seen by a Provider: 09:30 Date of Admission Attending Physician Luis Alberto Balbuena MD Admitting Physician Admitting Physician: Marian Higgins DO Attending Physician: Marian Higgins DO Consulting Physician CARMELO BARROSO MD, MA, FACP, FACC, FSCAI, CCDS Physician requesting consult: Dr Higgins HPI: Chief Complaint: Reason for Card consult: A Fib with RVR 72 yo man admitted to Dr Higgins's svce on 11-25-22 with gen weakness, deteriorating appetite, low oral intake, continuing wgt loss, and intermittent nausea. Found to have A Fib with RVR and transferred to the ICU and we were asked to see him in consult. He report knowing about PAF for four years and has been on oral anticoag for the same length of time and has tolerated it well. He denies cp or palp or syncope. Gets short of breath with mild to mod exertion. Has chronic intermittent leg swelling. Has chronic numbness of the feet. Has had foot wounds for which he has been going to wound clinically, report no active wounds currently. Review of Systems-Cardiology Review of Systems Constitutional: As described under HPI Eyes: No vision change Ears/Nose/Throat: No ear discharge, No nasal drainage, No recent hearing loss Respiratory: As described under HPI Cardiovascular: As described under HPI Gastrointestinal: As described under HPI Genitourinary: No dysuria, No hematuria, No urine frequency changes Musculoskeletal: back pain (chronic) Skin: As described under HPI; No rash, No ulcerations Psychiatric/Neurological: No seizure, No focal weakness, No syncope Hematologic: No bleeding abnormalities All Other Systems Reviewed Negative Unless Noted: Yes KGM-Ezleqo-Qgfgim Hx Patient Social History Marrital Status: Employed/Student: retired Smoking Status: Never a Smoker 2nd Hand Smoke Exposure: No Alcohol Use?: No Pt feels they are or have been: No Past Medical History PMH As described under Assessment. Family Medical History Family Medical History: He does not report fam h/o early CAD or SCD Allergies and Home Medications Allergies Coded Allergies: No Known Drug Allergies (Unverified , 05/03/19) Patient Home Medication List Home Medication List Reviewed: Yes Acetaminophen (Tylenol Extra Strength) 500 Mg Tablet, 500 MG PO BID, (Reported) Entered as Reported by: ANYI MARQUEZ on 6/27/23 1610 Allopurinol (Allopurinol) 300 Mg Tablet, 600 MG PO 1900, (Reported) Entered as Reported by: ANYI MARQUEZ on 11/16/221609 Atorvastatin Calcium (Atorvastatin Calcium) 20 Mg Tablet, 20 MG PO DAILY, (Reported) Entered as Reported by: ANYI MARQUEZ on 11/16/221609 Diltiazem HCl (Diltiazem ER) 180 Mg Cap.er.deg, 180 MG PO 1900, (Reported) Entered as Reported by: ANYI MARQUEZ on 11/16/221609 Gluc/Chond/MSM/Hyal/Derek Borate (Move Free Plus MSM Tablet) 500-66.7MG Tablet, 1 EACH PO BID, (Reported) Entered as Reported by: ANYI MARQUEZ on 11/16/221609 Hydrochlorothiazide (Hydrochlorothiazide) 50 Mg Tablet, 50 MG PO 1900, (Reported) Entered as Reported by: ANYI MARQUEZ on 11/16/221609 Metformin HCl (Metformin HCl) 500 Mg Tablet, 1,000 MG PO 1900, (Reported) Entered as Reported by: ANYI MARQUEZ on 11/16/221609 Metoprolol Succinate (Metoprolol Succinate) 100 Mg Tab.er.24h, 100 MG PO 1900, (Reported) Entered as Reported by: ANYI MARQUEZ on 11/16/221609 Multivitamin (Multivitamin) 1 Each Tablet, 1 EACH PO DAILY, (Reported) Entered as Reported by: ANYI MARQUEZ on 11/16/221609 Omeprazole (Omeprazole) 20 Mg Capsule.dr, 20 MG PO DAILY, (Reported) Entered as Reported by: ANYI MARQUEZ on 11/16/221609 Rivaroxaban (Xarelto) 20 Mg Tablet, 20 MG PO 1900, (Reported) Entered as Reported by: ANYI MARQUEZ on 11/16/221609 [Naysa Cbd] , 1 EA PO BID, (Reported) Entered as Reported by: ANYI MARQUEZ on 11/16/221609 Physical Exam-Cardiology Physical Exam Vital Signs/I&O 11/25/22 11/25/22 11/25/22 11/25/22 22:30 22:45 23:00 23:30 Pulse 120 110 109 116 Resp 26 13 24 15 B/P (MAP) 105/70 (74) 108/69 (78) 82/55 (66) 94/66 (79) Pulse Ox 93 91 93 89 O2 Delivery OxyMask OxyMask OxyMask OxyMask O2 Flow Rate 6.00 6.00 6.00 6.00 11/25/22 11/25/22 11/26/22 11/26/22 23:45 23:53 00:00 00:15 Temp 35.7 35.7 Pulse 116 123 98 Resp 20 15 23 B/P (MAP) 90/70 (82) 93/57 (66) 81/56 (65) Pulse Ox 91 91 91 O2 Delivery OxyMask OxyMask OxyMask O2 Flow Rate 6.00 6.00 6.00 11/26/22 11/26/22 11/26/22 11/26/22 00:16 00:30 00:45 01:00 Pulse 96 101 Resp 22 20 B/P (MAP) 105/54 (67) 97/58 (71) 98/51 (64) Pulse Ox 92 90 91 O2 Delivery OxyMask OxyMask OxyMask OxyMask O2 Flow Rate 6.00 6.00 6.00 6.00 11/26/22 11/26/22 11/26/22 11/26/22 01:00 01:15 01:30 01:45 Pulse 92 94 101 91 Resp 17 18 25 B/P (MAP) 80/55 (66) 89/53 (65) 81/67 (70) Pulse Ox 92 91 81 O2 Delivery OxyMask OxyMask OxyMask O2 Flow Rate 6.00 6.00 6.00 11/26/22 11/26/22 11/26/22 11/26/22 02:00 02:00 02:30 02:45 Pulse 84 101 92 Resp 17 16 17 B/P (MAP) 93/51 (57) 85/50 (57) 84/55 (62) Pulse Ox 92 92 91 92 O2 Delivery OxyMask OxyMask OxyMask OxyMask O2 Flow Rate 6.00 6.00 6.00 6.00 11/26/22 11/26/22 11/26/22 11/26/22 03:00 04:00 04:00 04:00 Temp 36.0 Pulse 82 82 Resp 15 16 B/P (MAP) 91/54 (67) 81/50 (60) Pulse Ox 92 93 92 O2 Delivery OxyMask OxyMask OxyMask O2 Flow Rate 6.00 6.00 6.00 11/26/22 11/26/22 11/26/22 11/26/22 04:15 04:30 04:45 05:00 Pulse 87 84 85 89 Resp 16 19 31 17 B/P (MAP) 79/48 (54) 87/60 (70) 113/56 (76) 90/54 (64) Pulse Ox 93 92 88 O2 Delivery OxyMask OxyMask OxyMask OxyMask O2 Flow Rate 6.00 6.00 6.00 6.00 11/26/22 11/26/22 11/26/22 11/26/22 05:15 06:00 06:15 06:16 Pulse 87 102 85 Resp 17 22 18 B/P (MAP) 87/52 (60) 81/59 (66) 75/47 (55) Pulse Ox 93 93 93 92 O2 Delivery OxyMask OxyMask OxyMask OxyMask O2 Flow Rate 6.00 6.00 6.00 6.00 11/26/22 11/26/22 11/26/22 11/26/22 06:26 06:30 07:00 07:00 Pulse 82 105 78 114 Resp 18 24 16 B/P (MAP) 84/57 (62) 76/55 (63) 74/47 (56) Pulse Ox 93 92 O2 Delivery OxyMask OxyMask OxyMask O2 Flow Rate 6.00 6.00 6.00 11/26/22 11/26/22 11/26/22 11/26/22 07:00 07:18 07:49 08:00 Temp 36.1 Pulse 92 Resp 25 B/P (MAP) 64/47 (51) Pulse Ox 94 92 O2 Delivery Nasal Cannula Nasal Cannula OxyMask O2 Flow Rate 5.00 5.00 6.00 11/26/22 11/26/22 11/26/22 11/26/22 08:45 08:54 09:00 10:00 Pulse 106 102 Resp 22 30 B/P (MAP) 93/45 (54) 96/79 (85) Pulse Ox 87 92 90 O2 Delivery Nasal Cannula High Flow N/C OxyMask OxyMask O2 Flow Rate 5.00 92.00 6.00 6.00 8.00 11/26/22 00:00 Intake Total 150 ml Balance 150 ml Capillary Refill : Constitutional: AAO x 3, well-developed, well-nourished HEENT: EOMI, hearing is well preserved; No xanthelasmas are seen Neck: carotid pulses are 2 + bilaterally, with good upstrokes Respiratory: No accessory muscle use; chest expansion is symmetric, chest is bilaterally symmetric, other (fair air entry, diminished at the basees) Cardiovascular: irregularly irregular, S1 and S2, systolic murmur (soft CECELIA at card base) Gastrointestinal: soft; No guarding, No rebound; audible bowel sounds, other (some tenderness in upper abd, more RUQ) Extremities: No clubbing, No cyanosis Neurologic/Psychiatric: oriented x 3, other (moves all limbs equally) Skin: No rash on exposed areas Lymphatic: no adenopathy Data Review Labs Laboratory Tests 11/25/22 16:31: Glucometer 77 11/25/22 19:37: Glucometer 101 11/25/22 22:40: Urine Color AMBERH, Urine Clarity SL CLOUDY, Urine pH 5.5, Urine Specific [place] 1.015L, Urine Protein NEGATIVE, Urine Glucose (UA) NEGATIVE, Urine Ketones NEGATIVE, Urine Nitrite NEGATIVE, Urine Bilirubin NEGATIVE, Urine Urobilinogen 0.2, Urine Leukocyte Esterase NEGATIVE, Urine RBC (Auto) NEGATIVE, Urine RBC NONE, Urine WBC NONE, Urine Squamous Epithelial Cells RARE, Urine Crystals PRESENTH, Urine Amorphous Sediment FEW WILLIE URATESH, Urine Bacteria TRACE, Urine Casts NONE, Urine Mucus SMALLH, Urine Culture Indicated NO 11/26/22 04:39: White Blood Count 15.6H, Red Blood Count 3.46L, Hemoglobin 9.4L, Hematocrit 28L, Mean Corpuscular Volume 82, Mean Corpuscular Hemoglobin 27, Mean Corpuscular Hemoglobin Concent 33, Red Cell Distribution Width 23.0H, Platelet Count 157, Mean Platelet Volume 10.8, Immature Granulocyte % (Auto) 4, Neutrophils (%) (Auto) 62, Lymphocytes (%) (Auto) 13, Monocytes (%) (Auto) 20H, Eosinophils (%) (Auto) 1, Basophils (%) (Auto) 1, Neutrophils # (Auto) 9.6H, Lymphocytes # (Auto) 2.0, Monocytes # (Auto) 3.1H, Eosinophils # (Auto) 0.2, Basophils # ( Auto) 0.1, Immature Granulocyte # (Auto) 0.6H, Sodium Level 125*L, Potassium Level 5.0, Chloride Level 96L, Carbon Dioxide Level 17L, Anion Gap 12, Blood Urea Nitrogen 71H, Creatinine 1.69H, Estimat Glomerular Filtration Rate 42, BUN/Creatinine Ratio 42, Glucose Level 73, Calcium Level 8.0L, Corrected Calcium 9.4, Phosphorus Level 5.3H, Magnesium Level 2.1, Total Bilirubin 2.1H, Aspartate Amino Transf (AST/SGOT) 80H, Alanine Aminotransferase (ALT/SGPT) 22, Alkaline Phosphatase 100, Total Protein 4.7L, Albumin 2.2L 11/26/22 05:36: Glucometer 82 11/26/22 05:52: Prothrombin Time 24.8H, INR Comment 2.3H Laboratory Tests 11/26/22 04:39 A/P-Cardiology Assessment/Admission Diagnosis A-fib with RVR, PAF - first diagnosed in or around 2018 and he has since been on Xarelto, per patient report Gen weakness, multifactorial (see below) Mediastinal lymphadenopathy, ?lymphoma - managed by the [facility] Hyponatremia of undetermined etiology - managed by the [facility] CKD 3b - managed by the [facility] Hypotension - ? sepsis: managed by the [facility] H/O recent COVID - early October 2022 Cholecystitis - management per - per Dr. Dallas's note pt does not want surgery Mildly elevated AST (ALT and GGT normal) Discussion and Recomendations * Diltiazem for vent rate control * Please resume oral anticoag if surgery not anticipated, if no active bleeding, and if no specific concerns regarding liver function - Dr Higgins to decide * Monitor labs * Echo * I discussed his case with Dr Fitzgerald Clinical Quality Measures DVT/VTE Risk/Contraindication: Contraindications-Pharm: Other *list below* Other: surgery CARMELO BARROSO MD [facility] Nov 26, 2022 10:28
--- NOTE | 2022-11-26 10:49 | Progress Note - Surgery ---
Subjective Date Seen by a Provider: Nov 26, 2022 Time Seen by a Provider: 10:49 Subjective/Events-last exam Patient went into afib rvr. Now in ICU. He is fatigued still. Wanting to be on hospice. Does not want surgical intervention. Not having any abdominal pain at this time. Objective Exam Vital Signs Date Time Temp Pulse Resp B/P (MAP) Pulse Ox O2 Delivery O2 Flow Rate FiO2 11/26/22 10:00 102 30 96/79 (85) 90 OxyMask 6.00 11/26/22 09:00 106 22 93/45 (54) 92 OxyMask 6.00 11/26/22 08:54 High Flow N/C 92.00 8.00 11/26/22 08:45 87 Nasal Cannula 5.00 11/26/22 08:00 92 25 64/47 (51) 92 OxyMask 6.00 11/26/22 07:49 36.1 11/26/22 07:18 94 Nasal Cannula 5.00 11/26/22 07:00 Nasal Cannula 5.00 11/26/22 07:00 114 11/26/22 07:00 78 16 74/47 (56) 92 OxyMask 6.00 11/26/22 06:30 105 24 76/55 (63) OxyMask 6.00 11/26/22 06:26 82 18 84/57 (62) 93 OxyMask 6.00 11/26/22 06:16 92 OxyMask 6.00 11/26/22 06:15 85 18 75/47 (55) 93 OxyMask 6.00 11/26/22 06:00 102 22 81/59 (66) 93 OxyMask 6.00 11/26/22 05:15 87 17 87/52 (60) 93 OxyMask 6.00 11/26/22 05:00 89 17 90/54 (64) OxyMask 6.00 11/26/22 04:45 85 31 113/56 (76) 88 OxyMask 6.00 11/26/22 04:30 84 19 87/60 (70) 92 OxyMask 6.00 11/26/22 04:15 87 16 79/48 (54) 93 OxyMask 6.00 11/26/22 04:00 36.0 11/26/22 04:00 92 OxyMask 6.00 11/26/22 04:00 82 16 81/50 (60) 93 OxyMask 6.00 11/26/22 03:00 82 15 91/54 (67) 92 OxyMask 6.00 11/26/22 02:45 92 17 84/55 (62) 92 OxyMask 6.00 11/26/22 02:30 101 16 85/50 (57) 91 OxyMask 6.00 11/26/22 02:00 92 OxyMask 6.00 11/26/22 02:00 84 17 93/51 (57) 92 OxyMask 6.00 11/26/22 01:45 91 25 81/67 (70) 81 OxyMask 6.00 11/26/22 01:30 101 18 89/53 (65) 91 OxyMask 6.00 11/26/22 01:15 94 17 80/55 (66) 92 OxyMask 6.00 11/26/22 01:00 92 11/26/22 01:00 101 20 98/51 (64) 91 OxyMask 6.00 11/26/22 00:45 97/58 (71) OxyMask 6.00 11/26/22 00:30 96 22 105/54 (67) 90 OxyMask 6.00 11/26/22 00:16 92 OxyMask 6.00 11/26/22 00:15 98 23 81/56 (65) 91 OxyMask 6.00 11/26/22 00:00 35.7 123 15 93/57 (66) 91 OxyMask 6.00 11/25/22 23:53 35.7 11/25/22 23:45 116 20 90/70 (82) 91 OxyMask 6.00 11/25/22 23:30 116 15 94/66 (79) 89 OxyMask 6.00 11/25/22 23:00 109 24 82/55 (66) 93 OxyMask 6.00 11/25/22 22:45 110 13 108/69 (78) 91 OxyMask 6.00 11/25/22 22:30 120 26 105/70 (74) 93 OxyMask 6.00 11/25/22 22:15 125 25 80/68 (71) 93 OxyMask 6.00 11/25/22 22:00 91 OxyMask 6.00 11/25/22 22:00 122 20 78/61 (67) 93 OxyMask 6.00 11/25/22 21:45 125 21 73/63 (68) 93 OxyMask 6.00 11/25/22 21:30 147 24 96 OxyMask 6.00 11/25/22 21:29 158 11/25/22 21:27 151 137/107 11/25/22 20:00 91 OxyMask 4.00 11/25/22 19:20 36.2 106 18 95/58 (70) 91 High Flow N/C 4.00 11/25/22 16:42 36.6 82 91 11/25/22 16:27 91 Nasal Cannula 4.00 11/25/22 15:58 36.6 82 20 128/82 (97) 90 High Flow N/C 3.00 11/25/22 15:05 99 Nasal Cannula 3.00 I & O 11/26/22 07:00 Intake Total 350 ml Output Total 200 ml Balance 150 ml Capillary Refill : General Appearance: WD/WN, Anxious, Chronically ill, Obese HEENT: PERRL/EOMI, Normal ENT Inspection, Pharynx Normal Neck: Full Range of Motion, Normal Inspection, Non Tender, Supple, Carotid Bruit Respiratory: Chest Non Tender, No Accessory Muscle Use, No Respiratory Distress, Decreased Breath Sounds, Rhonci Cardiovascular: No JVD, Irregularly Irregular Gastrointestinal: non tender, soft Extremity: Normal Inspection, Non Tender Neurologic/Psychiatric: Alert, Oriented x3, Abnormal Gait, Depressed Affect, Motor Weakness Skin: Normal Color, Warm/Dry Lymphatic: No Adenopathy Results Lab Laboratory Tests 11/25/22 16:31: Glucometer 77 11/25/22 19:37: Glucometer 101 11/25/22 22:40: Urine Color AMBERH, Urine Clarity SL CLOUDY, Urine pH 5.5, Urine Specific [place] 1.015L, Urine Protein NEGATIVE, Urine Glucose (UA) NEGATIVE, Urine Ketones NEGATIVE, Urine Nitrite NEGATIVE, Urine Bilirubin NEGATIVE, Urine Urobilinogen 0.2, Urine Leukocyte Esterase NEGATIVE, Urine RBC (Auto) NEGATIVE, Urine RBC NONE, Urine WBC NONE, Urine Squamous Epithelial Cells RARE, Urine Crystals PRESENTH, Urine Amorphous Sediment FEW WILLIE URATESH, Urine Bacteria TRACE, Urine Casts NONE, Urine Mucus SMALLH, Urine Culture Indicated NO 11/26/22 04:39: White Blood Count 15.6H, Red Blood Count 3.46L, Hemoglobin 9.4L, Hematocrit 28L, Mean Corpuscular Volume 82, Mean Corpuscular Hemoglobin 27, Mean Corpuscular Hemoglobin Concent 33, Red Cell Distribution Width 23.0H, Platelet Count 157, Mean Platelet Volume 10.8, Immature Granulocyte % (Auto) 4, Neutrophils (%) (Auto) 62, Lymphocytes (%) (Auto) 13, Monocytes (%) (Auto) 20H, Eosinophils (%) (Auto) 1, Basophils (%) (Auto) 1, Neutrophils # (Auto) 9.6H, Lymphocytes # (Auto) 2.0, Monocytes # (Auto) 3.1H, Eosinophils # (Auto) 0.2, Basophils # (Auto) 0.1, Immature Granulocyte # (Auto) 0.6H, Sodium Level 125*L, Potassium Level 5.0, Chloride Level 96L, Carbon Dioxide Level 17L, Anion Gap 12, Blood Urea Nitrogen 71H, Creatinine 1.69H, Estimat Glomerular Filtration Rate 42, BUN/Creatinine Ratio 42, Glucose Level 73, Calcium Level 8.0L, Corrected Calcium 9.4, Phosphorus Level 5.3H, Magnesium Level 2.1, Total Bilirubin 2.1H, Aspartate Amino Transf (AST/SGOT) 80H, Alanine Aminotransferase (ALT/SGPT) 22, Alkaline Phosphatase 100, Total Protein 4.7L, Albumin 2.2L 11/26/22 05:36: Glucometer 82 11/26/22 05:52: Prothrombin Time 24.8H, INR Comment 2.3H Assessment/Plan Assessment/Plan 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 He states he has declined and mentally still not wanting to do anything He would prefer to go on Hospice and be comfortable. Will sign off, call if needed.. Clinical Quality Measures DVT/VTE Risk/Contraindication: Contraindications-Pharm: Other *list below* Other: surgery JENNIFER SHINE DO Nov 26, 2022 10:49
[2022-11-26] MEDS ORDERED: dilTIAZem120 MG (CARDIZEM CD) CAP PO NR (14:00)
[2022-11-26] MEDS ORDERED: PIPERACILLIN/TAZO 4.5 GM VIAL (ZOSYN) IV ONE (21:13)
[2022-11-27] MEDS: ACETAMINOPHEN 325 MG TABLET PO SCH ×3 (00:32→11:31)
[2022-11-27] MEDS: NS IV 1000 ML 1,000 ML IV SCH (04:25)
[2022-11-27] MEDS: PIPERACILLIN SODIUM/TAZOBACTAM 4.5 GM in NS (IVPB) 100 ML IV SCH (04:26)
[2022-11-27 05:03] LABS: BASOPHILS # (AUTO) 0.1 10^3/uL (0.0-0.1); BASOPHILS % (AUTO) 1 % (0-10); EOSINOPHILS # (AUTO) 0.1 10^3/uL (0.0-0.3); EOSINOPHILS % (AUTO) 0 % (0-10); HEMATOCRIT 30 % (40-54); HEMOGLOBIN 9.8 g/dL (13.3-17.7); LYMPHOCYTES % (AUTO) 12 % (12-44); MEAN CORPUSCULAR HEMOGLOBIN 27 pg (25-34); MEAN CORPUSCULAR HGB CONC 33 g/dL (32-36); MEAN CORPUSCULAR VOLUME 82 fL (80-99); MEAN PLATELET VOLUME 10.6 fL (9.0-12.2); MONOCYTES # (AUTO) 3.5 10^3/uL (0.0-1.0); MONOCYTES % (AUTO) 20 % (0-12); NEUTROPHILS # (AUTO) 10.8 10^3/uL (1.8-7.8); NEUTROPHILS % (AUTO) 63 % (42-75); PLATELET COUNT 159 10^3/uL (130-400); WHITE BLOOD COUNT 17.1 10^3/uL (4.3-11.0)
[2022-11-27 05:13] LABS: INR 2.1 (0.8-1.4); PROTHROMBIN TIME PATIENT 23.1 SEC (12.2-14.7)
[2022-11-27 05:23] LABS: ALBUMIN 2.2 GM/DL (3.2-4.5); BILIRUBIN,TOTAL 1.9 MG/DL (0.1-1.0); CREATININE SERUM 1.81 MG/DL (0.60-1.30); MAGNESIUM 2.1 MG/DL (1.6-2.4); PHOSPHORUS 5.4 MG/DL (2.3-4.7); POTASSIUM 4.8 MMOL/L (3.6-5.0); TOTAL PROTEIN 4.9 GM/DL (6.4-8.2)
[2022-11-27] MEDS: MAGNESIUM 1 GM/100 ML IVPB 100 ML IV SCH (05:44)
[2022-11-27] MEDS: POTASSIUM CL 10MEQ/50ML IVPB 50 ML IV SCH (05:44)
[2022-11-27] MEDS: KCL 20 MEQ TAB (K-DUR) PO SCH (05:44)
[2022-11-27] MEDS: inSUlin ASPART (NovoLOG) 1 UNIT/0.01 ML (CHARGE PER UNIT) SC SCH ×2 (05:45→11:31)
[2022-11-27] MEDS: PANTOPRAZOLE 40 MG (PROTONIX) TAB PO SCH (06:16)
[2022-11-27] MEDS: RT-ALBUTEROL SULF 2.5 MG/3 ML PRE-MIX VIAL INH SCH ×2 (07:19→07:24)
--- NOTE | 2022-11-27 07:23 | Progress Note ---
Subjective Date Seen by a Provider: Nov 27, 2022 Time Seen by a Provider: 11:00 Objective Exam Last Set of Vital Signs Vital Signs Date Time Temp Pulse Resp B/P (MAP) Pulse Ox O2 Delivery O2 Flow Rate FiO2 11/27/22 06:00 98 15 93/81 (85) 89 OxyMask 6.00 11/26/22 15:59 36.2 Capillary Refill : I&O Intake and Output 11/27/22 00:00 Intake Total 2560 ml Output Total 650 ml Balance 1910 ml Intake Oral 1360 ml IV Total 1200 ml Output Urine Total 650 ml # Bowel Movements 3 Results Lab Laboratory Tests 11/26/22 15:50: Glucometer 92 11/26/22 21:32: Glucometer 93 11/27/22 04:54: White Blood Count 17.1H, Red Blood Count 3.67L, Hemoglobin 9.8L, Hematocrit 30L, Mean Corpuscular Volume 82, Mean Corpuscular Hemoglobin 27, Mean Corpuscular Hemoglobin Concent 33, Red Cell Distribution Width 23.7H, Platelet Count 159, Mean Platelet Volume 10.6, Immature Granulocyte % (Auto) 4, Neutrophils (%) (Auto) 63, Lymphocytes (%) (Auto) 12, Monocytes (%) (Auto) 20H, Eosinophils (%) (Auto) 0, Basophils (%) (Auto) 1, Neutrophils # (Auto) 10.8H, Lymphocytes # (Auto) 2.0, Monocytes # (Auto) 3.5H, Eosinophils # (Auto) 0.1, Basophils # (Auto) 0.1, Immature Granulocyte # (Auto) 0.7H, Prothrombin Time 23.1H, INR Comment 2.1H, Sodium Level 128L, Potassium Level 4.8, Chloride Level 98, Carbon Dioxide Level 15L, Anion Gap 15H, Blood Urea Nitrogen 70H, Creatinine 1.81H, Estimat Glomerular Filtration Rate 39, BUN/Creatinine Ratio 39, Glucose Level 69L, Calcium Level 8.0L, Corrected Calcium 9.4, Phosphorus Level 5.4H, Magnesium Level 2.1, Total Bilirubin 1.9H, Aspartate Amino Transf (AST/SGOT) 82H, Alanine Aminotransferase (ALT/SGPT) 22, Alkaline Phosphatase 103, Total Protein 4.9L, Albumin 2.2L Assessment/Plan Assessment/Plan Assess & Plan/Chief Complaint Patient appears to be in transition of stabilizing with significant decline and Talked about options of hospice respite versus other modalities with social wor ker Patient does grasp the end-of-life concept but does not want to talk about details Clinical Quality Measures DVT/VTE Risk/Contraindication: Contraindications-Pharm: Other *list below* Other: surgery KARON RODRIGUEZ DO Nov 27, 2022 07:23
[2022-11-27] MEDS: SENNA W/DOCUSATE (SENOKOT S) TABLET PO SCH (08:46)
[2022-11-27] MEDS: SENNOSIDES 8.6 MG (SENOKOT) TAB PO SCH (08:46)
[2022-11-27] MEDS: DOCUSATE SODIUM 100 MG (COLACE) CAP PO SCH (08:46)
[2022-11-27] MEDS: polyethylene glycoL POWDER 17 GM (MIRALAX) PACK PO SCH (08:46)
[2022-11-27] MEDS: meTOprolol TARTRATE 25 MG (LOPRESSOR) TABLET PO SCH (08:49)
[2022-11-27] MEDS: guaiFENesin (MUCINEX) 600 MG TAB PO SCH (08:50)
[2022-11-27] MEDS: RIFAXIMIN 550 MG TABLET (XIFAXAN) PO SCH (08:50)
[2022-11-27] MEDS: MAGNESIUM OXIDE (MAG-OX)400 MG TAB PO SCH (08:50)
--- NOTE | 2022-11-27 08:50 | Diagnostic Imaging Report ---
EXAMINATION: Chest 1 view HISTORY: Short of breath COMPARISON: 11/26/2022 FINDINGS: Lung volumes are small. There are moderate lower zone airspace opacities. No pneumothorax. There are small pleural effusions. Heart size is normal. IMPRESSION: 1. Small volumes with moderate lower zone airspace opacities and small pleural effusions which likely represent pneumonia. Dictated by: Dictated on workstation # [id number]
[2022-11-27] MEDS ORDERED: dilTIAZem120 MG (CARDIZEM CD) CAP PO SCH (09:00)
[2022-11-27] MEDS: MICONAZOLE 2% POWDER (DESENEX AF) 90 GM TOP SCH (09:36)
[2022-11-27] MEDS ORDERED: ONDANSETRON 4 MG/2 ML (SDV) Z0FRAN IVP PRN (12:00)
[2022-11-27] MEDS ORDERED: ARTIFICAL TEARS 0.4 ML UNIT DOSE (REFRESH PLUS) OU PRN (12:00)
[2022-11-27] MEDS ORDERED: LORazepam 1 MG (ATIVAN) TAB SL PRN (12:00)
[2022-11-27] MEDS ORDERED: SALIVA SUBSTITUTE 60 ML SPRAY(MOUTHKOTE) MM PRN (12:00)
[2022-11-27] MEDS ORDERED: RT-ALBUTEROL/IPRATROPIUM 3 ML (DUONEB) VIAL INH PRN (12:00)
[2022-11-27] MEDS ORDERED: morphine INJ 4 MG/ML 1 ML (VIAL/SYRINGE) IV PRN (12:00)
[2022-11-27] MEDS ORDERED: BISACODYL 10 MG SUPP (DULCOLAX) PR PRN (12:00)
[2022-11-27] MEDS ORDERED: GLYCOPYRROLATE 0.2 MG/ML (ROBINUL) 2 ML VIAL IV PRN (12:00)
[2022-11-27] MEDS ORDERED: LORazepam INJ 2 MG/ML (ATIVAN) VIAL IVP PRN (12:00)
[2022-11-27] MEDS ORDERED: PROMETHAZINE INJ 25 MG/ML (PHENERGAN) AMP IVP PRN (12:00)
[2022-11-27] MEDS ORDERED: ACETAMINOPHEN 650 MG SUPP (TYLENOL) PR PRN (12:00)
--- NOTE | 2022-11-27 14:40 | Progress Note - Cardiology ---
Cardiology SOAP Progress Note Subjective: Pt had been placed on comfort care only by Dr Higgins. I did not see the patient Objective: I&O/Vital Signs 11/27/22 11/27/22 11/27/22 11/27/22 05:00 06:00 07:00 07:00 Pulse 98 98 125 126 Resp 15 15 14 B/P (MAP) 115/89 (98) 93/81 (85) 89/75 (80) Pulse Ox 89 89 88 O2 Delivery OxyMask OxyMask OxyMask O2 Flow Rate 6.00 6.00 6.00 11/27/22 11/27/22 11/27/22 11/27/22 07:20 08:00 08:53 09:00 Pulse 104 115 Resp 14 11 B/P (MAP) 63/47 (54) 78/54 (65) Pulse Ox 92 92 93 92 O2 Delivery OxyMask OxyMask OxyMask OxyMask O2 Flow Rate 15.00 15.00 15.00 15.00 11/27/22 11/27/22 10:00 12:00 Pulse 142 Resp 14 B/P (MAP) 89/61 (68) Pulse Ox 93 91 O2 Delivery OxyMask OxyMask O2 Flow Rate 15.00 15.00 11/27/22 00:00 Intake Total 660 ml Output Total 325 ml Balance 335 ml Neurologic/Psychiatric: oriented x 3 Results/Procedures: Labs Laboratory Tests 11/26/22 21:32: Glucometer 93 11/27/22 04:54: White Blood Count 17.1H, Red Blood Count 3.67L, Hemoglobin 9.8L, Hematocrit 30L, Mean Corpuscular Volume 82, Mean Corpuscular Hemoglobin 27, Mean Corpuscular Hemoglobin Concent 33, Red Cell Distribution Width 23.7H, Platelet Count 159, Mean Platelet Volume 10.6, Immature Granulocyte % (Auto) 4, Neutrophils (%) (Auto) 63, Lymphocytes (%) (Auto) 12, Monocytes (%) (Auto) 20H, Eosinophils (%) (Auto) 0, Basophils (%) (Auto) 1, Neutrophils # (Auto) 10.8H, Lymphocytes # (Auto) 2.0, Monocytes # (Auto) 3.5H, Eosinophils # (Auto) 0.1, Basophils # (Auto) 0.1, Immature Granulocyte # (Auto) 0.7H, Prothrombin Time 23.1H, INR Comment 2.1H, Sodium Level 128L, Potassium Level 4.8, Chloride Level 98, Carbon Dioxide Level 15L, Anion Gap 15H, Blood Urea Nitrogen 70H, Creatinine 1.81H, Estimat Glomerular Filtration Rate 39, BUN/Creatinine Ratio 39, Glucose Level 69L, Calcium Level 8.0L, Corrected Calcium 9.4, Phosphorus Level 5.4H, Magnesium Level 2.1, Total Bilirubin 1.9H, Aspartate Amino Transf (AST/SGOT) 82H, Alanine Aminotransferase (ALT/SGPT) 22, Alkaline Phosphatase 103, Total Protein 4.9L, Albumin 2.2L A/P: Assessment: A-fib with RVR, PAF - first diagnosed in or around 2018 and he has since been on Xarelto, per patient report - Echo on 11-27-22: LVEF 50-55%, mild conc LVH, moderate dilation of both atria, mild MAC, mild MR and TR, PASP 40-45 mmHg, incidentally noted 3.1 x 2 cm hypoechoic liver density Gen weakness, multifactorial (see below) Mediastinal lymphadenopathy, ?lymphoma - managed by the [facility] Hyponatremia of undetermined etiology - managed by the [facility] JERAMIE on CKD 3b - managed by the [facility] Hypotension - ? sepsis: managed by the [facility] H/O recent COVID - early October 2022 Cholecystitis - management per - per Dr. Dallas's note pt does not want surgery Mildly elevated AST (ALT and GGT normal) Incidentally noted 3.1 x 2 cm hypoechoic liver density on cardiac echo of 11-27-22 - managed by [facility] Plan: Pt had been placed on comfort care only by Dr Higgins today. I did not see the patient. Clinical Quality Measures Type of Care: Type of Care: Comfort Measures CARMELO BARROSO MD FACP [facility] Nov 27, 2022 14:40
--- NOTE | 2022-11-27 16:53 | Discharge Summary ---
Diagnosis/Chief Complaint Date of Admission Nov 25, 2022 at 12:56 Date of Discharge Discharge Diagnosis Significant decline in status requiring transfer from inpatient rehab to ICU Critical illness myopathy Patient would like hospice care due to multiple comorbidities and overall poor prognosis 90 lbs weight loss over the last year poor nutritional intake Afib w RVR Cardinayla sanchez cardiology consulted, appreciate recs Remains in afib on call center agent for signs of hemodynamic instability, currently hypotensive Possible malignancy CT of chest, abdomen, pelvis showed bulky lymphadenopathy in the hilar region as well as the retroperitoneum. Concerning for lymphoma Patient does not want any aggressive treatment measures and would prefer to be comfortable on hospice Cholecystitis Elevated liver enzymes General surgery consulted, appreciate recs HIDA scan did not show gallbladder filling Abdominal u/s showed gallbladder sludge Not planning any surgical intervention at this time due to the rest of the patient's clinical condition Hyponatremia Has remained in the mid 120s for last several days Likely multifactorial including poor nutrition, JERAMIE, and malignancy HCTZ held Continue IV fluids Hypotension stable, MAP averaging around 65 Continue fluids Coagulopathy with elevated INR CODE status- DNR Discharge Summary Discharge Physical Examination Allergies: Coded Allergies: No Known Drug Allergies (Unverified , 05/03/19) Vitals & I&Os Vital Signs Date Time Temp Pulse Resp B/P (MAP) Pulse Ox O2 Delivery O2 Flow Rate FiO2 11/27/22 12:00 91 OxyMask 15.00 11/27/22 10:00 142 14 89/61 (68) 11/26/22 15:59 36.2 Hospital Course Was the Problem List Reviewed?: Yes Patient had a brief course most of them in the ICU due to A-fib with RVR and major decline in status. CT scan showed lymphoma. Patient was maintained DNR. Ultimately transitioned to comfort care and peacefully. Labs (last 24 hrs) Laboratory Tests 11/25/22 16:31: Glucometer 77 11/25/22 19:37: Glucometer 101 11/25/22 22:40: Urine Color AMBERH, Urine Clarity SL CLOUDY, Urine pH 5.5, Urine Specific Mitchell 1.015L, Urine Protein NEGATIVE, Urine Glucose (UA) NEGATIVE, Urine Ketones NEGATIVE, Urine Nitrite NEGATIVE, Urine Bilirubin NEGATIVE, Urine Ur obilinogen 0.2, Urine Leukocyte Esterase NEGATIVE, Urine RBC (Auto) NEGATIVE, Urine RBC NONE, Urine WBC NONE, Urine Squamous Epithelial Cells RARE, Urine Crystals PRESENTH, Urine Amorphous Sediment FEW WILLIE URATESH, Urine Bacteria TRACE, Urine Casts NONE, Urine Mucus SMALLH, Urine Culture Indicated NO 11/26/22 04:39: White Blood Count 15.6H, Red Blood Count 3.46L, Hemoglobin 9.4L, Hematocrit 28L, Mean Corpuscular Volume 82, Mean Corpuscular Hemoglobin 27, Mean Corpuscular Hemoglobin Concent 33, Red Cell Distribution Width 23.0H, Platelet Count 157, Mean Platelet Volume 10.8, Immature Granulocyte % (Auto) 4, Neutrophils (%) (Auto) 62, Lymphocytes (%) (Auto) 13, Monocytes (%) (Auto) 20H, Eosinophils (%) (Auto) 1, Basophils (%) (Auto) 1, Neutrophils # (Auto) 9.6H, Lymphocytes # (Auto) 2.0, Monocytes # (Auto) 3.1H, Eosinophils # (Auto) 0.2, Basophils # (Auto) 0.1, Immature Granulocyte # (Auto) 0.6H, Sodium Level 125*L, Potassium Level 5.0, Chloride Level 96L, Carbon Dioxide Level 17L, Anion Gap 12, Blood Urea Nitrogen 71H, Creatinine 1.69H, Estimat Glomerular Filtration Rate 42, BUN/Creatinine Ratio 42, Glucose Level 73, Calcium Level 8.0L, Corrected Calcium 9.4, Phosphorus Level 5.3H, Magnesium Level 2.1, Total Bilirubin 2.1H, Aspartate Amino Transf (AST/SGOT) 80H, Alanine Aminotransferase (ALT/SGPT) 22, Alkaline Phosphatase 100, Total Protein 4.7L, Albumin 2.2L 11/26/22 05:36: Glucometer 82 11/26/22 05:52: Prothrombin Time 24.8H, INR Comment 2.3H 11/26/22 15:50: Glucometer 92 11/26/22 21:32: Glucometer 93 11/27/22 04:54: White Blood Count 17.1H, Red Blood Count 3.67L, Hemoglobin 9.8L, Hematocrit 30L, Mean Corpuscular Volume 82, Mean Corpuscular Hemoglobin 27, Mean Corpuscular Hemoglobin Concent 33, Red Cell Distribution Width 23.7H, Platelet Count 159, Mean Platelet Volume 10.6, Immature Granulocyte % (Auto) 4, Neutrophils (%) (Auto) 63, Lymphocytes (%) (Auto) 12, Monocytes (%) (Auto) 20H, Eosinophils (%) (Auto) 0, Basophils (%) (Auto) 1, Neutrophils # (Auto) 10.8H, Lymphocytes # (Auto) 2.0, Monocytes # (Auto) 3.5H, Eosinophils # (Auto) 0.1, Basophils # (Auto) 0.1, Immature Granulocyte # (Auto) 0.7H, Prothrombin Time 23.1H, INR Comment 2.1H, Sodium Level 128L, Potassium Level 4.8, Chloride Level 98, Carbon Dioxide Level 15L, Anion Gap 15H, Blood Urea Nitrogen 70H, Creatinine 1.81H, Estimat Glomerular Filtration Rate 39, BUN/Creatinine Ratio 39, Glucose Level 69L, Calcium Level 8.0L, Corrected Calcium 9.4, Phosphorus Level 5.4H, Magnesium Level 2.1, Total Bilirubin 1.9H, Aspartate Amino Transf (AST/SGOT) 82H, Alanine Aminotransferase (ALT/SGPT) 22, Alkaline Phosphatase 103, Total Protein 4.9L, Albumin 2.2L Pending Labs Laboratory Tests 11/25/22 16:31: Glucometer 77 11/25/22 19:37: Glucometer 101 11/25/22 22:40: Urine Color GABE, Urine Clarity SL CLOUDY, Urine pH 5.5, Urine Specific Mitchell 1.015, Urine Protein NEGATIVE, Urine Glucose (UA) NEGATIVE, Urine Ketones NEGATIVE, Urine Nitrite NEGATIVE, Urine Bilirubin NEGATIVE, Urine Urobilinogen 0.2, Urine Leukocyte Esterase NEGATIVE, Urine RBC (Auto) NEGATIVE, Urine RBC NONE, Urine WBC NONE, Urine Squamous Epithelial Cells RARE, Urine Crystals PRESENT, Urine Amorphous Sediment FEW WILLIE URATES, Urine Bacteria TRACE, Urine Casts NONE, Urine Mucus SMALL, Urine Culture Indicated NO 11/26/22 04:39: White Blood Count 15.6, Red Blood Count 3.46, Hemoglobin 9.4, Hematocrit 28, Mean Corpuscular Volume 82, Mean Corpuscular Hemoglobin 27, Mean Corpuscular Hemoglobin Concent 33, Red Cell Distribution Width 23.0, Platelet Count 157, Mean Platelet Volume 10.8, Immature Granulocyte % (Auto) 4, Neutrophils (%) (Auto) 62, Lymphocytes (%) (Auto) 13, Monocytes (%) (Auto) 20, Eosinophils (%) (Auto) 1, Basophils (%) (Auto) 1, Neutrophils # (Auto) 9.6, Lymphocytes # (Auto) 2.0, Monocytes # (Auto) 3.1, Eosinophils # (Auto) 0.2, Basophils # (Auto) 0.1, Immature Granulocyte # (Auto) 0.6, Sodium Level 125, Potassium Level 5.0, Chloride Level 96, Carbon Dioxide Level 17, Anion Gap 12, Blood Urea Nitrogen 71, Creatinine 1.69, Estimat Glomerular Filtration Rate 42, BUN/Creatinine Ratio 42, Glucose Level 73, Calcium Level 8.0, Corrected Calcium 9.4, Phosphorus Level 5.3, Magnesium Level 2.1, Total Bilirubin 2.1, Aspartate Amino Transf (AST/SGOT) 80, Alanine Aminotransferase (ALT/SGPT) 22, Alkaline Phosphatase 100, Total Protein 4.7, Albumin 2.2 11/26/22 05:36: Glucometer 82 11/26/22 05:52: Prothrombin Time 24.8, INR Comment 2.3 11/26/22 15:50: Glucometer 92 11/26/22 21:32: Glucometer 93 11/27/22 04:54: White Blood Count 17.1, Red Blood Count 3.67, Hemoglobin 9.8, Hematocrit 30, Mean Corpuscular Volume 82, Mean Corpuscular Hemoglobin 27, Mean Corpuscular Hemoglobin Concent 33, Red Cell Distribution Width 23.7, Platelet Count 159, Mean Platelet Volume 10.6, Immature Granulocyte % (Auto) 4, Neutrophils (%) (Auto) 63, Lymphocytes (%) (Auto) 12, Monocytes (%) (Auto) 20, Eosinophils (%) (Auto) 0, Basophils (%) (Auto) 1, Neutrophils # (Auto) 10.8, Lymphocytes # (Auto) 2.0, Monocytes # (Auto) 3.5, Eosinophils # (Auto) 0.1, Basophils # (Auto) 0.1, Immature Granulocyte # (Auto) 0.7, Prothrombin Time 23.1, INR Comment 2.1, Sodium Level 128, Potassium Level 4.8, Chloride Level 98, Carbon Dioxide Level 15, Anion Gap 15, Blood Urea Nitrogen 70, Creatinine 1.81, Estimat Glomerular Filtration Rate 39, BUN/Creatinine Ratio 39, Glucose Level 69, Calcium Level 8.0, Corrected Calcium 9.4, Phosphorus Level 5.4, Magnesium Level 2.1, Total Bilirubin 1.9, Aspartate Amino Transf (AST/SGOT) 82, Alanine Aminotransferase (ALT/SGPT) 22, Alkaline Phosphatase 103, Total Protein 4.9, Albumin 2.2 Discharge Home Medications: Active Scripts Active Reported Multivitamin 1 Each Tablet 1 Each PO DAILY Tylenol Extra Strength (Acetaminophen) 500 Mg Tablet 500 Mg PO BID Move Free Plus MSM Tablet (Gluc/Chond/MSM/Hyal/Derek Borate) 500-66.7MG Tablet 1 Each PO BID [Naysa Cbd] 1 Ea PO BID Atorvastatin Calcium 20 Mg Tablet 20 Mg PO DAILY Diltiazem ER (Diltiazem HCl) 180 Mg Cap.er.deg 180 Mg PO 1900 Metoprolol Succinate 100 Mg Tab.er.24h 100 Mg PO 1900 Hydrochlorothiazide 50 Mg Tablet 50 Mg PO 1900 Metformin HCl 500 Mg Tablet 1,000 Mg PO 1900 TAKES 2 (500MG) TABS Allopurinol 300 Mg Tablet 600 Mg PO 1900 TAKES 2 (300MG) TABS Omeprazole 20 Mg Capsule.dr 20 Mg PO DAILY Xarelto (Rivaroxaban) 20 Mg Tablet 20 Mg PO 1900 Instructions to patient/family Please see electronic discharge instructions given to patient. Clinical Quality Measures DVT/VTE Risk/Contraindication: Contraindications-Pharm: Other *list below* Other: surgery KARON RODRIGUEZ DO Nov 27, 2022 16:53
== END 2022-11-27 19:24 | disposition expired | DRG 308 ==
LOC: 4TH 12:56 → ICU 21:05 → 4TH 11-27 14:58
PROVIDERS: ADMIT Internal Medicine; ATTEND Internal Medicine
PROC: 5A0935A Assistance with Respiratory Ventilation, Less than 24 Consecutive Hours, High Flow/Velocity Cannula (ICD-10-PCS; principal; 2022-11-25)
DX: I48.0 Paroxysmal atrial fibrillation (principal); J96.01 Acute respiratory failure with hypoxia; K72.00 Acute and subacute hepatic failure without coma; C85.90 Non-Hodgkin lymphoma, unspecified, unspecified site; G72.81 Critical illness myopathy; N17.9 Acute kidney failure, unspecified; D68.9 Coagulation defect, unspecified; E87.1 Hypo-osmolality and hyponatremia; K81.0 Acute cholecystitis; Z66 Do not resuscitate; Z51.5 Encounter for palliative care; I95.89 Other hypotension; R63.4 Abnormal weight loss; K75.81 Nonalcoholic steatohepatitis (NASH); K74.60 Unspecified cirrhosis of liver; E78.00 Pure hypercholesterolemia, unspecified; K21.9 Gastro-esophageal reflux disease without esophagitis; M10.9 Gout, unspecified; E11.40 Type 2 diabetes mellitus with diabetic neuropathy, unspecified; Z86.16 Personal history of COVID-19; N18.32 Chronic kidney disease, stage 3b; I12.9 Hypertensive chronic kidney disease with stage 1 through stage 4 chronic kidney disease, or unspecified chronic kidney disease; E11.22 Type 2 diabetes mellitus with diabetic chronic kidney disease; Z68.39 Body mass index [BMI] 39.0-39.9, adult
CPT/HCPCS: 36415; 71045; 80053; 81000; 82947; 83735; 84100; 85025; 85610; 93005; 93306; 94640